=== PATIENT | male | born 1985 | race American Indian/Alaskan Native ===

== ENCOUNTER 2016-10-03 13:42 | Inpatient (IN) | payer MEDICAID ==
[2016-10-03 14:30] LABS: Basophils % (Auto) 0.3 % (0.0-1.8); Eosinophils % (Auto) 0.2 % (0.0-4.3); Hematocrit 47.9 % (35.5-45.6); Hemoglobin 15.5 gm/dl (11.8-15.2); Mean Corpuscular HGB Conc 32 % (32-34); Mean Corpuscular Hemoglobin 30 pg (28-32); Mean Corpuscular Volume 94 fl (84-94); Platelet Count 365 K/mm3 (140-440); Red Blood Count 5.12 M/mm3 (3.65-5.03); Red Cell Distribution Width 13.5 % (13.2-15.2); White Blood Count 10.5 K/mm3 (4.5-11.0)
[2016-10-03] MEDS ORDERED: MORPHINE IV ONE (14:31)
[2016-10-03] MEDS ORDERED: PEPCID IV ONE (14:31)
[2016-10-03] MEDS ORDERED: NACL 0.9% 1000 ML 1,000 ML IV ONE ×2 (14:31→14:32)
[2016-10-03] MEDS ORDERED: TORADOL IV ONE (14:31)
[2016-10-03] MEDS ORDERED: D50W (25GM) IV PRN (14:32)
[2016-10-03 14:50] LABS: Magnesium 2.7 mg/dL (1.7-2.3); Phosphorous 9.1 mg/dL (2.5-4.5)
[2016-10-03 14:52] LABS: Alanine Aminotransferase 45 units/L (7-56); Albumin 4.6 g/dL (3.9-5); Albumin/Globulin Ratio 1.4 %; Alkaline Phosphatase 89 units/L (35-129); Bilirubin,Total 0.3 mg/dL (0.1-1.2); Lipase 13 units/L (13-60)
[2016-10-03 14:54] LABS: Bilirubin,Direct < 0.2 mg/dL (0-0.2); Blood Urea Nitrogen 24 mg/dL (9-20); Calcium 11.3 mg/dL (8.4-10.2); Chloride 83.4 mmol/L (98-107); Sodium 139 mmol/L (137-145)
[2016-10-03 14:56] LABS: Carbon Dioxide 8 mmol/L (22-30)
[2016-10-03 14:57] LABS: Anion Gap 54 mmol/L; Glucose 678 mg/dL (75-100); Potassium 6.3 mmol/L (3.6-5.0)
[2016-10-03] MEDS ORDERED: NovoLIN R 100 UNITS in NACL 0.9% 99 ML IV SCH (15:00)
--- NOTE | 2016-10-03 15:00 | Emergency Department Report ---
ED Abdominal Pain HPI - General Chief Complaint: Hyperglycemia Stated Complaint: HYPERGLYCEMIA Time Seen by Provider: 10/03/16 14:09 Source: EMS Mode of arrival: Stretcher Limitations: No Limitations - History of Present Illness Initial Comments: PLEASE DELETE CHART. ALTERNATIVE CHART CREATED DUE TO [place] ISSUE Severity scale (0 -10): 5 - Related Data Home Medications Medication Instructions Recorded Confirmed Last Taken Insulin NPH/Regular [NovoLIN 70/30] 25 unit SQ ACHS 03/24/16 10/03/16 Unknown Previous Rx's Medication Instructions Recorded Last Taken Type Divalproex Dr [Depakote Dr] 500 mg PO QHS #30 tablet 04/27/15 Unknown Rx Divalproex Sodium [Depakote] 250 mg PO QAM #30 tablet. 04/27/15 Unknown Rx Esomeprazole Magnesium [NexIUM] 40 mg PO QDAY #30 capsule. 04/27/15 Unknown Rx Syringe & Needle,Insulin,1 ml 1 each MC TID 30 Days 06/07/15 Unknown Rx [Comfort Ez] Gabapentin [Neurontin] 600 mg PO Q8H #90 tablet 07/05/15 Unknown Rx oxyCODONE /ACETAMINOPHEN [Percocet 1 tab PO Q6HR PRN #15 tablet 03/12/16 Unknown Rx 5/325] Insulin NPH/Regular [Novolin 70/30] 25 unit SUB-Q BID #1 vial 03/26/16 Unknown Rx Allergies Allergy/AdvReac Type Severity Reaction Status Date / Time banana Allergy Severe Angioedema Verified 09/07/14 04:24 egg Allergy Unknown Verified 09/07/14 04:24 ED Review of Systems ROS: Stated complaint: HYPERGLYCEMIA Other details as noted in HPI ED Past Medical Hx - Past Medical History Hx Hypertension: No Hx CVA: No Hx Heart Attack/AMI: No Hx Congestive Heart Failure: No Hx Diabetes: Yes (14years ago) Hx Deep Vein Thrombosis: No Hx Pulmonary Embolism: No Hx GERD: Yes Hx Liver Disease: No Hx Renal Disease: No Hx Sickle Cell Disease: No Hx Arthritis: No Hx Headaches / Migraines: No Hx Seizures: Yes Hx Kidney Stones: No Hx Psychiatric Treatment: Yes (bipolar ;schizophrenia) Hx Asthma: No Hx COPD: No Hx Tuberculosis: No Hx Dementia: No Hx HIV: No - Surgical History Hx Coronary Stent: No Hx Open Heart Surgery: No Hx Pacemaker: No Hx Internal Defibrillator: No Hx Cholecystectomy: No Hx Appendectomy: No Hx Breast Surgery: No Additional Surgical History: r) wrist surgery - Social History Smoking Status: Current Every Day Smoker - Medications Home Medications: Home Medications Medication Instructions Recorded Confirmed Last Taken Type Divalproex [Depakote ] 500 mg PO QHS #30 tablet 04/27/15 10/03/16 Unknown Rx Divalproex Sodium [Depakote] 250 mg PO QAM #30 tablet. 04/27/15 10/03/16 Unknown Rx Esomeprazole Magnesium [NexIUM] 40 mg PO QDAY #30 capsule. 04/27/15 10/03/16 Unknown Rx Syringe & Needle,Insulin,1 ml 1 each MC TID 30 Days 06/07/15 10/03/16 Unknown Rx [Comfort Ez] Gabapentin [Neurontin] 600 mg PO Q8H #90 tablet 07/05/15 10/03/16 Unknown Rx oxyCODONE /ACETAMINOPHEN [Percocet 1 tab PO Q6HR PRN #15 tablet 03/12/16 Unknown Rx 5/325] Insulin NPH/Regular [NovoLIN 70/30] 25 unit SQ ACHS 03/24/16 10/03/16 Unknown History Insulin NPH/Regular [Novolin 70/30] 25 unit SUB-Q BID #1 vial 03/26/16 10/03/16 Unknown Rx ED Physical Exam - General Limitations: No Limitations ED Course Vital Signs 10/03/16 10/03/16 10/03/16 14:10 14:20 14:31 Temperature 98.9 F Pulse Rate 102 H 128 H Respiratory 14 29 H Rate Blood Pressure 118/86 118/86 Blood Pressure 124/67 [Right] O2 Sat by Pulse 98 100 Oximetry 10/03/16 10/03/16 10/03/16 14:41 14:42 15:01 Temperature Pulse Rate 111 H Respiratory 14 14 20 Rate Blood Pressure 118/86 Blood Pressure [Right] O2 Sat by Pulse Oximetry 10/03/16 10/03/16 15:02 15:30 Temperature Pulse Rate 110 H Respiratory 24 22 Rate Blood Pressure 114/77 Blood Pressure [Right] O2 Sat by Pulse 100 Oximetry ED Medical Decision Making - Lab Data Result diagrams: 10/03/16 14:05 10/04/16 07:01 Critical care attestation.: If time is entered above; I have spent that time in minutes in the direct care of this critically ill patient, excluding procedure time. ED Disposition Clinical Impression: Noncompliance, Hyperkalemia, Abdominal pain, Vomiting, Acute renal insufficiency, Hyperkalemia, transcellular shifts DKA (diabetic ketoacidoses) Qualifiers: Diabetes mellitus type: type 1 Bipolar disorder Qualifiers: Active/Remission status: in full remission Most recent bipolar episode type: mixed Qualified Code(s): F31.78 - Bipolar disorder, in full remission, most recent episode mixed Disposition: OP ADMITTED IP TO THIS HOSP Is pt being admited?: Yes Condition: Stable
[2016-10-03 15:15] LABS: B-Hydroxybutyrate 161.7 mg/dL (0.2-2.8)
[2016-10-03] MEDS ORDERED: NACL 0.9% 1000 ML 1,000 ML ONE (17:07)
[2016-10-03 17:11] LABS: Bacteria,Urine 1+ /HPF (Negative); Bilirubin,Urine NEG (Negative); Blood,Urine NEG (Negative); Ketones,Urine 80 mg/dL (Negative); Leukocyte Esterase,Urine NEG (Negative); Mucus,Urine FEW /HPF; Nitrite,Urine NEG (Negative); Protein,Urine <15 mg/dL mg/dL (Negative); Urobilinogen,Urine < 2.0 mg/dL (<2.0); WBC,Urine < 1.0 /HPF (0.0-6.0)
[2016-10-03 18:44] LABS: Anion Gap 39 mmol/L; BUN/Creatinine Ratio 14.66; Blood Urea Nitrogen 22 mg/dL (9-20); Calcium 10.1 mg/dL (8.4-10.2); Carbon Dioxide 14 mmol/L (22-30); Chloride 100.8 mmol/L (98-107); Glucose 213 mg/dL (75-100); Potassium 4.4 mmol/L (3.6-5.0); Sodium 149 mmol/L (137-145)
--- NOTE | 2016-10-03 19:36 | Emergency Department Report ---
ED Abdominal Pain HPI - General Chief Complaint: Hyperglycemia Stated Complaint: HYPERGLYCEMIA Time Seen by Provider: 10/03/16 14:09 Source: EMS Mode of arrival: Stretcher Limitations: No Limitations - History of Present Illness Initial Comments: 30-year-old male with a past medical history of insulin dependent diabetes presents to the hospital complaining of nausea, vomiting, and abdominal pain. Patient has been noncompliant with his insulin for 2-3 days since running out. Yesterday he developed vomiting with by mouth intolerance and generalized abdominal pain. Pain is moderate in intensity, constant, worse with palpation. No complaints of fever. History of DKA in the past Severity scale (0 -10): 6 - Related Data Home Medications Medication Instructions Recorded Confirmed Last Taken Insulin NPH/Regular [NovoLIN 70/30] 25 unit SQ ACHS 03/24/16 10/03/16 Unknown Previous Rx's Medication Instructions Recorded Last Taken Type Divalproex Dr [Depakote Dr] 500 mg PO QHS #30 tablet 04/27/15 Unknown Rx Divalproex Sodium [Depakote] 250 mg PO QAM #30 tablet. 04/27/15 Unknown Rx Esomeprazole Magnesium [NexIUM] 40 mg PO QDAY #30 capsule. 04/27/15 Unknown Rx Syringe & Needle,Insulin,1 ml 1 each MC TID 30 Days 06/07/15 Unknown Rx [Comfort Ez] Gabapentin [Neurontin] 600 mg PO Q8H #90 tablet 07/05/15 Unknown Rx oxyCODONE /ACETAMINOPHEN [Percocet 1 tab PO Q6HR PRN #15 tablet 03/12/16 Unknown Rx 5/325] Insulin NPH/Regular [Novolin 70/30] 25 unit SUB-Q BID #1 vial 03/26/16 Unknown Rx Allergies Allergy/AdvReac Type Severity Reaction Status Date / Time banana Allergy Severe Angioedema Verified 09/07/14 04:24 egg Allergy Unknown Verified 09/07/14 04:24 ED Review of Systems ROS: Stated complaint: HYPERGLYCEMIA Other details as noted in HPI Comment: All other systems reviewed and negative Other: Constitutional: No fevers chills Eyes: No eye pain visual changes or discharge ENT: No ear pain or throat pain Neck: Denies pain Respiratory: Denies cough wheezing shortness of breath Cardiovascular: Denies chest pain, palpitations, syncope GI: As per HPI : Denies dysuria Musculoskeletal: Denies back pain Skin: Denies rash, lesions, erythema Neurologic: Denies headache, numbness, weakness Psychiatric: Denies suicidal ideation, hallucinations ED Past Medical Hx - Past Medical History Hx Hypertension: No Hx CVA: No Hx Heart Attack/AMI: No Hx Congestive Heart Failure: No Hx Diabetes: Yes Hx Deep Vein Thrombosis: No Hx Pulmonary Embolism: No Hx GERD: Yes Hx Liver Disease: No Hx Renal Disease: No Hx Sickle Cell Disease: No Hx Arthritis: No Hx Headaches / Migraines: No Hx Seizures: Yes Hx Kidney Stones: No Hx Psychiatric Treatment: Yes (bipolar ;schizophrenia) Hx Asthma: Yes Hx COPD: No Hx Tuberculosis: No Hx Dementia: No Hx HIV: No - Surgical History Hx Coronary Stent: No Hx Open Heart Surgery: No Hx Pacemaker: No Hx Internal Defibrillator: No Hx Cholecystectomy: No Hx Appendectomy: No Hx Breast Surgery: No Additional Surgical History: r) wrist surgery - Social History Smoking Status: Current Every Day Smoker - Medications Home Medications: Home Medications Medication Instructions Recorded Confirmed Last Taken Type Divalproex [Depakosoo Crocker] 500 mg PO QHS #30 tablet 04/27/15 10/03/16 Unknown Rx Divalproex Sodium [Depakote] 250 mg PO QAM #30 tablet. 04/27/15 10/03/16 Unknown Rx Esomeprazole Magnesium [NexIUM] 40 mg PO QDAY #30 capsule. 04/27/15 10/03/16 Unknown Rx Syringe & Needle,Insulin,1 ml 1 each MC TID 30 Days 06/07/15 10/03/16 Unknown Rx [Comfort Ez] Gabapentin [Neurontin] 600 mg PO Q8H #90 tablet 07/05/15 10/03/16 Unknown Rx oxyCODONE /ACETAMINOPHEN [Percocet 1 tab PO Q6HR PRN #15 tablet 03/12/16 Unknown Rx 5/325] Insulin NPH/Regular [NovoLIN 70/30] 25 unit SQ ACHS 03/24/16 10/03/16 Unknown History Insulin NPH/Regular [Novolin 70/30] 25 unit SUB-Q BID #1 vial 03/26/16 10/03/16 Unknown Rx ED Physical Exam - General Limitations: No Limitations - Other Other exam information: General: No limitations, patient is alert in no acute distress Head exam: Atraumatic, normocephalic Eyes exam: Normal appearance, pupils equal reactive to light, extraocular movements intact ENT: mucous membranes Neck exam: Normal inspection, full range of motion, no meningismus nontender Respiratory exam: Clear to auscultation bilateral, no wheezes, rales, crackles Cardiovascular: Mild tachycardia Abdomen: Soft, nondistended, generalized abdominal tenderness, with normal bowel sounds, no rebound, or guarding Extremity: Full range of motion normal inspection no deformity Back: Normal Inspection, full range of motion, no tenderness Neurologic: Alert, oriented x3, cranial nerves intact, no motor or sensory deficit Psychiatric: normal affect, normal mood Skin: Warm, dry, intact ED Course Vital Signs 10/03/16 10/03/16 10/03/16 14:10 14:20 14:31 Temperature 98.9 F Pulse Rate 102 H 128 H Respiratory 14 29 H Rate Blood Pressure 118/86 118/86 Blood Pressure 124/67 [Right] O2 Sat by Pulse 98 100 Oximetry 10/03/16 10/03/16 10/03/16 14:41 14:42 15:01 Temperature Pulse Rate 111 H Respiratory 14 14 20 Rate Blood Pressure 118/86 Blood Pressure [Right] O2 Sat by Pulse Oximetry 10/03/16 10/03/16 10/03/16 15:02 15:30 16:00 Temperature Pulse Rate 110 H 109 H Respiratory 24 22 23 Rate Blood Pressure 114/77 116/79 Blood Pressure [Right] O2 Sat by Pulse 100 100 Oximetry 10/03/16 10/03/16 16:31 18:00 Temperature 97.6 F Pulse Rate 118 H Respiratory 19 Rate Blood Pressure 115/84 Blood Pressure [Right] O2 Sat by Pulse 100 Oximetry ED Medical Decision Making - Lab Data Result diagrams: 10/03/16 14:05 10/03/16 18:05 Lab Results 10/03/16 10/03/16 10/03/16 Range/Units 14:05 14:05 14:05 WBC 10.5 (4.5-11.0) K/mm3 RBC 5.12 H (3.65-5.03) M/mm3 Hgb 15.5 H (11.8-15.2) gm/dl Hct 47.9 H (35.5-45.6) % MCV 94 (84-94) fl MCH 30 (28-32) pg MCHC 32 (32-34) % RDW 13.5 (13.2-15.2) % Plt Count 365 (140-440) K/mm3 Lymph % (Auto) 10.4 L (13.4-35.0) % Daniels % (Auto) 3.9 (0.0-7.3) % Eos % (Auto) 0.2 (0.0-4.3) % Baso % (Auto) 0.3 (0.0-1.8) % Lymph # 1.1 L (1.2-5.4) K/mm3 Daniels # 0.4 (0.0-0.8) K/mm3 Eos # 0.0 (0.0-0.4) K/mm3 Baso # 0.0 (0.0-0.1) K/mm3 Seg Neutrophils % 85.2 H (40.0-70.0) % Seg Neutrophils # 8.9 H (1.8-7.7) K/mm3 VBG pH 7.268 L (7.320-7.420) Sodium 139 (137-145) mmol/L Potassium 6.3 H* (3.6-5.0) mmol/L Chloride 83.4 L (98-107) mmol/L Carbon Dioxide 8 L* (22-30) mmol/L Anion Gap 54 mmol/L BUN 24 H (9-20) mg/dL Creatinine 1.6 H (0.8-1.5) mg/dL Estimated GFR > 60 ml/min BUN/Creatinine Ratio 15.00 % Glucose 678 H* (75-100) mg/dL POC Glucose (70-105) Calcium 11.3 H (8.4-10.2) mg/dL Phosphorus (2.5-4.5) mg/dL Magnesium (1.7-2.3) mg/dL Total Bilirubin (0.1-1.2) mg/dL Direct Bilirubin (0-0.2) mg/dL AST (5-40) units/L ALT (7-56) units/L Alkaline Phosphatase (35-129) units/L Total Protein (6.3-8.2) g/dL Albumin (3.9-5) g/dL Albumin/Globulin Ratio % Lipase (13-60) units/L Urine Color (Yellow) Urine Turbidity (Clear) Urine pH (5.0-7.0) Ur Specific [place] (1.003-1.030) Urine Protein (Negative) mg/dL Urine Glucose (UA) (Negative) mg/dL Urine Ketones (Negative) mg/dL Urine Blood (Negative) Urine Nitrite (Negative) Urine Bilirubin (Negative) Urine Urobilinogen (<2.0) mg/dL Ur Leukocyte Esterase (Negative) Urine WBC (Auto) (0.0-6.0) /HPF Urine RBC (Auto) (0.0-6.0) /HPF Urine Bacteria (Auto) (Negative) /HPF Urine Mucus /HPF Ketones 161.7 H (0.2-2.8) mg/dL 10/03/16 10/03/16 10/03/16 Range/Units 14:05 14:05 16:50 WBC (4.5-11.0) K/mm3 RBC (3.65-5.03) M/mm3 Hgb (11.8-15.2) gm/dl Hct (35.5-45.6) % MCV (84-94) fl MCH (28-32) pg MCHC (32-34) % RDW (13.2-15.2) % Plt Count (140-440) K/mm3 Lymph % (Auto) (13.4-35.0) % Daniels % (Auto) (0.0-7.3) % Eos % (Auto) (0.0-4.3) % Baso % (Auto) (0.0-1.8) % Lymph # (1.2-5.4) K/mm3 Daniels # (0.0-0.8) K/mm3 Eos # (0.0-0.4) K/mm3 Baso # (0.0-0.1) K/mm3 Seg Neutrophils % (40.0-70.0) % Seg Neutrophils # (1.8-7.7) K/mm3 VBG pH (7.320-7.420) Sodium (137-145) mmol/L Potassium (3.6-5.0) mmol/L Chloride (98-107) mmol/L Carbon Dioxide (22-30) mmol/L Anion Gap mmol/L BUN (9-20) mg/dL Creatinine (0.8-1.5) mg/dL Estimated GFR ml/min BUN/Creatinine Ratio % Glucose (75-100) mg/dL POC Glucose 356 H (70-105) Calcium (8.4-10.2) mg/dL Phosphorus 9.1 H (2.5-4.5) mg/dL Magnesium 2.7 H (1.7-2.3) mg/dL Total Bilirubin 0.3 (0.1-1.2) mg/dL Direct Bilirubin < 0.2 (0-0.2) mg/dL AST 32 (5-40) units/L ALT 45 (7-56) units/L Alkaline Phosphatase 89 (35-129) units/L Total Protein 8.0 (6.3-8.2) g/dL Albumin 4.6 (3.9-5) g/dL Albumin/Globulin Ratio 1.4 % Lipase 13 (13-60) units/L Urine Color (Yellow) Urine Turbidity (Clear) Urine pH (5.0-7.0) Ur Specific [place] (1.003-1.030) Urine Protein (Negative) mg/dL Urine Glucose (UA) (Negative) mg/dL Urine Ketones (Negative) mg/dL Urine Blood (Negative) Urine Nitrite (Negative) Urine Bilirubin (Negative) Urine Urobilinogen (<2.0) mg/dL Ur Leukocyte Esterase (Negative) Urine WBC (Auto) (0.0-6.0) /HPF Urine RBC (Auto) (0.0-6.0) /HPF Urine Bacteria (Auto) (Negative) /HPF Urine Mucus /HPF Ketones (0.2-2.8) mg/dL 10/03/16 10/03/16 10/03/16 Range/Units 16:53 18:03 18:05 WBC (4.5-11.0) K/mm3 RBC (3.65-5.03) M/mm3 Hgb (11.8-15.2) gm/dl Hct (35.5-45.6) % MCV (84-94) fl MCH (28-32) pg MCHC (32-34) % RDW (13.2-15.2) % Plt Count (140-440) K/mm3 Lymph % (Auto) (13.4-35.0) % Daniels % (Auto) (0.0-7.3) % Eos % (Auto) (0.0-4.3) % Baso % (Auto) (0.0-1.8) % Lymph # (1.2-5.4) K/mm3 Daniels # (0.0-0.8) K/mm3 Eos # (0.0-0.4) K/mm3 Baso # (0.0-0.1) K/mm3 Seg Neutrophils % (40.0-70.0) % Seg Neutrophils # (1.8-7.7) K/mm3 VBG pH (7.320-7.420) Sodium 149 H D (137-145) mmol/L Potassium 4.4 D (3.6-5.0) mmol/L Chloride 100.8 (98-107) mmol/L Carbon Dioxide 14 L (22-30) mmol/L Anion Gap 39 mmol/L BUN 22 H (9-20) mg/dL Creatinine 1.5 (0.8-1.5) mg/dL Estimated GFR > 60 ml/min BUN/Creatinine Ratio 14.66 % Glucose 213 H (75-100) mg/dL POC Glucose 242 H (70-105) Calcium 10.1 (8.4-10.2) mg/dL Phosphorus (2.5-4.5) mg/dL Magnesium (1.7-2.3) mg/dL Total Bilirubin (0.1-1.2) mg/dL Direct Bilirubin (0-0.2) mg/dL AST (5-40) units/L ALT (7-56) units/L Alkaline Phosphatase (35-129) units/L Total Protein (6.3-8.2) g/dL Albumin (3.9-5) g/dL Albumin/Globulin Ratio % Lipase (13-60) units/L Urine Color Straw (Yellow) Urine Turbidity Clear (Clear) Urine pH 5.0 (5.0-7.0) Ur Specific [place] 1.022 (1.003-1.030) Urine Protein <15 mg/dl (Negative) mg/dL Urine Glucose (UA) >=500 (Negative) mg/dL Urine Ketones 80 (Negative) mg/dL Urine Blood Neg (Negative) Urine Nitrite Neg (Negative) Urine Bilirubin Neg (Negative) Urine Urobilinogen < 2.0 (<2.0) mg/dL Ur Leukocyte Esterase Neg (Negative) Urine WBC (Auto) < 1.0 (0.0-6.0) /HPF Urine RBC (Auto) 3.0 (0.0-6.0) /HPF Urine Bacteria (Auto) 1+ (Negative) /HPF Urine Mucus Few /HPF Ketones (0.2-2.8) mg/dL 10/03/16 Range/Units 19:12 WBC (4.5-11.0) K/mm3 RBC (3.65-5.03) M/mm3 Hgb (11.8-15.2) gm/dl Hct (35.5-45.6) % MCV (84-94) fl MCH (28-32) pg MCHC (32-34) % RDW (13.2-15.2) % Plt Count (140-440) K/mm3 Lymph % (Auto) (13.4-35.0) % Daniels % (Auto) (0.0-7.3) % Eos % (Auto) (0.0-4.3) % Baso % (Auto) (0.0-1.8) % Lymph # (1.2-5.4) K/mm3 Daniels # (0.0-0.8) K/mm3 Eos # (0.0-0.4) K/mm3 Baso # (0.0-0.1) K/mm3 Seg Neutrophils % (40.0-70.0) % Seg Neutrophils # (1.8-7.7) K/mm3 VBG pH (7.320-7.420) Sodium (137-145) mmol/L Potassium (3.6-5.0) mmol/L Chloride (98-107) mmol/L Carbon Dioxide (22-30) mmol/L Anion Gap mmol/L BUN (9-20) mg/dL Creatinine (0.8-1.5) mg/dL Estimated GFR ml/min BUN/Creatinine Ratio % Glucose (75-100) mg/dL POC Glucose 140 H (70-105) Calcium (8.4-10.2) mg/dL Phosphorus (2.5-4.5) mg/dL Magnesium (1.7-2.3) mg/dL Total Bilirubin (0.1-1.2) mg/dL Direct Bilirubin (0-0.2) mg/dL AST (5-40) units/L ALT (7-56) units/L Alkaline Phosphatase (35-129) units/L Total Protein (6.3-8.2) g/dL Albumin (3.9-5) g/dL Albumin/Globulin Ratio % Lipase (13-60) units/L Urine Color (Yellow) Urine Turbidity (Clear) Urine pH (5.0-7.0) Ur Specific [place] (1.003-1.030) Urine Protein (Negative) mg/dL Urine Glucose (UA) (Negative) mg/dL Urine Ketones (Negative) mg/dL Urine Blood (Negative) Urine Nitrite (Negative) Urine Bilirubin (Negative) Urine Urobilinogen (<2.0) mg/dL Ur Leukocyte Esterase (Negative) Urine WBC (Auto) (0.0-6.0) /HPF Urine RBC (Auto) (0.0-6.0) /HPF Urine Bacteria (Auto) (Negative) /HPF Urine Mucus /HPF Ketones (0.2-2.8) mg/dL - EKG Data -: EKG Interpreted by Me (sinus tach, no stemi, no peak t) - Medical Decision Making Patient will be admitted to the hospital for further treatment of DKA with associated hyperkalemia. IV fluids, insulin bolus, and insulin drip initiated. At this time I believe that GI symptoms are related to DKA however, patient would need further reassessment of his symptoms and possible imaging if he does not improve. - Differential Diagnosis dka, pancreatitis, hepatitis, appendicitis Critical Care Time: No Critical care attestation.: If time is entered above; I have spent that time in minutes in the direct care of this critically ill patient, excluding procedure time. ED Disposition Clinical Impression: DKA (diabetic ketoacidoses), Hyperkalemia, transcellular shifts, Acute renal insufficiency, Vomiting, Noncompliance, Abdominal pain Disposition: OP ADMITTED IP TO THIS HOSP Is pt being admited?: Yes Condition: Stable Time of Disposition: 15:00 (Deborah)
[2016-10-03 19:49] LABS: Anion Gap 35 mmol/L; BUN/Creatinine Ratio 17.69; Blood Urea Nitrogen 23 mg/dL (9-20); Calcium 9.6 mg/dL (8.4-10.2); Carbon Dioxide 12 mmol/L (22-30); Chloride 101.7 mmol/L (98-107); Glucose 153 mg/dL (75-100); Potassium 4.7 mmol/L (3.6-5.0); Sodium 144 mmol/L (137-145)
[2016-10-03] MEDS ORDERED: NEURONTIN PO SCH (21:00)
--- NOTE | 2016-10-03 21:16 | History and Physical Report ---
History of Present Illness Date of examination: 10/03/16 Date of admission: 10/03/16 15:00 Chief complaint: N/V for 1 day Abd pain 1 day History of present illness: 30-year-old male with a past medical history of insulin dependent diabetes presents to the hospital complaining of nausea, vomiting, and abdominal pain. Patient has been noncompliant with his insulin for 2-3 days since running out. Yesterday he developed vomiting with by mouth intolerance and generalized abdominal pain. Pain is moderate in intensity, constant, worse with palpation. No complaints of fever. History of DKA in the past Severity scale (0 -10): 6 No fever or chills Past History Past Medical History: diabetes, GERD, seizures, other (Bipolar;scizophrenia) Past Surgical History: Other (R Wrist surgery) Social history: lives with family, smoking Family history: hypertension Medications and Allergies Allergies Allergy/AdvReac Type Severity Reaction Status Date / Time banana Allergy Severe Angioedema Verified 09/07/14 04:24 egg Allergy Unknown Verified 09/07/14 04:24 Home Medications Medication Instructions Recorded Confirmed Last Taken Type Divalproex [Depakote ] 500 mg PO QHS #30 tablet 04/27/15 10/03/16 Unknown Rx Divalproex Sodium [Depakote] 250 mg PO QAM #30 tablet. 04/27/15 10/03/16 Unknown Rx Esomeprazole Magnesium [NexIUM] 40 mg PO QDAY #30 capsule. 04/27/15 10/03/16 Unknown Rx Syringe & Needle,Insulin,1 ml 1 each MC TID 30 Days 06/07/15 10/03/16 Unknown Rx [Comfort Ez] Gabapentin [Neurontin] 600 mg PO Q8H #90 tablet 07/05/15 10/03/16 Unknown Rx oxyCODONE /ACETAMINOPHEN [Percocet 1 tab PO Q6HR PRN #15 tablet 03/12/16 Unknown Rx 5/325] Insulin NPH/Regular [NovoLIN 70/30] 25 unit SQ ACHS 03/24/16 10/03/16 Unknown History Insulin NPH/Regular [Novolin 70/30] 25 unit SUB-Q BID #1 vial 03/26/16 10/03/16 Unknown Rx Active Meds: Active Medications Dextrose (D50w (25gm)) 0 ml IV PRN PRN PRN Reason: Hypoglycemia Divalproex Sodium (Depakote Dr) 500 mg PO QHS ANTONIA Divalproex Sodium (Depakote Dr) 250 mg PO QAM ANTONIA Insulin Human Regular 100 (units/ Sodium Chloride) 100 mls @ 1 mls/hr IV TITR ANTONIA; 1 UNITS/HR PRN Reason: Protocol Last Titration: 10/03/16 18:38 Dose: 4 units/hr, 4 mls/hr Insulin Human Isoph/Insulin Regular (Novolin 70/30) 25 unit SUB-Q BIDDIAB ANTONIA Miscellaneous Medication (Gabapentin [Neurontin]) 600 mg PO Q8H ANTONIA Oxycodone/Acetaminophen (Percocet 5/325) 1 tab PO Q6HR PRN PRN Reason: Pain Pantoprazole Sodium (Protonix) 40 mg PO QDAY ANTONIA Review of Systems All systems: negative Gastrointestinal: abdominal pain, nausea, vomiting Exam - Constitutional Vitals: Temp Pulse Resp BP Pulse Ox 97.6 F 118 H 19 115/84 100 10/03/16 18:00 10/03/16 16:31 10/03/16 16:31 10/03/16 16:31 10/03/16 16:31 General appearance: Present: no acute distress, well-nourished - EENT Eyes: Present: PERRL ENT: hearing intact, clear oral mucosa - Neck Neck: Present: supple, normal ROM - Respiratory Respiratory effort: normal Respiratory: bilateral: CTA - Cardiovascular Heart Sounds: Present: S1 & S2. Absent: rub, click - Extremities Extremities: pulses symmetrical, No edema Peripheral Pulses: within normal limits - Abdominal General gastrointestinal: Present: soft, non-tender, non-distended, normal bowel sounds Male genitourinary: Present: normal - Integumentary Integumentary: Present: clear, warm, dry - Musculoskeletal Musculoskeletal: gait normal, strength equal bilaterally - Psychiatric Psychiatric: appropriate mood/affect, intact judgment & insight - Neurologic Neurologic: CNII-XII intact, moves all extremities Results - Labs CBC & Chem 7: 10/03/16 14:05 10/03/16 19:28 Labs: Ketones 161.7 Abnormal lab results 10/03/16 10/03/16 10/03/16 Range/Units 16:50 18:03 18:05 Sodium 149 H D (137-145) mmol/L Carbon Dioxide 14 L (22-30) mmol/L BUN 22 H (9-20) mg/dL Glucose 213 H (75-100) mg/dL POC Glucose 356 H 242 H (70-105) 10/03/16 10/03/16 Range/Units 19:12 19:28 Sodium (137-145) mmol/L Carbon Dioxide 12 L (22-30) mmol/L BUN 23 H (9-20) mg/dL Glucose 153 H (75-100) mg/dL POC Glucose 140 H (70-105) Short CBC 10/03/16 Range/Units 14:05 WBC 10.5 (4.5-11.0) K/mm3 Hgb 15.5 H (11.8-15.2) gm/dl Hct 47.9 H (35.5-45.6) % Plt Count 365 (140-440) K/mm3 BMP 10/03/16 10/03/16 10/03/16 14:05 18:05 19:28 Sodium 139 149 H D 144 Potassium 6.3 H* 4.4 D 4.7 Chloride 83.4 L 100.8 101.7 Carbon Dioxide 8 L* 14 L 12 L BUN 24 H 22 H 23 H Creatinine 1.6 H 1.5 1.3 Glucose 678 H* 213 H 153 H Calcium 11.3 H 10.1 9.6 Liver Function 10/03/16 Range/Units 14:05 Total Bilirubin 0.3 (0.1-1.2) mg/dL Direct Bilirubin < 0.2 (0-0.2) mg/dL AST 32 (5-40) units/L ALT 45 (7-56) units/L Alkaline Phosphatase 89 (35-129) units/L Albumin 4.6 (3.9-5) g/dL Urine 10/03/16 Range/Units 16:53 Urine Color Straw (Yellow) Urine pH 5.0 (5.0-7.0) Ur Specific [place] 1.022 (1.003-1.030) Urine Protein <15 mg/dl (Negative) mg/dL Urine Glucose (UA) >=500 (Negative) mg/dL - Imaging and Cardiology EKG: report reviewed (Sinus Tachycardia) Assessment and Plan - Patient Problems (1) DKA (diabetic ketoacidoses) Current Visit: Yes Status: Acute Qualifiers: Diabetes mellitus type: type 1 Diabetes mellitus complication detail: D Plan to address problem: Non Compliant. DKA protocol initiated.Iv insuliin for now (2) Acute renal insufficiency Current Visit: Yes Status: Acute Plan to address problem: Bun/cr 24/1.6 IV fluids for now.Nephrology consult if necessary (3) Hyperkalemia, transcellular shifts Current Visit: Yes Status: Acute Plan to address problem: Should correct with IV Insulin (4) Noncompliance Current Visit: Yes Status: Acute Plan to address problem: Counselled (5) Bipolar disorder Current Visit: Yes Status: Chronic Qualifiers: Active/Remission status: in full remission Current bipolar episode type: C Current episode severity: C Psychotic features: P Most recent bipolar episode type: mixed Qualified Code(s): F31.78 - Bipolar disorder, in full remission, most recent episode mixed Plan to address problem: Started back on Depakote (6) GERD (gastroesophageal reflux disease) Current Visit: No Status: Chronic Qualifiers: Esophagitis presence: without esophagitis Qualified Code(s): K21.9 - Gastro -esophageal reflux disease without esophagitis Plan to address problem: On PPI's (7) Tobacco abuse Current Visit: No Status: Chronic Plan to address problem: Nicoderm patch (8) Seizure disorder Current Visit: Yes Status: Chronic Plan to address problem: Cont Gabapentin 600 mg po q 8 h (9) DVT prophylaxis Current Visit: Yes Status: Acute Plan to address problem: Lovenox 40 mg sq qd
[2016-10-03] MEDS ORDERED: MORPHINE IV PRN (21:35)
[2016-10-03] MEDS: PROTONIX PO SCH (21:45)
[2016-10-03] MEDS: PERCOCET 5/325 PO PRN (21:46)
[2016-10-03] MEDS ORDERED: D5W/0.45% NACL/KCL 20 MEQ 20 MEQ/1,000 ML BAG IV SCH (22:00)
[2016-10-03] MEDS: NEURONTIN PO SCH (22:13)
[2016-10-04] MEDS ORDERED: HALDOL IM PRN (00:22)
--- NOTE | 2016-10-04 03:00 | Admit Criteria Form ---
Admission Criteria Documentation: DIABETES Clinical Indications for Admission to Inpatient Care (Place 'X' for any and all applicable criteria): Admission is indicated by presence of ALL (if I & II) or ANY ONE (if III or IV) of the following (1)(2)(3)(4): [X ]I. Diabetes is uncontrolled as indicated by ANY ONE of the following: [ ]a) Diabetic ketoacidosis as indicated by ALL of the following (8): [ ]i) Hyperglycemia (eg, plasma glucose greater than 200 mg/ dL (11.1 mmol/L)) [ ]ii) Acidosis (eg, arterial pH less than 7.30, serum bicarbonate level less than 15 mEq/L (mmol/L)) [ ]iii) Moderate ketonuria or ketonemia [ ]b) Hyperglycemic hyperosmolar state as indicated by ALL of the following(9)(10): [ ]i) Neurologic dysfunction (eg, stupor, coma, hemiparesis , seizure)(13) [ ]ii) Plasma glucose greater than 600 mg/dL (33.3 mmol/L) [ ]iii) Serum osmolality greater than 320 mOsm/kg (mmol/kg) [X ]c) Severe signs or symptoms secondary to hyperglycemia indicated by ANY ONE of the following: [ ]i) Altered mental status(10) [ ]ii) Significant hypovolemia or dehydration [ ]iii) Intractable nausea or vomiting [ ]iv) Unexplained fever or severe infection [ X]v) Severe electrolyte abnormality (eg, hypokalemia, hyperkalemia, hypernatremia) [X ]II. Management at other levels of care (Also use Diabetes: Observation Care as appropriate) is not feasible because of ANY ONE of the following: [ X]a) Condition was not adequately corrected with treatment at other levels of care. [ ]b) Treatment at other levels of care is not appropriate because of condition severity (eg, hyperosmolar coma). [ ]III. Contraindications and/or Inappropriate clinical situations for Observational Care in patients with Diabetes, when ANY ONE of the following is required: [ ]a) Patient require specific diagnostic workup or therapeutic intervention 22 [ ]b) Patient with abnormal vital signs or altered mental status 23 [ X]IV. General contraindications and/or Inappropriate clinical situations for Observational Care in patients with Diabetes, when ANY ONE of the following is required: [ X]a) Prediction of prolongation of LOS based on ANY ONE of the following may be considered as a contraindication for observational care 2, 3, 4, 5, 6, 7, 8, 9, 10, 11 [ ]i) Age > 65 yrs. [ ]ii) Patient arriving by ambulance [ ]iii) Patient with high acuity [ ]iv) Patient requiring vital sign monitoring [X ]v) Patient on IV medication [ ]b) Systolic blood pressures 180mmHg 3,12 [ ]c) Patient with altered mental status including delirium and other alteration of consciousness, (3) [ ]d) Patient whose discharge disposition will be to a [facility] home or rehabilitation home should not be managed in Emergency Department Observation Unit. CMS rule requires 3 days hospital stay before such placement.3,13 [ ]e) Patient with failure to thrive due to broad array of etiologies 3,16,17 [ ]f) Inability to ambulate 3,14 Extended stay beyond goal length of stay may be needed for(3)(20): [ ]a) Treatment of precipitating causes [ ]b) Development of hypoglycemia [ ]c) Complications of treatment [ ]d) Complications of decompensated diabetes (eg, acute gastric dilatation, persistent metabolic or neurologic derangement) [ ]e) Active Comorbidities [ ]f) Older patients( 65 years or older) The original [facility] content created by [employer] has been revised. The portions of the content which have been revised are identified through the use of italic text or in bold,and [facility] has neither reviewed nor approved the modified material. All other unmodified content is copyright [facility]. Please see references footnoted in the original [facility] edition 2016 Admission Criteria Met: Yes
[2016-10-04] MEDS: PERCOCET 5/325 PO PRN ×3 (07:01→19:49)
[2016-10-04] MEDS: NEURONTIN PO SCH ×3 (07:04→21:35)
[2016-10-04 07:45] LABS: BUN/Creatinine Ratio 18.18; Blood Urea Nitrogen 20 mg/dL (9-20); Calcium 8.9 mg/dL (8.4-10.2); Carbon Dioxide 20 mmol/L (22-30); Glucose 194 mg/dL (75-100); Potassium 4.1 mmol/L (3.6-5.0); Sodium 144 mmol/L (137-145)
[2016-10-04 07:46] LABS: Anion Gap 25 mmol/L
[2016-10-04] MEDS: PROTONIX PO SCH (09:58)
[2016-10-04] MEDS: NACL 0.9% 1000 ML 1,000 ML IV SCH ×2 (09:59→13:06)
[2016-10-04] MEDS ORDERED: PROTONIX PO SCH (10:00)
[2016-10-04] MEDS ORDERED: D5W/0.45% NACL/KCL 20 MEQ 20 MEQ/1,000 ML BAG IV SCH (10:00)
--- NOTE | 2016-10-04 11:09 | Consultation ---
History of Present Illness Consult date: 10/04/16 Requesting physician: SHAR PATTERSON Reason for consult: other (DKA) History of present illness: PULMONARY CONSULT NOTE (Full dictation # ) Please see dictated notes for full details Past History Past Medical History: diabetes, GERD, seizures, other (Bipolar;scizophrenia) Past Surgical History: Other (R Wrist surgery) Social history: lives with family, smoking Family history: hypertension Medications and Allergies Allergies Allergy/AdvReac Type Severity Reaction Status Date / Time banana Allergy Severe Angioedema Verified 09/07/14 04:24 egg Allergy Unknown Verified 09/07/14 04:24 Home Medications Medication Instructions Recorded Confirmed Last Taken Type Divalproex [Waldemar Crocker] 500 mg PO QHS #30 tablet 04/27/15 10/03/16 Unknown Rx Divalproex Sodium [Depakote] 250 mg PO QAM #30 tablet. 04/27/15 10/03/16 Unknown Rx Esomeprazole Magnesium [NexIUM] 40 mg PO QDAY #30 capsule. 04/27/15 10/03/16 Unknown Rx Syringe & Needle,Insulin,1 ml 1 each MC TID 30 Days 06/07/15 10/03/16 Unknown Rx [Comfort Ez] Gabapentin [Neurontin] 600 mg PO Q8H #90 tablet 07/05/15 10/03/16 Unknown Rx oxyCODONE /ACETAMINOPHEN [Percocet 1 tab PO Q6HR PRN #15 tablet 03/12/16 Unknown Rx 5/325] Insulin NPH/Regular [NovoLIN 70/30] 25 unit SQ ACHS 03/24/16 10/03/16 Unknown History Insulin NPH/Regular [Novolin 70/30] 25 unit SUB-Q BID #1 vial 03/26/16 10/03/16 Unknown Rx Active Meds: Active Medications Divalproex Sodium (Waldemar Crocker) 500 mg PO QHS [facility] Last Admin: 10/03/16 22:12 Dose: 500 mg Divalproex Sodium (Waldemar Crocker) 250 mg PO QAM [facility] Last Admin: 10/04/16 09:58 Dose: 250 mg Gabapentin (Neurontin) 600 mg PO Q8H [facility] Last Admin: 10/04/16 07:04 Dose: 600 mg Haloperidol Lactate (Haldol) 5 mg IM Q6H PRN PRN Reason: Agitation Sodium Chloride (Nacl 0.9% 1000 Ml) 1,000 mls @ 150 mls/hr IV DIRECT ANTONIA Last Admin: 10/04/16 09:59 Dose: 150 mls/hr Insulin Aspart (Novolog) 0 units SUB-Q ACHS ANTONIA PRN Reason: Protocol Morphine Sulfate (Morphine) 4 mg IV Q4H PRN PRN Reason: Pain, Moderate (4-6) Last Admin: 10/03/16 22:39 Dose: 4 mg Oxycodone/Acetaminophen (Percocet 5/325) 1 tab PO Q6H PRN PRN Reason: Pain, Moderate (4-6) Last Admin: 10/04/16 07:01 Dose: 1 tab Pantoprazole Sodium (Protonix) 40 mg PO QDAY ANTONIA Last Admin: 10/04/16 09:58 Dose: 40 mg Physical Examination Vital signs: Vital Signs Temp Pulse Resp BP Pulse Ox 98.9 F 102 H 14 124/67 98 10/03/16 14:10 10/03/16 14:10 10/03/16 14:10 10/03/16 14:10 10/03/16 14:10 Results - Laboratory Findings CBC and BMP: 10/03/16 14:05 10/04/16 07:01 Abnormal lab findings: Abnormal Labs 10/03/16 10/03/16 10/03/16 16:50 18:03 18:05 Sodium 149 H D Carbon Dioxide 14 L BUN 22 H Glucose 213 H POC Glucose 356 H 242 H Hemoglobin A1c 10/03/16 10/03/16 10/03/16 19:12 19:28 20:10 Sodium Carbon Dioxide 12 L BUN 23 H Glucose 153 H POC Glucose 140 H 184 H Hemoglobin A1c 10/03/16 10/03/16 10/04/16 21:14 22:10 02:04 Sodium Carbon Dioxide BUN Glucose POC Glucose 176 H 153 H 132 H Hemoglobin A1c 10/04/16 10/04/16 10/04/16 04:14 04:27 05:12 Sodium Carbon Dioxide BUN Glucose POC Glucose 164 H 143 H Hemoglobin A1c 12.4 H 10/04/16 07:01 Sodium Carbon Dioxide 20 L D BUN Glucose 194 H POC Glucose Hemoglobin A1c
[2016-10-04] MEDS: NOVOLOG SUB-Q SCH ×3 (12:02→21:36)
--- NOTE | 2016-10-04 13:28 | Progress Note ---
Assessment and Plan 1. DKA: Pt off insulin drip. On on SSI blood sugar under 180. continue with IVF with NS. Xfer to the floor 2. DM-II: Accuchek qac/hs, SSI high dose with Novolog. 3. Chest pain: EKG showed sinus tachy likely from dehydration from DKA. 4. Bipolar disorder: Remains stable. On Depakot, Gabapentin and Haldol. 5. DVT prophylaxis: 6. GI prohylaxis: Continue with Protonix 40 mg qd. Subjective Date of service: 10/04/16 Principal diagnosis: DKA Interval history: No overnight events. Objective - Constitutional Vitals: Vital Signs - 12hr 10/04/16 10/04/16 10/04/16 02:00 02:30 03:00 Temperature Pulse Rate 94 H 95 H Pulse Rate [ 97 H From Monitor] Pulse Rate [ Right Radial] Respiratory 13 13 Rate Respiratory Rate [none] Blood Pressure 105/65 103/73 O2 Sat by Pulse Oximetry 10/04/16 10/04/16 10/04/16 04:00 05:24 05:25 Temperature 97.9 F Pulse Rate 92 H 94 H 111 H Pulse Rate [ From Monitor] Pulse Rate [ Right Radial] Respiratory 14 19 25 H Rate Respiratory 28 H Rate [none] Blood Pressure 100/69 100/69 115/83 O2 Sat by Pulse 98 Oximetry 10/04/16 10/04/16 10/04/16 06:00 07:00 07:01 Temperature Pulse Rate 101 H 91 H Pulse Rate [ From Monitor] Pulse Rate [ Right Radial] Respiratory 17 21 25 H Rate Respiratory Rate [none] Blood Pressure 100/69 98/69 O2 Sat by Pulse Oximetry 10/04/16 10/04/16 10/04/16 07:37 07:46 08:00 Temperature 97.2 F L Pulse Rate 100 H Pulse Rate [ 101 H From Monitor] Pulse Rate [ 101 H Right Radial] Respiratory 17 17 Rate Respiratory Rate [none] Blood Pressure 128/83 126/83 O2 Sat by Pulse 100 100 Oximetry 10/04/16 10/04/16 10/04/16 09:00 10:00 10:20 Temperature Pulse Rate 103 H 106 H Pulse Rate [ 110 H From Monitor] Pulse Rate [ Right Radial] Respiratory 19 24 Rate Respiratory Rate [none] Blood Pressure 126/83 109/76 O2 Sat by Pulse Oximetry 10/04/16 10/04/16 10/04/16 11:00 12:00 12:42 Temperature Pulse Rate 103 H 102 H Pulse Rate [ 110 H From Monitor] Pulse Rate [ Right Radial] Respiratory 19 17 18 Rate Respiratory Rate [none] Blood Pressure 115/73 113/71 O2 Sat by Pulse 100 Oximetry General appearance: Present: no acute distress, well-nourished - EENT Eyes: PERRL, EOM intact ENT: hearing intact, clear oral mucosa Ears: bilateral: normal - Neck Neck: supple, normal ROM - Respiratory Respiratory effort: normal Respiratory: bilateral: CTA - Breasts Breasts: normal - Cardiovascular Rhythm: regular Heart Sounds: Present: S1 & S2. Absent: gallop, rub Extremities: pulses intact, No edema, normal color, Full ROM - Gastrointestinal General gastrointestinal: Present: soft, non-tender, non-distended, normal bowel sounds - Genitourinary Male genitourinary: normal - Integumentary Integumentary: clear, warm, dry - Musculoskeletal Musculoskeletal: 1, strength equal bilaterally - Neurologic Neurologic: moves all extremities - Psychiatric Psychiatric: memory intact, appropriate mood/affect, intact judgment & insight - Labs CBC & Chem 7: 10/03/16 14:05 10/04/16 07:01 Labs: Abnormal lab results 10/03/16 10/03/16 10/03/16 Range/Units 16:50 18:03 18:05 Sodium 149 H D (137-145) mmol/L Carbon Dioxide 14 L (22-30) mmol/L BUN 22 H (9-20) mg/dL Glucose 213 H (75-100) mg/dL POC Glucose 356 H 242 H (70-105) Hemoglobin A1c (4-6) % 10/03/16 10/03/16 10/03/16 Range/Units 19:12 19:28 20:10 Sodium (137-145) mmol/L Carbon Dioxide 12 L (22-30) mmol/L BUN 23 H (9-20) mg/dL Glucose 153 H (75-100) mg/dL POC Glucose 140 H 184 H (70-105) Hemoglobin A1c (4-6) % 10/03/16 10/03/16 10/04/16 Range/Units 21:14 22:10 02:04 Sodium (137-145) mmol/L Carbon Dioxide (22-30) mmol/L BUN (9-20) mg/dL Glucose (75-100) mg/dL POC Glucose 176 H 153 H 132 H (70-105) Hemoglobin A1c (4-6) % 10/04/16 10/04/16 10/04/16 Range/Units 04:14 04:27 05:12 Sodium (137-145) mmol/L Carbon Dioxide (22-30) mmol/L BUN (9-20) mg/dL Glucose (75-100) mg/dL POC Glucose 164 H 143 H (70-105) Hemoglobin A1c 12.4 H (4-6) % 10/04/16 10/04/16 Range/Units 07:01 11:04 Sodium (137-145) mmol/L Carbon Dioxide 20 L D (22-30) mmol/L BUN (9-20) mg/dL Glucose 194 H (75-100) mg/dL POC Glucose 467 H (70-105) Hemoglobin A1c (4-6) %
[2016-10-05] MEDS: NEURONTIN PO SCH (06:20)
[2016-10-05] MEDS: PERCOCET 5/325 PO PRN ×2 (06:23→12:25)
[2016-10-05] MEDS: NACL 0.9% 1000 ML 1,000 ML IV SCH (06:25)
[2016-10-05] MEDS: NOVOLOG SUB-Q SCH ×2 (08:25→12:17)
[2016-10-05 09:09] LABS: Anion Gap 14 mmol/L; Blood Urea Nitrogen 10 mg/dL (9-20); Calcium 8.2 mg/dL (8.4-10.2); Carbon Dioxide 26 mmol/L (22-30); Chloride 98.6 mmol/L (98-107); Glucose 469 mg/dL (75-100); Potassium 4.2 mmol/L (3.6-5.0); Sodium 134 mmol/L (137-145)
--- NOTE | 2016-10-05 10:43 | Discharge Summary ---
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 Notified:: y Was contact made?: Yes If yes, spoke with:: kate/larissa keller Time called:: 15:05 Primary care physician: COTTON TIPPER Hospitalization Condition: Good Disposition: DISCHARGED TO HOME OR SELFCARE - Discharge Diagnoses (1) DKA (diabetic ketoacidoses) Status: Acute Qualifiers: Diabetes mellitus type: type 1 Diabetes mellitus complication detail: D (2) Noncompliance Status: Chronic (3) GERD (gastroesophageal reflux disease) Status: Chronic Qualifiers: Esophagitis presence: without esophagitis Qualified Code(s): K21.9 - Gastro -esophageal reflux disease without esophagitis (4) Bipolar disorder Status: Chronic Qualifiers: Active/Remission status: in full remission Current bipolar episode type: C Current episode severity: C Psychotic features: P Most recent bipolar episode type: mixed Qualified Code(s): F31.78 - Bipolar disorder, in full remission, most recent episode mixed (5) Seizure disorder Status: Chronic Core Measure Documentation - Palliative Care Palliative Care/ Comfort Measures: Not Applicable Exam - Constitutional Vitals: Temp Pulse Resp BP Pulse Ox 98.1 F 80 18 98/59 100 10/05/16 07:25 10/05/16 07:25 10/05/16 07:25 10/05/16 07:25 10/05/16 07:25 Plan Activity: no driving until cleared by PCP Diet: diabetic Additional Instructions: 1.Follow up with PCP in 1 week. 2.Increase Levemir to 30 Units subcut BID Follow up with: PRIMARY CARE,MD [Primary Care Provider] - 3-5 Days Prescriptions: Esomeprazole Magnesium [NexIUM] 40 mg PO QDAY #30 capsule. Insulin Detemir [Levemir] 30 unit SQ BID #1 vial oxyCODONE /ACETAMINOPHEN [Percocet 5/325 mg] 1 tab PO Q6HR PRN #15 tablet PRN Reason: Pain
[2016-10-05] MEDS: PROTONIX PO SCH (11:17)
[2016-10-05 13:50] VITALS: BP 118/85
== END 2016-10-05 17:06 | disposition home or self-care (01) | DRG 638 ==
LOC: ED 13:42 → CC1 15:00 → 4A 10-04 19:14
PROVIDERS: ADMIT Internal Medicine; ATTEND Internal Medicine
DX: E10.10 Type 1 diabetes mellitus with ketoacidosis without coma (principal); N17.9 Acute kidney failure, unspecified; K21.9 Gastro-esophageal reflux disease without esophagitis; G40.909 Epilepsy, unspecified, not intractable, without status epilepticus; I49.8 Other specified cardiac arrhythmias; F20.9 Schizophrenia, unspecified; F17.210 Nicotine dependence, cigarettes, uncomplicated; F31.9 Bipolar disorder, unspecified; E87.5 Hyperkalemia; Z91.19 Patient's noncompliance with other medical treatment and regimen; Z82.49 Family history of ischemic heart disease and other diseases of the circulatory system; Z91.018 Allergy to other foods; Z91.012 Allergy to eggs
CPT/HCPCS: 36415; 80048; 80074; 81001; 82010; 82805; 82962; 83036; 83690; 83735; 84100; 85025; 93005; 93010; 96361; 96374; 96375; J1815; J1885; J2270; J7030

== ENCOUNTER 2017-08-17 22:22 | Inpatient (IN) | payer MEDICAID ==
[2017-08-17] MEDS ORDERED: ZOFRAN IV ONE (22:43)
[2017-08-17] MEDS ORDERED: DILAUDID IV ONE (22:43)
[2017-08-17] MEDS ORDERED: NACL 0.9% 1000 ML 1,000 ML IV ONE (22:45)
--- NOTE | 2017-08-17 22:45 | Emergency Department Report ---
ED General Adult HPI - General Chief complaint: Weakness Stated complaint: HIGH BLOOD SUGAR Time Seen by Provider: 08/17/17 22:35 Source: patient, EMS (verbal report received from EMS.ems notes not available at time of chart dictation), RN notes reviewed, old records reviewed Mode of arrival: Stretcher Limitations: Other (patient is a poor historian. Patient not forthcoming with information) - History of Present Illness Initial comments: Past medical history: Diabetes, diabetic ketoacidosis, bipolar, schizophrenia, seizure This is a 31-year-old male who was previously unknown to this provider, presenting to the ER with complaint "I have DKA." Patient reports weakness, nausea, malaise, fatigue, "passing out a few times." Patient cannot describe exacerbating or relieving factors or radiation. He also complains of diffuse abdominal pain. He cannot describe exacerbating or relieving factors for this either. Patient cannot state whether or not he has testicular pain, or whether or not he has urinary symptoms. Patient does indicate that he is not homicidal or suicidal. As per verbal report from EMS, patient recently discharged from [facility] for diabetic ketoacidosis, and was picked up without any evidence of trauma for complaint of the same. -: Gradual Location: abdomen Quality: other (per hpi) Consistency: other (per hpi) Improves with: other (per hpi) Worsens with: other (per hpi) Associated Symptoms: confusion, loss of appetite, malaise, nausea/vomiting, syncope, weakness - Related Data Previous Rx's Medication Instructions Recorded Last Taken Type Divalproex Dr [Waldemar Crocker] 500 mg PO QHS #30 tablet 04/27/15 Unknown Rx Divalproex Sodium [Depakote] 250 mg PO QAM #30 tablet. 04/27/15 Unknown Rx Syringe and Needle,Insulin,1Ml 1 each MC TID 30 Days disp.syrin 06/07/15 Unknown Rx [Comfort Ez] Gabapentin [Neurontin] 600 mg PO Q8H #90 tablet 07/05/15 Unknown Rx Esomeprazole Magnesium [NexIUM] 40 mg PO QDAY #30 capsule. 10/05/16 Unknown Rx Insulin Detemir [Levemir] 30 unit SQ BID #1 vial 10/05/16 Unknown Rx oxyCODONE /ACETAMINOPHEN [Percocet 1 tab PO Q6HR PRN #15 tablet 10/05/16 Unknown Rx 5/325 mg] Allergies Allergy/AdvReac Type Severity Reaction Status Date / Time banana Allergy Severe Angioedema Verified 09/07/14 04:24 egg Allergy Unknown Verified 09/07/14 04:24 ED Review of Systems ROS: Stated complaint: HIGH BLOOD SUGAR Other details as noted in HPI ED Past Medical Hx - Past Medical History Hx Hypertension: No Hx CVA: No Hx Heart Attack/AMI: No Hx Congestive Heart Failure: No Hx Diabetes: Yes (14years ago) Hx Deep Vein Thrombosis: No Hx Pulmonary Embolism: No Hx GERD: Yes Hx Liver Disease: No Hx Renal Disease: No Hx Sickle Cell Disease: No Hx Arthritis: No Hx Headaches / Migraines: No Hx Seizures: Yes Hx Kidney Stones: No Hx Psychiatric Treatment: Yes (bipolar ;schizophrenia) Hx Asthma: No Hx COPD: No Hx Tuberculosis: No Hx Dementia: No Hx HIV: No - Surgical History Hx Coronary Stent: No Hx Open Heart Surgery: No Hx Pacemaker: No Hx Internal Defibrillator: No Hx Cholecystectomy: No Hx Appendectomy: No Hx Breast Surgery: No Additional Surgical History: r) wrist surgery - Social History Smoking Status: Current Every Day Smoker - Medications Home Medications: Home Medications Medication Instructions Recorded Confirmed Last Taken Type Divalproex [Depakote ] 500 mg PO QHS #30 tablet 04/27/15 08/18/17 Unknown Rx Divalproex Sodium [Depakote] 250 mg PO QAM #30 tablet. 04/27/15 08/18/17 Unknown Rx Syringe and Needle,Insulin,1Ml 1 each MC TID 30 Days disp.syrin 06/07/15 Unknown Rx [Comfort Ez] Gabapentin [Neurontin] 600 mg PO Q8H #90 tablet 07/05/15 08/18/17 Unknown Rx Esomeprazole Magnesium [NexIUM] 40 mg PO QDAY #30 capsule. 10/05/16 08/18/17 Unknown Rx Insulin Detemir [Levemir] 30 unit SQ BID #1 vial 10/05/16 08/18/17 Unknown Rx oxyCODONE /ACETAMINOPHEN [Percocet 1 tab PO Q6HR PRN #15 tablet 10/05/16 Unknown Rx 5/325 mg] ED Physical Exam - General Limitations: Other (patient is a poor historian. Patient answers somewhat not all questions) General appearance: alert, in distress - Head Head exam: Present: atraumatic, normocephalic - Eye Eye exam: Present: normal appearance, EOMI - ENT ENT exam: Present: normal exam, normal orophraynx, mucous membranes moist, normal external ear exam - Neck Neck exam: Present: normal inspection, full ROM. Absent: tenderness - Respiratory Respiratory exam: Present: normal lung sounds bilaterally. Absent: respiratory distress - Cardiovascular Cardiovascular Exam: Present: normal rhythm, tachycardia, normal heart sounds. Absent: systolic murmur, diastolic murmur, rubs, gallop - GI/Abdominal GI/Abdominal exam: Present: soft, tenderness, normal bowel sounds. Absent: distended, guarding, rebound, rigid, pulsatile mass - Rectal Rectal exam: Present: deferred - Extremities Exam Extremities exam: Present: normal inspection, full ROM, other (no long bony tenderness. The compartments are soft. The pelvis is stable. 2+ pulses noted in the bilateral upper and lower extremities). Absent: pedal edema, joint swelling, calf tenderness - Back Exam Back exam: Present: normal inspection, full ROM. Absent: tenderness, CVA tenderness (R), paraspinal tenderness, vertebral tenderness - Neurological Exam Neurological exam: Present: alert, oriented X3, CN II-XII intact, normal gait, other (Extraocular movements intact. Tongue midline. No facial droop. Facial sensation intact to light touch in the V1, V2, V3 distribution bilaterally. 5 and 5 strength in 4 extremities.. Sensation is intact to light touch in 4 extremities.). Absent: motor sensory deficit - Psychiatric Psychiatric exam: Present: agitated, anxious. Absent: homicidal ideation, suicidal ideation - Skin Skin exam: Present: warm, dry, intact, normal color. Absent: rash ED Course Vital Signs 08/17/17 08/17/17 08/17/17 22:53 23:00 23:30 Temperature 98.1 F Pulse Rate 103 H 95 H 104 H Respiratory 17 16 13 Rate Blood Pressure 132/96 132/96 119/86 O2 Sat by Pulse 100 100 97 Oximetry 08/18/17 08/18/17 08/18/17 00:00 01:06 01:30 Temperature Pulse Rate 102 H 103 H 104 H Respiratory 12 17 13 Rate Blood Pressure 116/85 116/85 114/80 O2 Sat by Pulse 99 99 99 Oximetry - Reevaluation(s) Reevaluation #1: 08/17/17 23:43 Differential diagnosis, including when not limited to: Intracranial injury, cervical spine injury, intra-abdominal infection, pneumonia, dehydration, electrolyte derangement, orthostasis, vagal event, diabetic ketoacidosis Assessment and plan: 31-year-old male who is a poor historian, does not answer all questions, has a nonfocal neurologic examination, endorsing multiple episodes of syncope and abdominal pain, possibly has diabetic ketoacidosis. Patient is disorganized and has a past medical history of psychiatric disease and bipolar disorder and schizophrenia. This may be acute extremity factor to his presentation. At this point time he does not require 1013 or forcible restraints, he is somewhat agitated and belligerent to staff members, but this was found to grow with de-escalation techniques. Laboratory studies pending, noncontrast CT scan of the brain and cervical spine pending, CT scan abdomen pelvis is pending, reassess after initial data points. Reevaluation #2: 08/18/17 00:15 Glucoses over 500, anion gap is 36, potassium is 4.9. Patient will be started on insulin drip for diabetic ketoacidosis. Reevaluation #3: 08/18/17 01:24 CT scan of the brain and cervical spine negative. CT scan of the abdomen and pelvis negative. CT scan of the brain to my interpretation appears to be unremarkable. Case is presented to the Hospital physician, Dr. Fuentes, who accepts the patient to the intensive care unit for diabetic ketoacidosis Reevaluation #4: 08/18/17 04:[address] scan of the brain, interpreted by radiology: Negative for acute pathology - Consultations Consultation #1: 08/18/17 00:35 Case and laboratory studies presented to the ICU physician, Dr. gillis, who agrees and authorized displacement into the intensive care unit. ED Medical Decision Making - Lab Data Result diagrams: 08/17/17 23:09 08/18/17 00:55 Vital Signs (72 hours) 08/17/17 22:53 Temperature 98.1 F Pulse Rate 103 H Respiratory 17 Rate Blood Pressure 132/96 O2 Sat by Pulse 100 Oximetry Lab Results 08/17/17 08/17/17 08/17/17 Range/Units 23:09 23:09 23:09 WBC 15.3 H (4.5-11.0) K/mm3 RBC 4.93 (3.65-5.03) M/mm3 Hgb 14.8 (11.8-15.2) gm/dl Hct 45.8 H (35.5-45.6) % MCV 93 (84-94) fl MCH 30 (28-32) pg MCHC 32 (32-34) % RDW 15.2 (13.2-15.2) % Plt Count 326 (140-440) K/mm3 Seg Neutrophils % Garden Equipment Mechanic PT 12.1 L (12.2-14.9) Sec. INR 0.86 L (0.87-1.13) VBG pH 7.388 (7.320-7.420) - EKG Data -: EKG Interpreted by Me - EKG Data 08/17/17 23:45 Sinus, 97 bpm, normal axis, QTC prolonged, motion artifact, abnormal EKG, not morphologically consistent with ST elevation myocardial infarction, appears unchanged from prior EKG from September 2016. - Radiology Data Radiology results: report reviewed, image reviewed interpreted by me: X-ray the chest is negative for acute disease Critical care attestation.: If time is entered above; I have spent that time in minutes in the direct care of this critically ill patient, excluding procedure time. ED Disposition Clinical Impression: DKA (diabetic ketoacidoses) Disposition: -09 OP ADMIT IP TO THIS HOSP Is pt being admited?: Yes Condition: Critical
[2017-08-17 23:28] LABS: Hematocrit 45.8 % (35.5-45.6); Hemoglobin 14.8 gm/dl (11.8-15.2); Mean Corpuscular HGB Conc 32 % (32-34); Mean Corpuscular Hemoglobin 30 pg (28-32); Mean Corpuscular Volume 93 fl (84-94); Platelet Count 326 K/mm3 (140-440); Red Blood Count 4.93 M/mm3 (3.65-5.03); Red Cell Distribution Width 15.2 % (13.2-15.2)
[2017-08-17 23:38] LABS: INR 0.86 (0.87-1.13)
[2017-08-17 23:52] LABS: BUN/Creatinine Ratio 29; Blood Urea Nitrogen 20 mg/dL (9-20); Calcium 9.2 mg/dL (8.4-10.2); Hemolysis Index 138
--- NOTE | 2017-08-18 00:07 | XRay Report ---
FINAL REPORT EXAM: XR CHEST 1V AP HISTORY: syncope COMPARISON: None available. FINDINGS: Frontal view(s) of the chest obtained. Cardiac silhouette within normal limits. No gross consolidation or effusion. No pneumothorax. IMPRESSION: No grossly acute findings.
[2017-08-18 00:16] LABS: Alanine Aminotransferase 42 units/L (7-56)
[2017-08-18] MEDS ORDERED: NACL 0.9% 1000 ML 1,000 ML IV ONE ×2 (00:16→01:38)
[2017-08-18] MEDS ORDERED: D50W (25GM) Syringe IV PRN (00:16)
--- NOTE | 2017-08-18 00:45 | Cat Scan Report ---
FINAL REPORT EXAM: CT CERVICAL SPINE WO CON HISTORY: syncope COMPARISON: None available. TECHNIQUE: Axial images obtained through the cervical spine. Additional sagittal and coronal reformatted images were obtained. FINDINGS: Mild straightening of the normal lordotic curvature of the cervical spine. Cervical vertebral body heights are preserved. No acute fracture or traumatic subluxation. Odontoid process, articular pillars and occipital condyles are intact. No significant bony encroachment upon the canal or foramen. IMPRESSION: No acute fracture or subluxation of the cervical spine. There is mild straightening of the normal lordotic curvature which may relate to patient positioning or muscle spasm.
[2017-08-18 00:51] LABS: Band Neutrophils # (Manual) 0.3 K/mm3; Basophils % (Manual) 0 % (0.0-1.8); Total Cells Counted 100
[2017-08-18 00:52] LABS: Anisocytosis 1+; Platelet Estimate Consistent w Auto
[2017-08-18] MEDS ORDERED: KCL 10MEQ/100ML 10 MEQ/100 ML BAG IV SCH ×2 (01:00)
[2017-08-18] MEDS ORDERED: SODIUM CHLORIDE FLUSH SYRINGE 10 ML IV PRN (01:00)
[2017-08-18] MEDS ORDERED: D5W/0.45% NACL/KCL 20 MEQ 20 MEQ/1,000 ML BAG IV SCH (01:00)
[2017-08-18] MEDS ORDERED: NovoLIN R 100 UNITS in NACL 0.9% 99 ML IV SCH (01:00)
--- NOTE | 2017-08-18 01:20 | Cat Scan Report ---
FINAL REPORT EXAM: CT ABDOMEN PELVIS WO CON HISTORY: abd pain dka COMPARISON: None available. TECHNIQUE: Contiguous axial images were obtained. Additional sagittal and coronal reformatted images were obtained. FINDINGS: Lung bases are clear. No calcified gallstones. Liver, spleen, pancreas and adrenal glands are grossly unremarkable. No nephrolithiasis. Mild prominence the renal pelves and ureters which appears relate to distended state of the urinary bladder.. No perinephric fat stranding. Aorta is normal in caliber. Urinary bladder is distended but otherwise unremarkable. Prostate gland is grossly unremarkable. There is a 3 millimeter calcification right hemipelvis which appears represent a phlebolith. This is likely separate from the distal right ureter. Wall thickening of the distal rectum with adjacent haziness of the perirectal fat concerning for mild focal proctitis. Remaining bowel loops normal in caliber. Moderate stool in the colon. The appendix is gas-filled and normal in caliber. Bony pelvis is grossly intact. Lumbar vertebral body heights are preserved. IMPRESSION: Wall thickening of the rectum with mild fat stranding of the perirectal fat concerning for mild focal proctitis. Remaining bowel loops normal in caliber. Moderate stool in the colon. The appendix is normal in caliber. Urinary bladder is distended but otherwise unremarkable. Mild prominence the renal pelves ureters likely relating to distended state of the urinary bladder. There is a 3 millimeter calcification right hemipelvis suspect represent a phlebolith. Ureteral calculus less likely.
[2017-08-18 01:27] LABS: BUN/Creatinine Ratio 24; Blood Urea Nitrogen 19 mg/dL (9-20); Calcium 8.7 mg/dL (8.4-10.2); Hemolysis Index 2
--- NOTE | 2017-08-18 01:27 | History and Physical Report ---
History of Present Illness Date of examination: 08/18/17 Chief complaint: Generalized weakness and high blood sugar History of present illness: This is a 31-year-old male who was previously unknown to this provider, presenting to the ER with complaint "I have DKA." Patient reports weakness, nausea, malaise, fatigue, "passing out a few times." Patient cannot describe exacerbating or relieving factors or radiation. He also complains of diffuse abdominal pain. He cannot describe exacerbating or relieving factors for this either. Patient cannot state whether or not he has testicular pain, or whether or not he has urinary symptoms. Patient does indicate that he is not homicidal or suicidal. As per verbal report from EMS, patient recently discharged from [facility] for diabetic ketoacidosis, and was picked up without any evidence of trauma for complaint of the same. Past History Past Medical History: other (diabetes, GERD, seizures, other (Bipolar; scizophrenia)) Past Surgical History: Other (right wrist surgery right wrist surgery) Social history: lives with family, smoking Family history: hypertension Medications and Allergies Allergies Allergy/AdvReac Type Severity Reaction Status Date / Time banana Allergy Severe Angioedema Verified 09/07/14 04:24 egg Allergy Unknown Verified 09/07/14 04:24 Home Medications Medication Instructions Recorded Confirmed Last Taken Type Divalproex [Waldemar Crocker] 500 mg PO QHS #30 tablet 04/27/15 10/03/16 Unknown Rx Divalproex Sodium [Depakote] 250 mg PO QAM #30 tablet. 04/27/15 10/03/16 Unknown Rx Syringe and Needle,Insulin,1Ml 1 each MC TID 30 Days disp.syrin 06/07/15 Unknown Rx [Comfort Ez] Gabapentin [Neurontin] 600 mg PO Q8H #90 tablet 07/05/15 10/03/16 Unknown Rx Esomeprazole Magnesium [NexIUM] 40 mg PO QDAY #30 capsule. 10/05/16 Unknown Rx Insulin Detemir [Levemir] 30 unit SQ BID #1 vial 10/05/16 Unknown Rx oxyCODONE /ACETAMINOPHEN [Percocet 1 tab PO Q6HR PRN #15 tablet 10/05/16 Unknown Rx 5/325 mg] Active Meds: Active Medications Dextrose (D50w (25gm) Syringe) 0 ml IV PRN PRN PRN Reason: Hypoglycemia Potassium Chloride/Dextrose/Sod Cl (D5w/0.45% Nacl/Kcl 20 Meq) 20 meq in 1,000 mls @ 125 mls/hr IV DIRECT ANTONIA Insulin Human Regular 100 (units/ Sodium Chloride) 100 mls @ 1 mls/hr IV TITR ANTONIA; 1 UNITS/HR PRN Reason: Protocol Sodium Chloride (Sodium Chloride Flush Syringe 10 Ml) 10 ml IV PRN PRN PRN Reason: LINE FLUSH Review of Systems All systems: negative (as mentioned in HPI) Exam - Physical Exam Narrative exam: General: the patient is awake alert oriented to time place and person. no evidence of acute distress HEENT: Head is atraumatic normocephalic,. Pupils equal round reactive to light and accommodation, extraocular movements intact. Oral mucosa moist. Oropharynx clear. No pharyngeal erythema or tonsillar exudate. Neck: Supple no JVD no thyromegaly or lymphadenopathy. Heart: Regular rate and rhythm no murmurs or gallops. S1 and S2 normal. PMI not displaced. Lungs: Clear to auscultation bilaterally. No rales rhonchi wheezing. Nonlabored breathing. Normal chest wall expansion. Abdomen: Soft, nondistended, and nontender. Normoactive bowel sounds. No hepatosplenomegaly. No abdominal masses or bruit appreciated. Extremities: No cyanosis/clubbing/ edema. Musculoskeletal: Normal range of movement all joints. No obvious deformity or tenderness to palpation. Normal muscle tone. Back: Normal alignment. No step-off. No midline or paraspinal tenderness. No CVA tenderness. Neurological: Grossly intact and nonfocal. No cerebellar signs. Cranial nerves II-12 grossly intact. Strength 5 out of 5 all 4 extremities. Sensations grossly intact. Skin: Warm and dry no rashes or bruises. Psychiatric: Present: agitated, anxious. Absent: homicidal ideation, suicidal ideation Vascular system: No lymphadenopathy. Distal pulses 2+ bilaterally. - Constitutional Vitals: Temp Pulse Resp BP Pulse Ox 98.1 F 103 H 17 132/96 100 08/17/17 22:53 08/17/17 22:53 08/17/17 22:53 08/17/17 22:53 08/17/17 22:53 Results - Labs CBC & Chem 7: 08/17/17 23:09 08/18/17 00:55 Labs: Laboratory Last Values WBC 15.3 K/mm3 (4.5-11.0) H 08/17/17 23:09 RBC 4.93 M/mm3 (3.65-5.03) 08/17/17 23:09 Hgb 14.8 gm/dl (11.8-15.2) 08/17/17 23:09 Hct 45.8 % (35.5-45.6) H 08/17/17 23:09 MCV 93 fl (84-94) 08/17/17 23:09 MCH 30 pg (28-32) 08/17/17 23:09 MCHC 32 % (32-34) 08/17/17 23:09 RDW 15.2 % (13.2-15.2) 08/17/17 23:09 Plt Count 326 K/mm3 (140-440) 08/17/17 23:09 Add Manual Diff Complete 08/17/17 23:09 Total Counted 100 08/17/17 23:09 Seg Neutrophils % Mathematics Technician 08/17/17 23:09 Seg Neuts % (Manual) 88.0 % (40.0-70.0) H 08/17/17 23:09 Band Neutrophils % 2.0 % 08/17/17 23:09 Lymphocytes % (Manual) 6.0 % (13.4-35.0) L 08/17/17 23:09 Reactive Lymphs % (Man) 0 % 08/17/17 23:09 Monocytes % (Manual) 3.0 % (0.0-7.3) 08/17/17 23:09 Eosinophils % (Manual) 1.0 % (0.0-4.3) 08/17/17 23:09 Basophils % (Manual) 0 % (0.0-1.8) 08/17/17 23:09 Metamyelocytes % 0 % 08/17/17 23:09 Myelocytes % 0 % 08/17/17 23:09 Promyelocytes % 0 % 08/17/17 23:09 Blast Cells % 0 % 08/17/17 23:09 Nucleated RBC % Not Reportable 08/17/17 23:09 Seg Neutrophils # Man 13.5 K/mm3 (1.8-7.7) H 08/17/17 23:09 Band Neutrophils # 0.3 K/mm3 08/17/17 23:09 Lymphocytes # (Manual) 0.9 K/mm3 (1.2-5.4) L 08/17/17 23:09 Abs React Lymphs (Man) 0.0 K/mm3 08/17/17 23:09 Monocytes # (Manual) 0.5 K/mm3 (0.0-0.8) 08/17/17 23:09 Eosinophils # (Manual) 0.2 K/mm3 (0.0-0.4) 08/17/17 23:09 Basophils # (Manual) 0.0 K/mm3 (0.0-0.1) 08/17/17 23:09 Metamyelocytes # 0.0 K/mm3 08/17/17 23:09 Myelocytes # 0.0 K/mm3 08/17/17 23:09 Promyelocytes # 0.0 K/mm3 08/17/17 23:09 Blast Cells # 0.0 K/mm3 08/17/17 23:09 WBC Morphology Not Reportable 08/17/17 23:09 Hypersegmented Neuts Not Reportable 08/17/17 23:09 Hyposegmented Neuts Not Reportable 08/17/17 23:09 Hypogranular Neuts Not Reportable 08/17/17 23:09 Smudge Cells Not Reportable 08/17/17 23:09 Toxic Granulation Not Reportable 08/17/17 23:09 Toxic Vacuolation Not Reportable 08/17/17 23:09 Dohle Bodies Not Reportable 08/17/17 23:09 Pelger-Huet Anomaly Not Reportable 08/17/17 23:09 Jackson Rods Not Reportable 08/17/17 23:09 Platelet Estimate Consistent w auto 08/17/17 23:09 Clumped Platelets Not Reportable 08/17/17 23:09 Plt Clumps, EDTA Not Reportable 08/17/17 23:09 Large Platelets Not Reportable 08/17/17 23:09 Giant Platelets Not Reportable 08/17/17 23:09 Platelet Satelliting Not Reportable 08/17/17 23:09 Plt Morphology Comment Not Reportable 08/17/17 23:09 RBC Morphology Not Reportable 08/17/17 23:09 Dimorphic RBCs Not Reportable 08/17/17 23:09 Polychromasia Not Reportable 08/17/17 23:09 Hypochromasia Not Reportable 08/17/17 23:09 Poikilocytosis Not Reportable 08/17/17 23:09 Anisocytosis 1+ 08/17/17 23:09 Microcytosis Not Reportable 08/17/17 23:09 Macrocytosis Not Reportable 08/17/17 23:09 Spherocytes Not Reportable 08/17/17 23:09 Pappenheimer Bodies Not Reportable 08/17/17 23:09 Sickle Cells Not Reportable 08/17/17 23:09 Target Cells Not Reportable 08/17/17 23:09 Tear Drop Cells Not Reportable 08/17/17 23:09 Ovalocytes Not Reportable 08/17/17 23:09 Helmet Cells Not Reportable 08/17/17 23:09 [place] Bodies Not Reportable 08/17/17 23:09 [place] Rings Not Reportable 08/17/17 23:09 [place] Cells Not Reportable 08/17/17 23:09 Bite Cells Not Reportable 08/17/17 23:09 Crenated Cell Not Reportable 08/17/17 23:09 Elliptocytes Not Reportable 08/17/17 23:09 Acanthocytes (Spur) Not Reportable 08/17/17 23:09 Rouleaux Not Reportable 08/17/17 23:09 Hemoglobin C Crystals Not Reportable 08/17/17 23:09 Schistocytes Not Reportable 08/17/17 23:09 Malaria parasites Not Reportable 08/17/17 23:09 Cedric Bodies Not Reportable 08/17/17 23:09 Hem Pathologist Commnt No 08/17/17 23:09 PT 12.1 Sec. (12.2-14.9) L 08/17/17 23:09 INR 0.86 (0.87-1.13) L 08/17/17 23:09 VBG pH 7.388 (7.320-7.420) 08/17/17 23:09 Sodium 138 mmol/L (137-145) 08/17/17 23:09 Potassium 4.9 mmol/L (3.6-5.0) 08/17/17 23:09 Chloride 89.1 mmol/L (98-107) L 08/17/17 23:09 Carbon Dioxide 18 mmol/L (22-30) L 08/17/17 23:09 Anion Gap 36 mmol/L 08/17/17 23:09 BUN 20 mg/dL (9-20) 08/17/17 23:09 Creatinine 0.7 mg/dL (0.8-1.5) L 08/17/17 23:09 Estimated GFR > 60 ml/min 08/17/17 23:09 BUN/Creatinine Ratio 29 % 08/17/17 23:09 Glucose 588 mg/dL (75-100) H* 08/17/17 23:09 Lactic Acid 2.00 mmol/L (0.7-2.0) 08/17/17 23:09 Calcium 9.2 mg/dL (8.4-10.2) 08/17/17 23:09 Total Bilirubin 0.80 mg/dL (0.1-1.2) 08/17/17 23:09 AST 48 units/L (5-40) H 08/17/17 23:09 ALT 42 units/L (7-56) 08/17/17 23:09 Alkaline Phosphatase 76 units/L (35-129) 08/17/17 23:09 Troponin T < 0.010 ng/mL (0.00-0.029) 08/17/17 23:09 Total Protein 7.0 g/dL (6.3-8.2) 08/17/17 23:09 Albumin 4.0 g/dL (3.9-5) 08/17/17 23:09 Albumin/Globulin Ratio 1.3 % 08/17/17 23:09 Valproic Acid 2.8 ug/mL (50-100) L 08/17/17 23:09 - Imaging and Cardiology Imaging and Cardiology: CT scan of the brain and cervical spine negative. CT scan of the abdomen and pelvis negative. CT abdomen and pelvis - negative for any acute intra-abdominal process Assessment and Plan Assessment and plan: DKA - we'll admit to critical care unit under the DKA protocol started on insulin drip. Follow the DKA protocol Leukocytosis -likely leukemoid reaction due to stress. No obvious source of infection identified a suspected. We will monitor total WBC count called off on empiric antibiotics for now. Noncompliance patient counseled extensively Bipolar disorder chronic started back on Depakote Gastroesophageal reflux disease without esophagitis on PPI Tobacco abuse patient counseled extensively, give nicotine patch Seizure disorder continue gabapentin as per home dose monitor CBC and electrolytes Replace electrolytes replace electrolytes when necessary as per protocol DVT GI prophylaxis as ordered Monitor and follow the patient closely Consult critical care for further evaluation and management recommendations Advance Directives: Yes VTE prophylaxis?: Chemical, Mechanical Plan of care discussed with patient/family: Yes
[2017-08-18] MEDS ORDERED: ZOFRAN IV PRN (01:38)
[2017-08-18] MEDS ORDERED: TYLENOL PO PRN (01:38)
[2017-08-18] MEDS ORDERED: DULCOLAX PR PRN (01:38)
[2017-08-18] MEDS ORDERED: AMBIEN PO PRN (01:38)
[2017-08-18] MEDS ORDERED: MILK OF MAGNESIA PO PRN (01:38)
[2017-08-18] MEDS ORDERED: NON-FORMULARY (Gabapentin [Neurontin] 600 MG) PO SCH (01:45)
[2017-08-18] MEDS ORDERED: NACL 0.9% 1000 ML 1,000 ML ONE (02:08)
[2017-08-18 02:20] LABS: Bilirubin,Urine NEG (Negative); Blood,Urine SM (Negative); Color,Urine Yellow (Yellow); Mucus,Urine FEW /HPF; Nitrite,Urine NEG (Negative); Protein,Urine <15 mg/dL mg/dL (Negative); Urobilinogen,Urine < 2.0 mg/dL (<2.0); WBC,Urine < 1.0 /HPF (0.0-6.0)
[2017-08-18] MEDS: NovoLIN R 100 UNITS in NACL 0.9% 99 ML IV SCH (02:26)
[2017-08-18] MEDS: NEURONTIN PO SCH ×3 (06:20→22:29)
--- NOTE | 2017-08-18 08:01 | Cat Scan Report ---
FINAL REPORT EXAM: CT HEAD/BRAIN WO CON HISTORY: syncope COMPARISON: April 2015. TECHNIQUE: Axial images obtained skull base through vertex. FINDINGS: No acute intracranial hemorrhage, midline shift or pathologic extra axial fluid collection. Ventricles and cisterns are normal in size and configuration for the patient's age. [place]-white differentiation preserved. Calvarium grossly intact. Benign calcification bilateral basal ganglia. Visualized orbits are grossly unremarkable. Stable, remote fracture of the medial wall the right orbital rim. Visualized para-nasal sinuses and mastoid air cells are clear. IMPRESSION: No grossly acute intracranial abnormality.
[2017-08-18] MEDS ORDERED: HALDOL IM PRN (09:00)
--- NOTE | 2017-08-18 11:10 | Consultation ---
History of Present Illness Consult date: 08/18/17 Requesting physician: AYDEE GUY Reason for consult: other (Diabetic ketoacidosis requiring ICU admission) History of present illness: This is a 31-year-old male who was previously unknown to this provider, presenting to the ER with complaint "I have DKA." Patient reports weakness, nausea, malaise, fatigue, "passing out a few times." Patient cannot describe exacerbating or relieving factors or radiation. He also complains of diffuse abdominal pain. He cannot describe exacerbating or relieving factors for this either. Patient cannot state whether or not he has testicular pain, or whether or not he has urinary symptoms. Patient does indicate that he is not homicidal or suicidal. As per verbal report from EMS, patient recently discharged from [facility] for diabetic ketoacidosis, and was picked up without any evidence of trauma for complaint of the same. Past History Past Medical History: other (diabetes, GERD, seizures, other (Bipolar; scizophrenia)) Past Surgical History: Other (right wrist surgery right wrist surgery) Social history: lives with family, smoking Family history: hypertension Medications and Allergies Allergies Allergy/AdvReac Type Severity Reaction Status Date / Time banana Allergy Severe Angioedema Verified 09/07/14 04:24 egg Allergy Unknown Verified 09/07/14 04:24 Home Medications Medication Instructions Recorded Confirmed Last Taken Type Acetaminophen [Acetaminophen TAB] 325 mg PO Q4H PRN #30 tablet 08/20/[address] Jaden Crocker] 250 mg PO QAM #30 tablet 08/20/[address] Jaden Crocker] 500 mg PO QHS #30 tablet 08/20/17 Unknown Rx Esomeprazole Magnesium [NexIUM] 40 mg PO QDAY #30 capsule. 08/20/17 Unknown Rx Famotidine [Pepcid] 20 mg PO BID #30 tablet 08/20/17 Unknown Rx Gabapentin [Neurontin] 600 mg PO Q8H #90 tablet 08/20/17 Unknown Rx Insulin Aspart [Novolog] 1 dose SQ AC #30 day 08/20/17 Unknown Rx Insulin Detemir [Levemir VIAL] 15 unit SQ BID #1 vial 08/20/17 Unknown Rx oxyCODONE /ACETAMINOPHEN [Percocet 1 tab PO Q6HR PRN #15 tablet 08/20/17 Unknown Rx 5/325 mg] risperiDONE [RisperDAL] 1 mg PO BID #30 tablet 08/20/17 Unknown Rx Active Meds: Active Medications Acetaminophen (Tylenol) 650 mg PO Q4H PRN PRN Reason: Pain MILD(1-3)/Fever >100.5/MASON Bisacodyl (Dulcolax) 10 mg OK QDAY PRN PRN Reason: Constipation unrelieved by MOM Dextrose (D50w (25gm) Syringe) 0 ml IV PRN PRN PRN Reason: Hypoglycemia Divalproex Sodium (Depakote Dr) 500 mg PO QHS ANTONIA Divalproex Sodium (Depakote Dr) 250 mg PO QAM ANTONIA Docusate Sodium (Colace) 100 mg PO BID ANTONIA Enoxaparin Sodium (Lovenox) 40 mg SUB-Q QDAY ANTONIA Famotidine (Pepcid) 20 mg PO BID ANTONIA Gabapentin (Neurontin) 600 mg PO Q8HR ANTONIA Last Admin: 08/18/17 06:20 Dose: Not Given Haloperidol Lactate (Haldol) 5 mg IM Q6H PRN PRN Reason: Agitation Potassium Chloride/Dextrose/Sod Cl (D5w/0.45% Nacl/Kcl 20 Meq) 20 meq in 1,000 mls @ 125 mls/hr IV DIRECT ANTONIA Last Admin: 08/18/17 03:31 Dose: 125 mls/hr Insulin Human Regular 100 (units/ Sodium Chloride) 100 mls @ 1 mls/hr IV TITR ANTONIA; 1 UNITS/HR PRN Reason: Protocol Last Titration: 08/18/17 09:18 Dose: 1.5 units/hr, 1.5 mls/hr Magnesium Hydroxide (Milk Of Magnesia) 30 ml PO Q4H PRN PRN Reason: Constipation Senna (Senokot) 8.6 mg PO Q12HR ANTONIA Sodium Chloride (Sodium Chloride Flush Syringe 10 Ml) 10 ml IV PRN PRN PRN Reason: LINE FLUSH Zolpidem Tartrate (Ambien) 5 mg PO QHS PRN PRN Reason: Insomnia Physical Examination Vital signs: Vital Signs Temp Pulse Resp BP Pulse Ox 98.1 F 103 H 17 132/96 100 08/17/17 22:53 08/17/17 22:53 08/17/17 22:53 08/17/17 22:53 08/17/17 22:53 General: the patient is awake alert oriented to time place and person. no evidence of acute distress HEENT: Head is atraumatic normocephalic,. Pupils equal round reactive to light and accommodation, extraocular movements intact. Oral mucosa moist. Oropharynx clear. No pharyngeal erythema or tonsillar exudate. Neck: Supple no JVD no thyromegaly or lymphadenopathy. Heart: Regular rate and rhythm no murmurs or gallops. S1 and S2 normal. PMI not displaced. Lungs: Clear to auscultation bilaterally. No rales rhonchi wheezing. Nonlabored breathing. Normal chest wall expansion. Abdomen: Soft, nondistended, and nontender. Normoactive bowel sounds. No hepatosplenomegaly. No abdominal masses or bruit appreciated. Extremities: No cyanosis/clubbing/ edema. Musculoskeletal: Normal range of movement all joints. No obvious deformity or tenderness to palpation. Normal muscle tone. Back: Normal alignment. No step-off. No midline or paraspinal tenderness. No CVA tenderness. Neurological: Grossly intact and nonfocal. No cerebellar signs. Cranial nerves II-12 grossly intact. Strength 5 out of 5 all 4 extremities. Sensations grossly intact. Skin: Warm and dry no rashes or bruises. Psychiatric: Present: agitated, anxious. Absent: homicidal ideation, suicidal ideation Vascular system: No lymphadenopathy. Distal pulses 2+ bilaterally. Results - Laboratory Findings CBC and BMP: 08/19/17 03:17 08/19/17 04:28 PT/INR, D-dimer PT 12.1 Sec. (12.2-14.9) L 08/17/17 23:09 INR 0.86 (0.87-1.13) L 08/17/17 23:09 Abnormal lab findings: Abnormal Labs 08/17/17 08/17/17 08/17/17 23:09 23:09 23:09 WBC 15.3 H Hct 45.8 H Seg Neuts % (Manual) 88.0 H Lymphocytes % (Manual) 6.0 L Seg Neutrophils # Man 13.5 H Lymphocytes # (Manual) 0.9 L PT 12.1 L INR 0.86 L Chloride 89.1 L Carbon Dioxide 18 L Creatinine 0.7 L Glucose 588 H* POC Glucose Phosphorus AST 48 H Valproic Acid 12/08/18/17 08/18/17 23:09 00:55 00:55 WBC Hct Seg Neuts % (Manual) Lymphocytes % (Manual) Seg Neutrophils # Man Lymphocytes # (Manual) PT INR Chloride 92.7 L Carbon Dioxide 17 L Creatinine Glucose 523 H* POC Glucose Phosphorus 5.00 H AST Valproic Acid 2.8 L 08/18/17 08/18/17 08/18/17 02:01 03:22 04:43 WBC Hct Seg Neuts % (Manual) Lymphocytes % (Manual) Seg Neutrophils # Man Lymphocytes # (Manual) PT INR Chloride Carbon Dioxide Creatinine Glucose POC Glucose 352 H 223 H 148 H Phosphorus AST Valproic Acid 08/18/17 08/18/17 08/18/17 06:35 07:58 09:00 WBC Hct Seg Neuts % (Manual) Lymphocytes % (Manual) Seg Neutrophils # Man Lymphocytes # (Manual) PT INR Chloride Carbon Dioxide Creatinine Glucose POC Glucose 209 H 163 H 121 H Phosphorus AST Valproic Acid 08/18/17 10:15 WBC Hct Seg Neuts % (Manual) Lymphocytes % (Manual) Seg Neutrophils # Man Lymphocytes # (Manual) PT INR Chloride Carbon Dioxide Creatinine Glucose POC Glucose 160 H Phosphorus AST Valproic Acid Assessment and Plan DKA Acute metabolic encephalopathy Schizophrenia Leukocytosis Noncompliance GERD Tobacco abuse Seizure disorder -continue insulin infusion -DKA protocol - continue SSI - tobacco cessation counselled - continue other chronic disease meds - re-evaluate in am & prn
[2017-08-18] MEDS: PEPCID PO SCH ×3 (11:35→22:29)
[2017-08-18] MEDS: COLACE PO SCH ×2 (11:36→22:31)
[2017-08-18] MEDS: LOVENOX SUB-Q SCH (11:36)
[2017-08-18] MEDS: SENOKOT PO SCH ×2 (12:23→22:30)
[2017-08-18 15:45] LABS: BUN/Creatinine Ratio 14; Blood Urea Nitrogen 11 mg/dL (9-20); Calcium 8.8 mg/dL (8.4-10.2); Hemolysis Index 31
[2017-08-18] MEDS: D50W (25GM) Syringe IV PRN ×2 (16:15→20:46)
--- NOTE | 2017-08-18 16:57 | Progress Note ---
Assessment and Plan Assessment and plan: Patient is a 31-year-old man with a history of S independent diabetes mellitus, bipolar disorder and schizophrenia, seizure disorder and GERD who presents with generalized weakness and high blood sugar. Patient was recently discharged from [facility] for DKA DKA - we'll admit to critical care unit under the DKA protocol started on insulin drip. Follow the DKA protocol Leukocytosis -likely leukemoid reaction due to stress. No obvious source of infection identified a suspected. We will monitor total WBC count called off on empiric antibiotics for now. Noncompliance patient counseled extensively Bipolar disorder chronic started back on Depakote Gastroesophageal reflux disease without esophagitis on PPI Tobacco abuse patient counseled extensively, give nicotine patch Seizure disorder continue gabapentin as per home dose monitor CBC and electrolytes Replace electrolytes replace electrolytes when necessary as per protocol DVT GI prophylaxis as ordered Monitor and follow the patient closely History Interval history: Patient was seen and examined. Follow-up on current diagnosis. Overnight uneventful. Imaging, nursing note, chart, labs and old chart reviewed. Patient is confused. Hospitalist Physical - Physical exam Narrative exam: GEN: Unkempt, thin frail BMI 21 NAD, somnolent but easily arousable HEENT: NCAT, EOMI, PERRL, OP Clear NECK: supple, no adenopathy, no thyromegaly, no JVD CVS/HEART: RRR, NORMAL S1S2, NO JVD, pulses present bilaterally CHEST/LUNGS: CTA B, Symmetrical chest expansion, good air entry bilaterally GI/Abdomen: soft, NTND, good bowel sounds, no guarding or rebound /Bladder: no suprapubic tenderness, no CVA or paraspinal tenderness EXT/Skin: no c/c/e, no obvious rash MSK: FROM x 4 Neuro: CN 2-12 grossly intact, no new focal deficits Psych: Agitated - Constitutional Vitals: Temp Pulse Resp BP Pulse Ox 98.1 F 97 H 22 104/62 99 08/17/17 22:53 08/18/17 13:22 08/18/17 13:22 08/18/17 13:22 08/18/17 13:22 Results - Labs CBC & Chem 7: 08/17/17 23:09 08/18/17 14:54 Labs: Laboratory Last Values WBC 15.3 K/mm3 (4.5-11.0) H 08/17/17 23:09 RBC 4.93 M/mm3 (3.65-5.03) 08/17/17 23:09 Hgb 14.8 gm/dl (11.8-15.2) 08/17/17 23:09 Hct 45.8 % (35.5-45.6) H 08/17/17 23:09 MCV 93 fl (84-94) 08/17/17 23:09 MCH 30 pg (28-32) 08/17/17 23:09 MCHC 32 % (32-34) 08/17/17 23:09 RDW 15.2 % (13.2-15.2) 08/17/17 23:09 Plt Count 326 K/mm3 (140-440) 08/17/17 23:09 Add Manual Diff Complete 08/17/17 23:09 Total Counted 100 08/17/17 23:09 Seg Neutrophils % Pals Nurse 08/17/17 23:09 Seg Neuts % (Manual) 88.0 % (40.0-70.0) H 08/17/17 23:09 Band Neutrophils % 2.0 % 08/17/17 23:09 Lymphocytes % (Manual) 6.0 % (13.4-35.0) L 08/17/17 23:09 Reactive Lymphs % (Man) 0 % 08/17/17 23:09 Monocytes % (Manual) 3.0 % (0.0-7.3) 08/17/17 23:09 Eosinophils % (Manual) 1.0 % (0.0-4.3) 08/17/17 23:09 Basophils % (Manual) 0 % (0.0-1.8) 08/17/17 23:09 Metamyelocytes % 0 % 08/17/17 23:09 Myelocytes % 0 % 08/17/17 23:09 Promyelocytes % 0 % 08/17/17 23:09 Blast Cells % 0 % 08/17/17 23:09 Nucleated RBC % Not Reportable 08/17/17 23:09 Seg Neutrophils # Man 13.5 K/mm3 (1.8-7.7) H 08/17/17 23:09 Band Neutrophils # 0.3 K/mm3 08/17/17 23:09 Lymphocytes # (Manual) 0.9 K/mm3 (1.2-5.4) L 08/17/17 23:09 Abs React Lymphs (Man) 0.0 K/mm3 08/17/17 23:09 Monocytes # (Manual) 0.5 K/mm3 (0.0-0.8) 08/17/17 23:09 Eosinophils # (Manual) 0.2 K/mm3 (0.0-0.4) 08/17/17 23:09 Basophils # (Manual) 0.0 K/mm3 (0.0-0.1) 08/17/17 23:09 Metamyelocytes # 0.0 K/mm3 08/17/17 23:09 Myelocytes # 0.0 K/mm3 08/17/17 23:09 Promyelocytes # 0.0 K/mm3 08/17/17 23:09 Blast Cells # 0.0 K/mm3 08/17/17 23:09 WBC Morphology Not Reportable 08/17/17 23:09 Hypersegmented Neuts Not Reportable 08/17/17 23:09 Hyposegmented Neuts Not Reportable 08/17/17 23:09 Hypogranular Neuts Not Reportable 08/17/17 23:09 Smudge Cells Not Reportable 08/17/17 23:09 Toxic Granulation Not Reportable 08/17/17 23:09 Toxic Vacuolation Not Reportable 08/17/17 23:09 Dohle Bodies Not Reportable 08/17/17 23:09 Pelger-Huet Anomaly Not Reportable 08/17/17 23:09 Jackson Rods Not Reportable 08/17/17 23:09 Platelet Estimate Consistent w auto 08/17/17 23:09 Clumped Platelets Not Reportable 08/17/17 23:09 Plt Clumps, EDTA Not Reportable 08/17/17 23:09 Large Platelets Not Reportable 08/17/17 23:09 Giant Platelets Not Reportable 08/17/17 23:09 Platelet Satelliting Not Reportable 08/17/17 23:09 Plt Morphology Comment Not Reportable 08/17/17 23:09 RBC Morphology Not Reportable 08/17/17 23:09 Dimorphic RBCs Not Reportable 08/17/17 23:09 Polychromasia Not Reportable 08/17/17 23:09 Hypochromasia Not Reportable 08/17/17 23:09 Poikilocytosis Not Reportable 08/17/17 23:09 Anisocytosis 1+ 08/17/17 23:09 Microcytosis Not Reportable 08/17/17 23:09 Macrocytosis Not Reportable 08/17/17 23:09 Spherocytes Not Reportable 08/17/17 23:09 Pappenheimer Bodies Not Reportable 08/17/17 23:09 Sickle Cells Not Reportable 08/17/17 23:09 Target Cells Not Reportable 08/17/17 23:09 Tear Drop Cells Not Reportable 08/17/17 23:09 Ovalocytes Not Reportable 08/17/17 23:09 Helmet Cells Not Reportable 08/17/17 23:09 [place] Bodies Not Reportable 08/17/17 23:09 [place] Rings Not Reportable 08/17/17 23:09 [place] Cells Not Reportable 08/17/17 23:09 Bite Cells Not Reportable 08/17/17 23:09 Crenated Cell Not Reportable 08/17/17 23:09 Elliptocytes Not Reportable 08/17/17 23:09 Acanthocytes (Spur) Not Reportable 08/17/17 23:09 Rouleaux Not Reportable 08/17/17 23:09 Hemoglobin C Crystals Not Reportable 08/17/17 23:09 Schistocytes Not Reportable 08/17/17 23:09 Malaria parasites Not Reportable 08/17/17 23:09 Cedric Bodies Not Reportable 08/17/17 23:09 Hem Pathologist Commnt No 08/17/17 23:09 PT 12.1 Sec. (12.2-14.9) L 08/17/17 23:09 INR 0.86 (0.87-1.13) L 08/17/17 23:09 VBG pH 7.388 (7.320-7.420) 08/17/17 23:09 Sodium 144 mmol/L (137-145) 08/18/17 14:54 Potassium 4.3 mmol/L (3.6-5.0) 08/18/17 14:54 Chloride 102.8 mmol/L (98-107) 08/18/17 14:54 Carbon Dioxide 26 mmol/L (22-30) D 08/18/17 14:54 Anion Gap 20 mmol/L 08/18/17 14:54 BUN 11 mg/dL (9-20) 08/18/17 14:54 Creatinine 0.8 mg/dL (0.8-1.5) 08/18/17 14:54 Estimated GFR > 60 ml/min 08/18/17 14:54 BUN/Creatinine Ratio 14 % 08/18/17 14:54 Glucose 92 mg/dL (75-100) 08/18/17 14:54 POC Glucose 65 (70-105) L 08/18/17 16:04 Lactic Acid 2.00 mmol/L (0.7-2.0) 08/17/17 23:09 Calcium 8.8 mg/dL (8.4-10.2) 08/18/17 14:54 Phosphorus 5.00 mg/dL (2.5-4.5) H 08/18/17 00:55 Magnesium 2.00 mg/dL (1.7-2.3) 08/18/17 00:55 Total Bilirubin 0.80 mg/dL (0.1-1.2) 08/17/17 23:09 AST 48 units/L (5-40) H 08/17/17 23:09 ALT 42 units/L (7-56) 08/17/17 23:09 Alkaline Phosphatase 76 units/L (35-129) 08/17/17 23:09 Troponin T < 0.010 ng/mL (0.00-0.029) 08/17/17 23:09 Total Protein 7.0 g/dL (6.3-8.2) 08/17/17 23:09 Albumin 4.0 g/dL (3.9-5) 08/17/17 23:09 Albumin/Globulin Ratio 1.3 % 08/17/17 23:09 Urine Color Yellow (Yellow) 08/18/17 01:29 Urine Turbidity Clear (Clear) 08/18/17 01:29 Urine pH 5.0 (5.0-7.0) 08/18/17 01:29 Ur Specific [place] 1.028 (1.003-1.030) 08/18/17 01:29 Urine Protein <15 mg/dl mg/dL (Negative) 08/18/17 01:29 Urine Glucose (UA) >=500 mg/dL (Negative) 08/18/17 01:29 Urine Ketones 80 mg/dL (Negative) 08/18/17 01:29 Urine Blood Sm (Negative) 08/18/17 01:29 Urine Nitrite Neg (Negative) 08/18/17 01:29 Urine Bilirubin Neg (Negative) 08/18/17 01:29 Urine Urobilinogen < 2.0 mg/dL (<2.0) 08/18/17 01:29 Ur Leukocyte Esterase Neg (Negative) 08/18/17 01:29 Urine WBC (Auto) < 1.0 /HPF (0.0-6.0) 08/18/17 01:29 Urine RBC (Auto) 5.0 /HPF (0.0-6.0) 08/18/17 01:29 Urine Mucus Few /HPF 08/18/17 01:29 Valproic Acid 2.8 ug/mL (50-100) L 08/17/17 23:09
[2017-08-18 21:41] LABS: BUN/Creatinine Ratio 14; Blood Urea Nitrogen 10 mg/dL (9-20); Calcium 8.4 mg/dL (8.4-10.2); Hemolysis Index 7
[2017-08-19] MEDS: NovoLIN R 100 UNITS in NACL 0.9% 99 ML IV SCH (00:37)
[2017-08-19] MEDS ORDERED: D5W/0.45% NACL/KCL 20 MEQ 20 MEQ/1,000 ML BAG IV SCH (01:00)
[2017-08-19 04:09] LABS: Hematocrit 43.6 % (35.5-45.6); Hemoglobin 14.2 gm/dl (11.8-15.2); Mean Corpuscular HGB Conc 33 % (32-34); Mean Corpuscular Hemoglobin 30 pg (28-32); Mean Corpuscular Volume 93 fl (84-94); Platelet Count 312 K/mm3 (140-440); Red Blood Count 4.71 M/mm3 (3.65-5.03)
[2017-08-19 04:27] LABS: BUN/Creatinine Ratio 11; Blood Urea Nitrogen 9 mg/dL (9-20); Calcium 8.2 mg/dL (8.4-10.2); Hemolysis Index 14
[2017-08-19 04:58] LABS: BUN/Creatinine Ratio 13; Blood Urea Nitrogen 9 mg/dL (9-20); Calcium 7.7 mg/dL (8.4-10.2); Hemolysis Index 2
[2017-08-19] MEDS ORDERED: K-DUR PO ONE (06:35)
[2017-08-19] MEDS: RisperDAL PO SCH ×4 (06:50→21:58)
[2017-08-19] MEDS: NEURONTIN PO SCH ×4 (06:50→22:00)
[2017-08-19] MEDS ORDERED: LEVEMIR SUB-Q SCH (08:00)
[2017-08-19] MEDS ORDERED: D50W (25GM) Syringe IV PRN (10:01)
--- NOTE | 2017-08-19 10:08 | Progress Note ---
Assessment and Plan Assessment and plan: Patient is a 31-year-old man with a history of insulin-dependent diabetes mellitus, bipolar disorder and schizophrenia, seizure disorder and GERD who presents with generalized weakness and high blood sugar. Patient was recently discharged from [facility] for DKA. -DKA with high anion gap metabolic acidosis, currently resolved: Start long- acting insulin with sliding scale, stop dextrose ivf -Acute metabolic encephalopathy due to above: Patient has been pulling on his lines, highly agitated -Schizophrenia, chronic worsening: Mental health evaluation pending, started Risperdal and when necessary Haldol IM -Leukocytosis with SIRS without infection -likely leukemoid reaction due to stress. No obvious source of infection identified a suspected. -Noncompliance patient counseled extensively -Gastroesophageal reflux disease without esophagitis on PPI -Tobacco abuse patient counseled extensively, give nicotine patch -Seizure disorder continue gabapentin as per home dose DVT GI prophylaxis as ordered Monitor and follow the patient closely We'll downgraded from ICU insulin drip The high probability of a clinically significant, sudden or life threatening deterioration of the [neurologic,cardiac] system(s) required my full and direct attention, intervention and personal management. The aggregate critical care time was [32 ] minutes. This time is in addition to time spent performing reported procedures but includes the following: [x] Data Review and interpretation [x] Patient assessment and monitoring of vital signs [x] Documentation [x] Medication orders and management History Interval history: Patient was seen and examined. Follow-up on current diagnosis/ams which is improved. Overnight uneventful. Imaging, nursing note, chart, labs and old chart reviewed. Patient is not calm. Patient denies any nausea vomiting tolerate a diet. Hospitalist Physical - Physical exam Narrative exam: GEN: Unkempt, thin frail BMI 21 NAD, awake alert oriented 3 HEENT: NCAT, EOMI, PERRL, OP Clear NECK: supple, no adenopathy, no thyromegaly, no JVD CVS/HEART: RRR, NORMAL S1S2, NO JVD, pulses present bilaterally CHEST/LUNGS: CTA B, Symmetrical chest expansion, good air entry bilaterally GI/Abdomen: soft, NTND, good bowel sounds, no guarding or rebound /Bladder: no suprapubic tenderness, no CVA or paraspinal tenderness EXT/Skin: no c/c/e, no obvious rash MSK: FROM x 4 Neuro: CN 2-12 grossly intact, no new focal deficits Psych: Agitated - Constitutional Vitals: Temp Pulse Resp BP Pulse Ox 98.5 F 96 H 18 111/75 95 08/19/17 09:01 08/19/17 09:01 08/19/17 09:01 08/19/17 09:01 08/19/17 09:01 Results - Labs CBC & Chem 7: 08/19/17 03:17 08/19/17 04:28 Labs: Laboratory Last Values WBC 11.2 K/mm3 (4.5-11.0) H 08/19/17 03:17 RBC 4.71 M/mm3 (3.65-5.03) 08/19/17 03:17 Hgb 14.2 gm/dl (11.8-15.2) 08/19/17 03:17 Hct 43.6 % (35.5-45.6) 08/19/17 03:17 MCV 93 fl (84-94) 08/19/17 03:17 MCH 30 pg (28-32) 08/19/17 03:17 MCHC 33 % (32-34) 08/19/17 03:17 RDW 15.0 % (13.2-15.2) 08/19/17 03:17 Plt Count 312 K/mm3 (140-440) 08/19/17 03:17 Add Manual Diff Complete 08/17/17 23:09 Total Counted 100 08/17/17 23:09 Seg Neutrophils % E Marketing Specialist 08/17/17 23:09 Seg Neuts % (Manual) 88.0 % (40.0-70.0) H 08/17/17 23:09 Band Neutrophils % 2.0 % 08/17/17 23:09 Lymphocytes % (Manual) 6.0 % (13.4-35.0) L 08/17/17 23:09 Reactive Lymphs % (Man) 0 % 08/17/17 23:09 Monocytes % (Manual) 3.0 % (0.0-7.3) 08/17/17 23:09 Eosinophils % (Manual) 1.0 % (0.0-4.3) 08/17/17 23:09 Basophils % (Manual) 0 % (0.0-1.8) 08/17/17 23:09 Metamyelocytes % 0 % 08/17/17 23:09 Myelocytes % 0 % 08/17/17 23:09 Promyelocytes % 0 % 08/17/17 23:09 Blast Cells % 0 % 08/17/17 23:09 Nucleated RBC % Not Reportable 08/17/17 23:09 Seg Neutrophils # Man 13.5 K/mm3 (1.8-7.7) H 08/17/17 23:09 Band Neutrophils # 0.3 K/mm3 08/17/17 23:09 Lymphocytes # (Manual) 0.9 K/mm3 (1.2-5.4) L 08/17/17 23:09 Abs React Lymphs (Man) 0.0 K/mm3 08/17/17 23:09 Monocytes # (Manual) 0.5 K/mm3 (0.0-0.8) 08/17/17 23:09 Eosinophils # (Manual) 0.2 K/mm3 (0.0-0.4) 08/17/17 23:09 Basophils # (Manual) 0.0 K/mm3 (0.0-0.1) 08/17/17 23:09 Metamyelocytes # 0.0 K/mm3 08/17/17 23:09 Myelocytes # 0.0 K/mm3 08/17/17 23:09 Promyelocytes # 0.0 K/mm3 08/17/17 23:09 Blast Cells # 0.0 K/mm3 08/17/17 23:09 WBC Morphology Not Reportable 08/17/17 23:09 Hypersegmented Neuts Not Reportable 08/17/17 23:09 Hyposegmented Neuts Not Reportable 08/17/17 23:09 Hypogranular Neuts Not Reportable 08/17/17 23:09 Smudge Cells Not Reportable 08/17/17 23:09 Toxic Granulation Not Reportable 08/17/17 23:09 Toxic Vacuolation Not Reportable 08/17/17 23:09 Dohle Bodies Not Reportable 08/17/17 23:09 Pelger-Huet Anomaly Not Reportable 08/17/17 23:09 [place] Rods Not Reportable 08/17/17 23:09 Platelet Estimate Consistent w auto 08/17/17 23:09 Clumped Platelets Not Reportable 08/17/17 23:09 Plt Clumps, EDTA Not Reportable 08/17/17 23:09 Large Platelets Not Reportable 08/17/17 23:09 Giant Platelets Not Reportable 08/17/17 23:09 Platelet Satelliting Not Reportable 08/17/17 23:09 Plt Morphology Comment Not Reportable 08/17/17 23:09 RBC Morphology Not Reportable 08/17/17 23:09 Dimorphic RBCs Not Reportable 08/17/17 23:09 Polychromasia Not Reportable 08/17/17 23:09 Hypochromasia Not Reportable 08/17/17 23:09 Poikilocytosis Not Reportable 08/17/17 23:09 Anisocytosis 1+ 08/17/17 23:09 Microcytosis Not Reportable 08/17/17 23:09 Macrocytosis Not Reportable 08/17/17 23:09 Spherocytes Not Reportable 08/17/17 23:09 Pappenheimer Bodies Not Reportable 08/17/17 23:09 Sickle Cells Not Reportable 08/17/17 23:09 Target Cells Not Reportable 08/17/17 23:09 Tear Drop Cells Not Reportable 08/17/17 23:09 Ovalocytes Not Reportable 08/17/17 23:09 Helmet Cells Not Reportable 08/17/17 23:09 [place] Bodies Not Reportable 08/17/17 23:09 [place] Rings Not Reportable 08/17/17 23:09 [place] Cells Not Reportable 08/17/17 23:09 Bite Cells Not Reportable 08/17/17 23:09 Crenated Cell Not Reportable 08/17/17 23:09 Elliptocytes Not Reportable 08/17/17 23:09 Acanthocytes (Spur) Not Reportable 08/17/17 23:09 Rouleaux Not Reportable 08/17/17 23:09 Hemoglobin C Crystals Not Reportable 08/17/17 23:09 Schistocytes Not Reportable 08/17/17 23:09 Malaria parasites Not Reportable 08/17/17 23:09 Cedric Bodies Not Reportable 08/17/17 23:09 Hem Pathologist Commnt No 08/17/17 23:09 PT 12.1 Sec. (12.2-14.9) L 08/17/17 23:09 INR 0.86 (0.87-1.13) L 08/17/17 23:09 VBG pH 7.388 (7.320-7.420) 08/17/17 23:09 Sodium 143 mmol/L (137-145) 08/19/17 04:28 Potassium 3.9 mmol/L (3.6-5.0) 08/19/17 04:28 Chloride 103.8 mmol/L (98-107) 08/19/17 04:28 Carbon Dioxide 27 mmol/L (22-30) 08/19/17 04:28 Anion Gap 16 mmol/L 08/19/17 04:28 BUN 9 mg/dL (9-20) 08/19/17 04:28 Creatinine 0.7 mg/dL (0.8-1.5) L 08/19/17 04:28 Estimated GFR > 60 ml/min 08/19/17 04:28 BUN/Creatinine Ratio 13 % 08/19/17 04:28 Glucose 114 mg/dL (75-100) H 08/19/17 04:28 POC Glucose 366 (70-105) H 08/19/17 08:13 Lactic Acid 2.00 mmol/L (0.7-2.0) 08/17/17 23:09 Calcium 7.7 mg/dL (8.4-10.2) L 08/19/17 04:28 Phosphorus 5.00 mg/dL (2.5-4.5) H 08/18/17 00:55 Magnesium 2.00 mg/dL (1.7-2.3) 08/18/17 00:55 Total Bilirubin 0.80 mg/dL (0.1-1.2) 08/17/17 23:09 AST 48 units/L (5-40) H 08/17/17 23:09 ALT 42 units/L (7-56) 08/17/17 23:09 Alkaline Phosphatase 76 units/L (35-129) 08/17/17 23:09 Troponin T < 0.010 ng/mL (0.00-0.029) 08/17/17 23:09 Total Protein 7.0 g/dL (6.3-8.2) 08/17/17 23:09 Albumin 4.0 g/dL (3.9-5) 08/17/17 23:09 Albumin/Globulin Ratio 1.3 % 08/17/17 23:09 Urine Color Yellow (Yellow) 08/18/17 01: Urine Turbidity Clear (Clear) 08/18/17 01: Urine pH 5.0 (5.0-7.0) 08/18/17 01: Ur Specific [place] 1.028 (1.003-1.030) 08/18/17 01:29 Urine Protein <15 mg/dl mg/dL (Negative) 08/18/17 01: Urine Glucose (UA) >=500 mg/dL (Negative) 08/18/17 01: Urine Ketones 80 mg/dL (Negative) 08/18/17 01:29 Urine Blood Sm (Negative) 08/18/17 01: Urine Nitrite Neg (Negative) 08/18/17 01: Urine Bilirubin Neg (Negative) 08/18/17 01: Urine Urobilinogen < 2.0 mg/dL (<2.0) 08/18/17 01:29 Ur Leukocyte Esterase Neg (Negative) 08/18/17 01: Urine WBC (Auto) < 1.0 /HPF (0.0-6.0) 08/18/17 01: Urine RBC (Auto) 5.0 /HPF (0.0-6.0) 08/18/17 01: Urine Mucus Few /HPF 08/18/17 01: Valproic Acid 2.8 ug/mL (50-100) L 08/17/17 23:09
[2017-08-19] MEDS: LOVENOX SUB-Q SCH (10:44)
[2017-08-19] MEDS: PEPCID PO SCH ×3 (10:45→21:58)
[2017-08-19] MEDS ORDERED: NOVOLOG SUB-Q SCH (11:00)
[2017-08-19] MEDS: NOVOLOG SUB-Q SCH ×4 (12:29→21:59)
[2017-08-19] MEDS: ZOFRAN IV PRN ×2 (13:59→20:03)
[2017-08-19] MEDS: NACL 0.9% 1000 ML 1,000 ML IV SCH (14:00)
[2017-08-19] MEDS: LEVEMIR SUB-Q SCH (20:16)
--- NOTE | 2017-08-19 20:16 | Progress Note ---
Assessment and Plan DKA Acute metabolic encephalopathy Schizophrenia Leukocytosis Noncompliance GERD Tobacco abuse Seizure disorder - off IV insulin - continue SSI - tobacco cessation counselled - continue other chronic disease meds - re-evaluate in am & prn ...improved Subjective Date of service: 08/19/17 Principal diagnosis: DKA Interval history: Patient is seen today for: DKA Seen and examined at bedside; 24hour events reviewed; nursing and respiratory care staff consulted; no adverse overnight events reported to me; doing better; denies acutechest pains or increased SOB; No N/V/F/C; no chest pain Objective Vital Signs - 12hr 08/19/17 08/19/17 08/19/17 09:01 12:18 15:53 Temperature 98.5 F 97.8 F 98.2 F Pulse Rate 96 H 100 H 96 H Respiratory 18 18 18 Rate Blood Pressure 111/75 133/85 118/81 O2 Sat by Pulse 95 100 98 Oximetry 08/19/17 20:02 Temperature Pulse Rate Respiratory 18 Rate Blood Pressure O2 Sat by Pulse Oximetry Constitutional: no acute distress (.) Eyes: non-icteric ENT: oropharynx moist, other Neck: supple, no lymphadenopathy, no JVD, other (no thyromegaly) Effort: normal Ascultation: Bilateral: clear Percussion: Bilateral: not dull Cardiovascular: regular rate and rhythm Gastrointestinal: normoactive bowel sounds, soft, non-tender, non-distended, other (no HSM) Integumentary: normal Extremities: no cyanosis, no edema, pulses normal, no ischemia or petechiae Neurologic: normal mental status, non-focal exam, pupils equal and round, motor strength normal and Psychiatric: mood appropriate, affect normal CBC and BMP: 08/19/17 03:17 08/19/17 04:28 ABG, PT/INR, D-dimer: PT/INR, D-dimer PT 12.1 Sec. (12.2-14.9) L 08/17/17 23:09 INR 0.86 (0.87-1.13) L 08/17/17 23:09 Abnormal lab findings: Abnormal Labs 08/17/17 08/17/17 08/17/17 23:09 23:09 23:09 WBC 15.3 H Hct 45.8 H Seg Neuts % (Manual) 88.0 H Lymphocytes % (Manual) 6.0 L Seg Neutrophils # Man 13.5 H Lymphocytes # (Manual) 0.9 L PT 12.1 L INR 0.86 L Potassium Chloride 89.1 L Carbon Dioxide 18 L Creatinine 0.7 L Glucose 588 H* POC Glucose Calcium Phosphorus AST 48 H Valproic Acid 08/17/17 08/18/17 08/18/17 23:09 00:55 00:55 WBC Hct Seg Neuts % (Manual) Lymphocytes % (Manual) Seg Neutrophils # Man Lymphocytes # (Manual) PT INR Potassium Chloride 92.7 L Carbon Dioxide 17 L Creatinine Glucose 523 H* POC Glucose Calcium Phosphorus 5.00 H AST Valproic Acid 2.8 L 08/18/17 08/18/17 08/18/17 02:01 03:22 04:43 WBC Hct Seg Neuts % (Manual) Lymphocytes % (Manual) Seg Neutrophils # Man Lymphocytes # (Manual) PT INR Potassium Chloride Carbon Dioxide Creatinine Glucose POC Glucose 352 H 223 H 148 H Calcium Phosphorus AST Valproic Acid 08/18/17 08/18/17 08/18/17 06:35 07:58 09:00 WBC Hct Seg Neuts % (Manual) Lymphocytes % (Manual) Seg Neutrophils # Man Lymphocytes # (Manual) PT INR Potassium Chloride Carbon Dioxide Creatinine Glucose POC Glucose 209 H 163 H 121 H Calcium Phosphorus AST Valproic Acid 08/18/17 08/18/17 08/18/17 10:15 11:30 12:48 WBC Hct Seg Neuts % (Manual) Lymphocytes % (Manual) Seg Neutrophils # Man Lymphocytes # (Manual) PT INR Potassium Chloride Carbon Dioxide Creatinine Glucose POC Glucose 160 H 198 H 205 H Calcium Phosphorus AST Valproic Acid 08/18/17 08/18/17 08/18/17 13:49 16:04 16:57 WBC Hct Seg Neuts % (Manual) Lymphocytes % (Manual) Seg Neutrophils # Man Lymphocytes # (Manual) PT INR Potassium Chloride Carbon Dioxide Creatinine Glucose POC Glucose 126 H 65 L 128 H Calcium Phosphorus AST Valproic Acid 08/18/17 08/18/17 08/18/17 18:10 19:15 20:32 WBC Hct Seg Neuts % (Manual) Lymphocytes % (Manual) Seg Neutrophils # Man Lymphocytes # (Manual) PT INR Potassium Chloride Carbon Dioxide Creatinine Glucose POC Glucose 212 H 191 H 65 L Calcium Phosphorus AST Valproic Acid 08/18/17 08/18/1717 21:08 21:49 22:28 WBC Hct Seg Neuts % (Manual) Lymphocytes % (Manual) Seg Neutrophils # Man Lymphocytes # (Manual) PT INR Potassium Chloride Carbon Dioxide Creatinine 0.7 L Glucose 115 H POC Glucose 141 H 306 H Calcium Phosphorus AST Valproic Acid 08/18/17 08/19/17 08/19/17 23:53 01:36 03:17 WBC 11.2 H Hct Seg Neuts % (Manual) Lymphocytes % (Manual) Seg Neutrophils # Man Lymphocytes # (Manual) PT INR Potassium Chloride Carbon Dioxide Creatinine Glucose POC Glucose 352 H 230 H Calcium Phosphorus AST Valproic Acid 08/19/17 08/19/17 08/19/17 03:17 04:28 04:53 WBC Hct Seg Neuts % (Manual) Lymphocytes % (Manual) Seg Neutrophils # Man Lymphocytes # (Manual) PT INR Potassium 3.3 L Chloride Carbon Dioxide Creatinine 0.7 L Glucose 114 H POC Glucose 126 H Calcium 8.2 L 7.7 L Phosphorus AST Valproic Acid 08/19/17 08/19/17 08/19/17 08:13 11:34 16:02 WBC Hct Seg Neuts % (Manual) Lymphocytes % (Manual) Seg Neutrophils # Man Lymphocytes # (Manual) PT INR Potassium Chloride Carbon Dioxide Creatinine Glucose POC Glucose 366 H 266 H 119 H Calcium Phosphorus AST Valproic Acid Chest x-ray: image reviewed (normal CXR)
[2017-08-19] MEDS ORDERED: ULTRAM PO PRN (21:45)
[2017-08-20] MEDS: NACL 0.9% 1000 ML 1,000 ML IV SCH
[2017-08-20] MEDS: NEURONTIN PO SCH (06:01)
[2017-08-20 08:27] VITALS: BP 119/87
[2017-08-20] MEDS: PEPCID PO SCH (11:24)
[2017-08-20] MEDS: RisperDAL PO SCH (11:24)
[2017-08-20] MEDS: LEVEMIR SUB-Q SCH (11:27)
[2017-08-20] MEDS: NOVOLOG SUB-Q SCH ×2 (11:29→12:24)
[2017-08-20] MEDS: LOVENOX SUB-Q SCH (11:29)
[2017-08-20] MEDS ORDERED: PNEUMOVAX 23 IM ONE (12:00)
[2017-08-20] MEDS ORDERED: K-DUR PO ONE (12:15)
--- NOTE | 2017-08-20 12:21 | Discharge Summary ---
Providers - Providers Date of Admission: 08/18/17 01:38 Date of discharge: 08/20/17 Attending physician: EMERALD HERRERA 08/18/17 00:15 Consult to Physician [CONS] Urgent Consulting Provider: CARLA WADE Reason For Exam: dk Place consult to:: Dr. Wade Notified:: Her number Phone number called:: Her number Was contact made?: Yes If yes, spoke with:: Dr. Wade Time called:: 00:34 Comment:: Dr. Ascencio ( dr) spoke with Dr. Wade 08/19/17 06:41 Consult to Mental Health [CONS] Routine Reason For Exam: Mental disorder flare Place consult to:: Dr. Kareem Mckeon Notified:: Phone number called:: [phone] Was contact made?: Yes If yes, spoke with:: jo ann [place] called:: 09:50 08/19/17 14:48 Consult to Physician [CONS] Routine Consulting Provider: KAREEM MCKEON Reason For Exam: psychosis Place consult to:: Notified:: Phone number called:: [phone] Was contact made?: Yes If yes, spoke with:: jo ann Time called:: 14:59 Primary care physician: CLINICAL NURSING INSTRUCTOR Hospitalization Condition: Stable Hospital course: Patient is a 31-year-old man with a history of insulin-dependent diabetes mellitus, bipolar disorder and schizophrenia, seizure disorder and GERD who presents with generalized weakness and high blood sugar. Patient was recently discharged from [facility] for DKA. -DKA with high anion gap metabolic acidosis, currently resolved: Start long- acting insulin with sliding scale, stop dextrose ivf -Acute metabolic encephalopathy due to above: Patient has been pulling on his lines, highly agitated -Schizophrenia, chronic worsening: Mental health evaluation pending, started Risperdal and when necessary Haldol IM -Leukocytosis with SIRS without infection -likely leukemoid reaction due to stress. No obvious source of infection identified a suspected. -Noncompliance patient counseled extensively -Gastroesophageal reflux disease without esophagitis on PPI -Tobacco abuse patient counseled extensively, give nicotine patch -Seizure disorder continue gabapentin as per home dose -Hypokalemia Disposition: DC-01 TO HOME OR SELFCARE Time spent for discharge: 34 minutes Core Measure Documentation - Palliative Care Palliative Care/ Comfort Measures: Not Applicable - Core Measures Any of the following diagnoses?: none - VTE Discharge Requirements Deep Vein Thrombosis/Pulmonary Embolism Present on Admission: No Has pt received <5 days of overlap therapy or INR<2.0: No Anticoagulant overlap therapy prescribed at discharge: No Contraindication No Overlap Therapy order at DC: Not Indicated Exam - Physical Exam Narrative exam: GEN: Unkempt, thin frail BMI 21 NAD, awake alert oriented 3 HEENT: NCAT, EOMI, PERRL, OP Clear NECK: supple, no adenopathy, no thyromegaly, no JVD CVS/HEART: RRR, NORMAL S1S2, NO JVD, pulses present bilaterally CHEST/LUNGS: CTA B, Symmetrical chest expansion, good air entry bilaterally GI/Abdomen: soft, NTND, good bowel sounds, no guarding or rebound /Bladder: no suprapubic tenderness, no CVA or paraspinal tenderness EXT/Skin: no c/c/e, no obvious rash MSK: FROM x 4 Neuro: CN 2-12 grossly intact, no new focal deficits Psych: Agitated - Constitutional Vitals: Temp Pulse Resp BP Pulse Ox 97.9 F 88 18 119/87 94 08/20/17 08:24 08/20/17 08:24 08/20/17 08:24 08/20/17 08:24 08/20/17 08:24 Plan Activity: other (no strenous activity until cleared by pcp) Diet: diabetic Special Instructions: record blood sugar diary (3 times a day) Follow up with: PRIMARY CARE, [Primary Care Provider] - 3-5 Days [address]criptions: D[address] Jaden Crocker] 500 mg PO QHS #[address] Jaden Crocker] 250 mg PO QAM #30 tablet Esomeprazole Magnesium [NexIUM] 40 mg PO QDAY #30 capsule. Famotidine [Pepcid] 20 mg PO BID #30 tablet Gabapentin [Neurontin] 600 mg PO Q8H #90 tablet Insulin Aspart [Novolog] 1 dose SQ AC #30 day Insulin Detemir [Levemir VIAL] 15 unit SQ BID #1 vial oxyCODONE /ACETAMINOPHEN [Percocet 5/325 mg] 1 tab PO Q6HR PRN #15 tablet PRN Reason: Pain risperiDONE [RisperDAL] 1 mg PO BID #30 tablet
== END 2017-08-20 15:56 | disposition home or self-care (01) | DRG 637 ==
LOC: ED 22:22 → CC1 08-18 01:38 → 3A 08-19 08:15
PROVIDERS: ADMIT Internal Medicine Geriatric Medicine; ATTEND Internal Medicine
DX: E13.10 Other specified diabetes mellitus with ketoacidosis without coma (principal); G93.41 Metabolic encephalopathy; R65.10 Systemic inflammatory response syndrome (SIRS) of non-infectious origin without acute organ dysfunction; F31.9 Bipolar disorder, unspecified; K21.9 Gastro-esophageal reflux disease without esophagitis; D72.823 Leukemoid reaction; F20.9 Schizophrenia, unspecified; Z91.012 Allergy to eggs; Z91.018 Allergy to other foods; F17.200 Nicotine dependence, unspecified, uncomplicated; Z82.49 Family history of ischemic heart disease and other diseases of the circulatory system; Z91.19 Patient's noncompliance with other medical treatment and regimen; G40.909 Epilepsy, unspecified, not intractable, without status epilepticus; E87.6 Hypokalemia
CPT/HCPCS: 36415; 70450; 71010; 72125; 74176; 80048; 80053; 80164; 81001; 82140; 82805; 82962; 83735; 84100; 84484; 85007; 85025; 85027; 85610; 87086; 93005; 93010; 99285; 99406; J1170; J1630; J1650; J1815; J1818; J2405; J7030

== ENCOUNTER 2017-08-30 17:02 | Inpatient (IN) | payer MEDICAID ==
[2017-08-30] MEDS ORDERED: NACL 0.9% 1000 ML 2,000 ML IV ONE (18:28)
[2017-08-30] MEDS ORDERED: ATIVAN ONE (18:37)
[2017-08-30] MEDS ORDERED: ATIVAN IV ONE (18:51)
[2017-08-30] MEDS ORDERED: D50W (25GM) Syringe IV PRN ×2 (19:12→22:01)
[2017-08-30] MEDS ORDERED: NACL 0.9% 1000 ML 1,000 ML IV ONE ×3 (19:12→22:01)
[2017-08-30] MEDS ORDERED: PROVENTIL IH ONE (19:16)
[2017-08-30 19:20] LABS: Mean Corpuscular HGB Conc 28 % (32-34); Mean Corpuscular Hemoglobin 31 pg (28-32); Platelet Count 504 K/mm3 (140-440); Red Blood Count 5.02 M/mm3 (3.65-5.03); Red Cell Distribution Width 16.8 % (13.2-15.2)
[2017-08-30 19:38] LABS: Hematocrit 55.4 % (35.5-45.6); Hemoglobin 15.6 gm/dl (11.8-15.2); Mean Corpuscular Volume 110 fl (84-94)
[2017-08-30 19:42] LABS: Alanine Aminotransferase 49 units/L (7-56); Albumin 3.8 g/dL (3.9-5); BUN/Creatinine Ratio 24; Blood Urea Nitrogen 39 mg/dL (9-20); Calcium 9.9 mg/dL (8.4-10.2); Hemolysis Index 53
[2017-08-30 19:54] LABS: Bilirubin,Urine NEG (Negative); Blood,Urine NEG (Negative); Color,Urine Straw (Yellow); Mucus,Urine FEW /HPF; Nitrite,Urine NEG (Negative); Protein,Urine <15 mg/dL mg/dL (Negative); RBC,Urine < 1.0 /HPF (0.0-6.0); Urobilinogen,Urine < 2.0 mg/dL (<2.0)
[2017-08-30 19:55] LABS: WBC,Urine < 1.0 /HPF (0.0-6.0)
[2017-08-30] MEDS ORDERED: SODIUM BICARBONATE 50 MEQ in NACL 0.9% 1000 ML 1,000 ML IV SCH (20:00)
[2017-08-30] MEDS ORDERED: NovoLIN R 100 UNITS in NACL 0.9% 99 ML IV SCH (20:00)
--- NOTE | 2017-08-30 20:05 | Emergency Department Report ---
HPI - General Chief Complaint: Hyperglycemia Time Seen by Provider: 08/30/17 18:25 - HPI HPI: The patient is a 31-year-old male presents for evaluation of altered mental status, ill-feeling. The patient reports 1 day of constant and severe generalized dizziness, exacerbated with exertion or activity, and associated with severe thirst and dryness of the mouth. The patient has a history of uncontrolled diabetes. The patient denies, injury to the head, headache, chest pain, dyspnea, syncope, abdominal pain, nausea, vomiting, diarrhea. ED Past Medical Hx - Past Medical History Previous Medical History?: Yes Hx Hypertension: Yes Hx CVA: No Hx Heart Attack/AMI: No Hx Congestive Heart Failure: No Hx Diabetes: Yes Hx Deep Vein Thrombosis: No Hx Pulmonary Embolism: No Hx GERD: Yes Hx Liver Disease: No Hx Renal Disease: No Hx Sickle Cell Disease: No Hx Arthritis: No Hx Headaches / Migraines: No Hx Seizures: Yes Hx Kidney Stones: No Hx Psychiatric Treatment: Yes (bipolar ;schizophrenia) Hx Asthma: No Hx COPD: No Hx Tuberculosis: No Hx Dementia: No Hx HIV: No - Surgical History Past Surgical History?: Yes Hx Coronary Stent: No Hx Open Heart Surgery: No Hx Pacemaker: No Hx Internal Defibrillator: No Hx Cholecystectomy: No Hx Appendectomy: No Hx Breast Surgery: No Additional Surgical History: r) wrist surgery - Social History Smoking Status: Unknown if ever smoked Substance Use Type: Prescribed - Medications Home Medications: Home Medications Medication Instructions Recorded Confirmed Last Taken Type Acetaminophen [Acetaminophen TAB] 325 mg PO Q4H PRN #30 tablet 08/20/[address] Jaden Crocker] 250 mg PO QAM #30 tablet 08/20/[address] Jaden Crocker] 500 mg PO QHS #30 tablet 08/20/17 Unknown Rx Esomeprazole Magnesium [NexIUM] 40 mg PO QDAY #30 capsule. 08/20/17 Unknown Rx Famotidine [Pepcid] 20 mg PO BID #30 tablet 08/20/17 Unknown Rx Gabapentin [Neurontin] 600 mg PO Q8H #90 tablet 08/20/17 Unknown Rx Insulin Aspart [Novolog] 1 dose SQ AC #30 day 08/20/17 Unknown Rx Insulin Detemir [Levemir VIAL] 15 unit SQ BID #1 vial 08/20/17 Unknown Rx oxyCODONE /ACETAMINOPHEN [Percocet 1 tab PO Q6HR PRN #15 tablet 08/20/17 Unknown Rx 5/325 mg] risperiDONE [RisperDAL] 1 mg PO BID #30 tablet 08/20/17 Unknown Rx ED Review of Systems ROS: Stated complaint: AMS POSSIBLE DKA Other details as noted in HPI Constitutional: reports lightheadedness and weakness denies: fever ENT: denies: throat or neck pain Respiratory: denies: cough, shortness of breath Cardiovascular: denies: chest pain Endocrine: reports thirst and polyuria denies unexplained weight loss or gain Gastrointestinal: denies: abdominal pain, nausea Genitourinary: denies: dysuria Musculoskeletal: denies: leg swelling Skin: denies: rash Neurological: denies: headache Hematological/Lymphatic: denies: easy bleeding or easy bruising Psych: denies sadness or hopelessness Physical Exam - Physical Exam Vital Signs: Vital Signs 08/30/17 17:10 Temperature 98.1 F Pulse Rate 146 H Respiratory 28 H Rate Blood Pressure 172/74 O2 Sat by Pulse 99 Oximetry Physical Exam: General: well-nourished, well-developed, no acute distress Head: Normocephalic, atraumatic Eyes: normal sclera ENT: Mucous membranes are pale and dry Neck: No neck stiffness, no cervical adenopathy Respiratory: Breath sounds equal bilaterally, no wheezing, rales, or rhonchi Cardio: S1 and S2 present, no murmurs, rubs, gallops, capillary refill is delayed Abdomen: Normoactive bowel sounds, soft abdomen, no rigidity, no guarding or rebound tenderness Chest WALL/Back: No tenderness to palpation of the chest wall, no CVA tenderness with percussion Musc: No pitting edema Skin: No rash Neuro: no facial drooping, normal speech Psych: Flat affect, poor insight, patient delusional, agitated ED Course Vital Signs 08/30/17 17:10 Temperature 98.1 F Pulse Rate 146 H Respiratory 28 H Rate Blood Pressure 172/74 O2 Sat by Pulse 99 Oximetry ED Medical Decision Making - Lab Data Result diagrams: 08/30/17 19:00 08/31/17 00:21 - Medical Decision Making The patient was seen and examined by myself. The patient is placed on a bus driver/monitor and continuous pulse ox. On initial evaluation, the patient was found to be tachycardic, heart rate in the 130s, agitated and in distress. He is disoriented and is exhibiting severe altered mental status. The patient is unable to follow directions and dislodges IV lines. The patient is given Ativan and placed in restraints as he is not competent to refuse medical care. Evaluation orders were placed. EKG exhibited tented T waves. The patient is given an IV bolus of insulin and multiple boluses of normal saline. Multiple bedside assessing were performed to assess patient responsiveness to fluids resuscitation and angiolytics. Lab results revealed elevated potassium level of 6.0, low pH of 7.0, elevated lactic acid of 7.8, low bicarbonate of 7, and elevated glucose of 1000. Findings are consistent with acute DKA. The patient started on insulin drip. The on-call hospitalist service was contacted. They agreed to admit the patient for further treatment and close monitoring. The ED admit order was placed. The patient was admitted in guarded condition. Critical Care Time: Yes Critical care time in (mins) excluding proc time.: 35 Critical care attestation.: Due to the critical nature of this patients presentation, which necessitated multiple bedside assessments, manipulation and supportive measures to prevent further life threatening deterioration, I would like to bill for a total of 35 minutes of critical care time. This was exclusive of any separately billable procedures. Critical Care Time: 35 minutes ED Disposition Clinical Impression: DAVE (acute kidney injury), Dehydration, Hyperkalemia DKA (diabetic ketoacidoses) Qualifiers: Diabetes mellitus type: type 1 Diabetes mellitus complication detail: without coma Qualified Code(s): E10.10 - Type 1 diabetes mellitus with ketoacidosis without coma Altered mental status, unspecified Qualifiers: Altered mental status type: delirium Qualified Code(s): R41.0 - Disorientation , unspecified Disposition: DC-09 OP ADMIT IP TO THIS HOSP Is pt being admited?: Yes Does the pt Need Aspirin: Yes Condition: Critical Time of Disposition: 19:02
[2017-08-30 20:08] LABS: Basophils % (Manual) 0 % (0.0-1.8); Eosinophils % (Manual) 0 % (0.0-4.3); Myelocytes # (Manual) 0.4 K/mm3; Total Cells Counted 100
[2017-08-30 20:09] LABS: Macrocytosis 1+; Platelet Estimate Consistent w Auto
[2017-08-30] MEDS ORDERED: SODIUM BICARBONATE IV ONE ×3 (20:35→21:00)
[2017-08-30] MEDS: NovoLIN R 100 UNITS in NACL 0.9% 99 ML IV SCH (22:24)
[2017-08-30] MEDS ORDERED: D5W/0.45% NACL/KCL 20 MEQ 20 MEQ/1,000 ML BAG IV SCH (23:00)
[2017-08-31] MEDS: HEPARIN SUB-Q SCH ×2 (00:01→10:36)
[2017-08-31] MEDS ORDERED: ATIVAN IV ONE ×3 (00:16→01:45)
[2017-08-31 01:32] LABS: BUN/Creatinine Ratio 24; Blood Urea Nitrogen 34 mg/dL (9-20); Calcium 9.7 mg/dL (8.4-10.2); Hemolysis Index 49
[2017-08-31 04:07] LABS: Magnesium 2.8 mg/dL (1.7-2.3)
[2017-08-31 04:08] LABS: BUN/Creatinine Ratio 32; Blood Urea Nitrogen 35 mg/dL (9-20); Calcium 9.4 mg/dL (8.4-10.2); Hemolysis Index 11
--- NOTE | 2017-08-31 06:33 | History and Physical Report ---
CHIEF COMPLAINT: Elevated blood sugar. Other complaint includes change in mental status and dizziness. HISTORY OF PRESENT ILLNESS: The patient is a 31-year-old male with a history of uncontrolled diabetes and schizophrenia, brought to the Emergency Room because of elevated blood sugar. The patient was also noted to be feeling dizzy with change in mental status but denied history of chest pain or pain anywhere. There was also no history of shortness of breath, fever, chills. No history of nausea or vomiting. The patient was evaluated and found to be in diabetic ketoacidosis. PAST MEDICAL HISTORY: Pertinent for hypertension, bipolar disorder and schizophrenia. Also, the patient has a past history of seizure disorder. PAST SURGICAL HISTORY: Pertinent wrist surgery on the right. FAMILY HISTORY: Noncontributory. SOCIAL HISTORY: The patient does not smoke, does not drink alcohol and does not use illicit drugs. MEDICATIONS: The patient is on Tylenol 350 mg every 4 hours for fever and headache, Depakote 250 mg by mouth every morning and 500 mg by mouth every evening. The patient is also on Nexium 40 mg by mouth daily, gabapentin 600 mg by mouth every 8 hours and NovoLog insulin Aspart 1 dose subcutaneously ____. Also, the patient is on Levemir insulin 15 units subcutaneously twice daily. The patient is also on Percocet 5/325 one by mouth every 6 hours for pain and Risperdal 1 mg by mouth twice daily. ALLERGIES: THE PATIENT IS ALLERGIC TO EGG AND BANANA. REVIEW OF SYSTEMS: CONSTITUTIONAL: There is no fever, no chills, no diaphoresis. HEENT: There is no headache or sore throat. CARDIOVASCULAR: There is no chest pain or orthopnea. RESPIRATORY: There is no shortness of breath or cough. GASTROINTESTINAL: There is no nausea, no vomiting, no abdominal pain, diarrhea, or constipation. NEUROLOGICAL: There is change in mental status and also there is dizziness and generalized weakness. MUSCULOSKELETAL: There is no joint pain or swelling. DERMATOLOGICAL: There is no skin rash or itching. GENITOURINARY: There is no dysuria, hematuria, or flank pain. Rest of system review is normal. PHYSICAL EXAMINATION: GENERAL: At the time of exam, the patient was found to be alert, disoriented x3, combative and agitated, and not in acute distress. VITAL SIGNS: Vital signs show normal temperature with pulse of 131, respirations 17, and the patient's blood pressure is 172/74 when he came in initially. HEENT: Showed pupils to be equal, round, reactive to light and accommodative. Extraocular muscles are intact. Oral mucosa looked dry. NECK: Supple, with no JVD or carotid bruit. CARDIOVASCULAR: Showed normal first and second heart sounds, with no gallops or murmurs. RESPIRATORY: Showed good air entry on both sides of the lung with no abnormal breath sounds. GASTROINTESTINAL SYSTEM: Show abdomen to be full, soft, nontender with no organomegaly or rigidity. NEUROLOGIC: Exam shows no focal deficits. MUSCULOSKELETAL SYSTEM: Show no joint swelling or tenderness. DERMATOLOGICAL SYSTEM: Show no skin rash. GENITOURINARY: Showing no costovertebral angle tenderness. PERTINENT LABORATORY DATA AND IMAGING STUDIES: The patient had CBC done that shows a high white count of 17,800, high hemoglobin of 16.3 and high hematocrit of 55.4 with elevated platelet count of 504. CBC differential showed elevated segmented neutrophil of 83%, with no significant bands. The patient's blood gas initially showed a low pH of 7.085 with low pCO2 of 19.55 and pO2 of 109, and this was done on FiO2 of 21% on room air. The patient's chemistry showed normal sodium with high potassium level of 6, low chloride level of 85.8 and low CO2 of 7, with elevated BUN of 39 and elevated creatinine of 1.6 with very high glucose level of 1,299 and elevated lactic acid level of 7.80. The patient's liver transaminases show slight increase in AST of 43 with normal ALT of 49, elevated alkaline phosphatase of 162 and slightly low albumin of ____. The patient's anion gap is about 48. DIAGNOSES: Diabetic ketoacidosis. PLAN: The patient will be admitted to Critical Care Unit using DKA pathway and will continue on IV insulin drip protocol. The patient will be on IV normal saline, again received boluses in the unit and will continue at about 250 mL an hour until blood sugar is below 250 when the insulin drip will be changed from normal saline to D5 half normal with potassium supplement to run at 125 mL an hour. DVT prophylaxis will be through heparin 5,000 units subcutaneously q.8 hours. The patient will receive 1 amp of bicarb having had the first amp prior to evaluation because of severe acidosis. The patient will have phosphorus level and magnesium level checked and will have Accu-Chek every hour and basic metabolic panel checked at every 2 hours and also every 8 hours. The patient will continue on DKA pathway until blood sugar level comes down to 120 to about 150 and the patient is out of DKA when he will be switched over to subcutaneous regular insulin with Accu-Chek changed to a.c. and at bedtime, and the patient will then be fed on 1800 calorie ADA diet. The patient will also have CBC checked in the morning. JOB# [id number] OCN/NTS
[2017-08-31] MEDS ORDERED: GEODON IM ONE ×4 (08:54→15:55)
[2017-08-31 11:06] LABS: BUN/Creatinine Ratio 33; Blood Urea Nitrogen 30 mg/dL (9-20); Hemolysis Index 108
[2017-08-31 16:51] LABS: BUN/Creatinine Ratio 27; Blood Urea Nitrogen 24 mg/dL (9-20); Calcium 9.2 mg/dL (8.4-10.2); Hemolysis Index 7
[2017-08-31] MEDS ORDERED: D5W 1,000 ML IV SCH (19:00)
--- NOTE | 2017-08-31 19:09 | Consultation ---
History of Present Illness Consult date: 08/31/17 Medications and Allergies Allergies Allergy/AdvReac Type Severity Reaction Status Date / Time banana Allergy Severe Angioedema Verified 09/07/14 04:24 egg Allergy Unknown Verified 09/07/14 04:24 Home Medications Medication Instructions Recorded Confirmed Last Taken Type Acetaminophen [Acetaminophen TAB] 325 mg PO Q4H PRN #30 tablet 08/20/17 Unknown Rx Divalproex [Waldemar Crocker] 250 mg PO QAM #30 tablet 08/20/17 Unknown Rx Divalproex [Waldemar Crocker] 500 mg PO QHS #30 tablet 08/20/17 Unknown Rx Esomeprazole Magnesium [NexIUM] 40 mg PO QDAY #30 capsule.dr 08/20/17 Unknown Rx Famotidine [Pepcid] 20 mg PO BID #30 tablet 08/20/17 Unknown Rx Gabapentin [Neurontin] 600 mg PO Q8H #90 tablet 08/20/17 Unknown Rx Insulin Aspart [Novolog] 1 dose SQ AC #30 day 08/20/17 Unknown Rx Insulin Detemir [Levemir VIAL] 15 unit SQ BID #1 vial 08/20/17 Unknown Rx oxyCODONE /ACETAMINOPHEN [Percocet 1 tab PO Q6HR PRN #15 tablet 08/20/17 Unknown Rx 5/325 mg] risperiDONE [RisperDAL] 1 mg PO BID #30 tablet 08/20/17 Unknown Rx Active Meds: Active Medications Dextrose (D50w (25gm) Syringe) 0 ml IV PRN PRN PRN Reason: Hypoglycemia Last Admin: 08/31/17 15:15 Dose: 15 ml Heparin Sodium (Porcine) (Heparin) 5,000 unit SUB-Q Q12HR ANTONIA Last Admin: 08/31/17 10:36 Dose: 5,000 unit Insulin Human Regular 100 (units/ Sodium Chloride) 100 mls @ 1 mls/hr IV TITR ANTONIA; 1 UNITS/HR PRN Reason: Protocol Last Titration: 08/31/17 14:13 Dose: Infused Dextrose (D5w) 1,000 mls @ 125 mls/hr IV DIRECT ANTONIA Last Admin: 08/31/17 18:54 Dose: 125 mls/hr Physical Examination Vital signs: Vital Signs Temp Pulse Resp BP Pulse Ox 98.1 F 146 H 28 H 172/74 99 08/30/17 17:10 08/30/17 17:10 08/30/17 17:10 08/30/17 17:10 08/30/17 17:10 Results - Laboratory Findings CBC and BMP: 08/30/17 19:00 08/31/17 16:16 ABG POC ABG pH 7.523 (7.35-7.45) H 08/31/17 01:21 POC ABG pCO2 20.6 (35-45) L 08/31/17 01:21 POC ABG pO2 128 (80-105) H 08/31/17 01:21 POC ABG HCO3 17.0 08/31/17 01:21 POC ABG Total CO2 18 08/31/17 01:21 POC ABG O2 Sat 99 08/31/17 01:21 Abnormal lab findings: Abnormal Labs 08/30/17 08/30/17 08/30/17 03:15 17:08 18:54 WBC Hgb Hct MCV MCHC RDW Plt Count Seg Neuts % (Manual) Lymphocytes % (Manual) Seg Neutrophils # Man Monocytes # (Manual) POC ABG pH POC ABG pCO2 POC ABG pO2 Sodium Potassium Chloride Carbon Dioxide BUN Creatinine Glucose POC Glucose > 500 H > 500 H Lactic Acid Magnesium 2.80 H AST Alkaline Phosphatase Albumin Valproic Acid 08/30/17 08/30/17 08/30/17 19:00 19:00 19:00 WBC 17.8 H Hgb 15.6 H Hct 55.4 H MCV 110 H MCHC 28 L RDW 16.8 H Plt Count 504 H Seg Neuts % (Manual) 83.0 H Lymphocytes % (Manual) 9.0 L Seg Neutrophils # Man 14.8 H Monocytes # (Manual) 1.1 H POC ABG pH POC ABG pCO2 POC ABG pO2 Sodium Potassium 6.0 H Chloride 85.8 L Carbon Dioxide 7 L* BUN 39 H Creatinine 1.6 H Glucose 1299 H* POC Glucose Lactic Acid 7.80 H* Magnesium AST 43 H Alkaline Phosphatase 152 H Albumin 3.8 L Valproic Acid 08/30/17 08/30/17 08/30/17 19:00 20:12 20:47 WBC Hgb Hct MCV MCHC RDW Plt Count Seg Neuts % (Manual) Lymphocytes % (Manual) Seg Neutrophils # Man Monocytes # (Manual) POC ABG pH 7.089 L POC ABG pCO2 19.5 L POC ABG pO2 109 H Sodium Potassium Chloride Carbon Dioxide BUN Creatinine Glucose POC Glucose > 500 H Lactic Acid Magnesium AST Alkaline Phosphatase Albumin Valproic Acid < 2.8 L 08/30/17 08/30/17 08/31/17 22:13 23:45 00:21 WBC Hgb Hct MCV MCHC RDW Plt Count Seg Neuts % (Manual) Lymphocytes % (Manual) Seg Neutrophils # Man Monocytes # (Manual) POC ABG pH POC ABG pCO2 POC ABG pO2 Sodium 155 H D Potassium Chloride 107.1 H Carbon Dioxide 16 L D BUN 34 H Creatinine Glucose 530 H* POC Glucose > 500 H 480 H Lactic Acid Magnesium AST Alkaline Phosphatase Albumin Valproic Acid 08/31/17 08/31/17 08/31/17 01:21 01:41 03:15 WBC Hgb Hct MCV MCHC RDW Plt Count Seg Neuts % (Manual) Lymphocytes % (Manual) Seg Neutrophils # Man Monocytes # (Manual) POC ABG pH 7.523 H POC ABG pCO2 20.6 L POC ABG pO2 128 H Sodium 162 H* Potassium Chloride 118.5 H Carbon Dioxide BUN 35 H Creatinine Glucose 150 H POC Glucose 402 H Lactic Acid Magnesium AST Alkaline Phosphatase Albumin Valproic Acid 08/31/17 08/31/17 08/31/17 03:27 04:57 06:21 WBC Hgb Hct MCV MCHC RDW Plt Count Seg Neuts % (Manual) Lymphocytes % (Manual) Seg Neutrophils # Man Monocytes # (Manual) POC ABG pH POC ABG pCO2 POC ABG pO2 Sodium Potassium Chloride Carbon Dioxide BUN Creatinine Glucose POC Glucose 112 H 118 H 194 H Lactic Acid Magnesium AST Alkaline Phosphatase Albumin Valproic Acid 08/31/17 08/31/17 08/31/17 07:46 08:50 09:55 WBC Hgb Hct MCV MCHC RDW Plt Count Seg Neuts % (Manual) Lymphocytes % (Manual) Seg Neutrophils # Man Monocytes # (Manual) POC ABG pH POC ABG pCO2 POC ABG pO2 Sodium Potassium Chloride Carbon Dioxide BUN Creatinine Glucose POC Glucose 155 H 124 H 256 H Lactic Acid Magnesium AST Alkaline Phosphatase Albumin Valproic Acid 08/31/17 08/31/17 08/31/17 10:35 11:05 12:09 WBC Hgb Hct MCV MCHC RDW Plt Count Seg Neuts % (Manual) Lymphocytes % (Manual) Seg Neutrophils # Man Monocytes # (Manual) POC ABG pH POC ABG pCO2 POC ABG pO2 Sodium 160 H Potassium 5.9 H D Chloride 118.9 H Carbon Dioxide 20 L BUN 30 H Creatinine Glucose 194 H POC Glucose 271 H 219 H Lactic Acid Magnesium AST Alkaline Phosphatase Albumin Valproic Acid 08/31/17 08/31/17 08/31/17 13:13 14:15 15:13 WBC Hgb Hct MCV MCHC RDW Plt Count Seg Neuts % (Manual) Lymphocytes % (Manual) Seg Neutrophils # Man Monocytes # (Manual) POC ABG pH POC ABG pCO2 POC ABG pO2 Sodium Potassium Chloride Carbon Dioxide BUN Creatinine Glucose POC Glucose 142 H 152 H 66 L Lactic Acid Magnesium AST Alkaline Phosphatase Albumin Valproic Acid 08/31/17 08/31/17 15:50 16:16 WBC Hgb Hct MCV MCHC RDW Plt Count Seg Neuts % (Manual) Lymphocytes % (Manual) Seg Neutrophils # Man Monocytes # (Manual) POC ABG pH POC ABG pCO2 POC ABG pO2 Sodium 164 H* Potassium Chloride 120.2 H Carbon Dioxide BUN 24 H Creatinine Glucose 70 L POC Glucose 144 H Lactic Acid Magnesium AST Alkaline Phosphatase Albumin Valproic Acid
--- NOTE | 2017-08-31 20:04 | Progress Note ---
Assessment and Plan Assessment and plan: Patient is a 31year-old male with history of schizophrenia, diabetes mellitus, who was admitted to the hospital with DKA Acute Psychosis Schizophrenia Hypernatremia Leukocytosis Tobacco use disorder DKA Metabolic Acidosis Plan Continue supportive care We'll transition to long-acting insulin once anion gap closes Await psychiatry evaluation Obtain medical records from patient's family and restart. DVT GI prophylaxis Monitor for electrolytes Extensive counseling: tobacco cessation once patient is more awake History Interval history: Patient seen and examined, remains in 4 point restraints, very confused. Hospitalist Physical - Physical exam Narrative exam: VITAL SIGNS: Reviewed. GENERAL: The patient appeared disheveled and acutely psychotic. Vital signs as documented. HEAD: No signs of head trauma. EYES: Pupils are equal. EARS: Hearing grossly intact. MOUTH: Oropharynx is normal. NECK: No adenopathy, no JVD. CHEST: Chest with clear breath sounds bilaterally. No wheezes, rales, or rhonchi. CARDIAC: Regular rate and rhythm. S1 and S2, without murmurs, gallops, or rubs. VASCULAR: No Edema. Peripheral pulses normal and equal in all extremities. ABDOMEN: Soft, without detectable tenderness. No sign of distention. No rebound or guarding, and no masses palpated. Bowel Sounds normal. MUSCULOSKELETAL: Good range of motion of all major joints. Extremities without clubbing, cyanosis or edema. NEUROLOGIC EXAM: Unable to assess. No focal sensory or strength deficits. PSYCHIATRIC: Unable to assess this. SKIN: No rash or lesions. - Constitutional Vitals: Temp Pulse Resp BP Pulse Ox 97.5 F L 118 H 16 116/70 100 08/31/17 18:30 08/31/17 18:30 08/31/17 18:30 08/31/17 18:30 08/31/17 18:30 General appearance: Present: mild distress - EENT Eyes: Present: PERRL - Neck Neck: Present: supple - Respiratory Respiratory effort: normal - Cardiovascular Heart Sounds: Present: S1 & S2 (TACHYCARDIA) - Extremities Extremities: pulses intact, pulses symmetrical Peripheral Pulses: within normal limits - Abdominal General gastrointestinal: soft Results - Labs CBC & Chem 7: 09/02/17 14:03 09/02/17 14:03 Labs: Laboratory Last Values WBC 17.8 K/mm3 (4.5-11.0) H 08/30/17 19:00 RBC 5.02 M/mm3 (3.65-5.03) 08/30/17 19:00 Hgb 15.6 gm/dl (11.8-15.2) H 08/30/17 19:00 Hct 55.4 % (35.5-45.6) H 08/30/17 19:00 MCV 110 fl (84-94) H 08/30/17 19:00 MCH 31 pg (28-32) 08/30/17 19:00 MCHC 28 % (32-34) L 08/30/17 19:00 RDW 16.8 % (13.2-15.2) H 08/30/17 19:00 Plt Count 504 K/mm3 (140-440) H 08/30/17 19:00 Add Manual Diff Complete 08/30/17 19:00 Total Counted 100 08/30/17 19:00 Seg Neuts % (Manual) 83.0 % (40.0-70.0) H 08/30/17 19:00 Band Neutrophils % 0 % 08/30/17 19:00 Lymphocytes % (Manual) 9.0 % (13.4-35.0) L 08/30/17 19:00 Reactive Lymphs % (Man) 0 % 08/30/17 19:00 Monocytes % (Manual) 6.0 % (0.0-7.3) 08/30/17 19:00 Eosinophils % (Manual) 0 % (0.0-4.3) 08/30/17 19:00 Basophils % (Manual) 0 % (0.0-1.8) 08/30/17 19:00 Metamyelocytes % 0 % 08/30/17 19:00 Myelocytes % 2.0 % 08/30/17 19:00 Promyelocytes % 0 % 08/30/17 19:00 Blast Cells % 0 % 08/30/17 19:00 Nucleated RBC % Not Reportable 08/30/17 19:00 Seg Neutrophils # Man 14.8 K/mm3 (1.8-7.7) H 08/30/17 19:00 Band Neutrophils # 0.0 K/mm3 08/30/17 19:00 Lymphocytes # (Manual) 1.6 K/mm3 (1.2-5.4) 08/30/17 19:00 Abs React Lymphs (Man) 0.0 K/mm3 08/30/17 19:00 Monocytes # (Manual) 1.1 K/mm3 (0.0-0.8) H 08/30/17 19:00 Eosinophils # (Manual) 0.0 K/mm3 (0.0-0.4) 08/30/17 19:00 Basophils # (Manual) 0.0 K/mm3 (0.0-0.1) 08/30/17 19:00 Metamyelocytes # 0.0 K/mm3 08/30/17 19:00 Myelocytes # 0.4 K/mm3 08/30/17 19:00 Promyelocytes # 0.0 K/mm3 08/30/17 19:00 Blast Cells # 0.0 K/mm3 08/30/17 19:00 WBC Morphology Not Reportable 08/30/17 19:00 Hypersegmented Neuts Not Reportable 08/30/17 19:00 Hyposegmented Neuts Not Reportable 08/30/17 19:00 Hypogranular Neuts Not Reportable 08/30/17 19:00 Smudge Cells Not Reportable 08/30/17 19:00 Toxic Granulation Not Reportable 08/30/17 19:00 Toxic Vacuolation Not Reportable 08/30/17 19:00 Dohle Bodies Not Reportable 08/30/17 19:00 Pelger-Huet Anomaly Not Reportable 08/30/17 19:00 Jackson Rods Not Reportable 08/30/17 19:00 Platelet Estimate Consistent w auto 08/30/17 19:00 Clumped Platelets Not Reportable 08/30/17 19:00 Plt Clumps, EDTA Not Reportable 08/30/17 19:00 Large Platelets Not Reportable 08/30/17 19:00 Giant Platelets Not Reportable 08/30/17 19:00 Platelet Satelliting Not Reportable 08/30/17 19:00 Plt Morphology Comment Not Reportable 08/30/17 19:00 RBC Morphology Not Reportable 08/30/17 19:00 Dimorphic RBCs Not Reportable 08/30/17 19:00 Polychromasia Not Reportable 08/30/17 19:00 Hypochromasia Not Reportable 08/30/17 19:00 Poikilocytosis Not Reportable 08/30/17 19:00 Anisocytosis Not Reportable 08/30/17 19:00 Microcytosis Not Reportable 08/30/17 19:00 Macrocytosis 1+ 08/30/17 19:00 Spherocytes Not Reportable 08/30/17 19:00 Pappenheimer Bodies Not Reportable 08/30/17 19:00 Sickle Cells Not Reportable 08/30/17 19:00 Target Cells Not Reportable 08/30/17 19:00 Tear Drop Cells Not Reportable 08/30/17 19:00 Ovalocytes Not Reportable 08/30/17 19:00 Helmet Cells Not Reportable 08/30/17 19:00 [place] Bodies Not Reportable 08/30/17 19:00 [place] Rings Not Reportable 08/30/17 19:00 [place] Cells Not Reportable 08/30/17 19:00 Bite Cells Not Reportable 08/30/17 19:00 Crenated Cell Not Reportable 08/30/17 19:00 Elliptocytes Not Reportable 08/30/17 19:00 Acanthocytes (Spur) Not Reportable 08/30/17 19:00 Rouleaux Not Reportable 08/30/17 19:00 Hemoglobin C Crystals Not Reportable 08/30/17 19:00 Schistocytes Not Reportable 08/30/17 19:00 Malaria parasites Not Reportable 08/30/17 19:00 Cedric Bodies Not Reportable 08/30/17 19:00 Hem Pathologist Commnt No 08/30/17 19:00 POC ABG pH 7.523 (7.35-7.45) H 08/31/17 01:21 POC ABG pCO2 20.6 (35-45) L 08/31/17 01:21 POC ABG pO2 128 (80-105) H 08/31/17 01:21 POC ABG HCO3 17.0 08/31/17 01:21 POC ABG Total CO2 18 08/31/17 01:21 POC ABG O2 Sat 99 08/31/17 01:21 POC ABG Base Excess -6 08/31/17 01:21 FiO2 21 % 08/31/17 01:21 Sodium 164 mmol/L (137-145) H* 08/31/17 16:16 Potassium 4.0 mmol/L (3.6-5.0) D 08/31/17 16:16 Chloride 120.2 mmol/L (98-107) H 08/31/17 16:16 Carbon Dioxide 24 mmol/L (22-30) 08/31/17 16:16 Anion Gap 24 mmol/L 08/31/17 16:16 BUN 24 mg/dL (9-20) H 08/31/17 16:16 Creatinine 0.9 mg/dL (0.8-1.5) 08/31/17 16:16 Estimated GFR > 60 ml/min 08/31/17 16:16 BUN/Creatinine Ratio 27 % 08/31/17 16:16 Glucose 70 mg/dL (75-100) L 08/31/17 16:16 POC Glucose 97 (70-105) 08/31/17 18:14 Lactic Acid 7.80 mmol/L (0.7-2.0) H* 08/30/17 19:00 Calcium 9.2 mg/dL (8.4-10.2) 08/31/17 16:16 Phosphorus 2.80 mg/dL (2.5-4.5) 08/30/17 03:15 Magnesium 2.80 mg/dL (1.7-2.3) H 08/30/17 03:15 Total Bilirubin 0.30 mg/dL (0.1-1.2) 08/30/17 19:00 AST 43 units/L (5-40) H 08/30/17 19:00 ALT 49 units/L (7-56) 08/30/17 19:00 Alkaline Phosphatase 152 units/L (35-129) H 08/30/17 19:00 NT-Pro-B Natriuret Pep 94.77 pg/mL (0-450) 08/30/17 19:00 Total Protein 7.3 g/dL (6.3-8.2) 08/30/17 19:00 Albumin 3.8 g/dL (3.9-5) L 08/30/17 19:00 Albumin/Globulin Ratio 1.1 % 08/30/17 19:00 Lipase 14 units/L (13-60) 08/30/17 19:00 Urine Color Straw (Yellow) 08/30/17 19:41 Urine Turbidity Clear (Clear) 08/30/17 19:41 Urine pH 5.0 (5.0-7.0) 08/30/17 19:41 Ur Specific [place] 1.026 (1.003-1.030) 08/30/17 19:41 Urine Protein <15 mg/dl mg/dL (Negative) 08/30/17 19:41 Urine Glucose (UA) >=500 mg/dL (Negative) 08/30/17 19:41 Urine Ketones 80 mg/dL (Negative) 08/30/17 19:41 Urine Blood Neg (Negative) 08/30/17 19:41 Urine Nitrite Neg (Negative) 08/30/17 19:41 Urine Bilirubin Neg (Negative) 08/30/17 19:41 Urine Urobilinogen < 2.0 mg/dL (<2.0) 08/30/17 19:41 Ur Leukocyte Esterase Neg (Negative) 08/30/17 19:41 Urine WBC (Auto) < 1.0 /HPF (0.0-6.0) 08/30/17 19:41 Urine RBC (Auto) < 1.0 /HPF (0.0-6.0) 08/30/17 19:41 Urine Mucus Few /HPF 08/30/17 19:41 Valproic Acid < 2.8 ug/mL (50-100) L 08/30/17 19:00 Plasma/Serum Alcohol < 0.01 gm% (0-0.07) 08/30/17 19:00
[2017-08-31] MEDS ORDERED: HALDOL IM PRN (21:02)
[2017-08-31] MEDS: ATIVAN IV PRN (21:25)
[2017-08-31] MEDS: BENADRYL IV PRN (21:25)
[2017-09-01] MEDS: ATIVAN IV PRN ×3 (00:30→17:16)
[2017-09-01 00:47] LABS: BUN/Creatinine Ratio 23; Blood Urea Nitrogen 18 mg/dL (9-20); Calcium 8.4 mg/dL (8.4-10.2); Hemolysis Index 52
[2017-09-01] MEDS: NovoLIN R 100 UNITS in NACL 0.9% 99 ML IV SCH (01:34)
[2017-09-01] MEDS: HEPARIN SUB-Q SCH ×3 (01:38→23:26)
[2017-09-01] MEDS: D5W 1,000 ML IV SCH ×3 (04:00→23:25)
[2017-09-01 09:28] LABS: Hematocrit 41.9 % (35.5-45.6); Hemoglobin 13.4 gm/dl (11.8-15.2); Mean Corpuscular HGB Conc 32 % (32-34); Mean Corpuscular Hemoglobin 30 pg (28-32); Mean Corpuscular Volume 94 fl (84-94); Platelet Count 352 K/mm3 (140-440); Red Blood Count 4.46 M/mm3 (3.65-5.03); Red Cell Distribution Width 15.3 % (13.2-15.2)
[2017-09-01] MEDS: LEVEMIR SUB-Q SCH ×2 (09:44→18:21)
[2017-09-01 09:45] LABS: BUN/Creatinine Ratio 21; Blood Urea Nitrogen 15 mg/dL (9-20); Calcium 8.5 mg/dL (8.4-10.2); Hemolysis Index 62
[2017-09-01] MEDS: NOVOLOG SUB-Q SCH ×3 (13:27→23:50)
[2017-09-01] MEDS: PEPCID PO SCH ×2 (13:53→23:31)
[2017-09-01] MEDS: RisperDAL PO SCH ×2 (13:57→23:31)
--- NOTE | 2017-09-01 19:22 | Progress Note ---
Assessment and Plan Patient sleeping on room air. Not responding to verbal stimuli.No acute respiratory distress .O2 saturation 97% on room air. - Patient Problems (1) DKA (diabetic ketoacidoses) Current Visit: Yes Status: Acute Qualifiers: Diabetes mellitus type: type 1 Diabetes mellitus complication detail: without coma Qualified Code(s): E10.10 - Type 1 diabetes mellitus with ketoacidosis without coma Plan to address problem: Improving.Management as per primary care. (2) Altered mental status, unspecified Current Visit: Yes Status: Acute Qualifiers: Altered mental status type: delirium Qualified Code(s): R41.0 - Disorientation, unspecified Plan to address problem: Management as per primary care and neurology. (3) Type 2 diabetes mellitus Current Visit: No Status: Acute Qualifiers: Qualified Code(s): E11.00 - Type 2 diabetes mellitus with hyperosmolarity without nonketotic hyperglycemic-hyperosmolar coma ([facility]) Plan to address problem: Management as per primary care. (4) Tobacco abuse counseling Current Visit: No Status: Acute Plan to address problem: Tobacco abuse certified alcohol counselor when his menta status improves. (5) GERD (gastroesophageal reflux disease) Current Visit: No Status: Chronic Qualifiers: Esophagitis presence: without esophagitis Qualified Code(s): K21.9 - Gastro -esophageal reflux disease without esophagitis Plan to address problem: Patient is on famotadine. Subjective Date of service: 09/01/17 Interval history: Patient sleeping on room air. Not responding to verbal stimuli.No acute respiratory distress .O2 saturation 97% on room air. Objective Vital Signs - 12hr 09/01/17 09/01/17 09/01/17 07:30 07:45 07:59 Temperature 97.9 F Pulse Rate 108 H 106 H 108 H Respiratory 15 19 16 Rate Blood Pressure 100/54 93/54 Blood Pressure 100/54 [Left] O2 Sat by Pulse 99 Oximetry 09/01/17 09/01/17 09/01/17 08:00 08:01 08:15 Temperature Pulse Rate 115 H 108 H 109 H Respiratory 15 18 18 Rate Blood Pressure 112/72 99/63 Blood Pressure [Left] O2 Sat by Pulse 99 Oximetry 09/01/17 09/01/17 09/01/17 08:30 08:45 09:00 Temperature Pulse Rate 109 H 115 H 112 H Respiratory 16 18 17 Rate Blood Pressure 100/68 145/97 130/82 Blood Pressure [Left] O2 Sat by Pulse Oximetry 09/01/17 09/01/17 09/01/17 09:15 09:30 09:45 Temperature Pulse Rate 114 H 112 H 116 H Respiratory 16 18 17 Rate Blood Pressure 122/92 115/86 125/89 Blood Pressure [Left] O2 Sat by Pulse Oximetry 09/01/17 09/01/17 12:54 12:55 Temperature 98.2 F Pulse Rate 108 H 109 H Respiratory 20 Rate Blood Pressure 112/81 Blood Pressure [Left] O2 Sat by Pulse 100 100 Oximetry Constitutional: no acute distress, asleep Eyes: non-icteric ENT: oropharynx moist Neck: supple, no lymphadenopathy Ascultation: Bilateral: other (Prolonged expiratory phase.) Cardiovascular: regular rate and rhythm Gastrointestinal: normoactive bowel sounds Integumentary: normal Extremities: no cyanosis, no edema Neurologic: other (Patient sleeping. Unable to assess.) Psychiatric: other (patient sleeping, unable to assess.) CBC and BMP: 09/01/17 09:10 09/01/17 09:10 ABG, PT/INR, D-dimer: ABG POC ABG pH 7.523 (7.35-7.45) H 08/31/17 01:21 POC ABG pCO2 20.6 (35-45) L 08/31/17 01:21 POC ABG pO2 128 (80-105) H 08/31/17 01:21 POC ABG HCO3 17.0 08/31/17 01:21 POC ABG Total CO2 18 08/31/17 01:21 POC ABG O2 Sat 99 08/31/17 01:21 Abnormal lab findings: Abnormal Labs 08/30/17 08/30/17 08/30/17 03:15 17:08 18:54 WBC Hgb Hct MCV MCHC RDW Plt Count Seg Neuts % (Manual) Lymphocytes % (Manual) Seg Neutrophils # Man Monocytes # (Manual) POC ABG pH POC ABG pCO2 POC ABG pO2 Sodium Potassium Chloride Carbon Dioxide BUN Creatinine Glucose POC Glucose > 500 H > 500 H Lactic Acid Magnesium 2.80 H AST Alkaline Phosphatase Albumin Valproic Acid 08/30/17 08/30/17 08/30/17 19:00 19:00 19:00 WBC 17.8 H Hgb 15.6 H Hct 55.4 H MCV 110 H MCHC 28 L RDW 16.8 H Plt Count 504 H Seg Neuts % (Manual) 83.0 H Lymphocytes % (Manual) 9.0 L Seg Neutrophils # Man 14.8 H Monocytes # (Manual) 1.1 H POC ABG pH POC ABG pCO2 POC ABG pO2 Sodium Potassium 6.0 H Chloride 85.8 L Carbon Dioxide 7 L* BUN 39 H Creatinine 1.6 H Glucose 1299 H* POC Glucose Lactic Acid 7.80 H* Magnesium AST 43 H Alkaline Phosphatase 152 H Albumin 3.8 L Valproic Acid 08/30/17 08/30/17 08/30/17 19:00 20:12 20:47 WBC Hgb Hct MCV MCHC RDW Plt Count Seg Neuts % (Manual) Lymphocytes % (Manual) Seg Neutrophils # Man Monocytes # (Manual) POC ABG pH 7.089 L POC ABG pCO2 19.5 L POC ABG pO2 109 H Sodium Potassium Chloride Carbon Dioxide BUN Creatinine Glucose POC Glucose > 500 H Lactic Acid Magnesium AST Alkaline Phosphatase Albumin Valproic Acid < 2.8 L 08/30/17 08/30/17 08/31/17 22:13 23:45 00:10 WBC Hgb Hct MCV MCHC RDW Plt Count Seg Neuts % (Manual) Lymphocytes % (Manual) Seg Neutrophils # Man Monocytes # (Manual) POC ABG pH POC ABG pCO2 POC ABG pO2 Sodium 157 H D Potassium Chloride 118.1 H Carbon Dioxide BUN Creatinine Glucose 170 H POC Glucose > 500 H 480 H Lactic Acid Magnesium AST Alkaline Phosphatase Albumin Valproic Acid 08/31/17 08/31/17 08/31/17 00:21 01:21 01:41 WBC Hgb Hct MCV MCHC RDW Plt Count Seg Neuts % (Manual) Lymphocytes % (Manual) Seg Neutrophils # Man Monocytes # (Manual) POC ABG pH 7.523 H POC ABG pCO2 20.6 L POC ABG pO2 128 H Sodium 155 H Potassium Chloride 107.1 H Carbon Dioxide 16 L D BUN 34 H Creatinine Glucose 530 H* POC Glucose 402 H Lactic Acid Magnesium AST Alkaline Phosphatase Albumin Valproic Acid 08/31/17 08/31/17 08/31/17 03:15 03:27 04:57 WBC Hgb Hct MCV MCHC RDW Plt Count Seg Neuts % (Manual) Lymphocytes % (Manual) Seg Neutrophils # Man Monocytes # (Manual) POC ABG pH POC ABG pCO2 POC ABG pO2 Sodium 162 H* Potassium Chloride 118.5 H Carbon Dioxide BUN 35 H Creatinine Glucose 150 H POC Glucose 112 H 118 H Lactic Acid Magnesium AST Alkaline Phosphatase Albumin Valproic Acid 08/31/17 08/31/17 08/31/17 06:21 07:46 08:50 WBC Hgb Hct MCV MCHC RDW Plt Count Seg Neuts % (Manual) Lymphocytes % (Manual) Seg Neutrophils # Man Monocytes # (Manual) POC ABG pH POC ABG pCO2 POC ABG pO2 Sodium Potassium Chloride Carbon Dioxide BUN Creatinine Glucose POC Glucose 194 H 155 H 124 H Lactic Acid Magnesium AST Alkaline Phosphatase Albumin Valproic Acid 08/31/17 08/31/17 08/31/17 09:55 10:35 11:05 WBC Hgb Hct MCV MCHC RDW Plt Count Seg Neuts % (Manual) Lymphocytes % (Manual) Seg Neutrophils # Man Monocytes # (Manual) POC ABG pH POC ABG pCO2 POC ABG pO2 Sodium 160 H Potassium 5.9 H D Chloride 118.9 H Carbon Dioxide 20 L BUN 30 H Creatinine Glucose 194 H POC Glucose 256 H 271 H Lactic Acid Magnesium AST Alkaline Phosphatase Albumin Valproic Acid 08/31/17 08/31/17 08/31/17 12:09 13:13 14:15 WBC Hgb Hct MCV MCHC RDW Plt Count Seg Neuts % (Manual) Lymphocytes % (Manual) Seg Neutrophils # Man Monocytes # (Manual) POC ABG pH POC ABG pCO2 POC ABG pO2 Sodium Potassium Chloride Carbon Dioxide BUN Creatinine Glucose POC Glucose 219 H 142 H 152 H Lactic Acid Magnesium AST Alkaline Phosphatase Albumin Valproic Acid 08/31/17 08/31/17 08/31/17 15:13 15:50 16:16 WBC Hgb Hct MCV MCHC RDW Plt Count Seg Neuts % (Manual) Lymphocytes % (Manual) Seg Neutrophils # Man Monocytes # (Manual) POC ABG pH POC ABG pCO2 POC ABG pO2 Sodium 164 H* Potassium Chloride 120.2 H Carbon Dioxide BUN 24 H Creatinine Glucose 70 L POC Glucose 66 L 144 H Lactic Acid Magnesium AST Alkaline Phosphatase Albumin Valproic Acid 08/31/17 09/01/17 09/01/17 20:44 01:30 03:47 WBC Hgb Hct MCV MCHC RDW Plt Count Seg Neuts % (Manual) Lymphocytes % (Manual) Seg Neutrophils # Man Monocytes # (Manual) POC ABG pH POC ABG pCO2 POC ABG pO2 Sodium Potassium Chloride Carbon Dioxide BUN Creatinine Glucose POC Glucose 124 H 213 H 146 H Lactic Acid Magnesium AST Alkaline Phosphatase Albumin Valproic Acid 09/01/17 09/01/17 09/01/17 08:45 09:10 09:10 WBC 19.4 H Hgb Hct MCV MCHC RDW 15.3 H Plt Count Seg Neuts % (Manual) Lymphocytes % (Manual) Seg Neutrophils # Man Monocytes # (Manual) POC ABG pH POC ABG pCO2 POC ABG pO2 Sodium 152 H D Potassium Chloride 114.6 H Carbon Dioxide BUN Creatinine 0.7 L Glucose 214 H POC Glucose 168 H Lactic Acid Magnesium AST Alkaline Phosphatase Albumin Valproic Acid 09/01/17 09/01/17 12:30 17:52 WBC Hgb Hct MCV MCHC RDW Plt Count Seg Neuts % (Manual) Lymphocytes % (Manual) Seg Neutrophils # Man Monocytes # (Manual) POC ABG pH POC ABG pCO2 POC ABG pO2 Sodium Potassium Chloride Carbon Dioxide BUN Creatinine Glucose POC Glucose 229 H 151 H Lactic Acid Magnesium AST Alkaline Phosphatase Albumin Valproic Acid
--- NOTE | 2017-09-01 19:34 | Progress Note ---
Assessment and Plan Assessment and plan: Patient is a 31year-old male with history of schizophrenia, diabetes mellitus, who was admitted to the hospital with DKA Acute Psychosis Schizophrenia Hypernatremia Leukocytosis Tobacco use disorder DKA Metabolic Acidosis Plan Continue supportive care transition to long-acting insulin Downgraded to medical floor Await psychiatry evaluation Obtain medical records from patient's family and restart. DVT GI prophylaxis Monitor for electrolytes Extensive counseling: tobacco cessation once patient is more awake History Interval history: Patient seen and examined, remains in 4 point restraints, very confused. Awaiting pysch evaluation Hospitalist Physical - Physical exam Narrative exam: VITAL SIGNS: Reviewed. GENERAL: The patient appeared disheveled and acutely psychotic. Vital signs as documented. HEAD: No signs of head trauma. EYES: Pupils are equal. EARS: Hearing grossly intact. MOUTH: Oropharynx is normal. NECK: No adenopathy, no JVD. CHEST: Chest with clear breath sounds bilaterally. No wheezes, rales, or rhonchi. CARDIAC: Regular rate and rhythm. S1 and S2, without murmurs, gallops, or rubs. VASCULAR: No Edema. Peripheral pulses normal and equal in all extremities. ABDOMEN: Soft, without detectable tenderness. No sign of distention. No rebound or guarding, and no masses palpated. Bowel Sounds normal. MUSCULOSKELETAL: Good range of motion of all major joints. Extremities without clubbing, cyanosis or edema. NEUROLOGIC EXAM: Unable to assess. No focal sensory or strength deficits. PSYCHIATRIC: Unable to assess this. SKIN: No rash or lesions. - Constitutional Vitals: Temp Pulse Resp BP Pulse Ox 98.2 F 109 H 20 112/81 100 09/01/17 12:54 09/01/17 12:55 09/01/17 12:54 09/01/17 12:54 09/01/17 12:55 General appearance: Present: mild distress Results - Labs CBC & Chem 7: 09/02/17 14:03 09/02/17 14:03 Labs: Laboratory Last Values WBC 19.4 K/mm3 (4.5-11.0) H 09/01/17 09:10 RBC 4.46 M/mm3 (3.65-5.03) 09/01/17 09:10 Hgb 13.4 gm/dl (11.8-15.2) 09/01/17 09:10 Hct 41.9 % (35.5-45.6) D 09/01/17 09:10 MCV 94 fl (84-94) 09/01/17 09:10 MCH 30 pg (28-32) 09/01/17 09:10 MCHC 32 % (32-34) 09/01/17 09:10 RDW 15.3 % (13.2-15.2) H 09/01/17 09:10 Plt Count 352 K/mm3 (140-440) 09/01/17 09:10 Add Manual Diff Complete 08/30/17 19:00 Total Counted 100 08/30/17 19:00 Seg Neuts % (Manual) 83.0 % (40.0-70.0) H 08/30/17 19:00 Band Neutrophils % 0 % 08/30/17 19:00 Lymphocytes % (Manual) 9.0 % (13.4-35.0) L 08/30/17 19:00 Reactive Lymphs % (Man) 0 % 08/30/17 19:00 Monocytes % (Manual) 6.0 % (0.0-7.3) 08/30/17 19:00 Eosinophils % (Manual) 0 % (0.0-4.3) 08/30/17 19:00 Basophils % (Manual) 0 % (0.0-1.8) 08/30/17 19:00 Metamyelocytes % 0 % 08/30/17 19:00 Myelocytes % 2.0 % 08/30/17 19:00 Promyelocytes % 0 % 08/30/17 19:00 Blast Cells % 0 % 08/30/17 19:00 Nucleated RBC % Not Reportable 08/30/17 19:00 Seg Neutrophils # Man 14.8 K/mm3 (1.8-7.7) H 08/30/17 19:00 Band Neutrophils # 0.0 K/mm3 08/30/17 19:00 Lymphocytes # (Manual) 1.6 K/mm3 (1.2-5.4) 08/30/17 19:00 Abs React Lymphs (Man) 0.0 K/mm3 08/30/17 19:00 Monocytes # (Manual) 1.1 K/mm3 (0.0-0.8) H 08/30/17 19:00 Eosinophils # (Manual) 0.0 K/mm3 (0.0-0.4) 08/30/17 19:00 Basophils # (Manual) 0.0 K/mm3 (0.0-0.1) 08/30/17 19:00 Metamyelocytes # 0.0 K/mm3 08/30/17 19:00 Myelocytes # 0.4 K/mm3 08/30/17 19:00 Promyelocytes # 0.0 K/mm3 08/30/17 19:00 Blast Cells # 0.0 K/mm3 08/30/17 19:00 WBC Morphology Not Reportable 08/30/17 19:00 Hypersegmented Neuts Not Reportable 08/30/17 19:00 Hyposegmented Neuts Not Reportable 08/30/17 19:00 Hypogranular Neuts Not Reportable 08/30/17 19:00 Smudge Cells Not Reportable 08/30/17 19:00 Toxic Granulation Not Reportable 08/30/17 19:00 Toxic Vacuolation Not Reportable 08/30/17 19:00 Dohle Bodies Not Reportable 08/30/17 19:00 Pelger-Huet Anomaly Not Reportable 08/30/17 19:00 Jackson Rods Not Reportable 08/30/17 19:00 Platelet Estimate Consistent w auto 08/30/17 19:00 Clumped Platelets Not Reportable 08/30/17 19:00 Plt Clumps, EDTA Not Reportable 08/30/17 19:00 Large Platelets Not Reportable 08/30/17 19:00 Giant Platelets Not Reportable 08/30/17 19:00 Platelet Satelliting Not Reportable 08/30/17 19:00 Plt Morphology Comment Not Reportable 08/30/17 19:00 RBC Morphology Not Reportable 08/30/17 19:00 Dimorphic RBCs Not Reportable 08/30/17 19:00 Polychromasia Not Reportable 08/30/17 19:00 Hypochromasia Not Reportable 08/30/17 19:00 Poikilocytosis Not Reportable 08/30/17 19:00 Anisocytosis Not Reportable 08/30/17 19:00 Microcytosis Not Reportable 08/30/17 19:00 Macrocytosis 1+ 08/30/17 19:00 Spherocytes Not Reportable 08/30/17 19:00 Pappenheimer Bodies Not Reportable 08/30/17 19:00 Sickle Cells Not Reportable 08/30/17 19:00 Target Cells Not Reportable 08/30/17 19:00 Tear Drop Cells Not Reportable 08/30/17 19:00 Ovalocytes Not Reportable 08/30/17 19:00 Helmet Cells Not Reportable 08/30/17 19:00 [place] Bodies Not Reportable 08/30/17 19:00 [place] Rings Not Reportable 08/30/17 19:00 [place] Cells Not Reportable 08/30/17 19:00 Bite Cells Not Reportable 08/30/17 19:00 Crenated Cell Not Reportable 08/30/17 19:00 Elliptocytes Not Reportable 08/30/17 19:00 Acanthocytes (Spur) Not Reportable 08/30/17 19:00 Rouleaux Not Reportable 08/30/17 19:00 Hemoglobin C Crystals Not Reportable 08/30/17 19:00 Schistocytes Not Reportable 08/30/17 19:00 Malaria parasites Not Reportable 08/30/17 19:00 Cedric Bodies Not Reportable 08/30/17 19:00 Hem Pathologist Commnt No 08/30/17 19:00 POC ABG pH 7.523 (7.35-7.45) H 08/31/17 01:21 POC ABG pCO2 20.6 (35-45) L 08/31/17 01:21 POC ABG pO2 128 (80-105) H 08/31/17 01:21 POC ABG HCO3 17.0 08/31/17 01:21 POC ABG Total CO2 18 08/31/17 01:21 POC ABG O2 Sat 99 08/31/17 01:21 POC ABG Base Excess -6 08/31/17 01:21 FiO2 21 % 08/31/17 01:21 Sodium 152 mmol/L (137-145) H D 09/01/17 09:10 Potassium 4.7 mmol/L (3.6-5.0) 09/01/17 09:10 Chloride 114.6 mmol/L (98-107) H 09/01/17 09:10 Carbon Dioxide 22 mmol/L (22-30) 09/01/17 09:10 Anion Gap 20 mmol/L 09/01/17 09:10 BUN 15 mg/dL (9-20) 09/01/17 09:10 Creatinine 0.7 mg/dL (0.8-1.5) L 09/01/17 09:10 Estimated GFR > 60 ml/min 09/01/17 09:10 BUN/Creatinine Ratio 21 % 09/01/17 09:10 Glucose 214 mg/dL (75-100) H 09/01/17 09:10 POC Glucose 151 (70-105) H 09/01/17 17:52 Lactic Acid 7.80 mmol/L (0.7-2.0) H* 08/30/17 19:00 Calcium 8.5 mg/dL (8.4-10.2) 09/01/17 09:10 Phosphorus 2.80 mg/dL (2.5-4.5) 08/30/17 03:15 Magnesium 2.80 mg/dL (1.7-2.3) H 08/30/17 03:15 Total Bilirubin 0.30 mg/dL (0.1-1.2) 08/30/17 19:00 AST 43 units/L (5-40) H 08/30/17 19:00 ALT 49 units/L (7-56) 08/30/17 19:00 Alkaline Phosphatase 152 units/L (35-129) H 08/30/17 19:00 NT-Pro-B Natriuret Pep 94.77 pg/mL (0-450) 08/30/17 19:00 Total Protein 7.3 g/dL (6.3-8.2) 08/30/17 19:00 Albumin 3.8 g/dL (3.9-5) L 08/30/17 19:00 Albumin/Globulin Ratio 1.1 % 08/30/17 19:00 Lipase 14 units/L (13-60) 08/30/17 19:00 Urine Color Straw (Yellow) 08/30/17 19:41 Urine Turbidity Clear (Clear) 08/30/17 19:41 Urine pH 5.0 (5.0-7.0) 08/30/17 19:41 Ur Specific [place] 1.026 (1.003-1.030) 08/30/17 19:41 Urine Protein <15 mg/dl mg/dL (Negative) 08/30/17 19:41 Urine Glucose (UA) >=500 mg/dL (Negative) 08/30/17 19:41 Urine Ketones 80 mg/dL (Negative) 08/30/17 19:41 Urine Blood Neg (Negative) 08/30/17 19:41 Urine Nitrite Neg (Negative) 08/30/17 19:41 Urine Bilirubin Neg (Negative) 08/30/17 19:41 Urine Urobilinogen < 2.0 mg/dL (<2.0) 08/30/17 19:41 Ur Leukocyte Esterase Neg (Negative) 08/30/17 19:41 Urine WBC (Auto) < 1.0 /HPF (0.0-6.0) 08/30/17 19:41 Urine RBC (Auto) < 1.0 /HPF (0.0-6.0) 08/30/17 19:41 Urine Mucus Few /HPF 08/30/17 19:41 Valproic Acid < 2.8 ug/mL (50-100) L 08/30/17 19:00 Plasma/Serum Alcohol < 0.01 gm% (0-0.07) 08/30/17 19:00 - Imaging and Cardiology Chest x-ray: image reviewed (no acute event)
[2017-09-02] MEDS: BENADRYL IV PRN
[2017-09-02] MEDS: D50W (25GM) Syringe IV PRN ×2 (00:21→05:55)
[2017-09-02] MEDS: ATIVAN IV PRN (06:50)
[2017-09-02] MEDS: NOVOLOG SUB-Q SCH ×4 (08:04→23:16)
--- NOTE | 2017-09-02 08:31 | XRay Report ---
AP CHEST: HISTORY: Tobacco abuse AP view of the chest demonstrates a normal mediastinal and cardiac contour with clear lungs and normal bony and soft tissue structures. IMPRESSION: Unremarkable AP chest. No significant changes since 08/17/17.
[2017-09-02] MEDS: PEPCID PO SCH ×2 (10:00→21:45)
[2017-09-02] MEDS: HEPARIN SUB-Q SCH ×2 (10:00→23:15)
[2017-09-02] MEDS: RisperDAL PO SCH ×2 (10:00→21:45)
[2017-09-02] MEDS: LEVEMIR SUB-Q SCH ×2 (10:15→17:55)
--- NOTE | 2017-09-02 10:57 | Consultation ---
History of Present Illness - Reason for Consult Consult date: 09/02/17 Reason for consult: Mental Health Evaluation Requesting physician: LOLA LINDSEY - Chief Complaint Chief complaint: "AMS" - History of Present Psychiatric Illness The patient is a 31-year-old male presents for evaluation of altered mental status. Today patient is confused and agitated during the assessment. The patient could not logically answer any questions asked of him. A complete psy assessment was unsuccessful with this patient. No gestures of SI/HI's. Medications and Allergies Allergies Allergy/AdvReac Type Severity Reaction Status Date / Time banana Allergy Severe Angioedema Verified 09/07/14 04:24 egg Allergy Unknown Verified 09/07/14 04:24 Home Medications Medication Instructions Recorded Confirmed Last Taken Type Acetaminophen [Acetaminophen TAB] 325 mg PO Q4H PRN #30 tablet 08/20/17 Unknown Rx Divalproex [Waldemar Crocker] 250 mg PO QAM #30 tablet 08/20/17 Unknown Rx Divalproex [Waldemar Crocker] 500 mg PO QHS #30 tablet 08/20/17 Unknown Rx Esomeprazole Magnesium [NexIUM] 40 mg PO QDAY #30 capsule.dr 08/20/17 Unknown Rx Famotidine [Pepcid] 20 mg PO BID #30 tablet 08/20/17 Unknown Rx Gabapentin [Neurontin] 600 mg PO Q8H #90 tablet 08/20/17 Unknown Rx Insulin Aspart [Novolog] 1 dose SQ AC #30 day 08/20/17 Unknown Rx Insulin Detemir [Levemir VIAL] 15 unit SQ BID #1 vial 08/20/17 Unknown Rx oxyCODONE /ACETAMINOPHEN [Percocet 1 tab PO Q6HR PRN #15 tablet 08/20/17 Unknown Rx 5/325 mg] risperiDONE [RisperDAL] 1 mg PO BID #30 tablet 08/20/17 Unknown Rx Active Meds: Active Medications Dextrose (D50w (25gm) Syringe) 50 ml IV PRN PRN PRN Reason: Hypoglycemia Last Admin: 09/02/17 05:55 Dose: 50 ml Diphenhydramine HCl (Benadryl) 25 mg IV Q6H PRN PRN Reason: Itching Last Admin: 09/02/17 00:00 Dose: 25 mg Divalproex Sodium (Waldemar Crocker) 250 mg PO QAM ANTONIA Last Admin: 09/01/17 13:53 Dose: Not Given Divalproex Sodium (Depakote Dr) 500 mg PO QHS [facility] Last Admin: 09/01/17 23:50 Dose: Not Given Famotidine (Pepcid) 20 mg PO BID [facility] Last Admin: 09/01/17 23:31 Dose: Not Given Haloperidol Lactate (Haldol) 10 mg IM Q6H PRN PRN Reason: Agitation Last Admin: 08/31/17 21:25 Dose: 10 mg Heparin Sodium (Porcine) (Heparin) 5,000 unit SUB-Q Q12HR [facility] Last Admin: 09/01/17 23:26 Dose: 5,000 unit Dextrose (D5w) 1,000 mls @ 100 mls/hr IV DIRECT [facility] Last Admin: 09/01/17 23:25 Dose: 100 mls/hr Insulin Aspart (Novolog) 0 units SUB-Q ACHS [facility] PRN Reason: Protocol Last Admin: 09/02/17 08:04 Dose: Not Given Insulin Detemir (Levemir) 15 units SUB-Q BIDDIAB [facility] Last Admin: 09/02/17 10:15 Dose: Not Given Lorazepam (Ativan) 1 mg IV Q1H PRN PRN Reason: Agitation Last Admin: 09/02/17 06:50 Dose: 1 mg Risperidone (Risperdal) 1 mg PO BID [facility] Last Admin: 09/01/17 23:31 Dose: Not Given Past psychiatric history - Past Medical History Past Medical History: other (Unable to obtain) Past Surgical History: Other (Unable to obtain) - past Psychiatric treatment and history psychiatric treatment history: Unable to obtain a psy hx and fam osy hx. - Social History Social history: other (Unable to obtain) Mental Status Exam - Vital signs Last Vital Signs Temp 97.7 F 09/02/17 09:13 Pulse 91 H 09/02/17 09:13 Resp 20 09/02/17 09:13 BP 127/91 09/02/17 09:13 Pulse Ox 91 09/02/17 09:13 - Exam Narrative exam: Unable to complete the MSE because of patient's medical condition. Results Result Diagrams: 09/01/17 09:10 09/01/17 09:10 Abnormal lab results 09/01/17 09/01/17 09/02/17 Range/Units 12:30 17:52 00:04 POC Glucose 229 H 151 H < 40 L (70-105) 09/02/17 09/02/17 09/02/17 Range/Units 00:27 05:51 06:27 POC Glucose 149 H 43 L 131 H (70-105) All other labs normal. Assessment and Plan Assessment and plan: Impression: Today patient is confused and agitated during the assessment. Patient in restraints. NA 152. Medical: Hypernatremia, Leukocytosis, DKA on admission, and Metabolic Acidosis Recommendation/Plan: Gather collateral information and reassess patient in 24 hours. Recommend the following delirium precautions below: 1. Frequently reorient patient and involve him in his care (simple explanations of procedures, tests, medications). 2. Lights on and shades open during daytime hours. 3. Try to avoid unnecessary interruptions to sleep during nighttime hours. 4. Obtain glasses, hearing aids from home if patient uses these at baseline. 5. Avoid medications that may exacerbate delirium (especially narcotics, barbiturates, ambien, lunesta, benzos, and medications with excessive anticholinergic properties). 6. Continue 1:1 sitter for safety. 7. D/C restraints when not indicated. 8. Use Haldol 5 mg IM Q6hrs PRN for acute agitation.
[2017-09-02] MEDS ORDERED: NACL 0.9% 1000 ML 1,000 ML ONE (11:36)
[2017-09-02] MEDS ORDERED: NACL 0.9% 1000 ML 1,000 ML IV ONE (13:23)
[2017-09-02] MEDS: HALDOL IM PRN ×3 (13:48→22:11)
[2017-09-02 14:29] LABS: Basophils % (Auto) 0.2 % (0.0-1.8); Eosinophils % (Auto) 0.4 % (0.0-4.3); Hemoglobin 12.9 gm/dl (11.8-15.2); Lymphocytes # (Auto) 0.9 K/mm3 (1.2-5.4); Lymphocytes % (Auto) 7.9 % (13.4-35.0); Mean Corpuscular HGB Conc 33 % (32-34); Mean Corpuscular Hemoglobin 31 pg (28-32); Mean Corpuscular Volume 94 fl (84-94); Monocytes # (Auto) 0.5 K/mm3 (0.0-0.8); Monocytes % (Auto) 4.3 % (0.0-7.3); Platelet Count 295 K/mm3 (140-440); Red Blood Count 4.15 M/mm3 (3.65-5.03); Red Cell Distribution Width 15.4 % (13.2-15.2)
[2017-09-02 15:01] LABS: BUN/Creatinine Ratio 15; Blood Urea Nitrogen 9 mg/dL (9-20); Calcium 8.3 mg/dL (8.4-10.2); Hemolysis Index 13
--- NOTE | 2017-09-02 17:17 | Progress Note ---
Assessment and Plan Patient resting on room air. No acute respiratory distress .O2 saturation 100% on room air. - Patient Problems (1) DKA (diabetic ketoacidoses) Current Visit: Yes Status: Acute Qualifiers: Diabetes mellitus type: type 1 Diabetes mellitus complication detail: without coma Qualified Code(s): E10.10 - Type 1 diabetes mellitus with ketoacidosis without coma Plan to address problem: Improving.Management as per primary care. (2) Altered mental status, unspecified Current Visit: Yes Status: Acute Qualifiers: Altered mental status type: delirium Qualified Code(s): R41.0 - Disorientation, unspecified Plan to address problem: Management as per primary care and neurology. (3) Type 2 diabetes mellitus Current Visit: No Status: Acute Plan to address problem: Management as per primary care. (4) Tobacco abuse counseling Current Visit: No Status: Acute Plan to address problem: Conselled to stop smoking. (5) GERD (gastroesophageal reflux disease) Current Visit: No Status: Chronic Qualifiers: Esophagitis presence: without esophagitis Qualified Code(s): K21.9 - Gastro -esophageal reflux disease without esophagitis Plan to address problem: Patient is on famotadine. Subjective Date of service: 09/02/17 Interval history: Patient resting on room air. No acute respiratory distress .O2 saturation 100% on room air. Objective Vital Signs - 12hr 09/02/17 09/02/17 09/02/17 09:13 12:08 16:23 Temperature 97.7 F 97.6 F 97.6 F Pulse Rate 91 H 92 H 95 H Respiratory 20 20 20 Rate Blood Pressure 127/91 134/93 125/86 O2 Sat by Pulse 91 100 96 Oximetry Constitutional: no acute distress, alert Eyes: non-icteric ENT: oropharynx moist Neck: supple, no lymphadenopathy Ascultation: Bilateral: other (Prolonged expiratory phase.) Cardiovascular: regular rate and rhythm Gastrointestinal: normoactive bowel sounds Integumentary: normal Extremities: no cyanosis, no edema Neurologic: non-focal exam, pupils equal and round, CN II-XII normal, other Psychiatric: depressed, other CBC and BMP: 09/02/17 14:03 09/02/17 14:03 ABG, PT/INR, D-dimer: ABG POC ABG pH 7.523 (7.35-7.45) H 08/31/17 01:21 POC ABG pCO2 20.6 (35-45) L 08/31/17 01:21 POC ABG pO2 128 (80-105) H 08/31/17 01:21 POC ABG HCO3 17.0 08/31/17 01:21 POC ABG Total CO2 18 08/31/17 01:21 POC ABG O2 Sat 99 08/31/17 01:21 Abnormal lab findings: Abnormal Labs 08/30/17 08/30/17 08/30/17 03:15 17:08 18:54 WBC Hgb Hct MCV MCHC RDW Plt Count Lymph % (Auto) Lymph # Seg Neutrophils % Seg Neuts % (Manual) Lymphocytes % (Manual) Seg Neutrophils # Seg Neutrophils # Man Monocytes # (Manual) POC ABG pH POC ABG pCO2 POC ABG pO2 Sodium Potassium Chloride Carbon Dioxide BUN Creatinine Glucose POC Glucose > 500 H > 500 H Lactic Acid Calcium Magnesium 2.80 H AST Alkaline Phosphatase Albumin Valproic Acid 08/30/17 08/30/17 08/30/17 19:00 19:00 19:00 WBC 17.8 H Hgb 15.6 H Hct 55.4 H MCV 110 H MCHC 28 L RDW 16.8 H Plt Count 504 H Lymph % (Auto) Lymph # Seg Neutrophils % Seg Neuts % (Manual) 83.0 H Lymphocytes % (Manual) 9.0 L Seg Neutrophils # Seg Neutrophils # Man 14.8 H Monocytes # (Manual) 1.1 H POC ABG pH POC ABG pCO2 POC ABG pO2 Sodium Potassium 6.0 H Chloride 85.8 L Carbon Dioxide 7 L* BUN 39 H Creatinine 1.6 H Glucose 1299 H* POC Glucose Lactic Acid 7.80 H* Calcium Magnesium AST 43 H Alkaline Phosphatase 152 H Albumin 3.8 L Valproic Acid 08/30/17 08/30/17 08/30/17 19:00 20:12 20:47 WBC Hgb Hct MCV MCHC RDW Plt Count Lymph % (Auto) Lymph # Seg Neutrophils % Seg Neuts % (Manual) Lymphocytes % (Manual) Seg Neutrophils # Seg Neutrophils # Man Monocytes # (Manual) POC ABG pH 7.089 L POC ABG pCO2 19.5 L POC ABG pO2 109 H Sodium Potassium Chloride Carbon Dioxide BUN Creatinine Glucose POC Glucose > 500 H Lactic Acid Calcium Magnesium AST Alkaline Phosphatase Albumin Valproic Acid < 2.8 L 08/30/17 08/30/17 08/31/17 22:13 23:45 00:10 WBC Hgb Hct MCV MCHC RDW Plt Count Lymph % (Auto) Lymph # Seg Neutrophils % Seg Neuts % (Manual) Lymphocytes % (Manual) Seg Neutrophils # Seg Neutrophils # Man Monocytes # (Manual) POC ABG pH POC ABG pCO2 POC ABG pO2 Sodium 157 H D Potassium Chloride 118.1 H Carbon Dioxide BUN Creatinine Glucose 170 H POC Glucose > 500 H 480 H Lactic Acid Calcium Magnesium AST Alkaline Phosphatase Albumin Valproic Acid 08/31/17 08/31/17 08/31/17 00:21 01:21 01:41 WBC Hgb Hct MCV MCHC RDW Plt Count Lymph % (Auto) Lymph # Seg Neutrophils % Seg Neuts % (Manual) Lymphocytes % (Manual) Seg Neutrophils # Seg Neutrophils # Man Monocytes # (Manual) POC ABG pH 7.523 H POC ABG pCO2 20.6 L POC ABG pO2 128 H Sodium 155 H Potassium Chloride 107.1 H Carbon Dioxide 16 L D BUN 34 H Creatinine Glucose 530 H* POC Glucose 402 H Lactic Acid Calcium Magnesium AST Alkaline Phosphatase Albumin Valproic Acid 08/31/17 08/31/17 08/31/17 03:15 03:27 04:57 WBC Hgb Hct MCV MCHC RDW Plt Count Lymph % (Auto) Lymph # Seg Neutrophils % Seg Neuts % (Manual) Lymphocytes % (Manual) Seg Neutrophils # Seg Neutrophils # Man Monocytes # (Manual) POC ABG pH POC ABG pCO2 POC ABG pO2 Sodium 162 H* Potassium Chloride 118.5 H Carbon Dioxide BUN 35 H Creatinine Glucose 150 H POC Glucose 112 H 118 H Lactic Acid Calcium Magnesium AST Alkaline Phosphatase Albumin Valproic Acid 08/31/17 08/31/17 08/31/17 06:21 07:46 08:50 WBC Hgb Hct MCV MCHC RDW Plt Count Lymph % (Auto) Lymph # Seg Neutrophils % Seg Neuts % (Manual) Lymphocytes % (Manual) Seg Neutrophils # Seg Neutrophils # Man Monocytes # (Manual) POC ABG pH POC ABG pCO2 POC ABG pO2 Sodium Potassium Chloride Carbon Dioxide BUN Creatinine Glucose POC Glucose 194 H 155 H 124 H Lactic Acid Calcium Magnesium AST Alkaline Phosphatase Albumin Valproic Acid 08/31/17 08/31/17 08/31/17 09:55 10:35 11:05 WBC Hgb Hct MCV MCHC RDW Plt Count Lymph % (Auto) Lymph # Seg Neutrophils % Seg Neuts % (Manual) Lymphocytes % (Manual) Seg Neutrophils # Seg Neutrophils # Man Monocytes # (Manual) POC ABG pH POC ABG pCO2 POC ABG pO2 Sodium 160 H Potassium 5.9 H D Chloride 118.9 H Carbon Dioxide 20 L BUN 30 H Creatinine Glucose 194 H POC Glucose 256 H 271 H Lactic Acid Calcium Magnesium AST Alkaline Phosphatase Albumin Valproic Acid 08/31/17 08/31/17 08/31/17 12:09 13:13 14:15 WBC Hgb Hct MCV MCHC RDW Plt Count Lymph % (Auto) Lymph # Seg Neutrophils % Seg Neuts % (Manual) Lymphocytes % (Manual) Seg Neutrophils # Seg Neutrophils # Man Monocytes # (Manual) POC ABG pH POC ABG pCO2 POC ABG pO2 Sodium Potassium Chloride Carbon Dioxide BUN Creatinine Glucose POC Glucose 219 H 142 H 152 H Lactic Acid Calcium Magnesium AST Alkaline Phosphatase Albumin Valproic Acid 08/31/17 08/31/17 08/31/17 15:13 15:50 16:16 WBC Hgb Hct MCV MCHC RDW Plt Count Lymph % (Auto) Lymph # Seg Neutrophils % Seg Neuts % (Manual) Lymphocytes % (Manual) Seg Neutrophils # Seg Neutrophils # Man Monocytes # (Manual) POC ABG pH POC ABG pCO2 POC ABG pO2 Sodium 164 H* Potassium Chloride 120.2 H Carbon Dioxide BUN 24 H Creatinine Glucose 70 L POC Glucose 66 L 144 H Lactic Acid Calcium Magnesium AST Alkaline Phosphatase Albumin Valproic Acid 08/31/17 09/01/17 09/01/17 20:44 01:30 03:47 WBC Hgb Hct MCV MCHC RDW Plt Count Lymph % (Auto) Lymph # Seg Neutrophils % Seg Neuts % (Manual) Lymphocytes % (Manual) Seg Neutrophils # Seg Neutrophils # Man Monocytes # (Manual) POC ABG pH POC ABG pCO2 POC ABG pO2 Sodium Potassium Chloride Carbon Dioxide BUN Creatinine Glucose POC Glucose 124 H 213 H 146 H Lactic Acid Calcium Magnesium AST Alkaline Phosphatase Albumin Valproic Acid 09/01/17 09/01/17 09/01/17 08:45 09:10 09:10 WBC 19.4 H Hgb Hct MCV MCHC RDW 15.3 H Plt Count Lymph % (Auto) Lymph # Seg Neutrophils % Seg Neuts % (Manual) Lymphocytes % (Manual) Seg Neutrophils # Seg Neutrophils # Man Monocytes # (Manual) POC ABG pH POC ABG pCO2 POC ABG pO2 Sodium 152 H D Potassium Chloride 114.6 H Carbon Dioxide BUN Creatinine 0.7 L Glucose 214 H POC Glucose 168 H Lactic Acid Calcium Magnesium AST Alkaline Phosphatase Albumin Valproic Acid 09/01/17 09/01/17 09/02/17 12:30 17:52 00:04 WBC Hgb Hct MCV MCHC RDW Plt Count Lymph % (Auto) Lymph # Seg Neutrophils % Seg Neuts % (Manual) Lymphocytes % (Manual) Seg Neutrophils # Seg Neutrophils # Man Monocytes # (Manual) POC ABG pH POC ABG pCO2 POC ABG pO2 Sodium Potassium Chloride Carbon Dioxide BUN Creatinine Glucose POC Glucose 229 H 151 H < 40 L Lactic Acid Calcium Magnesium AST Alkaline Phosphatase Albumin Valproic Acid 09/02/17 09/02/17 09/02/17 00:27 05:51 06:27 WBC Hgb Hct MCV MCHC RDW Plt Count Lymph % (Auto) Lymph # Seg Neutrophils % Seg Neuts % (Manual) Lymphocytes % (Manual) Seg Neutrophils # Seg Neutrophils # Man Monocytes # (Manual) POC ABG pH POC ABG pCO2 POC ABG pO2 Sodium Potassium Chloride Carbon Dioxide BUN Creatinine Glucose POC Glucose 149 H 43 L 131 H Lactic Acid Calcium Magnesium AST Alkaline Phosphatase Albumin Valproic Acid 09/02/17 09/02/17 09/02/17 11:35 12:11 14:03 WBC 11.5 H Hgb Hct MCV MCHC RDW 15.4 H Plt Count Lymph % (Auto) 7.9 L Lymph # 0.9 L Seg Neutrophils % 87.2 H Seg Neuts % (Manual) Lymphocytes % (Manual) Seg Neutrophils # 10.0 H Seg Neutrophils # Man Monocytes # (Manual) POC ABG pH POC ABG pCO2 POC ABG pO2 Sodium Potassium Chloride Carbon Dioxide BUN Creatinine Glucose POC Glucose 47 L 141 H Lactic Acid Calcium Magnesium AST Alkaline Phosphatase Albumin Valproic Acid 09/02/17 09/02/17 14:03 16:36 WBC Hgb Hct MCV MCHC RDW Plt Count Lymph % (Auto) Lymph # Seg Neutrophils % Seg Neuts % (Manual) Lymphocytes % (Manual) Seg Neutrophils # Seg Neutrophils # Man Monocytes # (Manual) POC ABG pH POC ABG pCO2 POC ABG pO2 Sodium 151 H Potassium 3.2 L D Chloride 110.7 H Carbon Dioxide BUN Creatinine 0.6 L Glucose POC Glucose 245 H Lactic Acid Calcium 8.3 L Magnesium AST Alkaline Phosphatase Albumin Valproic Acid Chest x-ray: report reviewed (Unremarkable AP chest.), image reviewed
[2017-09-02] MEDS ORDERED: D5W 1,000 ML with KCL 20 MEQ IV SCH (17:58)
--- NOTE | 2017-09-02 18:05 | Progress Note ---
Assessment and Plan Assessment and plan: Patient is a 31year-old male with history of schizophrenia, diabetes mellitus, who was admitted to the hospital with DKA Acute Psychosis Schizophrenia Hypernatremia Leukocytosis Hypokalemia Tobacco use disorder DKA Metabolic Acidosis Oligouria- Less than 300 cc in bladder on scan. Will continue Fluids and monitor. likely secondary to dehydration Plan Continue supportive care transition to long-acting insulin Downgraded to medical floor Psychiatry evaluation noted Continue fluids, replace potassium Obtain medical records from patient's family and restart. DVT GI prophylaxis Monitor for electrolytes Extensive counseling: tobacco cessation once patient is more awake History Interval history: Patient seen and examined, remains in 4 point restraints, very confused. Nursing staff reports that patient has very minimal urine output Hospitalist Physical - Physical exam Narrative exam: VITAL SIGNS: Reviewed. GENERAL: The patient appeared disheveled and acutely psychotic. Vital signs as documented. HEAD: No signs of head trauma. EYES: Pupils are equal. EARS: Hearing grossly intact. MOUTH: Oropharynx is normal. NECK: No adenopathy, no JVD. CHEST: Chest with clear breath sounds bilaterally. No wheezes, rales, or rhonchi. CARDIAC: Regular rate and rhythm. S1 and S2, without murmurs, gallops, or rubs. VASCULAR: No Edema. Peripheral pulses normal and equal in all extremities. ABDOMEN: Soft, without detectable tenderness. No sign of distention. No rebound or guarding, and no masses palpated. Bowel Sounds normal. MUSCULOSKELETAL: Good range of motion of all major joints. Extremities without clubbing, cyanosis or edema. NEUROLOGIC EXAM: Unable to assess. No focal sensory or strength deficits. PSYCHIATRIC: Unable to assess this. SKIN: No rash or lesions. - Constitutional Vitals: Temp Pulse Resp BP Pulse Ox 97.6 F 95 H 20 125/86 96 09/02/17 16:23 09/02/17 16:23 09/02/17 16:23 09/02/17 16:23 09/02/17 16:23 General appearance: Present: mild distress Results - Labs CBC & Chem 7: 09/02/17 14:03 09/02/17 14:03 Labs: Laboratory Last Values WBC 11.5 K/mm3 (4.5-11.0) H 09/02/17 14:03 RBC 4.15 M/mm3 (3.65-5.03) 09/02/17 14:03 Hgb 12.9 gm/dl (11.8-15.2) 09/02/17 14:03 Hct 39.0 % (35.5-45.6) 09/02/17 14:03 MCV 94 fl (84-94) 09/02/17 14:03 MCH 31 pg (28-32) 09/02/17 14:03 MCHC 33 % (32-34) 09/02/17 14:03 RDW 15.4 % (13.2-15.2) H 09/02/17 14:03 Plt Count 295 K/mm3 (140-440) 09/02/17 14:03 Lymph % (Auto) 7.9 % (13.4-35.0) L 09/02/17 14:03 [place] % (Auto) 4.3 % (0.0-7.3) 09/02/17 14:03 Eos % (Auto) 0.4 % (0.0-4.3) 09/02/17 14:03 Baso % (Auto) 0.2 % (0.0-1.8) 09/02/17 14:03 Lymph # 0.9 K/mm3 (1.2-5.4) L 09/02/17 14:03 [place] # 0.5 K/mm3 (0.0-0.8) 09/02/17 14:03 Eos # 0.0 K/mm3 (0.0-0.4) 09/02/17 14:03 Baso # 0.0 K/mm3 (0.0-0.1) 09/02/17 14:03 Add Manual Diff Complete 08/30/17 19:00 Total Counted 100 08/30/17 19:00 Seg Neutrophils % 87.2 % (40.0-70.0) H 09/02/17 14:03 Seg Neuts % (Manual) 83.0 % (40.0-70.0) H 08/30/17 19:00 Band Neutrophils % 0 % 08/30/17 19:00 Lymphocytes % (Manual) 9.0 % (13.4-35.0) L 08/30/17 19:00 Reactive Lymphs % (Man) 0 % 08/30/17 19:00 Monocytes % (Manual) 6.0 % (0.0-7.3) 08/30/17 19:00 Eosinophils % (Manual) 0 % (0.0-4.3) 08/30/17 19:00 Basophils % (Manual) 0 % (0.0-1.8) 08/30/17 19:00 Metamyelocytes % 0 % 08/30/17 19:00 Myelocytes % 2.0 % 08/30/17 19:00 Promyelocytes % 0 % 08/30/17 19:00 Blast Cells % 0 % 08/30/17 19:00 Nucleated RBC % Not Reportable 08/30/17 19:00 Seg Neutrophils # 10.0 K/mm3 (1.8-7.7) H 09/02/17 14:03 Seg Neutrophils # Man 14.8 K/mm3 (1.8-7.7) H 08/30/17 19:00 Band Neutrophils # 0.0 K/mm3 08/30/17 19:00 Lymphocytes # (Manual) 1.6 K/mm3 (1.2-5.4) 08/30/17 19:00 Abs React Lymphs (Man) 0.0 K/mm3 08/30/17 19:00 Monocytes # (Manual) 1.1 K/mm3 (0.0-0.8) H 08/30/17 19:00 Eosinophils # (Manual) 0.0 K/mm3 (0.0-0.4) 08/30/17 19:00 Basophils # (Manual) 0.0 K/mm3 (0.0-0.1) 08/30/17 19:00 Metamyelocytes # 0.0 K/mm3 08/30/17 19:00 Myelocytes # 0.4 K/mm3 08/30/17 19:00 Promyelocytes # 0.0 K/mm3 08/30/17 19:00 Blast Cells # 0.0 K/mm3 08/30/17 19:00 WBC Morphology Not Reportable 08/30/17 19:00 Hypersegmented Neuts Not Reportable 08/30/17 19:00 Hyposegmented Neuts Not Reportable 08/30/17 19:00 Hypogranular Neuts Not Reportable 08/30/17 19:00 Smudge Cells Not Reportable 08/30/17 19:00 Toxic Granulation Not Reportable 08/30/17 19:00 Toxic Vacuolation Not Reportable 08/30/17 19:00 Dohle Bodies Not Reportable 08/30/17 19:00 Pelger-Huet Anomaly Not Reportable 08/30/17 19:00 [place] Rods Not Reportable 08/30/17 19:00 Platelet Estimate Consistent w auto 08/30/17 19:00 Clumped Platelets Not Reportable 08/30/17 19:00 Plt Clumps, EDTA Not Reportable 08/30/17 19:00 Large Platelets Not Reportable 08/30/17 19:00 Giant Platelets Not Reportable 08/30/17 19:00 Platelet Satelliting Not Reportable 08/30/17 19:00 Plt Morphology Comment Not Reportable 08/30/17 19:00 RBC Morphology Not Reportable 08/30/17 19:00 Dimorphic RBCs Not Reportable 08/30/17 19:00 Polychromasia Not Reportable 08/30/17 19:00 Hypochromasia Not Reportable 08/30/17 19:00 Poikilocytosis Not Reportable 08/30/17 19:00 Anisocytosis Not Reportable 08/30/17 19:00 Microcytosis Not Reportable 08/30/17 19:00 Macrocytosis 1+ 08/30/17 19:00 Spherocytes Not Reportable 08/30/17 19:00 Pappenheimer Bodies Not Reportable 08/30/17 19:00 Sickle Cells Not Reportable 08/30/17 19:00 Target Cells Not Reportable 08/30/17 19:00 Tear Drop Cells Not Reportable 08/30/17 19:00 Ovalocytes Not Reportable 08/30/17 19:00 Helmet Cells Not Reportable 08/30/17 19:00 [place] Bodies Not Reportable 08/30/17 19:00 [place] Rings Not Reportable 08/30/17 19:00 [place] Cells Not Reportable 08/30/17 19:00 Bite Cells Not Reportable 08/30/17 19:00 Crenated Cell Not Reportable 08/30/17 19:00 Elliptocytes Not Reportable 08/30/17 19:00 Acanthocytes (Spur) Not Reportable 08/30/17 19:00 Rouleaux Not Reportable 08/30/17 19:00 Hemoglobin C Crystals Not Reportable 08/30/17 19:00 Schistocytes Not Reportable 08/30/17 19:00 Malaria parasites Not Reportable 08/30/17 19:00 Cedric Bodies Not Reportable 08/30/17 19:00 Hem Pathologist Commnt No 08/30/17 19:00 POC ABG pH 7.523 (7.35-7.45) H 08/31/17 01:21 POC ABG pCO2 20.6 (35-45) L 08/31/17 01:21 POC ABG pO2 128 (80-105) H 08/31/17 01:21 POC ABG HCO3 17.0 08/31/17 01:21 POC ABG Total CO2 18 08/31/17 01:21 POC ABG O2 Sat 99 08/31/17 01:21 POC ABG Base Excess -6 08/31/17 01:21 FiO2 21 % 08/31/17 01:21 Sodium 151 mmol/L (137-145) H 09/02/17 14:03 Potassium 3.2 mmol/L (3.6-5.0) L D 09/02/17 14:03 Chloride 110.7 mmol/L (98-107) H 09/02/17 14:03 Carbon Dioxide 25 mmol/L (22-30) 09/02/17 14:03 Anion Gap 19 mmol/L 09/02/17 14:03 BUN 9 mg/dL (9-20) 09/02/17 14:03 Creatinine 0.6 mg/dL (0.8-1.5) L 09/02/17 14:03 Estimated GFR > 60 ml/min 09/02/17 14:03 BUN/Creatinine Ratio 15 % 09/02/17 14:03 Glucose 77 mg/dL (75-100) 09/02/17 14:03 POC Glucose 245 (70-105) H 09/02/17 16:36 Lactic Acid 7.80 mmol/L (0.7-2.0) H* 08/30/17 19:00 Calcium 8.3 mg/dL (8.4-10.2) L 09/02/17 14:03 Phosphorus 2.80 mg/dL (2.5-4.5) 08/30/17 03:15 Magnesium 2.80 mg/dL (1.7-2.3) H 08/30/17 03:15 Total Bilirubin 0.30 mg/dL (0.1-1.2) 08/30/17 19:00 AST 43 units/L (5-40) H 08/30/17 19:00 ALT 49 units/L (7-56) 08/30/17 19:00 Alkaline Phosphatase 152 units/L (35-129) H 08/30/17 19:00 NT-Pro-B Natriuret Pep 94.77 pg/mL (0-450) 08/30/17 19:00 Total Protein 7.3 g/dL (6.3-8.2) 08/30/17 19:00 Albumin 3.8 g/dL (3.9-5) L 08/30/17 19:00 Albumin/Globulin Ratio 1.1 % 08/30/17 19:00 Lipase 14 units/L (13-60) 08/30/17 19:00 Urine Color Straw (Yellow) 08/30/17 19:41 Urine Turbidity Clear (Clear) 08/30/17 19:41 Urine pH 5.0 (5.0-7.0) 08/30/17 19:41 Ur Specific [place] 1.026 (1.003-1.030) 08/30/17 19:41 Urine Protein <15 mg/dl mg/dL (Negative) 08/30/17 19:41 Urine Glucose (UA) >=500 mg/dL (Negative) 08/30/17 19:41 Urine Ketones 80 mg/dL (Negative) 08/30/17 19:41 Urine Blood Neg (Negative) 08/30/17 19:41 Urine Nitrite Neg (Negative) 08/30/17 19:41 Urine Bilirubin Neg (Negative) 08/30/17 19:41 Urine Urobilinogen < 2.0 mg/dL (<2.0) 08/30/17 19:41 Ur Leukocyte Esterase Neg (Negative) 08/30/17 19:41 Urine WBC (Auto) < 1.0 /HPF (0.0-6.0) 08/30/17 19:41 Urine RBC (Auto) < 1.0 /HPF (0.0-6.0) 08/30/17 19:41 Urine Mucus Few /HPF 08/30/17 19:41 Valproic Acid < 2.8 ug/mL (50-100) L 08/30/17 19:00 Plasma/Serum Alcohol < 0.01 gm% (0-0.07) 08/30/17 19:00
[2017-09-03 07:13] LABS: BUN/Creatinine Ratio 9; Blood Urea Nitrogen 6 mg/dL (9-20); Calcium 8.2 mg/dL (8.4-10.2); Hemolysis Index 5
[2017-09-03 07:29] LABS: Mean Corpuscular HGB Conc 33 % (32-34); Mean Corpuscular Hemoglobin 31 pg (28-32); Mean Corpuscular Volume 94 fl (84-94); Platelet Count 234 K/mm3 (140-440); Red Blood Count 3.85 M/mm3 (3.65-5.03); Red Cell Distribution Width 14.8 % (13.2-15.2)
[2017-09-03] MEDS: HALDOL IM PRN (07:45)
[2017-09-03] MEDS: NOVOLOG SUB-Q SCH ×3 (08:54→18:32)
[2017-09-03] MEDS: LEVEMIR SUB-Q SCH ×2 (08:55→18:31)
[2017-09-03] MEDS: HEPARIN SUB-Q SCH ×2 (10:06→23:57)
[2017-09-03] MEDS: RisperDAL PO SCH ×2 (10:06→23:57)
[2017-09-03] MEDS: PEPCID PO SCH ×2 (10:06→23:57)
--- NOTE | 2017-09-03 10:51 | Progress Note ---
Subjective - Reason for Consult Consult date: 09/03/17 Reason for consult: Psychiatry Follow-up - Chief Complaint Chief complaint: "Hello" The patient is a 31-year-old male presents for evaluation of altered mental status. Today the patient is cooperative during the assessment. The patient was more orient today than yesterday. He was able to tell me that he has hx of bipolar do and diabetes and take Risperdal and Depakote. He could not tell me why he was brought to [facility] when asked. He denies SI/HI's and AVH's. Also, he could not tell me if he see a psychiatrist in an outpatient setting. The patient 's speech is slurred, when he was asked about that he stated, "I don't talk like this." Mental Status Exam - Vital signs Last Vital Signs Temp 99.3 F 09/03/17 07:21 Pulse 109 H 09/03/17 07:21 Resp 22 09/03/17 07:21 BP 103/60 09/03/17 07:21 Pulse Ox 92 09/03/17 07:21 - Exam Narrative exam: MSE: Appearance: calm, cooperative Behavior: good eye contact Speech: slurred Mood: "okay" Affect: congruent to mood Thought Process: circumstantial Thought Content: denies SI/HI's and AVH's Motor Activity: ambulatory Cognition: A/O x 3 Insight: variable Judgment: variable Assessment and Plan Impression: Today patient is cooperative during the assessment. Patient is not in restraints. Patient has slurred speech with no other focal neurological deficits noted. NA 141. Medical: Hypernatremia, Leukocytosis, DKA on admission, and Metabolic Acidosis Recommendation/Plan: Continue Depakote and Risperdal. Gather collateral information from family reference outpatient psy services. Informed assigned hospitalist about patient's slurred speech. Recommend the following delirium precautions below: 1. Frequently reorient patient and involve him in his care (simple explanations of procedures, tests, medications). 2. Lights on and shades open during daytime hours. 3. Try to avoid unnecessary interruptions to sleep during nighttime hours. 4. Obtain glasses, hearing aids from home if patient uses these at baseline. 5. Avoid medications that may exacerbate delirium (especially narcotics, barbiturates, ambien, lunesta, benzos, and medications with excessive anticholinergic properties). 6. Continue 1:1 sitter for safety. 7. D/C restraints when not indicated. 8. Use Haldol 5 mg IM Q6hrs PRN for acute agitation.
--- NOTE | 2017-09-03 12:05 | Progress Note ---
Assessment and Plan DKA Acute Encephalopathy (Toxic Metabolic) Tobacco Use disorder Diabetes type II - DKA resolved - tighten glycemic control - free water for hypernatremia - complete Psychiatryevaluation ....doing better will see prn Subjective Date of service: 09/03/17 Principal diagnosis: DKA; Acute Encephalopathy; Hypernatremia Interval history: Patient is seen today for: DKA; Acute Encephalopathy; Hypernatremia Seen and examined at bedside; 24hour events reviewed; nursing and respiratory care staff consulted; no adverse overnight events reported to me; still with manic type features; denies acute chest pains or increased SOB; No N/ V/F/C; sitter in room Objective Vital Signs - 12hr 09/03/17 09/03/17 05:19 07:21 Temperature 97.4 F L 99.3 F Pulse Rate 99 H 109 H Respiratory 18 22 Rate Blood Pressure 113/69 103/60 O2 Sat by Pulse 92 92 Oximetry Constitutional: no acute distress, alert Eyes: non-icteric ENT: oropharynx moist Neck: supple, no lymphadenopathy Effort: normal Ascultation: Bilateral: clear, other (Prolonged expiratory phase.) Percussion: Bilateral: not dull Cardiovascular: regular rate and rhythm, other (no rubs or murmurs) Gastrointestinal: normoactive bowel sounds, soft, non-tender, non-distended, other (No HSM) Integumentary: normal Extremities: no cyanosis, no edema, pulses normal, no ischemia or petechiae Neurologic: non-focal exam, pupils equal and round, CN II-XII normal, other Psychiatric: mood appropriate, affect normal CBC and BMP: 09/03/17 06:40 09/03/17 06:40 ABG, PT/INR, D-dimer: ABG POC ABG pH 7.523 (7.35-7.45) H 08/31/17 01:21 POC ABG pCO2 20.6 (35-45) L 08/31/17 01:21 POC ABG pO2 128 (80-105) H 08/31/17 01:21 POC ABG HCO3 17.0 08/31/17 01:21 POC ABG Total CO2 18 08/31/17 01:21 POC ABG O2 Sat 99 08/31/17 01:21 Abnormal lab findings: Abnormal Labs 0108/30/17 08/30/17 03:15 17:08 18:54 WBC Hgb Hct MCV MCHC RDW Plt Count Lymph % (Auto) Lymph # Seg Neutrophils % Seg Neuts % (Manual) Lymphocytes % (Manual) Seg Neutrophils # Seg Neutrophils # Man Monocytes # (Manual) POC ABG pH POC ABG pCO2 POC ABG pO2 Sodium Potassium Chloride Carbon Dioxide BUN Creatinine Glucose POC Glucose > 500 H > 500 H Lactic Acid Calcium Magnesium 2.80 H AST Alkaline Phosphatase Albumin Valproic Acid 08/30/17 08/30/17 08/30/17 19:00 19:00 19:00 WBC 17.8 H Hgb 15.6 H Hct 55.4 H MCV 110 H MCHC 28 L RDW 16.8 H Plt Count 504 H Lymph % (Auto) Lymph # Seg Neutrophils % Seg Neuts % (Manual) 83.0 H Lymphocytes % (Manual) 9.0 L Seg Neutrophils # Seg Neutrophils # Man 14.8 H Monocytes # (Manual) 1.1 H POC ABG pH POC ABG pCO2 POC ABG pO2 Sodium Potassium 6.0 H Chloride 85.8 L Carbon Dioxide 7 L* BUN 39 H Creatinine 1.6 H Glucose 1299 H* POC Glucose Lactic Acid 7.80 H* Calcium Magnesium AST 43 H Alkaline Phosphatase 152 H Albumin 3.8 L Valproic Acid 08/30/17 08/30/17 08/30/17 19:00 20:12 20:47 WBC Hgb Hct MCV MCHC RDW Plt Count Lymph % (Auto) Lymph # Seg Neutrophils % Seg Neuts % (Manual) Lymphocytes % (Manual) Seg Neutrophils # Seg Neutrophils # Man Monocytes # (Manual) POC ABG pH 7.089 L POC ABG pCO2 19.5 L POC ABG pO2 109 H Sodium Potassium Chloride Carbon Dioxide BUN Creatinine Glucose POC Glucose > 500 H Lactic Acid Calcium Magnesium AST Alkaline Phosphatase Albumin Valproic Acid < 2.8 L 08/30/17 08/30/17 08/31/17 22:13 23:45 00:10 WBC Hgb Hct MCV MCHC RDW Plt Count Lymph % (Auto) Lymph # Seg Neutrophils % Seg Neuts % (Manual) Lymphocytes % (Manual) Seg Neutrophils # Seg Neutrophils # Man Monocytes # (Manual) POC ABG pH POC ABG pCO2 POC ABG pO2 Sodium 157 H D Potassium Chloride 118.1 H Carbon Dioxide BUN Creatinine Glucose 170 H POC Glucose > 500 H 480 H Lactic Acid Calcium Magnesium AST Alkaline Phosphatase Albumin Valproic Acid 08/31/17 08/31/17 08/31/17 00:21 01:21 01:41 WBC Hgb Hct MCV MCHC RDW Plt Count Lymph % (Auto) Lymph # Seg Neutrophils % Seg Neuts % (Manual) Lymphocytes % (Manual) Seg Neutrophils # Seg Neutrophils # Man Monocytes # (Manual) POC ABG pH 7.523 H POC ABG pCO2 20.6 L POC ABG pO2 128 H Sodium 155 H Potassium Chloride 107.1 H Carbon Dioxide 16 L D BUN 34 H Creatinine Glucose 530 H* POC Glucose 402 H Lactic Acid Calcium Magnesium AST Alkaline Phosphatase Albumin Valproic Acid 08/31/17 08/31/17 08/31/17 03:15 03:27 04:57 WBC Hgb Hct MCV MCHC RDW Plt Count Lymph % (Auto) Lymph # Seg Neutrophils % Seg Neuts % (Manual) Lymphocytes % (Manual) Seg Neutrophils # Seg Neutrophils # Man Monocytes # (Manual) POC ABG pH POC ABG pCO2 POC ABG pO2 Sodium 162 H* Potassium Chloride 118.5 H Carbon Dioxide BUN 35 H Creatinine Glucose 150 H POC Glucose 112 H 118 H Lactic Acid Calcium Magnesium AST Alkaline Phosphatase Albumin Valproic Acid 08/31/17 08/31/17 08/31/17 06:21 07:46 08:50 WBC Hgb Hct MCV MCHC RDW Plt Count Lymph % (Auto) Lymph # Seg Neutrophils % Seg Neuts % (Manual) Lymphocytes % (Manual) Seg Neutrophils # Seg Neutrophils # Man Monocytes # (Manual) POC ABG pH POC ABG pCO2 POC ABG pO2 Sodium Potassium Chloride Carbon Dioxide BUN Creatinine Glucose POC Glucose 194 H 155 H 124 H Lactic Acid Calcium Magnesium AST Alkaline Phosphatase Albumin Valproic Acid 08/31/17 08/31/17 08/31/17 09:55 10:35 11:05 WBC Hgb Hct MCV MCHC RDW Plt Count Lymph % (Auto) Lymph # Seg Neutrophils % Seg Neuts % (Manual) Lymphocytes % (Manual) Seg Neutrophils # Seg Neutrophils # Man Monocytes # (Manual) POC ABG pH POC ABG pCO2 POC ABG pO2 Sodium 160 H Potassium 5.9 H D Chloride 118.9 H Carbon Dioxide 20 L BUN 30 H Creatinine Glucose 194 H POC Glucose 256 H 271 H Lactic Acid Calcium Magnesium AST Alkaline Phosphatase Albumin Valproic Acid 0108/31/17 08/31/17 12:09 13:13 14:15 WBC Hgb Hct MCV MCHC RDW Plt Count Lymph % (Auto) Lymph # Seg Neutrophils % Seg Neuts % (Manual) Lymphocytes % (Manual) Seg Neutrophils # Seg Neutrophils # Man Monocytes # (Manual) POC ABG pH POC ABG pCO2 POC ABG pO2 Sodium Potassium Chloride Carbon Dioxide BUN Creatinine Glucose POC Glucose 219 H 142 H 152 H Lactic Acid Calcium Magnesium AST Alkaline Phosphatase Albumin Valproic Acid 08/31/17 08/31/17 08/31/17 15:13 15:50 16:16 WBC Hgb Hct MCV MCHC RDW Plt Count Lymph % (Auto) Lymph # Seg Neutrophils % Seg Neuts % (Manual) Lymphocytes % (Manual) Seg Neutrophils # Seg Neutrophils # Man Monocytes # (Manual) POC ABG pH POC ABG pCO2 POC ABG pO2 Sodium 164 H* Potassium Chloride 120.2 H Carbon Dioxide BUN 24 H Creatinine Glucose 70 L POC Glucose 66 L 144 H Lactic Acid Calcium Magnesium AST Alkaline Phosphatase Albumin Valproic Acid 08/31/17 09/01/17 09/01/17 20:44 01:30 03:47 WBC Hgb Hct MCV MCHC RDW Plt Count Lymph % (Auto) Lymph # Seg Neutrophils % Seg Neuts % (Manual) Lymphocytes % (Manual) Seg Neutrophils # Seg Neutrophils # Man Monocytes # (Manual) POC ABG pH POC ABG pCO2 POC ABG pO2 Sodium Potassium Chloride Carbon Dioxide BUN Creatinine Glucose POC Glucose 124 H 213 H 146 H Lactic Acid Calcium Magnesium AST Alkaline Phosphatase Albumin Valproic Acid 09/01/17 09/01/17 09/01/17 08:45 09:10 09:10 WBC 19.4 H Hgb Hct MCV MCHC RDW 15.3 H Plt Count Lymph % (Auto) Lymph # Seg Neutrophils % Seg Neuts % (Manual) Lymphocytes % (Manual) Seg Neutrophils # Seg Neutrophils # Man Monocytes # (Manual) POC ABG pH POC ABG pCO2 POC ABG pO2 Sodium 152 H D Potassium Chloride 114.6 H Carbon Dioxide BUN Creatinine 0.7 L Glucose 214 H POC Glucose 168 H Lactic Acid Calcium Magnesium AST Alkaline Phosphatase Albumin Valproic Acid 09/01/17 09/01/17 09/02/17 12:30 17:52 00:04 WBC Hgb Hct MCV MCHC RDW Plt Count Lymph % (Auto) Lymph # Seg Neutrophils % Seg Neuts % (Manual) Lymphocytes % (Manual) Seg Neutrophils # Seg Neutrophils # Man Monocytes # (Manual) POC ABG pH POC ABG pCO2 POC ABG pO2 Sodium Potassium Chloride Carbon Dioxide BUN Creatinine Glucose POC Glucose 229 H 151 H < 40 L Lactic Acid Calcium Magnesium AST Alkaline Phosphatase Albumin Valproic Acid 09/02/17 09/02/17 09/02/17 00:27 05:51 06:27 WBC Hgb Hct MCV MCHC RDW Plt Count Lymph % (Auto) Lymph # Seg Neutrophils % Seg Neuts % (Manual) Lymphocytes % (Manual) Seg Neutrophils # Seg Neutrophils # Man Monocytes # (Manual) POC ABG pH POC ABG pCO2 POC ABG pO2 Sodium Potassium Chloride Carbon Dioxide BUN Creatinine Glucose POC Glucose 149 H 43 L 131 H Lactic Acid Calcium Magnesium AST Alkaline Phosphatase Albumin Valproic Acid 09/02/17 09/02/17 09/02/17 11:35 12:11 14:03 WBC 11.5 H Hgb Hct MCV MCHC RDW 15.4 H Plt Count Lymph % (Auto) 7.9 L Lymph # 0.9 L Seg Neutrophils % 87.2 H Seg Neuts % (Manual) Lymphocytes % (Manual) Seg Neutrophils # 10.0 H Seg Neutrophils # Man Monocytes # (Manual) POC ABG pH POC ABG pCO2 POC ABG pO2 Sodium Potassium Chloride Carbon Dioxide BUN Creatinine Glucose POC Glucose 47 L 141 H Lactic Acid Calcium Magnesium AST Alkaline Phosphatase Albumin Valproic Acid 09/02/17 09/02/17 09/02/17 14:03 16:36 21:25 WBC Hgb Hct MCV MCHC RDW Plt Count Lymph % (Auto) Lymph # Seg Neutrophils % Seg Neuts % (Manual) Lymphocytes % (Manual) Seg Neutrophils # Seg Neutrophils # Man Monocytes # (Manual) POC ABG pH POC ABG pCO2 POC ABG pO2 Sodium 151 H Potassium 3.2 L D Chloride 110.7 H Carbon Dioxide BUN Creatinine 0.6 L Glucose POC Glucose 245 H 159 H Lactic Acid Calcium 8.3 L Magnesium AST Alkaline Phosphatase Albumin Valproic Acid 09/03/17 09/03/17 06:38 06:40 WBC Hgb Hct MCV MCHC RDW Plt Count Lymph % (Auto) Lymph # Seg Neutrophils % Seg Neuts % (Manual) Lymphocytes % (Manual) Seg Neutrophils # Seg Neutrophils # Man Monocytes # (Manual) POC ABG pH POC ABG pCO2 POC ABG pO2 Sodium Potassium Chloride Carbon Dioxide BUN 6 L Creatinine 0.7 L Glucose 418 H POC Glucose 382 H Lactic Acid Calcium 8.2 L Magnesium AST Alkaline Phosphatase Albumin Valproic Acid Chest x-ray: image reviewed Allied health notes reviewed: nursing
[2017-09-03 12:47] LABS: Alanine Aminotransferase 39 units/L (7-56); Lipase 18 units/L (13-60)
--- NOTE | 2017-09-03 13:19 | Progress Note ---
Assessment and Plan Assessment and plan: Patient is a 31year-old male with history of schizophrenia, diabetes mellitus, who was admitted to the hospital with DKA Acute Psychosis Schizophrenia Hypernatremia Slurred Speech Leukocytosis-Resolved Hypokalemia Tobacco use disorder DKA Metabolic Acidosis Oligouria- now resolved Plan Continue supportive care Transitioned to long-acting insulin D/C D5W Continue Depakote, Risperdal Stat CT brain Haldol PRN Continue 1:1 Sitter Psychiatry evaluation noted Continue fluids, replace potassium Obtain medical records from patient's family and restart. DVT GI prophylaxis Monitor for electrolytes Extensive counseling: tobacco cessation 15 MINS History Interval history: Patient seen and examined, much more improved today. He is off restraints. States that he is hungry. He does have a bit of slurred speech which he states is new for him. But no other focal neurological deficits is noted. Hospitalist Physical - Physical exam Narrative exam: VITAL SIGNS: Reviewed. GENERAL: The patient appeared disheveled. Vital signs as documented. HEAD: No signs of head trauma. EYES: Pupils are equal. EARS: Hearing grossly intact. MOUTH: Oropharynx is normal. NECK: No adenopathy, no JVD. CHEST: Chest with clear breath sounds bilaterally. No wheezes, rales, or rhonchi. CARDIAC: Regular rate and rhythm. S1 and S2, without murmurs, gallops, or rubs. VASCULAR: No Edema. Peripheral pulses normal and equal in all extremities. ABDOMEN: Soft, without detectable tenderness. No sign of distention. No rebound or guarding, and no masses palpated. Bowel Sounds normal. MUSCULOSKELETAL: Good range of motion of all major joints. Extremities without clubbing, cyanosis or edema. NEUROLOGIC EXAM: Awake alert and oriented 3, speech with mild lips. No focal sensory or strength deficits. PSYCHIATRIC: Mood is normal. SKIN: No rash or lesions. - Constitutional Vitals: Temp Pulse Resp BP Pulse Ox 99.3 F 109 H 22 103/60 92 09/03/17 07:21 09/03/17 07:21 09/03/17 07:21 09/03/17 07:21 09/03/17 07:21 General appearance: Present: mild distress Results - Labs CBC & Chem 7: 09/03/17 06:40 09/03/17 06:40 Labs: Laboratory Last Values WBC 8.8 K/mm3 (4.5-11.0) 09/03/17 06:40 RBC 3.85 M/mm3 (3.65-5.03) 09/03/17 06:40 Hgb 12.0 gm/dl (11.8-15.2) 09/03/17 06:40 Hct 36.0 % (35.5-45.6) 09/03/17 06:40 MCV 94 fl (84-94) 09/03/17 06:40 MCH 31 pg (28-32) 09/03/17 06:40 MCHC 33 % (32-34) 09/03/17 06:40 RDW 14.8 % (13.2-15.2) 09/03/17 06:40 Plt Count 234 K/mm3 (140-440) 09/03/17 06:40 Lymph % (Auto) 7.9 % (13.4-35.0) L 09/02/17 14:03 [place] % (Auto) 4.3 % (0.0-7.3) 09/02/17 14:03 Eos % (Auto) 0.4 % (0.0-4.3) 09/02/17 14:03 Baso % (Auto) 0.2 % (0.0-1.8) 09/02/17 14:03 Lymph # 0.9 K/mm3 (1.2-5.4) L 09/02/17 14:03 Todd # 0.5 K/mm3 (0.0-0.8) 09/02/17 14:03 Eos # 0.0 K/mm3 (0.0-0.4) 09/02/17 14:03 Baso # 0.0 K/mm3 (0.0-0.1) 09/02/17 14:03 Add Manual Diff Complete 08/30/17 19:00 Total Counted 100 08/30/17 19:00 Seg Neutrophils % 87.2 % (40.0-70.0) H 09/02/17 14:03 Seg Neuts % (Manual) 83.0 % (40.0-70.0) H 08/30/17 19:00 Band Neutrophils % 0 % 08/30/17 19:00 Lymphocytes % (Manual) 9.0 % (13.4-35.0) L 08/30/17 19:00 Reactive Lymphs % (Man) 0 % 08/30/17 19:00 Monocytes % (Manual) 6.0 % (0.0-7.3) 08/30/17 19:00 Eosinophils % (Manual) 0 % (0.0-4.3) 08/30/17 19:00 Basophils % (Manual) 0 % (0.0-1.8) 08/30/17 19:00 Metamyelocytes % 0 % 08/30/17 19:00 Myelocytes % 2.0 % 08/30/17 19:00 Promyelocytes % 0 % 08/30/17 19:00 Blast Cells % 0 % 08/30/17 19:00 Nucleated RBC % Not Reportable 08/30/17 19:00 Seg Neutrophils # 10.0 K/mm3 (1.8-7.7) H 09/02/17 14:03 Seg Neutrophils # Man 14.8 K/mm3 (1.8-7.7) H 08/30/17 19:00 Band Neutrophils # 0.0 K/mm3 08/30/17 19:00 Lymphocytes # (Manual) 1.6 K/mm3 (1.2-5.4) 08/30/17 19:00 Abs React Lymphs (Man) 0.0 K/mm3 08/30/17 19:00 Monocytes # (Manual) 1.1 K/mm3 (0.0-0.8) H 08/30/17 19:00 Eosinophils # (Manual) 0.0 K/mm3 (0.0-0.4) 08/30/17 19:00 Basophils # (Manual) 0.0 K/mm3 (0.0-0.1) 08/30/17 19:00 Metamyelocytes # 0.0 K/mm3 08/30/17 19:00 Myelocytes # 0.4 K/mm3 08/30/17 19:00 Promyelocytes # 0.0 K/mm3 08/30/17 19:00 Blast Cells # 0.0 K/mm3 08/30/17 19:00 WBC Morphology Not Reportable 08/30/17 19:00 Hypersegmented Neuts Not Reportable 08/30/17 19:00 Hyposegmented Neuts Not Reportable 08/30/17 19:00 Hypogranular Neuts Not Reportable 08/30/17 19:00 Smudge Cells Not Reportable 08/30/17 19:00 Toxic Granulation Not Reportable 08/30/17 19:00 Toxic Vacuolation Not Reportable 08/30/17 19:00 Dohle Bodies Not Reportable 08/30/17 19:00 Pelger-Huet Anomaly Not Reportable 08/30/17 19:00 Jackson Rods Not Reportable 08/30/17 19:00 Platelet Estimate Consistent w auto 08/30/17 19:00 Clumped Platelets Not Reportable 08/30/17 19:00 Plt Clumps, EDTA Not Reportable 08/30/17 19:00 Large Platelets Not Reportable 08/30/17 19:00 Giant Platelets Not Reportable 08/30/17 19:00 Platelet Satelliting Not Reportable 08/30/17 19:00 Plt Morphology Comment Not Reportable 08/30/17 19:00 RBC Morphology Not Reportable 08/30/17 19:00 Dimorphic RBCs Not Reportable 08/30/17 19:00 Polychromasia Not Reportable 08/30/17 19:00 Hypochromasia Not Reportable 08/30/17 19:00 Poikilocytosis Not Reportable 08/30/17 19:00 Anisocytosis Not Reportable 08/30/17 19:00 Microcytosis Not Reportable 08/30/17 19:00 Macrocytosis 1+ 08/30/17 19:00 Spherocytes Not Reportable 08/30/17 19:00 Pappenheimer Bodies Not Reportable 08/30/17 19:00 Sickle Cells Not Reportable 08/30/17 19:00 Target Cells Not Reportable 08/30/17 19:00 Tear Drop Cells Not Reportable 08/30/17 19:00 Ovalocytes Not Reportable 08/30/17 19:00 Helmet Cells Not Reportable 08/30/17 19:00 [place] Bodies Not Reportable 08/30/17 19:00 [place] Rings Not Reportable 08/30/17 19:00 [place] Cells Not Reportable 08/30/17 19:00 Bite Cells Not Reportable 08/30/17 19:00 Crenated Cell Not Reportable 08/30/17 19:00 Elliptocytes Not Reportable 08/30/17 19:00 Acanthocytes (Spur) Not Reportable 01/09/18 19:00 Rouleaux Not Reportable 08/30/17 19:00 Hemoglobin C Crystals Not Reportable 08/30/17 19:00 Schistocytes Not Reportable 08/30/17 19:00 Malaria parasites Not Reportable 08/30/17 19:00 Cedric Bodies Not Reportable 08/30/17 19:00 Hem Pathologist Commnt No 08/30/17 19:00 POC ABG pH 7.523 (7.35-7.45) H 08/31/17 01:21 POC ABG pCO2 20.6 (35-45) L 08/31/17 01:21 POC ABG pO2 128 (80-105) H 08/31/17 01:21 POC ABG HCO3 17.0 08/31/17 01:21 POC ABG Total CO2 18 08/31/17 01:21 POC ABG O2 Sat 99 08/31/17 01:21 POC ABG Base Excess -6 08/31/17 01:21 FiO2 21 % 08/31/17 01:21 Sodium 141 mmol/L (137-145) D 09/03/17 06:40 Potassium 4.1 mmol/L (3.6-5.0) D 09/03/17 06:40 Chloride 104.0 mmol/L (98-107) 09/03/17 06:40 Carbon Dioxide 26 mmol/L (22-30) 09/03/17 06:40 Anion Gap 15 mmol/L 09/03/17 06:40 BUN 6 mg/dL (9-20) L 09/03/17 06:40 Creatinine 0.7 mg/dL (0.8-1.5) L 09/03/17 06:40 Estimated GFR > 60 ml/min 09/03/17 06:40 BUN/Creatinine Ratio 9 % 09/03/17 06:40 Glucose 418 mg/dL (75-100) H 09/03/17 06:40 POC Glucose 365 (70-105) H 09/03/17 12:25 Lactic Acid 7.80 mmol/L (0.7-2.0) H* 08/30/17 19:00 Calcium 8.2 mg/dL (8.4-10.2) L 09/03/17 06:40 Phosphorus 2.80 mg/dL (2.5-4.5) 08/30/17 03:15 Magnesium 2.80 mg/dL (1.7-2.3) H 08/30/17 03:15 Total Bilirubin 0.30 mg/dL (0.1-1.2) 08/30/17 19:00 AST 43 units/L (5-40) H 09/03/17 06:40 ALT 39 units/L (7-56) 09/03/17 06:40 Alkaline Phosphatase 111 units/L (35-129) 09/03/17 06:40 NT-Pro-B Natriuret Pep 94.77 pg/mL (0-450) 08/30/17 19:00 Total Protein 7.3 g/dL (6.3-8.2) 08/30/17 19:00 Albumin 3.8 g/dL (3.9-5) L 08/30/17 19:00 Albumin/Globulin Ratio 1.1 % 08/30/17 19:00 Amylase 97 units/L (27-131) 09/03/17 06:40 Lipase 18 units/L (13-60) 09/03/17 06:40 Urine Color Straw (Yellow) 08/30/17 19:41 Urine Turbidity Clear (Clear) 08/30/17 19:41 Urine pH 5.0 (5.0-7.0) 08/30/17 19:41 Ur Specific [place] 1.026 (1.003-1.030) 08/30/17 19:41 Urine Protein <15 mg/dl mg/dL (Negative) 08/30/17 19:41 Urine Glucose (UA) >=500 mg/dL (Negative) 08/30/17 19:41 Urine Ketones 80 mg/dL (Negative) 08/30/17 19:41 Urine Blood Neg (Negative) 08/30/17 19:41 Urine Nitrite Neg (Negative) 08/30/17 19:41 Urine Bilirubin Neg (Negative) 08/30/17 19:41 Urine Urobilinogen < 2.0 mg/dL (<2.0) 08/30/17 19:41 Ur Leukocyte Esterase Neg (Negative) 08/30/17 19:41 Urine WBC (Auto) < 1.0 /HPF (0.0-6.0) 08/30/17 19:41 Urine RBC (Auto) < 1.0 /HPF (0.0-6.0) 08/30/17 19:41 Urine Mucus Few /HPF 08/30/17 19:41 Valproic Acid < 2.8 ug/mL (50-100) L 08/30/17 19:00 Plasma/Serum Alcohol < 0.01 gm% (0-0.07) 08/30/17 19:00 - Imaging and Cardiology CT Scan - head: pending
--- NOTE | 2017-09-03 13:24 | Cat Scan Report ---
CT HEAD WITHOUT CONTRAST: 08/30/17 21:59:00 CLINICAL: Stroke. TECHNIQUE: 2.5-mm noncontrast scans. COMPARISON:08/18/17 FINDINGS: The ventricles and sulci are large for age.A tiny chronic right basal ganglia lacunar infarct. No suspicious hypodensity. Bilateral basal ganglia calcifications. No mass or mass effect. No hemorrhage, edema or extra-axial collection. The sinuses are clear. Normal orbits and soft tissues. The calvarium and skull base are intact. IMPRESSION: No acute change. Mild global cortical atrophy and a tiny chronic right basal ganglial lacunar infarct.
[2017-09-04] MEDS: RisperDAL PO SCH ×3 (00:04→21:19)
[2017-09-04] MEDS: NOVOLOG SUB-Q SCH ×5 (00:43→23:32)
[2017-09-04] MEDS: LEVEMIR SUB-Q SCH ×2 (08:12→17:08)
[2017-09-04] MEDS: PEPCID PO SCH ×2 (09:16→21:19)
[2017-09-04] MEDS: HEPARIN SUB-Q SCH ×2 (09:17→21:20)
[2017-09-04] MEDS ORDERED: LEVEMIR SUB-Q SCH (10:26)
--- NOTE | 2017-09-04 10:30 | Discharge Summary ---
Providers - Providers Date of Admission: 08/30/17 21:59 Attending physician: LOLA LINDSEY MD 08/30/17 22:01 Consult to Dietitian/Nutrition [CONS] Routine Physician Instructions: Reason For Exam: DKA Reason for Consult: Nutrition Recommendations Reason for Consult: Diet education 08/31/17 09:54 Consult to Physician [CONS] Routine Consulting Provider: CARLA ROJAS Reason For Exam: Critical Care Place consult to:: Mauro Notified:: yes 09/01/17 19:33 Consult to Mental Health [CONS] Routine Reason For Exam: ACUTE PSYCHOSIS Place consult to:: MENTAL HEALTH Notified:: BRI Phone number called:: [phone] Was contact made?: Yes If yes, spoke with:: BRI Time called:: 09:28 Primary care physician: [employer] Hospitalization Reason for admission: DKA with acute psychosis Condition: Stable Hospital course: Patient is a 31year-old male with history of schizophrenia, diabetes mellitus, who was admitted to the hospital with DKA. He was treated with DKA protocol was also acutely psychotic of admission requiring 4. restraints. The patient reports that he takes Risperdal and Depakote for bipolar disorder but has not been checking the levels. He denied any suicidal or homicidal ideation. He denies any Sleep disturbance a flat affect. He was seen by psychiatrist while here in the hospital subsequently his 1013 was rescinded. His clinically stable for discharge he understands the need to follow up on the [facility] for checking his numbers. Discharge diagnosis Acute Psychosis Schizophrenia Hypernatremia Bipolar disorder Diabetes mellitus with hypoglycemia Leukocytosis-Resolved Hypokalemia Tobacco use disorder DKA Metabolic Acidosis Oligouria- now resolved Disposition: - TO HOME OR SELFCARE Time spent for discharge: 35 MINS Core Measure Documentation - Palliative Care Palliative Care/ Comfort Measures: Not Applicable - Core Measures Any of the following diagnoses?: none - VTE Discharge Requirements Deep Vein Thrombosis/Pulmonary Embolism Present on Admission: No Exam - Physical Exam Narrative exam: VITAL SIGNS: Reviewed. GENERAL: The patient is in no acute distress resting comfortably. Vital signs as documented. HEAD: No signs of head trauma. EYES: Pupils are equal. EARS: Hearing grossly intact. MOUTH: Oropharynx is normal. NECK: No adenopathy, no JVD. CHEST: Chest with clear breath sounds bilaterally. No wheezes, rales, or rhonchi. CARDIAC: Regular rate and rhythm. S1 and S2, without murmurs, gallops, or rubs. VASCULAR: No Edema. Peripheral pulses normal and equal in all extremities. ABDOMEN: Soft, without detectable tenderness. No sign of distention. No rebound or guarding, and no masses palpated. Bowel Sounds normal. MUSCULOSKELETAL: Good range of motion of all major joints. Extremities without clubbing, cyanosis or edema. NEUROLOGIC EXAM: Awake alert and oriented 3, speech is normal. No focal sensory or strength deficits. PSYCHIATRIC: Mood is normal. SKIN: No rash or lesions. - Constitutional Vitals: Temp Pulse Resp BP Pulse Ox 98.5 F 90 16 118/88 99 09/04/17 03:31 09/04/17 03:31 09/04/17 03:31 09/04/17 03:31 09/04/17 03:31 Plan Activity: advance as tolerated, fall precautions Diet: diabetic Special Instructions: record daily weights, record daily BP diary, record blood sugar diary Follow up with: PRIMARY CARE, [Primary Care Provider] - 3-5 Days Prescriptions: Divalproex [Waldemar Crocker] 500 mg PO QHS #30 tablet Divalproex [Waldemar Crocker] 250 mg PO QAM #30 tablet Insulin Detemir [Levemir VIAL] 12 unit SQ BID #1 vial risperiDONE [RisperDAL] 1 mg PO BID #30 tablet
--- NOTE | 2017-09-04 15:08 | Progress Note ---
Assessment and Plan Assessment and plan: Patient is a 31year-old male with history of schizophrenia, diabetes mellitus, who was admitted to the hospital with DKA Acute Psychosis- normalized Schizophrenia Hypernatremia Slurred Speech-Resolved, secondary to psychosis Leukocytosis-Resolved Hypokalemia Tobacco use disorder DKA Uncontrolled DM with hyperglycemia Metabolic Acidosis Oligouria- now resolved Plan Continue supportive care Change to high dose Sliding scale. PATient with early am hypoglycemia will decrease Lantus to 15 units BID D/C D5W Continue Depakote, Risperdal Stat CT brain Haldol PRN Continue 1:1 Sitter Psychiatry evaluation noted Continue fluids, replace potassium Obtain medical records from patient's family and restart. DVT GI prophylaxis Monitor for electrolytes Extensive counseling: tobacco cessation 15 MINS Clinically stable for discharge to psych or home if cleared by psych History Interval history: Patient seen and examined, much more improved today. Normal speech has improved. Imaging studies CT did not reveal any acute events. Hospitalist Physical - Physical exam Narrative exam: VITAL SIGNS: Reviewed. GENERAL: The patient is in no acute distress resting comfortably. Vital signs as documented. HEAD: No signs of head trauma. EYES: Pupils are equal. EARS: Hearing grossly intact. MOUTH: Oropharynx is normal. NECK: No adenopathy, no JVD. CHEST: Chest with clear breath sounds bilaterally. No wheezes, rales, or rhonchi. CARDIAC: Regular rate and rhythm. S1 and S2, without murmurs, gallops, or rubs. VASCULAR: No Edema. Peripheral pulses normal and equal in all extremities. ABDOMEN: Soft, without detectable tenderness. No sign of distention. No rebound or guarding, and no masses palpated. Bowel Sounds normal. MUSCULOSKELETAL: Good range of motion of all major joints. Extremities without clubbing, cyanosis or edema. NEUROLOGIC EXAM: Awake alert and oriented 3, speech is normal. No focal sensory or strength deficits. PSYCHIATRIC: Mood is normal. SKIN: No rash or lesions. - Constitutional Vitals: Temp Pulse Resp BP Pulse Ox 97.8 F 115 H 18 124/78 96 09/04/17 14:19 09/04/17 14:19 09/04/17 14:19 09/04/17 14:19 09/04/17 14:19 General appearance: Present: mild distress Results - Labs CBC & Chem 7: 09/03/17 06:40 09/03/17 06:40 Labs: Laboratory Last Values WBC 8.8 K/mm3 (4.5-11.0) 09/03/17 06:40 RBC 3.85 M/mm3 (3.65-5.03) 09/03/17 06:40 Hgb 12.0 gm/dl (11.8-15.2) 09/03/17 06:40 Hct 36.0 % (35.5-45.6) 09/03/17 06:40 MCV 94 fl (84-94) 09/03/17 06:40 MCH 31 pg (28-32) 09/03/17 06:40 MCHC 33 % (32-34) 09/03/17 06:40 RDW 14.8 % (13.2-15.2) 09/03/17 06:40 Plt Count 234 K/mm3 (140-440) 09/03/17 06:40 Lymph % (Auto) 7.9 % (13.4-35.0) L 09/02/17 14:03 [place] % (Auto) 4.3 % (0.0-7.3) 09/02/17 14:03 Eos % (Auto) 0.4 % (0.0-4.3) 09/02/17 14:03 Baso % (Auto) 0.2 % (0.0-1.8) 09/02/17 14:03 Lymph # 0.9 K/mm3 (1.2-5.4) L 09/02/17 14:03 [place] # 0.5 K/mm3 (0.0-0.8) 09/02/17 14:03 Eos # 0.0 K/mm3 (0.0-0.4) 09/02/17 14:03 Baso # 0.0 K/mm3 (0.0-0.1) 09/02/17 14:03 Add Manual Diff Complete 08/30/17 19:00 Total Counted 100 08/30/17 19:00 Seg Neutrophils % 87.2 % (40.0-70.0) H 09/02/17 14:03 Seg Neuts % (Manual) 83.0 % (40.0-70.0) H 08/30/17 19:00 Band Neutrophils % 0 % 08/30/17 19:00 Lymphocytes % (Manual) 9.0 % (13.4-35.0) L 08/30/17 19:00 Reactive Lymphs % (Man) 0 % 08/30/17 19:00 Monocytes % (Manual) 6.0 % (0.0-7.3) 08/30/17 19:00 Eosinophils % (Manual) 0 % (0.0-4.3) 08/30/17 19:00 Basophils % (Manual) 0 % (0.0-1.8) 08/30/17 19:00 Metamyelocytes % 0 % 08/30/17 19:00 Myelocytes % 2.0 % 08/30/17 19:00 Promyelocytes % 0 % 08/30/17 19:00 Blast Cells % 0 % 08/30/17 19:00 Nucleated RBC % Not Reportable 08/30/17 19:00 Seg Neutrophils # 10.0 K/mm3 (1.8-7.7) H 09/02/17 14:03 Seg Neutrophils # Man 14.8 K/mm3 (1.8-7.7) H 08/30/17 19:00 Band Neutrophils # 0.0 K/mm3 08/30/17 19:00 Lymphocytes # (Manual) 1.6 K/mm3 (1.2-5.4) 08/30/17 19:00 Abs React Lymphs (Man) 0.0 K/mm3 08/30/17 19:00 Monocytes # (Manual) 1.1 K/mm3 (0.0-0.8) H 08/30/17 19:00 Eosinophils # (Manual) 0.0 K/mm3 (0.0-0.4) 08/30/17 19:00 Basophils # (Manual) 0.0 K/mm3 (0.0-0.1) 08/30/17 19:00 Metamyelocytes # 0.0 K/mm3 08/30/17 19:00 Myelocytes # 0.4 K/mm3 08/30/17 19:00 Promyelocytes # 0.0 K/mm3 08/30/17 19:00 Blast Cells # 0.0 K/mm3 08/30/17 19:00 WBC Morphology Not Reportable 08/30/17 19:00 Hypersegmented Neuts Not Reportable 08/30/17 19:00 Hyposegmented Neuts Not Reportable 08/30/17 19:00 Hypogranular Neuts Not Reportable 08/30/17 19:00 Smudge Cells Not Reportable 08/30/17 19:00 Toxic Granulation Not Reportable 08/30/17 19:00 Toxic Vacuolation Not Reportable 08/30/17 19:00 Dohle Bodies Not Reportable 08/30/17 19:00 Pelger-Huet Anomaly Not Reportable 08/30/17 19:00 [place] Rods Not Reportable 08/30/17 19:00 Platelet Estimate Consistent w auto 08/30/17 19:00 Clumped Platelets Not Reportable 08/30/17 19:00 Plt Clumps, EDTA Not Reportable 08/30/17 19:00 Large Platelets Not Reportable 08/30/17 19:00 Giant Platelets Not Reportable 08/30/17 19:00 Platelet Satelliting Not Reportable 08/30/17 19:00 Plt Morphology Comment Not Reportable 08/30/17 19:00 RBC Morphology Not Reportable 08/30/17 19:00 Dimorphic RBCs Not Reportable 08/30/17 19:00 Polychromasia Not Reportable 08/30/17 19:00 Hypochromasia Not Reportable 08/30/17 19:00 Poikilocytosis Not Reportable 08/30/17 19:00 Anisocytosis Not Reportable 08/30/17 19:00 Microcytosis Not Reportable 08/30/17 19:00 Macrocytosis 1+ 08/30/17 19:00 Spherocytes Not Reportable 08/30/17 19:00 Pappenheimer Bodies Not Reportable 08/30/17 19:00 Sickle Cells Not Reportable 08/30/17 19:00 Target Cells Not Reportable 08/30/17 19:00 Tear Drop Cells Not Reportable 08/30/17 19:00 Ovalocytes Not Reportable 08/30/17 19:00 Helmet Cells Not Reportable 08/30/17 19:00 [place] Bodies Not Reportable 08/30/17 19:00 [place] Rings Not Reportable 08/30/17 19:00 [place] Cells Not Reportable 08/30/17 19:00 Bite Cells Not Reportable 08/30/17 19:00 Crenated Cell Not Reportable 08/30/17 19:00 Elliptocytes Not Reportable 08/30/17 19:00 Acanthocytes (Spur) Not Reportable 08/30/17 19:00 Rouleaux Not Reportable 08/30/17 19:00 Hemoglobin C Crystals Not Reportable 08/30/17 19:00 Schistocytes Not Reportable 08/30/17 19:00 Malaria parasites Not Reportable 08/30/17 19:00 Cedric Bodies Not Reportable 08/30/17 19:00 Hem Pathologist Commnt No 08/30/17 19:00 POC ABG pH 7.523 (7.35-7.45) H 08/31/17 01:21 POC ABG pCO2 20.6 (35-45) L 08/31/17 01:21 POC ABG pO2 128 (80-105) H 08/31/17 01:21 POC ABG HCO3 17.0 08/31/17 01:21 POC ABG Total CO2 18 08/31/17 01:21 POC ABG O2 Sat 99 08/31/17 01:21 POC ABG Base Excess -6 08/31/17 01:21 FiO2 21 % 08/31/17 01:21 Sodium 141 mmol/L (137-145) D 09/03/17 06:40 Potassium 4.1 mmol/L (3.6-5.0) D 09/03/17 06:40 Chloride 104.0 mmol/L (98-107) 09/03/17 06:40 Carbon Dioxide 26 mmol/L (22-30) 09/03/17 06:40 Anion Gap 15 mmol/L 09/03/17 06:40 BUN 6 mg/dL (9-20) L 09/03/17 06:40 Creatinine 0.7 mg/dL (0.8-1.5) L 09/03/17 06:40 Estimated GFR > 60 ml/min 09/03/17 06:40 BUN/Creatinine Ratio 9 % 09/03/17 06:40 Glucose 418 mg/dL (75-100) H 09/03/17 06:40 POC Glucose 362 (70-105) H 09/04/17 06:12 Lactic Acid 7.80 mmol/L (0.7-2.0) H* 08/30/17 19:00 Calcium 8.2 mg/dL (8.4-10.2) L 09/03/17 06:40 Phosphorus 2.80 mg/dL (2.5-4.5) 08/30/17 03:15 Magnesium 2.80 mg/dL (1.7-2.3) H 08/30/17 03:15 Total Bilirubin 0.30 mg/dL (0.1-1.2) 08/30/17 19:00 AST 43 units/L (5-40) H 09/03/17 06:40 ALT 39 units/L (7-56) 09/03/17 06:40 Alkaline Phosphatase 111 units/L (35-129) 09/03/17 06:40 NT-Pro-B Natriuret Pep 94.77 pg/mL (0-450) 08/30/17 19:00 Total Protein 7.3 g/dL (6.3-8.2) 08/30/17 19:00 Albumin 3.8 g/dL (3.9-5) L 08/30/17 19:00 Albumin/Globulin Ratio 1.1 % 08/30/17 19:00 Amylase 97 units/L (27-131) 09/03/17 06:40 Lipase 18 units/L (13-60) 09/03/17 06:40 Urine Color Straw (Yellow) 08/30/17 19:41 Urine Turbidity Clear (Clear) 08/30/17 19:41 Urine pH 5.0 (5.0-7.0) 08/30/17 19:41 Ur Specific [place] 1.026 (1.003-1.030) 08/30/17 19:41 Urine Protein <15 mg/dl mg/dL (Negative) 08/30/17 19:41 Urine Glucose (UA) >=500 mg/dL (Negative) 08/30/17 19:41 Urine Ketones 80 mg/dL (Negative) 08/30/17 19:41 Urine Blood Neg (Negative) 08/30/17 19:41 Urine Nitrite Neg (Negative) 08/30/17 19:41 Urine Bilirubin Neg (Negative) 08/30/17 19:41 Urine Urobilinogen < 2.0 mg/dL (<2.0) 08/30/17 19:41 Ur Leukocyte Esterase Neg (Negative) 08/30/17 19:41 Urine WBC (Auto) < 1.0 /HPF (0.0-6.0) 08/30/17 19:41 Urine RBC (Auto) < 1.0 /HPF (0.0-6.0) 08/30/17 19:41 Urine Mucus Few /HPF 08/30/17 19:41 Valproic Acid < 2.8 ug/mL (50-100) L 08/30/17 19:00 Plasma/Serum Alcohol < 0.01 gm% (0-0.07) 08/30/17 19:00 - Imaging and Cardiology CT Scan - head: image reviewed (no acute pathology)
[2017-09-04] MEDS ORDERED: ZOFRAN IV ONE (21:13)
[2017-09-05] MEDS: NOVOLOG SUB-Q SCH ×2 (08:52→12:55)
[2017-09-05] MEDS: LEVEMIR SUB-Q SCH (08:53)
--- NOTE | 2017-09-05 09:17 | Progress Note ---
Subjective - Reason for Consult Consult date: 09/05/17 Reason for consult: Psychiatry Follow-up - Chief Complaint Chief complaint: "When can I leave" The patient is a 31-year-old male presents for evaluation of altered mental status. Today the patient is cooperative during the assessment. Upon arrival, the patient was ambulating in his room and eating his breakfast. He confirmed that he takes Risperdal and Depakote for Bipolar DO. He stated that he use [facility] for outpatient psy services. Per collateral information from his sister Candis Reddy whom he resides with, she stated that her brother was dx with Bipolar DO and he does take Risperdal and Depakote. She denies that her brother tried to harm himself in anyway prior to his admission to [facility]. Also, she denies any past suicide attempts by her brother. He denies SI/HI's and AVH' s. He denies sleep disturbance and a poor appetite. He denies any side effects of his medications. Mental Status Exam - Vital signs Last Vital Signs Temp 98.9 F 09/05/17 08:10 Pulse 76 09/05/17 08:10 Resp 20 09/05/17 08:10 BP 111/84 09/05/17 08:10 Pulse Ox 98 09/05/17 08:10 - Exam Narrative exam: MSE: Appearance: calm, cooperative Behavior: good eye contact Speech: regular rate and tone Mood: "okay" Affect: congruent to mood Thought Process: linear Thought Content: denies SI/HI's and AVH's Motor Activity: ambulatory Cognition: A/O x 3 Insight: fair Judgment: fair Assessment and Plan Impression: Hx of Bipolar DO per the patient and collateral information from his sister Candis Reddy. Today patient is cooperative during the assessment. Patient is no threat to self. Delirium has resolved. VA 63.3. Medical: Hypernatremia, Leukocytosis, DKA on admission, and Metabolic Acidosis Recommendation/Plan: Rescind 1013. Continue Depakote and Risperdal per his home mediations. Discussed possible metabolic side effects of Risperdal with patient. Patient can follow up with [facility] for outpatient psy services once discharged. The patient is aware of the importance of getting his Depakote levels checked. He stated that he can get that done at [facility].
[2017-09-05] MEDS: PEPCID PO SCH (09:26)
[2017-09-05] MEDS: RisperDAL PO SCH (09:26)
[2017-09-05] MEDS: HEPARIN SUB-Q SCH (09:26)
--- NOTE | 2017-09-05 14:22 | Progress Note ---
Hospitalist Physical - Constitutional Vitals: Temp Pulse Resp BP Pulse Ox 98.9 F 76 20 111/84 97 09/05/17 08:10 09/05/17 08:10 09/05/17 08:10 09/05/17 08:10 09/05/17 10:00 General appearance: Present: mild distress Results - Labs CBC & Chem 7: 09/03/17 06:40 09/03/17 06:40 Labs: Laboratory Last Values WBC 8.8 K/mm3 (4.5-11.0) 09/03/17 06:40 RBC 3.85 M/mm3 (3.65-5.03) 09/03/17 06:40 Hgb 12.0 gm/dl (11.8-15.2) 09/03/17 06:40 Hct 36.0 % (35.5-45.6) 09/03/17 06:40 MCV 94 fl (84-94) 09/03/17 06:40 MCH 31 pg (28-32) 09/03/17 06:40 MCHC 33 % (32-34) 09/03/17 06:40 RDW 14.8 % (13.2-15.2) 09/03/17 06:40 Plt Count 234 K/mm3 (140-440) 09/03/17 06:40 Lymph % (Auto) 7.9 % (13.4-35.0) L 09/02/17 14:03 [place] % (Auto) 4.3 % (0.0-7.3) 09/02/17 14:03 Eos % (Auto) 0.4 % (0.0-4.3) 09/02/17 14:03 Baso % (Auto) 0.2 % (0.0-1.8) 09/02/17 14:03 Lymph # 0.9 K/mm3 (1.2-5.4) L 09/02/17 14:03 [place] # 0.5 K/mm3 (0.0-0.8) 09/02/17 14:03 Eos # 0.0 K/mm3 (0.0-0.4) 09/02/17 14:03 Baso # 0.0 K/mm3 (0.0-0.1) 09/02/17 14:03 Add Manual Diff Complete 08/30/17 19:00 Total Counted 100 08/30/17 19:00 Seg Neutrophils % 87.2 % (40.0-70.0) H 09/02/17 14:03 Seg Neuts % (Manual) 83.0 % (40.0-70.0) H 08/30/17 19:00 Band Neutrophils % 0 % 08/30/17 19:00 Lymphocytes % (Manual) 9.0 % (13.4-35.0) L 08/30/17 19:00 Reactive Lymphs % (Man) 0 % 08/30/17 19:00 Monocytes % (Manual) 6.0 % (0.0-7.3) 08/30/17 19:00 Eosinophils % (Manual) 0 % (0.0-4.3) 08/30/17 19:00 Basophils % (Manual) 0 % (0.0-1.8) 08/30/17 19:00 Metamyelocytes % 0 % 08/30/17 19:00 Myelocytes % 2.0 % 08/30/17 19:00 Promyelocytes % 0 % 08/30/17 19:00 Blast Cells % 0 % 08/30/17 19:00 Nucleated RBC % Not Reportable 08/30/17 19:00 Seg Neutrophils # 10.0 K/mm3 (1.8-7.7) H 09/02/17 14:03 Seg Neutrophils # Man 14.8 K/mm3 (1.8-7.7) H 08/30/17 19:00 Band Neutrophils # 0.0 K/mm3 08/30/17 19:00 Lymphocytes # (Manual) 1.6 K/mm3 (1.2-5.4) 08/30/17 19:00 Abs React Lymphs (Man) 0.0 K/mm3 08/30/17 19:00 Monocytes # (Manual) 1.1 K/mm3 (0.0-0.8) H 08/30/17 19:00 Eosinophils # (Manual) 0.0 K/mm3 (0.0-0.4) 08/30/17 19:00 Basophils # (Manual) 0.0 K/mm3 (0.0-0.1) 08/30/17 19:00 Metamyelocytes # 0.0 K/mm3 08/30/17 19:00 Myelocytes # 0.4 K/mm3 08/30/17 19:00 Promyelocytes # 0.0 K/mm3 08/30/17 19:00 Blast Cells # 0.0 K/mm3 08/30/17 19:00 WBC Morphology Not Reportable 08/30/17 19:00 Hypersegmented Neuts Not Reportable 08/30/17 19:00 Hyposegmented Neuts Not Reportable 08/30/17 19:00 Hypogranular Neuts Not Reportable 08/30/17 19:00 Smudge Cells Not Reportable 08/30/17 19:00 Toxic Granulation Not Reportable 08/30/17 19:00 Toxic Vacuolation Not Reportable 08/30/17 19:00 Dohle Bodies Not Reportable 08/30/17 19:00 Pelger-Huet Anomaly Not Reportable 08/30/17 19:00 Jackson Rods Not Reportable 08/30/17 19:00 Platelet Estimate Consistent w auto 08/30/17 19:00 Clumped Platelets Not Reportable 08/30/17 19:00 Plt Clumps, EDTA Not Reportable 08/30/17 19:00 Large Platelets Not Reportable 08/30/17 19:00 Giant Platelets Not Reportable 08/30/17 19:00 Platelet Satelliting Not Reportable 08/30/17 19:00 Plt Morphology Comment Not Reportable 08/30/17 19:00 RBC Morphology Not Reportable 08/30/17 19:00 Dimorphic RBCs Not Reportable 08/30/17 19:00 Polychromasia Not Reportable 08/30/17 19:00 Hypochromasia Not Reportable 08/30/17 19:00 Poikilocytosis Not Reportable 08/30/17 19:00 Anisocytosis Not Reportable 08/30/17 19:00 Microcytosis Not Reportable 08/30/17 19:00 Macrocytosis 1+ 08/30/17 19:00 Spherocytes Not Reportable 08/30/17 19:00 Pappenheimer Bodies Not Reportable 08/30/17 19:00 Sickle Cells Not Reportable 08/30/17 19:00 Target Cells Not Reportable 08/30/17 19:00 Tear Drop Cells Not Reportable 08/30/17 19:00 Ovalocytes Not Reportable 08/30/17 19:00 Helmet Cells Not Reportable 08/30/17 19:00 Shin-Buena Bodies Not Reportable 08/30/17 19:00 Somers Rings Not Reportable 08/30/17 19:00 Poonam Cells Not Reportable 08/30/17 19:00 Bite Cells Not Reportable 08/30/17 19:00 Crenated Cell Not Reportable 08/30/17 19:00 Elliptocytes Not Reportable 08/30/17 19:00 Acanthocytes (Spur) Not Reportable 08/30/17 19:00 Rouleaux Not Reportable 08/30/17 19:00 Hemoglobin C Crystals Not Reportable 08/30/17 19:00 Schistocytes Not Reportable 08/30/17 19:00 Malaria parasites Not Reportable 08/30/17 19:00 Cedric Bodies Not Reportable 08/30/17 19:00 Hem Pathologist Commnt No 08/30/17 19:00 POC ABG pH 7.523 (7.35-7.45) H 08/31/17 01:21 POC ABG pCO2 20.6 (35-45) L 08/31/17 01:21 POC ABG pO2 128 (80-105) H 08/31/17 01:21 POC ABG HCO3 17.0 08/31/17 01:21 POC ABG Total CO2 18 08/31/17 01:21 POC ABG O2 Sat 99 08/31/17 01:21 POC ABG Base Excess -6 08/31/17 01:21 FiO2 21 % 08/31/17 01:21 Sodium 141 mmol/L (137-145) D 09/03/17 06:40 Potassium 4.1 mmol/L (3.6-5.0) D 09/03/17 06:40 Chloride 104.0 mmol/L (98-107) 09/03/17 06:40 Carbon Dioxide 26 mmol/L (22-30) 09/03/17 06:40 Anion Gap 15 mmol/L 09/03/17 06:40 BUN 6 mg/dL (9-20) L 09/03/17 06:40 Creatinine 0.7 mg/dL (0.8-1.5) L 09/03/17 06:40 Estimated GFR > 60 ml/min 09/03/17 06:40 BUN/Creatinine Ratio 9 % 09/03/17 06:40 Glucose 418 mg/dL (75-100) H 09/03/17 06:40 POC Glucose 167 (70-105) H 09/05/17 05:30 Lactic Acid 7.80 mmol/L (0.7-2.0) H* 08/30/17 19:00 Calcium 8.2 mg/dL (8.4-10.2) L 09/03/17 06:40 Phosphorus 2.80 mg/dL (2.5-4.5) 08/30/17 03:15 Magnesium 2.80 mg/dL (1.7-2.3) H 08/30/17 03:15 Total Bilirubin 0.30 mg/dL (0.1-1.2) 08/30/17 19:00 AST 43 units/L (5-40) H 09/03/17 06:40 ALT 39 units/L (7-56) 09/03/17 06:40 Alkaline Phosphatase 111 units/L (35-129) 09/03/17 06:40 NT-Pro-B Natriuret Pep 94.77 pg/mL (0-450) 08/30/17 19:00 Total Protein 7.3 g/dL (6.3-8.2) 08/30/17 19:00 Albumin 3.8 g/dL (3.9-5) L 08/30/17 19:00 Albumin/Globulin Ratio 1.1 % 08/30/17 19:00 Amylase 97 units/L (27-131) 09/03/17 06:40 Lipase 18 units/L (13-60) 09/03/17 06:40 Urine Color Straw (Yellow) 08/30/17 19:41 Urine Turbidity Clear (Clear) 08/30/17 19:41 Urine pH 5.0 (5.0-7.0) 08/30/17 19:41 Ur Specific [place] 1.026 (1.003-1.030) 08/30/17 19:41 Urine Protein <15 mg/dl mg/dL (Negative) 08/30/17 19:41 Urine Glucose (UA) >=500 mg/dL (Negative) 08/30/17 19:41 Urine Ketones 80 mg/dL (Negative) 08/30/17 19:41 Urine Blood Neg (Negative) 08/30/17 19:41 Urine Nitrite Neg (Negative) 08/30/17 19:41 Urine Bilirubin Neg (Negative) 08/30/17 19:41 Urine Urobilinogen < 2.0 mg/dL (<2.0) 08/30/17 19:41 Ur Leukocyte Esterase Neg (Negative) 08/30/17 19:41 Urine WBC (Auto) < 1.0 /HPF (0.0-6.0) 08/30/17 19:41 Urine RBC (Auto) < 1.0 /HPF (0.0-6.0) 08/30/17 19:41 Urine Mucus Few /HPF 08/30/17 19:41 Valproic Acid 63.3 ug/mL (50-100) 09/05/17 09:38 Plasma/Serum Alcohol < 0.01 gm% (0-0.07) 08/30/17 19:00
--- NOTE | 2017-09-05 14:24 | Query- Renal Failure ---
Dear ____Francesca Date:____09/05/17 [employer]/CDS:____Timothyit Phone#:___[phone] Exercise your independent professional judgment when responding to query. Questions asked do not imply a particular answer is desired or expected. We greatly appreciate your clarification on this issue. Clinical Documentation States: 31 year old male was admitted on 08/31/17 The ED documentation (Dr. Pitts 08/30/17) states " The patient is a 31-year- old male presents for evaluation of altered mental status, ill-feeling. Clinical Impression: DAVE (acute kidney injury), Dehydration, Hyperkalemia " The discharge summary (Dr. Ma) states " patient is a 31year-old male with history of schizophrenia, diabetes mellitus, who was admitted to the hospital with DKA " Clinical Findings Show: 08/30/17 09/03/17 Creatinine: 1.6 0.7 BUN/Creatinine ratio: 24 9 Please clarify if you mean: Acute Renal Failure with or due to: [ ] Tubular Necrosis [ ] Medullary Necrosis [X ] Vasomotor Nephropathy [ ] Shock Kidney [ ] Tubular Nephrosis [ ] Renal Tubular Stasis [ ] Cortical Necrosis [ ] Acute Renal Failure (unspecified) [ ] Lower Tubular Nephrosis [ ] Other: [ ] Not Applicable Present on Admission: [ ] Yes (Y) [X ] Clinically undeterminable (W) [ ] No (N) Please also document response in your Progress Notes and/or Discharge Summary and indicate if the condition was present on admission. MTDD
[2017-09-05 15:26] VITALS: BP 113/82
== END 2017-09-05 15:40 | disposition home or self-care (01) | DRG 637 ==
LOC: ED 17:02 → CC1 21:59 → 3A 09-01 10:00
PROVIDERS: ADMIT Internal Medicine; ATTEND Internal Medicine
PROC: 4A033R1 Measurement of Arterial Saturation, Peripheral, Percutaneous Approach (ICD-10-PCS; principal; 2017-08-30)
DX: E11.10 Type 2 diabetes mellitus with ketoacidosis without coma (principal); N17.0 Acute kidney failure with tubular necrosis; G92 Toxic encephalopathy; F23 Brief psychotic disorder; E87.0 Hyperosmolality and hypernatremia; F31.9 Bipolar disorder, unspecified; E11.649 Type 2 diabetes mellitus with hypoglycemia without coma; D72.829 Elevated white blood cell count, unspecified; E87.6 Hypokalemia; F17.200 Nicotine dependence, unspecified, uncomplicated; R34 Anuria and oliguria; I10 Essential (primary) hypertension; E86.0 Dehydration; G40.909 Epilepsy, unspecified, not intractable, without status epilepticus; K21.9 Gastro-esophageal reflux disease without esophagitis; Z79.899 Other long term (current) drug therapy; Z91.012 Allergy to eggs; Z91.018 Allergy to other foods; Z71.6 Tobacco abuse counseling
CPT/HCPCS: 36415; 36600; 70450; 71045; 80048; 80053; 80164; 80320; 81001; 82140; 82150; 82803; 82962; 83690; 83735; 83880; 84075; 84100; 84450; 84460; 85007; 85025; 85027; 93005; 93010; 94640; 96374; G0480; J1200; J1630; J1644; J1815; J1818; J2060; J2405; J3480; J3486; J7030; J7070

== ENCOUNTER 2017-09-11 02:22 | Inpatient (IN) | payer MEDICAID ==
[2017-09-11] MEDS ORDERED: GEODON IM ONE ×4 (02:47→05:49)
[2017-09-11] MEDS ORDERED: ATIVAN ONE (03:35)
[2017-09-11 03:46] LABS: Basophils % (Auto) 0.3 % (0.0-1.8); Eosinophils % (Auto) 0.2 % (0.0-4.3); Lymphocytes % (Auto) 11.7 % (13.4-35.0); Mean Corpuscular HGB Conc 31 % (32-34); Mean Corpuscular Hemoglobin 31 pg (28-32); Mean Corpuscular Volume 101 fl (84-94); Monocytes # (Auto) 0.5 K/mm3 (0.0-0.8); Monocytes % (Auto) 5.4 % (0.0-7.3); Platelet Count 517 K/mm3 (140-440); Red Blood Count 4.99 M/mm3 (3.65-5.03); Red Cell Distribution Width 15.3 % (13.2-15.2)
[2017-09-11 03:49] LABS: Hematocrit 50.2 % (35.5-45.6); Hemoglobin 15.5 gm/dl (11.8-15.2)
[2017-09-11 03:57] LABS: Alanine Aminotransferase 179 units/L (7-56); Albumin 4.2 g/dL (3.9-5); BUN/Creatinine Ratio 34; Blood Urea Nitrogen 41 mg/dL (9-20); Hemolysis Index 21
[2017-09-11] MEDS ORDERED: NACL 0.9% 1000 ML 1,000 ML IV ONE (04:09)
[2017-09-11] MEDS ORDERED: D50W (25GM) Syringe IV PRN (04:09)
[2017-09-11 04:10] LABS: Calcium 10.9 mg/dL (8.4-10.2)
[2017-09-11] MEDS ORDERED: PROVENTIL IH ONE (04:10)
[2017-09-11] MEDS ORDERED: KIONEX PO ONE ×2 (04:11→07:00)
[2017-09-11] MEDS ORDERED: CALCIUM GLUCONATE 1,000 MG in NACL 0.9% 100 ML IV ONE ×2 (04:11→23:22)
[2017-09-11] MEDS ORDERED: ATIVAN IV ONE (04:18)
--- NOTE | 2017-09-11 05:14 | Emergency Department Report ---
HPI - General Chief Complaint: Hyperglycemia Time Seen by Provider: 09/11/17 02:45 - HPI HPI: This is a 31 year-old male who presents to the emergency department after people driving down the street saw him walking and he appeared altered and appeared ill so they convinced him to get in their car and they dropped him off at the emergency department EMS doors. The patient presents altered and slightly combative. [facility] with a similar presentation and is often found with significant hyperglycemia and diabetic ketoacidosis. He also has a history of bipolar disorder, GERD and seizures. At this time the patient is a poor historian. He is taking off his clothes and trying to run down the hallway. ED Past Medical Hx - Past Medical History Previous Medical History?: Yes Hx Hypertension: Yes Hx CVA: No Hx Heart Attack/AMI: No Hx Congestive Heart Failure: No Hx Diabetes: Yes Hx Deep Vein Thrombosis: No Hx Pulmonary Embolism: No Hx GERD: Yes Hx Liver Disease: No Hx Renal Disease: No Hx Sickle Cell Disease: No Hx Arthritis: No Hx Headaches / Migraines: No Hx Seizures: Yes Hx Kidney Stones: No Hx Psychiatric Treatment: Yes (bipolar ;schizophrenia) Hx Asthma: No Hx COPD: No Hx Tuberculosis: No Hx Dementia: No Hx HIV: No - Surgical History Past Surgical History?: Yes Hx Coronary Stent: No Hx Open Heart Surgery: No Hx Pacemaker: No Hx Internal Defibrillator: No Hx Cholecystectomy: No Hx Appendectomy: No Hx Breast Surgery: No Additional Surgical History: r) wrist surgery - Social History Smoking Status: Unknown if ever smoked Substance Use Type: Non Opiate Pain - Medications Home Medications: Home Medications Medication Instructions Recorded Confirmed Last Taken Type Acetaminophen [Acetaminophen TAB] 325 mg PO Q4H PRN #30 tablet 08/20/17 Unknown Rx Esomeprazole Magnesium [NexIUM] 40 mg PO QDAY #30 capsule. 08/20/17 09/04/17 Unknown Rx Famotidine [Pepcid] 20 mg PO BID #30 tablet 08/20/17 09/04/17 Unknown Rx Gabapentin [Neurontin] 600 mg PO Q8H #90 tablet 08/20/17 09/04/17 Unknown Rx Insulin Aspart [NovoLOG 100 1 dose SQ AC #30 day 08/20/17 09/04/17 Unknown Rx UNITS/ML VIAL] Divalproex [Depakote Dr] 250 mg PO QAM #30 tablet 09/05/[address] [Amilcarte Dr] 500 mg PO QHS #30 tablet 09/05/17 Unknown Rx Insulin Detemir [Levemir VIAL] 12 unit SQ BID #1 vial 09/05/17 Unknown Rx risperiDONE [RisperDAL] 1 mg PO BID #30 tablet 09/05/17 Unknown Rx ED Review of Systems ROS: Stated complaint: DIZZINESS Other details as noted in HPI Comment: Unobtainable due to pts medical conditions Physical Exam - Physical Exam Physical Exam: GENERAL: Patient is ill-appearing and altered. Cachectic appearance. HENT: Normocephalic. Atraumatic. Patient has moist mucous membranes. EYES: Extraocular motions are intact. Pupils equal reactive to light bilaterally. NECK: Supple. Trachea is midline. CHEST/LUNGS: Clear to auscultation. There is no respiratory distress noted. HEART/CARDIOVASCULAR: Regular. There is moderate tachycardia. There is no murmur. ABDOMEN: Abdomen is soft, nontender. Patient has normal bowel sounds. There is no abdominal distention. SKIN: There is no rash. There is no edema. There is no diaphoresis. NEURO: Patient is awake but confused. Normal gait. He does not follow commands and is not redirectable. Withdraws to painful stimuli. MUSCULOSKELETAL: There is no tenderness or deformity. There is no limitation range of motion. There is no evidence of acute injury. ED Medical Decision Making - Lab Data Result diagrams: 09/11/17 03:27 09/11/17 03:27 - Medical Decision Making The patient presented to the emergency department after he was found wandering in the street and appeared ill and altered. Patient presents in the same manner. He was brought back to bed 10 where he started taking off his clothes and trying to wander the hallway. He is not following commands and is not redirectable. An Accu-Chek was done and found him to be greater than 500. He has a history of previous significant hyperglycemia and previous DKA. Patient does not appear to have the capacity to make appropriate medical decisions. He is required administration of Geodon, Ativan, Benadryl at different times and yet he still is uncooperative and has pulled out multiple IV lines. We were able to get blood work done that came back showing a blood sugar of greater than 1300, Osmolality of 400, elevated anion gap. He now has an IV in his left upper extremity and is getting his second liter of IV fluid and is on an insulin drip. An ABG was done but I believe it to be venous as it appears rather alkalotic. The patient does have some borderline hypotension but currently has a map of greater than 65 and he is very dry and therefore no pressors have been initiated at this time. Patient was found to have hyperkalemia with potassium of 6.6. He will receive albuterol, calcium gluconate and we'll attempt to give him Kayexalate. The patient is also on an insulin drip which will push some of the potassium intracellular. The patient has been accepted for admission to the ICU by the hospitalist, Dr. Cabrera. - Differential Diagnosis DKA, HHNK, Bipolar, CVA Critical Care Time: Yes Critical care time in (mins) excluding proc time.: 35 Critical care attestation.: If time is entered above; I have spent that time in minutes in the direct care of this critically ill patient, excluding procedure time. Critical care time spent on this patient during his initial evaluation, multiple re-evaluations, ordering and interpretation of lab and imaging, disposition planning, ordering of medications, discussion with the hospitalist. Critical Care Time: 35 minutes ED Disposition Clinical Impression: Hyperkalemia DKA (diabetic ketoacidoses) Qualifiers: Diabetes mellitus type: type 2 Diabetes mellitus complication detail: without coma Qualified Code(s): E11.10 - Type 2 diabetes mellitus with ketoacidosis without coma Bipolar disorder Qualifiers: Active/Remission status: remission status unspecified Qualified Code(s): F31.9 - Bipolar disorder, unspecified Altered mental status, unspecified Qualifiers: Altered mental status type: unspecified Qualified Code(s): R41.82 - Altered mental status, unspecified Disposition: DC-09 OP ADMIT IP TO THIS HOSP Is pt being admited?: Yes Condition: Serious Time of Disposition: 06:54
[2017-09-11] MEDS ORDERED: BENADRYL IM ONE (05:49)
[2017-09-11 06:22] LABS: Magnesium 3.2 mg/dL (1.7-2.3)
[2017-09-11] MEDS: NovoLIN R 100 UNITS in NACL 0.9% 99 ML IV SCH (06:32)
[2017-09-11 06:53] LABS: BUN/Creatinine Ratio 33; Blood Urea Nitrogen 49 mg/dL (9-20); Calcium 10.5 mg/dL (8.4-10.2); Hemolysis Index 26
[2017-09-11] MEDS: HEPARIN SUB-Q SCH ×2 (07:04→19:07)
--- NOTE | 2017-09-11 08:12 | History and Physical Report ---
History of Present Illness Date of examination: 09/11/17 Date of admission: 09/11/17 05:15 Chief complaint: Chief chief complaint: Severe confusion for the last 12 hours and agitation. History of present illness: CLAUDETTE : 31-year-old -H[place] male with history of insulin-dependent diabetes and hypertension presents to the ER secondary to severe confusion and altered mental status. Patient was apparently walking on the streets and was noticed to have altered sensorium. At [facility] passing down the street picked him up and dropped him at the emergency room for further care. Patient has diabetes and is very noncompliant. Had admissions for similar thing in the past. No fever no chills. Past Medical History hypertension seizure disorder gastroesophageal reflux disease and insulin- dependent diabetes also bipolar Surgical History R) wrist surgery Social History Smoking Status: Unknown if ever smoked Substance Use Type: Non Opiate Pain Family history - Medications Home Medications: Home Medications Medication Instructions Recorded Confirmed Last Taken Type Acetaminophen [Acetaminophen TAB] 325 mg PO Q4H PRN #30 tablet 08/20/17 Unknown Rx Esomeprazole Magnesium [NexIUM] 40 mg PO QDAY #30 capsule.dr 08/20/17 09/04/17 Unknown Rx Famotidine [Pepcid] 20 mg PO BID #30 tablet 08/20/17 09/04/17 Unknown Rx Gabapentin [Neurontin] 600 mg PO Q8H #90 tablet 08/20/17 09/04/17 Unknown Rx Insulin Aspart [NovoLOG 100 1 dose SQ AC #30 day 08/20/17 09/04/17 Unknown Rx UNITS/ML VIAL] Divalproex Dr Jaden Crocker] 250 mg PO QAM #30 tablet 09/05/[address] Jaden Crocker] 500 mg PO QHS #30 tablet 09/05/17 Unknown Rx Insulin Detemir [Levemir VIAL] 12 unit SQ BID #1 vial 09/05/17 Unknown Rx risperiDONE [RisperDAL] 1 mg PO BID #30 tablet 09/05/17 Unknown Rx Review of System: Constitutional: no fever, no chills, no weight loss Ears, eyes, nose, mouth and throat: no nasal congestion, no nasal discharge, no sinus pressure, no vision change, no red eye. Neck: No neck pain or rigidity. Cardiovascular: No chest pain, no orthopnea, no palpitations, no leg swelling Respiratory: No shortness of breath, no cough, no congestion, no wheezing Gastrointestinal: no abdominal pain, no nausea, no vomiting Genitourinary : no dysuria, no hematuria Musculoskeletal: no joint swelling or muscle ache Integumentary: no rash, no pruritis Neurological: confused and altered sensorium Endocrine: no cold or heat intolerance, no polyuria or polydipsia Hematologic/Lymphatic: no easy bruising, no easy bleeding, no gland swelling Allergic/Immunologic: no urticaria, no angioedema. Medications and Allergies Allergies Allergy/AdvReac Type Severity Reaction Status Date / Time banana Allergy Severe Angioedema Verified 09/11/17 03:42 egg Allergy Unknown Verified 09/11/17 03:42 Home Medications Medication Instructions Recorded Confirmed Last Taken Type Acetaminophen [Acetaminophen TAB] 325 mg PO Q4H PRN #30 tablet 08/20/17 Unknown Rx Esomeprazole Magnesium [NexIUM] 40 mg PO QDAY #30 capsule. 08/20/17 09/04/17 Unknown Rx Famotidine [Pepcid] 20 mg PO BID #30 tablet 08/20/17 09/04/17 Unknown Rx Gabapentin [Neurontin] 600 mg PO Q8H #90 tablet 08/20/17 09/04/17 Unknown Rx Insulin Aspart [NovoLOG 100 1 dose SQ AC #30 day 08/20/17 09/04/17 Unknown Rx UNITS/ML VIAL] Divalproex [Waldemar Crocker] 250 mg PO QAM #30 tablet 09/05/[address] Jaden Crocker] 500 mg PO QHS #30 tablet 09/05/17 Unknown Rx Insulin Detemir [Levemir VIAL] 12 unit SQ BID #1 vial 09/05/17 Unknown Rx risperiDONE [RisperDAL] 1 mg PO BID #30 tablet 09/05/17 Unknown Rx Active Meds: Active Medications Dextrose (D50w (25gm) Syringe) 0 ml IV PRN PRN PRN Reason: Hypoglycemia Heparin Sodium (Porcine) (Heparin) 5,000 unit SUB-Q Q8HR ANTONIA Last Admin: 09/11/17 07:04 Dose: 5,000 unit Insulin Human Regular 100 (units/ Sodium Chloride) 100 mls @ 6 mls/hr IV TITR ANTONIA; 6 UNITS/HR PRN Reason: Protocol Last Admin: 09/11/17 06:32 Dose: 8 units/hr, 8 mls/hr Exam - Constitutional Vitals: Temp Pulse Resp BP Pulse Ox 129 H 16 91/59 96 09/11/17 06:30 09/11/17 06:30 09/11/17 06:30 09/11/17 06:00 General appearance: Present: mild distress, well-nourished, other (Agitated and fighting) - EENT Eyes: Present: PERRL ENT: hearing intact, clear oral mucosa - Neck Neck: Present: supple, normal ROM - Respiratory Respiratory effort: normal Respiratory: bilateral: CTA - Cardiovascular Heart rate: 80 Rhythm: regular Heart Sounds: Present: S1 & S2. Absent: rub, click - Extremities Extremities: no ischemia, pulses intact, pulses symmetrical, No edema Peripheral Pulses: within normal limits - Abdominal General gastrointestinal: Present: soft, non-tender, non-distended, normal bowel sounds Male genitourinary: Present: normal - Integumentary Integumentary: Present: clear, warm, dry - Musculoskeletal Musculoskeletal: gait normal, strength equal bilaterally - Psychiatric Psychiatric: appropriate mood/affect, intact judgment & insight - Neurologic Neurologic: CNII-XII intact, moves all extremities Results - Labs CBC & Chem 7: 09/11/17 03:27 09/11/17 12:20 Labs: Laboratory Last Values WBC 8.8 K/mm3 (4.5-11.0) 09/11/17 03:27 RBC 4.99 M/mm3 (3.65-5.03) 09/11/17 03:27 Hgb 15.5 gm/dl (11.8-15.2) H 09/11/17 03:27 Hct 50.2 % (35.5-45.6) H 09/11/17 03:27 MCV 101 fl (84-94) H 09/11/17 03:27 MCH 31 pg (28-32) 09/11/17 03:27 MCHC 31 % (32-34) L 09/11/17 03:27 RDW 15.3 % (13.2-15.2) H 09/11/17 03:27 Plt Count 517 K/mm3 (140-440) H 09/11/17 03:27 Lymph % (Auto) 11.7 % (13.4-35.0) L 09/11/17 03:27 [place] % (Auto) 5.4 % (0.0-7.3) 09/11/17 03:27 Eos % (Auto) 0.2 % (0.0-4.3) 09/11/17 03:27 Baso % (Auto) 0.3 % (0.0-1.8) 09/11/17 03:27 Lymph # 1.0 K/mm3 (1.2-5.4) L 09/11/17 03:27 [place] # 0.5 K/mm3 (0.0-0.8) 09/11/17 03:27 Eos # 0.0 K/mm3 (0.0-0.4) 09/11/17 03:27 Baso # 0.0 K/mm3 (0.0-0.1) 09/11/17 03:27 Seg Neutrophils % 82.4 % (40.0-70.0) H 09/11/17 03:27 Seg Neutrophils # 7.3 K/mm3 (1.8-7.7) 09/11/17 03:27 POC ABG pH 7.503 (7.35-7.45) H 09/11/17 05:08 POC ABG pCO2 29.4 (35-45) L 09/11/17 05:08 POC ABG pO2 100 (80-105) 09/11/17 05:08 POC ABG HCO3 23.1 09/11/17 05:08 POC ABG Total CO2 24 09/11/17 05:08 POC ABG O2 Sat 98 09/11/17 05:08 POC ABG Base Excess 0 09/11/17 05:08 FiO2 21 % 09/11/17 05:08 Sodium 145 mmol/L (137-145) 09/11/17 05:30 Potassium 6.7 mmol/L (3.6-5.0) H* 09/11/17 05:30 Chloride 90.0 mmol/L (98-107) L 09/11/17 05:30 Carbon Dioxide 23 mmol/L (22-30) 09/11/17 05:30 Anion Gap 39 mmol/L 09/11/17 05:30 BUN 49 mg/dL (9-20) H 09/11/17 05:30 Creatinine 1.5 mg/dL (0.8-1.5) 09/11/17 05:30 Estimated GFR > 60 ml/min 09/11/17 05:30 BUN/Creatinine Ratio 33 % 09/11/17 05:30 Glucose 1372 mg/dL (75-100) H* 09/11/17 05:30 POC Glucose > 500 (70-105) H 09/11/17 04:43 Osmolality 400 Mosm/kg 09/11/17 03:27 Calcium 10.5 mg/dL (8.4-10.2) H 09/11/17 05:30 Phosphorus 9.10 mg/dL (2.5-4.5) H 09/11/17 05:30 Magnesium 3.20 mg/dL (1.7-2.3) H 09/11/17 05:30 Total Bilirubin 0.70 mg/dL (0.1-1.2) 09/11/17 03:27 AST 131 units/L (5-40) H 09/11/17 03:27 ALT 179 units/L (7-56) H 09/11/17 03:27 Alkaline Phosphatase 243 units/L (35-129) H 09/11/17 03:27 Total Protein 7.8 g/dL (6.3-8.2) 09/11/17 03:27 Albumin 4.2 g/dL (3.9-5) 09/11/17 03:27 Albumin/Globulin Ratio 1.2 % 09/11/17 03:27 Short CBC 09/11/17 Range/Units 03:27 WBC 8.8 (4.5-11.0) K/mm3 Hgb 15.5 H (11.8-15.2) gm/dl Hct 50.2 H (35.5-45.6) % Plt Count 517 H (140-440) K/mm3 BMP 09/11/17 09/11/17 03:27 05:30 Sodium 141 145 Potassium 6.6 H* 6.7 H* Chloride 89.1 L 90.0 L Carbon Dioxide 24 23 BUN 41 H 49 H Creatinine 1.2 1.5 Glucose 1360 H* 1372 H* Calcium 10.9 H 10.5 H Liver Function 09/11/17 Range/Units 03:27 Total Bilirubin 0.70 (0.1-1.2) mg/dL AST 131 H (5-40) units/L ALT 179 H (7-56) units/L Alkaline Phosphatase 243 H (35-129) units/L Albumin 4.2 (3.9-5) g/dL - Imaging and Cardiology EKG: report reviewed Assessment and Plan Advance Directives: Yes (full code) VTE prophylaxis?: Chemical Plan of care discussed with patient/family: Yes - Patient Problems (1) Hyperosmolar non-ketotic state in patient with type 2 diabetes mellitus Current Visit: Yes Status: Acute Plan to address problem: patient started on IV insulin and IV fluids. Patient started on half-normal saline. Sodium was high to start with. hyponatremia expected. DKA protocol initiated for convenience. Critical care consult requested. A1c ordered. (2) Hyperkalemia Current Visit: Yes Status: Acute Plan to address problem: calcium gluconate and sodium bicarbonate given in the emergency room. Potassium level should come down with IV insulin drip. We will give Kayexalate if necessary. Recheck potassium in 6-8 hours (3) Diabetic neuropathy associated with type 1 diabetes mellitus Current Visit: No Status: Chronic Qualifiers: Diabetes mellitus complication detail: diabetic polyneuropathy Qualified Code(s): E10.42 - Type 1 diabetes mellitus with diabetic polyneuropathy Plan to address problem: continue gabapentin (4) GERD (gastroesophageal reflux disease) Current Visit: No Status: Chronic Qualifiers: Esophagitis presence: without esophagitis Qualified Code(s): K21.9 - Gastro -esophageal reflux disease without esophagitis Plan to address problem: continue proton pump inhibitors (5) Noncompliance Current Visit: No Status: Chronic Plan to address problem: Patient counseled on noncompliance. Patient will be counseled again (6) Seizure disorder Current Visit: No Status: Chronic Plan to address problem: continue Depakote (7) Bipolar disorder Current Visit: Yes Status: Chronic Qualifiers: Active/Remission status: currently active Plan to address problem: continue Depakote (8) Transaminitis Current Visit: Yes Status: Acute Plan to address problem: check hepatitis profile. Etiology unclear. Patient not on statins. (9) DVT prophylaxis Current Visit: No Status: Acute Plan to address problem: Lovenox 40 mg subcutaneous daily
[2017-09-11] MEDS ORDERED: MILK OF MAGNESIA PO PRN (08:27)
[2017-09-11] MEDS ORDERED: TYLENOL PO PRN (08:27)
[2017-09-11] MEDS ORDERED: MORPHINE IV PRN (08:27)
[2017-09-11] MEDS ORDERED: DILAUDID IV PRN (08:27)
[2017-09-11] MEDS ORDERED: GEODON IM PRN (08:29)
[2017-09-11] MEDS ORDERED: NON-FORMULARY (Gabapentin [Neurontin] 600 MG) PO SCH (08:30)
[2017-09-11 08:55] LABS: BUN/Creatinine Ratio 34; Blood Urea Nitrogen 51 mg/dL (9-20); Calcium 9.2 mg/dL (8.4-10.2); Hemolysis Index 14
[2017-09-11] MEDS ORDERED: NACL 0.45% 1000 ML 1,000 ML IV SCH ×2 (09:00→18:00)
[2017-09-11] MEDS ORDERED: MAGNESIUM SULFATE 40GM/1000ML 40 GM/1,000 ML BAG IV NR (09:00)
[2017-09-11] MEDS ORDERED: DULCOLAX PR PRN (10:00)
[2017-09-11] MEDS ORDERED: NON-FORMULARY (Esomeprazole Magnesium [Nexium] 40 MG) PO SCH (10:00)
[2017-09-11] MEDS: NACL 0.9% 1000 ML 1,000 ML IV ONE ×2 (10:19→12:56)
[2017-09-11] MEDS ORDERED: NACL 0.9% 1000 ML 1,000 ML IV SCH ×2 (11:00→18:00)
[2017-09-11 11:06] LABS: BUN/Creatinine Ratio 34; Blood Urea Nitrogen 54 mg/dL (9-20); Calcium 9.6 mg/dL (8.4-10.2); Hemolysis Index 6
[2017-09-11 11:53] LABS: Hepatitis A Antibody IgM Non-Reactive (NonReactive); Hepatitis B Core IgM Non-Reactive (NonReactive); Hepatitis B Surface Antigen Non-Reactive (Negative); Hepatitis C Virus Antibody Non-Reactive (NonReactive)
[2017-09-11 12:53] LABS: BUN/Creatinine Ratio 33; Blood Urea Nitrogen 53 mg/dL (9-20); Calcium 9.9 mg/dL (8.4-10.2); Hemolysis Index 11
[2017-09-11] MEDS: NEURONTIN PO SCH ×2 (12:55→19:54)
[2017-09-11] MEDS: RisperDAL PO SCH ×2 (12:55→23:26)
[2017-09-11] MEDS: PROTONIX PO SCH (12:55)
[2017-09-11 16:18] LABS: BUN/Creatinine Ratio 34; Blood Urea Nitrogen 55 mg/dL (9-20); Calcium 9.5 mg/dL (8.4-10.2); Hemolysis Index 4
--- NOTE | 2017-09-11 16:50 | Consultation ---
History of Present Illness - Reason for Consult Consult date: 09/11/17 acute renal failure, hyperkalemia, metabolic acidosis - History of Present Illness The patient is a 31 year-old AAM with history significant for Insulin dependent diabetes, GERD, Seizure disorder, Bipolar disorder and Scizophrenia who presented to the emergency department with altered MS. Patient is not able to provide any history and information obtained from previous documentation and staff. The patient was also found to be combative. This patient has been to [facility] multiple times with a similar presentation and is often found with significant hyperglycemia and diabetic ketoacidosis. His intial blood sugar was 1360 with potassium of 6.6. he is on Insulin drip and blood sugar is improving. BP is low. Past History Past Medical History: diabetes Medications and Allergies Allergies Allergy/AdvReac Type Severity Reaction Status Date / Time banana Allergy Severe Angioedema Verified 09/11/17 03:42 egg Allergy Unknown Verified 09/11/17 03:42 Home Medications Medication Instructions Recorded Confirmed Last Taken Type Acetaminophen [Acetaminophen TAB] 325 mg PO Q4H PRN #30 tablet 08/20/17 Unknown Rx Esomeprazole Magnesium [NexIUM] 40 mg PO QDAY #30 capsule. 08/20/17 09/04/17 Unknown Rx Famotidine [Pepcid] 20 mg PO BID #30 tablet 08/20/17 09/04/17 Unknown Rx Gabapentin [Neurontin] 600 mg PO Q8H #90 tablet 08/20/17 09/04/17 Unknown Rx Insulin Aspart [NovoLOG 100 1 dose SQ AC #30 day 08/20/17 09/04/17 Unknown Rx UNITS/ML VIAL] Divalproex Dr Jaden Crocker] 250 mg PO QAM #30 tablet 09/05/[address] Jaden Crocker] 500 mg PO QHS #30 tablet 09/05/17 Unknown Rx Insulin Detemir [Levemir VIAL] 12 unit SQ BID #1 vial 09/05/17 Unknown Rx risperiDONE [RisperDAL] 1 mg PO BID #30 tablet 09/05/17 Unknown Rx Active Meds: Active Medications Acetaminophen (Tylenol) 650 mg PO Q4H PRN PRN Reason: Pain MILD(1-3)/Fever >100.5/MASON Bisacodyl (Dulcolax) 10 mg MI QDAY PRN PRN Reason: Constipation unrelieved by MOM Dextrose (D50w (25gm) Syringe) 0 ml IV PRN PRN PRN Reason: Hypoglycemia Divalproex Sodium (Depakote Dr) 250 mg PO QAM [facility] Last Admin: 09/11/17 12:55 Dose: Not Given Divalproex Sodium (Depakote Dr) 500 mg PO QHS ANTONIA Gabapentin (Neurontin) 300 mg PO Q8H [facility] Last Admin: 09/11/17 12:55 Dose: Not Given Haloperidol Lactate (Haldol) 5 mg IV Q2H PRN PRN Reason: Agitation Heparin Sodium (Porcine) (Heparin) 5,000 unit SUB-Q Q8HR [facility] Last Admin: 09/11/17 07:04 Dose: 5,000 unit Hydromorphone HCl (Dilaudid) 0.5 mg IV Q3H PRN PRN Reason: Pain , Severe (7-10) Insulin Human Regular 100 (units/ Sodium Chloride) 100 mls @ 6 mls/hr IV TITR ANTONIA; 6 UNITS/HR PRN Reason: Protocol Last Admin: 09/11/17 06:32 Dose: 8 units/hr, 8 mls/hr Magnesium Hydroxide (Milk Of Magnesia) 30 ml PO Q4H PRN PRN Reason: Constipation Morphine Sulfate (Morphine) 2 mg IV Q4H PRN PRN Reason: Pain, Moderate (4-6) Ondansetron HCl (Zofran) 4 mg IV Q8H PRN PRN Reason: N/V unrelieved by Reglan Pantoprazole Sodium (Protonix) 40 mg PO DAILY [facility] Last Admin: 09/11/17 12:55 Dose: Not Given Risperidone (Risperdal) 1 mg PO BID [facility] Last Admin: 09/11/17 12:55 Dose: Not Given Ziprasidone (Geodon) 10 mg IM Q2H PRN PRN Reason: Agitation Review of Systems ROS unobtainable: due to mental status Exam - Vital Signs Vital signs: Vital Signs Pulse Resp Pulse Ox 134 H 16 100 09/11/17 03:52 09/11/17 03:52 09/11/17 03:52 - General Appearance General appearance: well-developed, appears stated age, other (emaciated, combative, on restrains) EENT: ATNC, mucous membranes dry Neck: Present: neck supple, trachea midline Respiratory: Clear to Ascultation Heart: regular, tachycardia, S1S2 Gastrointestinal: Present: normoactive bowel sounds. Absent: tenderness, distended Integumentary: no rash, warm and dry Neurologic: other (able to move extremities, non-verbal and not following any command) Musculoskeletal: Present: other (no edema) Results - Lab Results 09/11/17 03:27 09/11/17 16:20 Most recent lab results Calcium 9.5 mg/dL (8.4-10.2) 09/11/17 15:29 Phosphorus 9.10 mg/dL (2.5-4.5) H 09/11/17 05:30 Magnesium 3.20 mg/dL (1.7-2.3) H 09/11/17 05:30 Assessment and Plan 1. Acute kdiney injury: DAVE in the setting of DKA. Continue IV fluids. Monitor renal function. 2. Hyperkalemia: Patient is on Insulin drip. Overall K level is improving. Unable to give Kayexalate. 3. Hypernatremia: IV fluids changed to 1/2 NS. 4. DKA: Continue IV fluids and IBV Insulin per protocol. 5. Hypotension: Increase IV fluids.
[2017-09-11 16:56] LABS: Calcium 9.8 mg/dL (8.4-10.2)
--- NOTE | 2017-09-11 17:24 | Event Note ---
Date: 09/11/17 Patient was seen and evaluated this morning, patient's blood sugar was in the 1300's now is around 1100's. Patient is on IV fluid, nephrology consulted for DAVE. Continue management per protocol, continue insulin drip.
[2017-09-11] MEDS: HALDOL IV PRN ×3 (18:50→23:31)
[2017-09-11] MEDS ORDERED: PROVENTIL IH SCH (23:30)
[2017-09-12] MEDS: HEPARIN SUB-Q SCH ×4 (00:40→23:20)
[2017-09-12] MEDS: NEURONTIN PO SCH ×3 (02:11→17:32)
[2017-09-12 03:27] LABS: Calcium 9.6 mg/dL (8.4-10.2)
[2017-09-12] MEDS ORDERED: D5/0.45NS 1,000 ML IV ONE (03:55)
[2017-09-12] MEDS ORDERED: D5/0.45NS 1,000 ML IV SCH (05:00)
[2017-09-12] MEDS: NovoLIN R 100 UNITS in NACL 0.9% 99 ML IV SCH (05:14)
[2017-09-12 05:33] LABS: Basophils # (Auto) 0.1 K/mm3 (0.0-0.1); Basophils % (Auto) 0.4 % (0.0-1.8); Eosinophils % (Auto) 0.1 % (0.0-4.3); Hematocrit 40.6 % (35.5-45.6); Hemoglobin 13.4 gm/dl (11.8-15.2); Lymphocytes # (Auto) 2.1 K/mm3 (1.2-5.4); Lymphocytes % (Auto) 11.9 % (13.4-35.0); Mean Corpuscular HGB Conc 33 % (32-34); Mean Corpuscular Hemoglobin 31 pg (28-32); Mean Corpuscular Volume 93 fl (84-94); Monocytes # (Auto) 1.5 K/mm3 (0.0-0.8); Monocytes % (Auto) 8.1 % (0.0-7.3); Platelet Count 543 K/mm3 (140-440); Red Blood Count 4.36 M/mm3 (3.65-5.03); Red Cell Distribution Width 15.6 % (13.2-15.2)
[2017-09-12 05:59] LABS: Calcium 9.5 mg/dL (8.4-10.2)
[2017-09-12] MEDS: HALDOL IV PRN ×4 (06:58→17:32)
[2017-09-12] MEDS: ZOFRAN IV PRN (07:23)
[2017-09-12] MEDS ORDERED: NACL 0.45% 1000 ML 1,000 ML IV SCH (08:00)
--- NOTE | 2017-09-12 09:59 | Progress Note ---
Assessment and Plan 1. Acute kdiney injury: DAVE in the setting of DKA. Creatinine level continue to increase. Continue IV fluids. Monitor renal function. 2. Hyperkalemia: Patient is on Insulin drip. K level is improving. Monitor. 3. Hypernatremia: Start on IV D5W. 4. DKA: Continue IV fluids and IV Insulin per protocol. 5. Hypotension: Continue IV fluids. Subjective Date of service: 09/12/17 Interval history: Patient was seen and examined at the bedside. Objective - Vital Signs Vital signs: Vital Signs - 12hr 09/11/17 09/11/17 09/11/17 22:00 22:16 22:30 Pulse Rate 144 H 146 H 146 H Respiratory 43 H 29 H 32 H Rate Blood Pressure 98/55 96/62 105/69 O2 Sat by Pulse 100 99 Oximetry 09/11/17 09/11/17 09/11/17 22:32 22:46 23:00 Pulse Rate 144 H 138 H 140 H Respiratory 22 26 H 20 Rate Blood Pressure 105/69 105/69 100/58 O2 Sat by Pulse 100 95 98 Oximetry 09/11/17 09/11/17 09/11/17 23:16 23:30 23:46 Pulse Rate 159 H 158 H 138 H Respiratory 57 H 28 H 27 H Rate Blood Pressure 100/58 100/58 100/58 O2 Sat by Pulse 98 100 98 Oximetry 09/12/17 09/12/17 09/12/17 00:00 00:16 00:30 Pulse Rate 124 H 129 H 132 H Respiratory 27 H 25 H 31 H Rate Blood Pressure 100/58 100/58 90/39 O2 Sat by Pulse 97 98 97 Oximetry 09/12/17 09/12/17 09/12/17 00:46 01:00 01:16 Pulse Rate 130 H 133 H 134 H Respiratory 24 29 H 18 Rate Blood Pressure 90/39 O2 Sat by Pulse 98 98 99 Oximetry 09/12/17 09/12/17 09/12/17 01:30 01:46 02:00 Pulse Rate 126 H 125 H 139 H Respiratory 27 H 23 11 L Rate Blood Pressure 86/43 O2 Sat by Pulse 98 99 Oximetry 09/12/17 09/12/17 09/12/17 02:16 02:30 02:46 Pulse Rate 126 H 126 H 148 H Respiratory 24 21 34 H Rate Blood Pressure 84/52 82/22 79/37 O2 Sat by Pulse 96 90 99 Oximetry 09/12/17 09/12/17 09/12/17 03:00 03:16 03:30 Pulse Rate 115 H 113 H 112 H Respiratory 14 15 15 Rate Blood Pressure 84/55 79/37 95/62 O2 Sat by Pulse 100 Oximetry 09/12/17 09/12/17 09/12/17 03:46 04:00 04:16 Pulse Rate 114 H 119 H 149 H Respiratory 16 17 38 H Rate Blood Pressure 96/57 89/51 89/51 O2 Sat by Pulse 100 99 100 Oximetry 09/12/17 09/12/17 09/12/17 04:30 04:46 05:00 Pulse Rate 120 H 115 H 118 H Respiratory 19 14 20 Rate Blood Pressure 91/53 91/53 99/63 O2 Sat by Pulse 98 Oximetry 09/12/17 09/12/17 09/12/17 05:16 05:30 05:46 Pulse Rate 126 H 117 H 115 H Respiratory 29 H 18 14 Rate Blood Pressure 99/63 99/63 99/63 O2 Sat by Pulse 100 98 99 Oximetry - General Appearance General appearance: well-developed, appears stated age, other (lethargic, on restrains) EENT: ATNC Neck: supple Respiratory: Present: Clear to Ascultation Cardiology: regular, S1S2, no murmurs Gastrointestinal: normoactive bowel sounds, no tenderness, no distended Integumentary: no rash, warm and dry Neurologic: other (arousable, not following any command) Musculoskeletal: other (no edema) - Lab 09/12/17 05:18 09/12/17 05:18 Most recent lab results Calcium 9.5 mg/dL (8.4-10.2) 09/12/17 05:18 Phosphorus 4.50 mg/dL (2.5-4.5) D 09/12/17 05:18 Magnesium 3.20 mg/dL (1.7-2.3) H 09/11/17 05:30
[2017-09-12] MEDS: PROTONIX PO SCH (11:17)
[2017-09-12] MEDS: RisperDAL PO SCH ×2 (11:17→23:23)
[2017-09-12 12:05] LABS: BUN/Creatinine Ratio 35; Blood Urea Nitrogen 49 mg/dL (9-20); Calcium 8.9 mg/dL (8.4-10.2); Hemolysis Index 59
[2017-09-12] MEDS ORDERED: WATER FOR INJ (PF) 10 ML ONE (13:11)
[2017-09-12] MEDS ORDERED: D50W (25GM) Syringe IV PRN (13:16)
[2017-09-12 17:33] LABS: BUN/Creatinine Ratio 34; Blood Urea Nitrogen 41 mg/dL (9-20); Calcium 8.6 mg/dL (8.4-10.2); Hemolysis Index 39
--- NOTE | 2017-09-12 17:48 | Progress Note ---
Assessment and Plan Assessment and plan: Hyperosmolar nonketotic coma - Blood sugar was in the 1300's, patient was treated with insulin drip and resolved - Patient is currently on sliding scale, continue with half-normal saline - Patient admission is downgraded to Medical floor Metabolic acidosis ] - resolved Metabolic encephalopthy - Continue treatment for his underlying condition - Patient is on restraints - Patient is on 1013 - PSych is following him Treatment non compliance - will be counselled once his mentation is getting better Seizure disorder - continue depakote. Bipolar disorder - Psych is following DAVE due to vasomotor nephropathy - Resolved DVT prophylaxis - Lovenox Disposition - continue inpatient care. History Interval history: Patient was seen and evaluated this morning, patient was alert but agitated and wants to go home. Patient is on 1013. Hospitalist Physical - Physical exam Narrative exam: Not in cardiopulmonary distress. patient is on restraints. The patient is emaciated. Vital signs as documented. Head exam is unremarkable. No scleral icterus . Neck is without jugular venous distension, thyromegaly, or carotid bruits. Lungs are clear to auscultation. Cardiac exam reveals regular rate and Rhythm. First and second heart sounds normal. No murmurs, rubs or gallops. Abdominal exam reveals normal bowel sounds, no masses, no organomegaly and no aortic enlargement. Extremities are nonedematous and both femoral and pedal pulses are normal. FORENSICS TEAM DIRECTOR: Alert, agitated. No focal weakness. - Constitutional Vitals: Temp Pulse Resp BP Pulse Ox 97.9 F 100 H 16 124/85 95 09/12/17 07:30 09/12/17 17:33 09/12/17 17:33 09/12/17 17:33 09/12/17 17:33 General appearance: Present: mild distress, well-nourished, other (Agitated and fighting) Results - Labs CBC & Chem 7: 09/12/17 05:18 09/12/17 16:25 Labs: Laboratory Last Values WBC 18.0 K/mm3 (4.5-11.0) H 09/12/17 05:18 RBC 4.36 M/mm3 (3.65-5.03) 09/12/17 05:18 Hgb 13.4 gm/dl (11.8-15.2) 09/12/17 05:18 Hct 40.6 % (35.5-45.6) D 09/12/17 05:18 MCV 93 fl (84-94) 09/12/17 05:18 MCH 31 pg (28-32) 09/12/17 05:18 MCHC 33 % (32-34) 09/12/17 05:18 RDW 15.6 % (13.2-15.2) H 09/12/17 05:18 Plt Count 543 K/mm3 (140-440) H 09/12/17 05:18 Lymph % (Auto) 11.9 % (13.4-35.0) L 09/12/17 05:18 [place] % (Auto) 8.1 % (0.0-7.3) H 09/12/17 05:18 Eos % (Auto) 0.1 % (0.0-4.3) 09/12/17 05:18 Baso % (Auto) 0.4 % (0.0-1.8) 09/12/17 05:18 Lymph # 2.1 K/mm3 (1.2-5.4) 09/12/17 05:18 [place] # 1.5 K/mm3 (0.0-0.8) H 09/12/17 05:18 Eos # 0.0 K/mm3 (0.0-0.4) 09/12/17 05:18 Baso # 0.1 K/mm3 (0.0-0.1) 09/12/17 05:18 Seg Neutrophils % 79.5 % (40.0-70.0) H 09/12/17 05:18 Seg Neutrophils # 14.3 K/mm3 (1.8-7.7) H 09/12/17 05:18 POC ABG pH 7.503 (7.35-7.45) H 09/11/17 05:08 POC ABG pCO2 29.4 (35-45) L 09/11/17 05:08 POC ABG pO2 100 (80-105) 09/11/17 05:08 POC ABG HCO3 23.1 09/11/17 05:08 POC ABG Total CO2 24 09/11/17 05:08 POC ABG O2 Sat 98 09/11/17 05:08 POC ABG Base Excess 0 09/11/17 05:08 FiO2 21 % 09/11/17 05:08 Sodium 155 mmol/L (137-145) H 09/12/17 16:25 Potassium 4.9 mmol/L (3.6-5.0) 09/12/17 16:25 Chloride 118.4 mmol/L (98-107) H 09/12/17 16:25 Carbon Dioxide 22 mmol/L (22-30) 09/12/17 16:25 Anion Gap 20 mmol/L 09/12/17 16:25 BUN 41 mg/dL (9-20) H 09/12/17 16:25 Creatinine 1.2 mg/dL (0.8-1.5) 09/12/17 16:25 Estimated GFR > 60 ml/min 09/12/17 16:25 BUN/Creatinine Ratio 34 % 09/12/17 16:25 Glucose 234 mg/dL (75-100) H 09/12/17 16:25 POC Glucose 255 (70-105) H 09/12/17 16:35 Hemoglobin A1c 13.6 % (4-6) H 09/11/17 10:24 Osmolality 400 Mosm/kg 09/11/17 03:27 Lactic Acid 2.10 mmol/L (0.7-2.0) H* 09/11/17 21:30 Calcium 8.6 mg/dL (8.4-10.2) 09/12/17 16:25 Phosphorus 4.50 mg/dL (2.5-4.5) D 09/12/17 05:18 Magnesium 3.20 mg/dL (1.7-2.3) H 09/11/17 05:30 Total Bilirubin 0.70 mg/dL (0.1-1.2) 09/11/17 03:27 AST 131 units/L (5-40) H 09/11/17 03:27 ALT 179 units/L (7-56) H 09/11/17 03:27 Alkaline Phosphatase 243 units/L (35-129) H 09/11/17 03:27 Total Creatine Kinase 301 units/L (55-170) H 09/12/17 05:18 Total Protein 7.8 g/dL (6.3-8.2) 09/11/17 03:27 Albumin 4.2 g/dL (3.9-5) 09/11/17 03:27 Albumin/Globulin Ratio 1.2 % 09/11/17 03:27 Hepatitis A IgM Ab Non-reactive (NonReactive) 09/11/17 10:32 Hep Bs Antigen Non-reactive (Negative) 09/11/17 10:32 Hep B Core IgM Ab Non-reactive (NonReactive) 09/11/17 10:32 Hepatitis C Antibody Non-reactive (NonReactive) 09/11/17 10:32 leukocytosis, hypernatremia
--- NOTE | 2017-09-12 18:01 | Consultation ---
History of Present Illness Consult date: 09/12/17 Requesting physician: JACINTO FIGUEROA Reason for consult: other (HONK) History of present illness: 31 [address], brought to ED where he has been agitated/ combative, sugars > 1000. He is more alert now, denies SOB, chest pain, cough, sputum, fevers. Wants to go home. Active Medications Acetaminophen (Tylenol) 650 mg PO Q4H PRN PRN Reason: Pain MILD(1-3)/Fever >100.5/MASON Albuterol (Proventil) 10 mg IH ONCE ANTONIA Bisacodyl (Dulcolax) 10 mg UT QDAY PRN PRN Reason: Constipation unrelieved by MOM Dextrose (D50w (25gm) Syringe) 0 ml IV PRN PRN PRN Reason: Hypoglycemia Last Admin: 09/12/17 08:55 Dose: 50 ml Dextrose (D50w (25gm) Syringe) 50 ml IV PRN PRN PRN Reason: Hypoglycemia Divalproex Sodium (Depakote Dr) 250 mg PO QAM [facility] Last Admin: 09/12/17 11:17 Dose: Not Given Divalproex Sodium (Depakote Dr) 500 mg PO QHS [facility] Last Admin: 09/11/17 23:26 Dose: Not Given Gabapentin (Neurontin) 300 mg PO Q8H [facility] Last Admin: 09/12/17 17:32 Dose: 300 mg Haloperidol Lactate (Haldol) 5 mg IV Q2H PRN PRN Reason: Agitation Last Admin: 09/12/17 17:32 Dose: 5 mg Heparin Sodium (Porcine) (Heparin) 5,000 unit SUB-Q Q8HR [facility] Last Admin: 09/12/17 14:56 Dose: 5,000 unit Hydromorphone HCl (Dilaudid) 0.5 mg IV Q3H PRN PRN Reason: Pain , Severe (7-10) Insulin Human Regular 100 (units/ Sodium Chloride) 100 mls @ 6 mls/hr IV TITR ANTONIA; 6 UNITS/HR PRN Reason: Protocol Last Titration: 09/12/17 13:08 Dose: 0 units/hr, 0 mls/hr Sodium Chloride (Nacl 0.45% 1000 Ml) 1,000 mls @ 150 mls/hr IV DIRECT ANTONIA Last Admin: 09/12/17 07:00 Dose: 150 mls/hr Dextrose (D5w) 1,000 mls @ 100 mls/hr IV DIRECT [facility] Insulin Human Regular (Novolin R) 0 units SUB-Q ACHS ANTONIA PRN Reason: Protocol Last Admin: 09/12/17 16:53 Dose: 6 units Magnesium Hydroxide (Milk Of Magnesia) 30 ml PO Q4H PRN PRN Reason: Constipation Morphine Sulfate (Morphine) 2 mg IV Q4H PRN PRN Reason: Pain, Moderate (4-6) Ondansetron HCl (Zofran) 4 mg IV Q8H PRN PRN Reason: N/V unrelieved by Reglan Last Admin: 09/12/17 07:23 Dose: 4 mg Pantoprazole Sodium (Protonix) 40 mg PO DAILY [facility] Last Admin: 09/12/17 11:17 Dose: Not Given Risperidone (Risperdal) 1 mg PO BID [facility] Last Admin: 09/12/17 11:17 Dose: Not Given Ziprasidone (Geodon) 10 mg IM Q2H PRN PRN Reason: Agitation Last Admin: 09/12/17 13:29 Dose: 10 mg Past History Past Medical History: diabetes Social history: other (unable to obtain due to confusion) Family history: other (unable to obtain due to confusion) Medications and Allergies Allergies Allergy/AdvReac Type Severity Reaction Status Date / Time banana Allergy Severe Angioedema Verified 09/11/17 03:42 egg Allergy Unknown Verified 09/11/17 03:42 Home Medications Medication Instructions Recorded Confirmed Last Taken Type Acetaminophen [Acetaminophen TAB] 325 mg PO Q4H PRN #30 tablet 08/20/17 Unknown Rx Esomeprazole Magnesium [NexIUM] 40 mg PO QDAY #30 capsule. 08/20/17 09/12/17 Unknown Rx Famotidine [Pepcid] 20 mg PO BID #30 tablet 08/20/17 09/12/17 Unknown Rx Gabapentin [Neurontin] 600 mg PO Q8H #90 tablet 08/20/17 09/12/17 Unknown Rx Insulin Aspart [NovoLOG 100 1 dose SQ AC #30 day 08/20/17 09/12/17 Unknown Rx UNITS/ML VIAL] Divalproex [Waldemar Crocker] 250 mg PO QAM #30 tablet 09/05/17 09/12/[address] [Depakote Dr] 500 mg PO QHS #30 tablet 09/05/17 09/12/17 Unknown Rx Insulin Detemir [Levemir VIAL] 12 unit SQ BID #1 vial 09/05/17 09/12/17 Unknown Rx risperiDONE [RisperDAL] 1 mg PO BID #30 tablet 09/05/17 09/12/17 Unknown Rx Active Meds: Active Medications Acetaminophen (Tylenol) 650 mg PO Q4H PRN PRN Reason: Pain MILD(1-3)/Fever >100.5/MASON Albuterol (Proventil) 10 mg IH ONCE ANTONIA Bisacodyl (Dulcolax) 10 mg UT QDAY PRN PRN Reason: Constipation unrelieved by MOM Dextrose (D50w (25gm) Syringe) 0 ml IV PRN PRN PRN Reason: Hypoglycemia Last Admin: 09/12/17 08:55 Dose: 50 ml Dextrose (D50w (25gm) Syringe) 50 ml IV PRN PRN PRN Reason: Hypoglycemia Divalproex Sodium (Depakote Dr) 250 mg PO QAM [facility] Last Admin: 09/12/17 11:17 Dose: Not Given Divalproex Sodium (Depakote Dr) 500 mg PO QHS [facility] Last Admin: 09/11/17 23:26 Dose: Not Given Gabapentin (Neurontin) 300 mg PO Q8H [facility] Last Admin: 09/12/17 17:32 Dose: 300 mg Haloperidol Lactate (Haldol) 5 mg IV Q2H PRN PRN Reason: Agitation Last Admin: 09/12/17 17:32 Dose: 5 mg Heparin Sodium (Porcine) (Heparin) 5,000 unit SUB-Q Q8HR [facility] Last Admin: 09/12/17 14:56 Dose: 5,000 unit Hydromorphone HCl (Dilaudid) 0.5 mg IV Q3H PRN PRN Reason: Pain , Severe (7-10) Insulin Human Regular 100 (units/ Sodium Chloride) 100 mls @ 6 mls/hr IV TITR ANTONIA; 6 UNITS/HR PRN Reason: Protocol Last Titration: 09/12/17 13:08 Dose: 0 units/hr, 0 mls/hr Sodium Chloride (Nacl 0.45% 1000 Ml) 1,000 mls @ 150 mls/hr IV DIRECT ANTONIA Last Admin: 09/12/17 07:00 Dose: 150 mls/hr Dextrose (D5w) 1,000 mls @ 100 mls/hr IV DIRECT [facility] Insulin Human Regular (Novolin R) 0 units SUB-Q ACHS ANTONIA PRN Reason: Protocol Last Admin: 09/12/17 16:53 Dose: 6 units Magnesium Hydroxide (Milk Of Magnesia) 30 ml PO Q4H PRN PRN Reason: Constipation Morphine Sulfate (Morphine) 2 mg IV Q4H PRN PRN Reason: Pain, Moderate (4-6) Ondansetron HCl (Zofran) 4 mg IV Q8H PRN PRN Reason: N/V unrelieved by Reglan Last Admin: 09/12/17 07:23 Dose: 4 mg Pantoprazole Sodium (Protonix) 40 mg PO DAILY [facility] Last Admin: 09/12/17 11:17 Dose: Not Given Risperidone (Risperdal) 1 mg PO BID [facility] Last Admin: 09/12/17 11:17 Dose: Not Given Ziprasidone (Geodon) 10 mg IM Q2H PRN PRN Reason: Agitation Last Admin: 09/12/17 13:29 Dose: 10 mg Review of Systems All systems: negative Physical Examination Vital signs: Vital Signs Pulse Resp Pulse Ox 134 H 16 100 09/11/17 03:52 09/11/17 03:52 09/11/17 03:52 Vital Signs - 24 hr 09/11/17 09/11/17 09/11/17 18:16 18:30 18:46 Temperature Pulse Rate 149 H 135 H 136 H Respiratory 42 H 28 H 23 Rate Blood Pressure 103/67 103/67 103/67 Blood Pressure [Left] O2 Sat by Pulse Oximetry 09/11/17 09/11/17 09/11/17 19:00 19:16 19:30 Temperature Pulse Rate 149 H 135 H 139 H Respiratory 45 H 15 37 H Rate Blood Pressure 103/67 107/63 100/62 Blood Pressure [Left] O2 Sat by Pulse 100 96 Oximetry 09/11/17 09/11/17 09/11/17 19:46 20:00 20:16 Temperature Pulse Rate 135 H 149 H 137 H Respiratory 21 27 H 15 Rate Blood Pressure 100/62 100/62 102/67 Blood Pressure [Left] O2 Sat by Pulse 99 100 97 Oximetry 01/09/11/17 09/11/17 20:30 20:46 21:00 Temperature Pulse Rate 141 H 139 H 160 H Respiratory 36 H 18 39 H Rate Blood Pressure 101/66 101/66 101/66 Blood Pressure [Left] O2 Sat by Pulse 99 99 Oximetry 09/11/17 09/11/17 09/11/17 21:16 21:30 21:46 Temperature Pulse Rate 144 H 139 H 136 H Respiratory 22 21 23 Rate Blood Pressure 101/66 88/55 88/55 Blood Pressure [Left] O2 Sat by Pulse 98 100 Oximetry 09/11/17 09/11/17 09/11/17 22:00 22:16 22:30 Temperature Pulse Rate 144 H 146 H 146 H Respiratory 43 H 29 H 32 H Rate Blood Pressure 98/55 96/62 105/69 Blood Pressure [Left] O2 Sat by Pulse 100 99 Oximetry 09/11/17 09/11/17 09/11/17 22:32 22:46 23:00 Temperature Pulse Rate 144 H 138 H 140 H Respiratory 22 26 H 20 Rate Blood Pressure 105/69 105/69 100/58 Blood Pressure [Left] O2 Sat by Pulse 100 95 98 Oximetry 09/11/17 09/11/17 09/11/17 23:16 23:30 23:46 Temperature Pulse Rate 159 H 158 H 138 H Respiratory 57 H 28 H 27 H Rate Blood Pressure 100/58 100/58 100/58 Blood Pressure [Left] O2 Sat by Pulse 98 100 98 Oximetry 09/12/17 09/12/17 09/12/17 00:00 00:16 00:30 Temperature Pulse Rate 124 H 129 H 132 H Respiratory 27 H 25 H 31 H Rate Blood Pressure 100/58 100/58 90/39 Blood Pressure [Left] O2 Sat by Pulse 97 98 97 Oximetry 09/12/17 09/12/17 09/12/17 00:46 01:00 01:16 Temperature Pulse Rate 130 H 133 H 134 H Respiratory 24 29 H 18 Rate Blood Pressure 90/39 Blood Pressure [Left] O2 Sat by Pulse 98 98 99 Oximetry 09/12/17 09/12/17 09/12/17 01:30 01:46 02:00 Temperature Pulse Rate 126 H 125 H 139 H Respiratory 27 H 23 11 L Rate Blood Pressure 86/43 Blood Pressure [Left] O2 Sat by Pulse 98 99 Oximetry 09/12/17 09/12/17 09/12/17 02:16 02:30 02:46 Temperature Pulse Rate 126 H 126 H 148 H Respiratory 24 21 34 H Rate Blood Pressure 84/52 82/22 79/37 Blood Pressure [Left] O2 Sat by Pulse 96 90 99 Oximetry 09/12/17 09/12/17 09/12/17 03:00 03:16 03:30 Temperature Pulse Rate 115 H 113 H 112 H Respiratory 14 15 15 Rate Blood Pressure 84/55 79/37 95/62 Blood Pressure [Left] O2 Sat by Pulse 100 Oximetry 09/12/17 09/12/17 09/12/17 03:46 04:00 04:16 Temperature Pulse Rate 114 H 119 H 149 H Respiratory 16 17 38 H Rate Blood Pressure 96/57 89/51 89/51 Blood Pressure [Left] O2 Sat by Pulse 100 99 100 Oximetry 09/12/17 09/12/17 09/12/17 04:30 04:46 05:00 Temperature Pulse Rate 120 H 115 H 118 H Respiratory 19 14 20 Rate Blood Pressure 91/53 91/53 99/63 Blood Pressure [Left] O2 Sat by Pulse 98 Oximetry 09/12/17 09/12/17 09/12/17 05:16 05:30 05:46 Temperature Pulse Rate 126 H 117 H 115 H Respiratory 29 H 18 14 Rate Blood Pressure 99/63 99/63 99/63 Blood Pressure [Left] O2 Sat by Pulse 100 98 99 Oximetry 09/12/17 09/12/17 09/12/17 06:00 07:12 07:30 Temperature 97.9 F Pulse Rate 117 H 120 H Respiratory 14 16 Rate Blood Pressure 106/70 Blood Pressure 121/72 [Left] O2 Sat by Pulse 99 99 Oximetry 09/12/17 09/12/17 15:03 17:33 Temperature Pulse Rate 110 H 100 H Respiratory 16 16 Rate Blood Pressure Blood Pressure 121/79 124/85 [Left] O2 Sat by Pulse 95 95 Oximetry General appearance: no acute distress, alert, other (confused) Eyes: non-icteric ENT: oropharynx moist Neck: supple Effort: normal Ascultation: Bilateral: clear Cardiovascular: other (tachy, RR; no mrg) Gastrointestinal: normoactive bowel sounds, soft, non-tender, non-distended Integumentary: normal Extremities: no cyanosis, no edema, pink and warm Musculoskeletal: no deformities non-focal exam, pupils equal and round, CN II-XII normal mood appropriate, affect normal Results - Laboratory Findings CBC and BMP: 09/12/17 05:18 09/12/17 16:25 ABG POC ABG pH 7.503 (7.35-7.45) H 09/11/17 05:08 POC ABG pCO2 29.4 (35-45) L 09/11/17 05:08 POC ABG pO2 100 (80-105) 09/11/17 05:08 POC ABG HCO3 23.1 09/11/17 05:08 POC ABG Total CO2 24 09/11/17 05:08 POC ABG O2 Sat 98 09/11/17 05:08 Abnormal lab findings: Abnormal Labs 09/11/17 09/11/17 09/11/17 02:31 03:27 03:27 WBC Hgb 15.5 H Hct 50.2 H MCV 101 H MCHC 31 L RDW 15.3 H Plt Count 517 H Lymph % (Auto) 11.7 L Haines % (Auto) Lymph # 1.0 L Haines # Seg Neutrophils % 82.4 H Seg Neutrophils # POC ABG pH POC ABG pCO2 POC ABG pO2 Sodium Potassium 6.6 H* Chloride 89.1 L Carbon Dioxide BUN 41 H Creatinine Glucose 1360 H* POC Glucose > 500 H Hemoglobin A1c Lactic Acid Calcium 10.9 H Phosphorus Magnesium AST 131 H ALT 179 H Alkaline Phosphatase 243 H Total Creatine Kinase 09/11/17 09/11/17 09/11/17 03:35 04:43 05:08 WBC Hgb Hct MCV MCHC RDW Plt Count Lymph % (Auto) Haines % (Auto) Lymph # Haines # Seg Neutrophils % Seg Neutrophils # POC ABG pH 7.503 H POC ABG pCO2 29.4 L POC ABG pO2 40 L Sodium Potassium Chloride Carbon Dioxide BUN Creatinine Glucose POC Glucose > 500 H Hemoglobin A1c Lactic Acid Calcium Phosphorus Magnesium AST ALT Alkaline Phosphatase Total Creatine Kinase 09/11/17 09/11/17 09/11/17 05:30 05:30 07:44 WBC Hgb Hct MCV MCHC RDW Plt Count Lymph % (Auto) Haines % (Auto) Lymph # Haines # Seg Neutrophils % Seg Neutrophils # POC ABG pH POC ABG pCO2 POC ABG pO2 Sodium 149 H Potassium 6.7 H* Chloride 90.0 L Carbon Dioxide 16 L D BUN 49 H 51 H Creatinine Glucose 1372 H* 1181 H* POC Glucose Hemoglobin A1c Lactic Acid Calcium 10.5 H Phosphorus 9.10 H Magnesium 3.20 H AST ALT Alkaline Phosphatase Total Creatine Kinase 09/11/17 09/11/17 09/11/17 09:24 10:24 10:32 WBC Hgb Hct MCV MCHC RDW Plt Count Lymph % (Auto) Haines % (Auto) Lymph # Haines # Seg Neutrophils % Seg Neutrophils # POC ABG pH POC ABG pCO2 POC ABG pO2 Sodium 156 H Potassium 5.2 H Chloride Carbon Dioxide 20 L BUN 54 H Creatinine 1.6 H Glucose 1092 H* POC Glucose > 500 H Hemoglobin A1c 13.6 H Lactic Acid Calcium Phosphorus Magnesium AST ALT Alkaline Phosphatase Total Creatine Kinase 09/11/17 09/11/17 09/11/17 10:50 11:38 12:20 WBC Hgb Hct MCV MCHC RDW Plt Count Lymph % (Auto) Haines % (Auto) Lymph # Haines # Seg Neutrophils % Seg Neutrophils # POC ABG pH POC ABG pCO2 POC ABG pO2 Sodium 155 H Potassium 5.4 H Chloride Carbon Dioxide 19 L BUN 53 H Creatinine 1.6 H Glucose 1081 H* POC Glucose > 500 H > 500 H Hemoglobin A1c Lactic Acid Calcium Phosphorus Magnesium AST ALT Alkaline Phosphatase Total Creatine Kinase 09/11/17 09/11/17 09/11/17 15:29 16:20 21:30 WBC Hgb Hct MCV MCHC RDW Plt Count Lymph % (Auto) Haines % (Auto) Lymph # Haines # Seg Neutrophils % Seg Neutrophils # POC ABG pH POC ABG pCO2 POC ABG pO2 Sodium 159 H 158 H 160 H Potassium 5.2 H 5.9 H 6.3 H* Chloride 107.7 H 108.8 H 108.8 H Carbon Dioxide 15 L 12 L 14 L BUN 55 H 55 H 57 H Creatinine 1.6 H 1.7 H 1.9 H Glucose 899 H* 878 H* 796 H* POC Glucose Hemoglobin A1c Lactic Acid Calcium Phosphorus Magnesium AST ALT Alkaline Phosphatase Total Creatine Kinase 09/11/17 09/12/17 09/12/17 21:30 00:31 05:08 WBC Hgb Hct MCV MCHC RDW Plt Count Lymph % (Auto) Haines % (Auto) Lymph # Haines # Seg Neutrophils % Seg Neutrophils # POC ABG pH POC ABG pCO2 POC ABG pO2 Sodium 167 H* Potassium Chloride 117.2 H Carbon Dioxide 20 L BUN 56 H Creatinine 1.9 H Glucose 373 H POC Glucose 236 H Hemoglobin A1c Lactic Acid 2.10 H* Calcium Phosphorus Magnesium AST ALT Alkaline Phosphatase Total Creatine Kinase 09/12/17 09/12/17 09/12/17 05:18 05:18 06:46 WBC 18.0 H Hgb Hct MCV MCHC RDW 15.6 H Plt Count 543 H Lymph % (Auto) 11.9 L Haines % (Auto) 8.1 H Lymph # Haines # 1.5 H Seg Neutrophils % 79.5 H Seg Neutrophils # 14.3 H POC ABG pH POC ABG pCO2 POC ABG pO2 Sodium 167 H* Potassium 5.2 H D Chloride 124.8 H Carbon Dioxide BUN 54 H Creatinine 2.0 H Glucose 114 H POC Glucose 361 H Hemoglobin A1c Lactic Acid Calcium Phosphorus Magnesium AST ALT Alkaline Phosphatase Total Creatine Kinase 301 H 09/12/17 09/12/17 09/12/17 08:46 10:34 11:39 WBC Hgb Hct MCV MCHC RDW Plt Count Lymph % (Auto) Haines % (Auto) Lymph # Haines # Seg Neutrophils % Seg Neutrophils # POC ABG pH POC ABG pCO2 POC ABG pO2 Sodium 162 H* Potassium Chloride 123.0 H Carbon Dioxide BUN 49 H Creatinine Glucose 173 H POC Glucose < 40 L 332 H Hemoglobin A1c Lactic Acid Calcium Phosphorus Magnesium AST ALT Alkaline Phosphatase Total Creatine Kinase 09/12/17 09/12/17 09/12/17 12:48 16:25 16:35 WBC Hgb Hct MCV MCHC RDW Plt Count Lymph % (Auto) Haines % (Auto) Lymph # Haines # Seg Neutrophils % Seg Neutrophils # POC ABG pH POC ABG pCO2 POC ABG pO2 Sodium 155 H Potassium Chloride 118.4 H Carbon Dioxide BUN 41 H Creatinine Glucose 234 H POC Glucose 202 H 255 H Hemoglobin A1c Lactic Acid Calcium Phosphorus Magnesium AST ALT Alkaline Phosphatase Total Creatine Kinase Assessment and Plan Imp: 1. HONK 2. DM 3. Volume depletion 4. DAVE 5. Hyperkalemia 6. Hypernatremia 7. Metabolic encephalopathy Rec: 1. Cont. current care 2. Will monitor with you Plan of care reviewed with patient, he understands/agrees
--- NOTE | 2017-09-12 19:39 | XRay Report ---
FINAL REPORT PROCEDURE: Chest. TECHNIQUE: Portable AP supine view. HISTORY: Leukocytosis. COMPARISON: Chest 08/17/2017. FINDINGS: The heart and mediastinum appear normal. The lungs are clear and well expanded. There are no pleural effusions. The soft tissues and regional skeleton are unremarkable. IMPRESSION: Negative portable chest.
[2017-09-12] MEDS: D5W 1,000 ML IV SCH (23:41)
[2017-09-13] MEDS: HEPARIN SUB-Q SCH ×3 (06:12→23:58)
[2017-09-13] MEDS: NEURONTIN PO SCH ×3 (06:13→18:59)
[2017-09-13 08:12] LABS: Albumin 2.8 g/dL (3.9-5); BUN/Creatinine Ratio 29; Blood Urea Nitrogen 23 mg/dL (9-20); Calcium 7.9 mg/dL (8.4-10.2); Hemolysis Index 4
--- NOTE | 2017-09-13 08:30 | Progress Note ---
Assessment and Plan 1. Acute kdiney injury: DAVE in the setting of DKA. Creatinine level is better today. Continue IV fluids. Monitor renal function. 2. Hyperkalemia: Improved. Monitor. 3. Hypernatremia: Sodium level is improving. 4. DKA: Improved. 5. Hypotension: Monitor. Subjective Date of service: 09/13/17 Interval history: Patient was seen and examined at the bedside. Feeling better. Objective - Vital Signs Vital signs: Vital Signs - 12hr 09/12/17 09/12/17 09/13/17 21:17 23:16 00:12 Temperature 98.5 F 98.5 F 95.0 F L Pulse Rate 105 H 105 H 105 H Respiratory 17 18 19 Rate Blood Pressure 107/72 101/58 Blood Pressure 107/72 [Left] O2 Sat by Pulse 96 80 L Oximetry 09/13/17 04:22 Temperature 97.9 F Pulse Rate 90 Respiratory 9 L Rate Blood Pressure 92/59 Blood Pressure [Left] O2 Sat by Pulse 95 Oximetry - General Appearance General appearance: well-developed, appears stated age, other (no distress) EENT: ATNC, PERRL, mucous membranes moist, hearing intact, vision intact Neck: supple Respiratory: Present: Clear to Ascultation Cardiology: regular, S1S2, no murmurs Gastrointestinal: normoactive bowel sounds, no tenderness, no distended Integumentary: no rash, warm and dry Neurologic: no focal deficit, no asterixis, alert and oriented x3 Musculoskeletal: other (no edema) Psychiatric: mood/affect appropriate, cooperative - Lab 09/14/17 07:05 09/14/17 07:05 Most recent lab results Calcium 7.9 mg/dL (8.4-10.2) L 09/13/17 06:20 Phosphorus 2.30 mg/dL (2.5-4.5) L D 09/13/17 06:20 Magnesium 2.00 mg/dL (1.7-2.3) 09/13/17 06:20
[2017-09-13 08:31] LABS: Alanine Aminotransferase 70 units/L (7-56)
--- NOTE | 2017-09-13 09:28 | Event Note ---
Date: 09/13/17 Patient down-graded to floor. No active pulm issues. CXR clear. Will sign off but please call with questions, or new problems.
[2017-09-13] MEDS: PROTONIX PO SCH (09:58)
[2017-09-13] MEDS: RisperDAL PO SCH (09:58)
--- NOTE | 2017-09-13 11:35 | Progress Note ---
Assessment and Plan Assessment and plan: Hyperosmolar nonketotic coma - Blood sugar was in the 1300's, patient was treated with insulin drip and resolved - Patient is currently on sliding scale, continue with half-normal saline Metabolic acidosis ] - resolved Metabolic encephalopthy - Continue treatment for his underlying condition - Continue restraints as needed for safety - Patient is on 1013 - Awaiting psych consultation Hypernatremia -Resolving. -Continue hypotonic IV fluids Treatment non compliance - will be counselled once his mentation is getting better Seizure disorder - continue depakote. Bipolar disorder - Psych is following DAVE due to vasomotor nephropathy - Resolved DVT prophylaxis - Lovenox Disposition - continue inpatient care. History Interval history: No new issues overnight. Hospitalist Physical - Constitutional Vitals: Temp Pulse Resp BP Pulse Ox 97.9 F 90 9 L 92/59 95 09/13/17 04:22 09/13/17 04:22 09/13/17 04:22 09/13/17 04:22 09/13/17 04:22 General appearance: Present: no acute distress, well-nourished, other (Agitated and fighting) - EENT Eyes: Present: PERRL, EOM intact ENT: hearing intact, clear oral mucosa, dentition normal - Neck Neck: Present: supple, normal ROM - Respiratory Respiratory effort: normal Respiratory: bilateral: CTA - Cardiovascular Rhythm: regular Heart Sounds: Present: S1 & S2. Absent: gallop, rub - Extremities Extremities: no ischemia, No edema, Full ROM - Abdominal General gastrointestinal: soft, non-tender, non-distended, normal bowel sounds - Integumentary Integumentary: Present: clear, warm, dry - Neurologic Neurologic: CNII-XII intact, moves all extremities Results - Labs CBC & Chem 7: 09/12/17 05:18 09/13/17 06:20 Labs: Laboratory Last Values WBC 18.0 K/mm3 (4.5-11.0) H 09/12/17 05:18 RBC 4.36 M/mm3 (3.65-5.03) 09/12/17 05:18 Hgb 13.4 gm/dl (11.8-15.2) 09/12/17 05:18 Hct 40.6 % (35.5-45.6) D 09/12/17 05:18 MCV 93 fl (84-94) 09/12/17 05:18 MCH 31 pg (28-32) 09/12/17 05:18 MCHC 33 % (32-34) 09/12/17 05:18 RDW 15.6 % (13.2-15.2) H 09/12/17 05:18 Plt Count 543 K/mm3 (140-440) H 09/12/17 05:18 Lymph % (Auto) 11.9 % (13.4-35.0) L 09/12/17 05:18 Bradley % (Auto) 8.1 % (0.0-7.3) H 09/12/17 05:18 Eos % (Auto) 0.1 % (0.0-4.3) 09/12/17 05:18 Baso % (Auto) 0.4 % (0.0-1.8) 09/12/17 05:18 Lymph # 2.1 K/mm3 (1.2-5.4) 09/12/17 05:18 Bradley # 1.5 K/mm3 (0.0-0.8) H 09/12/17 05:18 Eos # 0.0 K/mm3 (0.0-0.4) 09/12/17 05:18 Baso # 0.1 K/mm3 (0.0-0.1) 09/12/17 05:18 Seg Neutrophils % 79.5 % (40.0-70.0) H 09/12/17 05:18 Seg Neutrophils # 14.3 K/mm3 (1.8-7.7) H 09/12/17 05:18 POC ABG pH 7.503 (7.35-7.45) H 09/11/17 05:08 POC ABG pCO2 29.4 (35-45) L 09/11/17 05:08 POC ABG pO2 100 (80-105) 09/11/17 05:08 POC ABG HCO3 23.1 09/11/17 05:08 POC ABG Total CO2 24 09/11/17 05:08 POC ABG O2 Sat 98 09/11/17 05:08 POC ABG Base Excess 0 09/11/17 05:08 FiO2 21 % 09/11/17 05:08 Sodium 149 mmol/L (137-145) H 09/13/17 06:20 Potassium 4.2 mmol/L (3.6-5.0) 09/13/17 06:20 Chloride 110.9 mmol/L (98-107) H 09/13/17 06:20 Carbon Dioxide 23 mmol/L (22-30) 09/13/17 06:20 Anion Gap 19 mmol/L 09/13/17 06:20 BUN 23 mg/dL (9-20) H 09/13/17 06:20 Creatinine 0.8 mg/dL (0.8-1.5) 09/13/17 06:20 Estimated GFR > 60 ml/min 09/13/17 06:20 BUN/Creatinine Ratio 29 % 09/13/17 06:20 Glucose 327 mg/dL (75-100) H 09/13/17 06:20 POC Glucose 459 (70-105) H 09/12/17 21:46 Hemoglobin A1c 13.6 % (4-6) H 09/11/17 10:24 Osmolality 400 Mosm/kg 09/11/17 03:27 Lactic Acid 2.10 mmol/L (0.7-2.0) H* 09/11/17 21:30 Calcium 7.9 mg/dL (8.4-10.2) L 09/13/17 06:20 Phosphorus 2.30 mg/dL (2.5-4.5) L D 09/13/17 06:20 Magnesium 2.00 mg/dL (1.7-2.3) 09/13/17 06:20 Total Bilirubin 0.70 mg/dL (0.1-1.2) 09/13/17 06:20 AST 54 units/L (5-40) H 09/13/17 06:20 ALT 70 units/L (7-56) H 09/13/17 06:20 Alkaline Phosphatase 129 units/L (35-129) 09/13/17 06:20 Total Creatine Kinase 301 units/L (55-170) H 09/12/17 05:18 Total Protein 5.1 g/dL (6.3-8.2) L D 09/13/17 06:20 Albumin 2.8 g/dL (3.9-5) L 09/13/17 06:20 Albumin/Globulin Ratio 1.2 % 09/13/17 06:20 Valproic Acid 28.4 ug/mL (50-100) L 09/13/17 08:58 Hepatitis A IgM Ab Non-reactive (NonReactive) 09/11/17 10:32 Hep Bs Antigen Non-reactive (Negative) 09/11/17 10:32 Hep B Core IgM Ab Non-reactive (NonReactive) 09/11/17 10:32 Hepatitis C Antibody Non-reactive (NonReactive) 09/11/17 10:32
--- NOTE | 2017-09-13 12:52 | Consultation ---
History of Present Illness - Reason for Consult Consult date: 09/13/17 Reason for consult: Mental Health Evaluation Requesting physician: ROC ANTHONY - Chief Complaint Chief complaint: "I am okay" - History of Present Psychiatric Illness 31 y.o. AA male presenting to [facility] for AMS. Today the patient is calm and cooperative during the assessment. He stated that he vaguely remember what happened to him before his admission. He stated that he was with his girlfriend for a couple days without his insulin. He stated that his insulin was located at his sister's home. He stated that he was feeling sick and the next thing he knew, he was at the hospital. He stated that he was taking his Depakote and Risperdal. His VA acid was 28.4. He denies trying to kill himself by not taking his insulin. He denies SI/HI's and AVH's. He denies sleep disturbance and a poor appetite. He denies recreational drug use and alcohol consumption (etoh). He stated that he does not like the way Risperdal make him feel. He asked to be prescribed another antipsychotic. Per collateral information from his sister Ms Candis Reddy, she confirmed that her brother left his insulin at her home while he was visiting with his girlfriend. She does not feel that her brother was trying to harm himself by not taking his insulin. She stated that the patient can return home once he is discharged. Medications and Allergies Allergies Allergy/AdvReac Type Severity Reaction Status Date / Time banana Allergy Severe Angioedema Verified 09/11/17 03:42 egg Allergy Unknown Verified 09/11/17 03:42 Home Medications Medication Instructions Recorded Confirmed Last Taken Type Acetaminophen [Acetaminophen TAB] 325 mg PO Q4H PRN #30 tablet 08/20/17 Unknown Rx Esomeprazole Magnesium [NexIUM] 40 mg PO QDAY #30 capsule. 08/20/17 09/12/17 Unknown Rx Famotidine [Pepcid] 20 mg PO BID #30 tablet 08/20/17 09/12/17 Unknown Rx Gabapentin [Neurontin] 600 mg PO Q8H #90 tablet 08/20/17 09/12/17 Unknown Rx Insulin Aspart [NovoLOG 100 1 dose SQ AC #30 day 08/20/17 09/12/17 Unknown Rx UNITS/ML VIAL] Divalproex Dr [Waldemar Crocker] 250 mg PO QAM #30 tablet 09/05/17 09/12/[address] [Waldemar Crocker] 500 mg PO QHS #30 tablet 09/05/17 09/12/17 Unknown Rx Insulin Detemir [Levemir VIAL] 12 unit SQ BID #1 vial 09/05/17 09/12/17 Unknown Rx risperiDONE [RisperDAL] 1 mg PO BID #30 tablet 09/05/17 09/12/17 Unknown Rx Active Meds: Active Medications Acetaminophen (Tylenol) 650 mg PO Q4H PRN PRN Reason: Pain MILD(1-3)/Fever >100.5/MASON Bisacodyl (Dulcolax) 10 mg PA QDAY PRN PRN Reason: Constipation unrelieved by MOM Dextrose (D50w (25gm) Syringe) 0 ml IV PRN PRN PRN Reason: Hypoglycemia Last Admin: 09/12/17 08:55 Dose: 50 ml Divalproex Sodium (Waldemar Crocker) [facility] [place] Last Admin: 09/13/17 09:57 Dose: 250 mg Divalproex Sodium (Waldemar Crocker) 500 mg PO QHS [facility] Last Admin: 09/12/17 23:23 Dose: 500 mg Gabapentin (Neurontin) 300 mg PO Q8H [facility] Last Admin: 09/13/17 06:13 Dose: Not Given Heparin Sodium (Porcine) (Heparin) 5,000 unit SUB-Q Q8HR [facility] Last Admin: 09/13/17 06:12 Dose: 5,000 unit Hydromorphone HCl (Dilaudid) 0.5 mg IV Q3H PRN PRN Reason: Pain , Severe (7-10) Dextrose (D5w) 1,000 mls @ 100 mls/hr IV DIRECT [facility] Last Admin: 09/12/17 23:41 Dose: 100 mls/hr Insulin Human Regular (Novolin R) 0 units SUB-Q ACHS [facility] PRN Reason: Protocol Last Admin: 09/13/17 09:55 Dose: 10 units Magnesium Hydroxide (Milk Of Magnesia) 30 ml PO Q4H PRN PRN Reason: Constipation Morphine Sulfate (Morphine) 2 mg IV Q4H PRN PRN Reason: Pain, Moderate (4-6) Ondansetron HCl (Zofran) 4 mg IV Q8H PRN PRN Reason: N/V unrelieved by Reglan Last Admin: 09/12/17 07:23 Dose: 4 mg Pantoprazole Sodium (Protonix) 40 mg PO DAILY [facility] Last Admin: 09/13/17 09:58 Dose: 40 mg Past psychiatric history - Past Medical History Past Medical History: diabetes Past Surgical History: No surgical history - past Psychiatric treatment and history psychiatric treatment history: Seen outpatient at [facility]. Denies a fam psy hx. - Social History Social history: lives with family Mental Status Exam - Vital signs Last Vital Signs Temp 97.9 F 09/13/17 04:22 Pulse 90 09/13/17 04:22 Resp 9 L 09/13/17 04:22 BP 92/59 09/13/17 04:22 Pulse Ox 95 09/13/17 04:22 - Exam Narrative exam: MSE: Appearance: calm, cooperative Behavior: good eye contact Speech: regular rate and tone Mood: "okay" Affect: congruent to mood Thought Process: circumstantial Thought Content: denies SI/HI's and AVH's Motor Activity: ambulatory Cognition: A/O x 3 Insight: fair Judgment: fair Results Result Diagrams: 09/12/17 05:18 09/13/17 06:20 Abnormal lab results 09/12/17 09/12/17 09/12/17 Range/Units 16:25 16:35 21:43 Sodium 155 H (137-145) mmol/L Chloride 118.4 H (98-107) mmol/L BUN 41 H (9-20) mg/dL Glucose 234 H (75-100) mg/dL POC Glucose 255 H > 500 H (70-105) Calcium (8.4-10.2) mg/dL Phosphorus (2.5-4.5) mg/dL AST (5-40) units/L ALT (7-56) units/L Total Protein (6.3-8.2) g/dL Albumin (3.9-5) g/dL Valproic Acid (50-100) ug/mL 09/12/17 09/13/17 09/13/17 Range/Units 21:46 06:20 08:58 Sodium 149 H (137-145) mmol/L Chloride 110.9 H (98-107) mmol/L BUN 23 H (9-20) mg/dL Glucose 327 H (75-100) mg/dL POC Glucose 459 H (70-105) Calcium 7.9 L (8.4-10.2) mg/dL Phosphorus 2.30 L D (2.5-4.5) mg/dL AST 54 H (5-40) units/L ALT 70 H (7-56) units/L Total Protein 5.1 L D (6.3-8.2) g/dL Albumin 2.8 L (3.9-5) g/dL Valproic Acid 28.4 L (50-100) ug/mL All other labs normal. Assessment and Plan Assessment and plan: Impression: Hx of Bipolar DO. Today patient is cooperative during the assessment. Patient is no threat to self. Delirium has resolved. VA 28.4. Medical: Metabolic Encephalopthy, Hypernatremia, Hyperkalemia Recommendation/Plan: Rescind 1013. Continue Depakote and start Zyprexa 5 mg PO HS for mood. Discussed possible metabolic side effects of Zyprexa with patient. Patient can follow up with [facility] for outpatient psy services once discharged. The patient is aware of the importance of getting his Depakote levels checked. He stated that he can get that done at [facility].
[2017-09-14] MEDS: ZOFRAN IV PRN ×2 (00:40→22:03)
[2017-09-14] MEDS: NEURONTIN PO SCH ×3 (02:19→17:30)
[2017-09-14] MEDS: D5W 1,000 ML IV SCH (02:22)
[2017-09-14] MEDS: HEPARIN SUB-Q SCH ×3 (07:00→22:05)
[2017-09-14 07:37] LABS: Basophils % (Auto) 0.4 % (0.0-1.8); Eosinophils % (Auto) 0.8 % (0.0-4.3); Hematocrit 33.5 % (35.5-45.6); Hemoglobin 10.9 gm/dl (11.8-15.2); Lymphocytes # (Auto) 1.3 K/mm3 (1.2-5.4); Lymphocytes % (Auto) 21.7 % (13.4-35.0); Mean Corpuscular HGB Conc 33 % (32-34); Mean Corpuscular Hemoglobin 31 pg (28-32); Mean Corpuscular Volume 94 fl (84-94); Monocytes # (Auto) 0.2 K/mm3 (0.0-0.8); Monocytes % (Auto) 3.6 % (0.0-7.3); Platelet Count 332 K/mm3 (140-440); Red Blood Count 3.55 M/mm3 (3.65-5.03); Red Cell Distribution Width 14.8 % (13.2-15.2)
[2017-09-14 07:43] LABS: BUN/Creatinine Ratio 23; Blood Urea Nitrogen 16 mg/dL (9-20); Calcium 8.3 mg/dL (8.4-10.2); Hemolysis Index 9
--- NOTE | 2017-09-14 09:12 | Progress Note ---
Assessment and Plan 1. Acute kdiney injury: DAVE in the setting of DKA. Renal function has improved. 2. Hyperkalemia: Improved. 3. Hypernatremia: Sodium level is improving. 4. DKA: Improved. 5. Hypotension: Monitor. Subjective Date of service: 09/14/17 Interval history: Patient was seen and examined at the bedside. Feeling better. Objective - Vital Signs Vital signs: Vital Signs - 12hr 09/14/17 09/14/17 09/14/17 00:05 04:25 07:39 Temperature 97.9 F 99.7 F H 97.8 F Pulse Rate 103 H 78 100 H Respiratory 16 16 20 Rate Blood Pressure 101/69 93/55 96/62 O2 Sat by Pulse 95 100 96 Oximetry - General Appearance General appearance: well-developed, appears stated age, other (no distress) EENT: ATNC, PERRL, mucous membranes moist, hearing intact, vision intact Neck: no JVD, supple Respiratory: Present: Clear to Ascultation Cardiology: regular, S1S2, no murmurs Gastrointestinal: normoactive bowel sounds, no tenderness, no distended Integumentary: no rash, warm and dry Neurologic: no focal deficit, no asterixis, alert and oriented x3 Musculoskeletal: other (no edema) Psychiatric: mood/affect appropriate, cooperative - Lab 09/14/17 07:05 09/14/17 07:05 Most recent lab results Calcium 8.3 mg/dL (8.4-10.2) L 09/14/17 07:05 Phosphorus 1.90 mg/dL (2.5-4.5) L 09/14/17 07:05 Magnesium 2.10 mg/dL (1.7-2.3) 09/14/17 07:05
[2017-09-14] MEDS: PROTONIX PO SCH (10:01)
[2017-09-14] MEDS: PHOS-NAK PO SCH ×2 (10:12→13:25)
--- NOTE | 2017-09-14 11:16 | Progress Note ---
Assessment and Plan Assessment and plan: Hyperosmolar nonketotic coma - Resolved Diabetes mellitus type 1, uncontrolled -Patient previously on D5 IV fluids, which has been discontinued. -Resume Levemir, 12 units twice a day Metabolic acidosis - resolved Metabolic encephalopthy - Resolved - 1013 rescinded per Psych - Psych following Hypernatremia -Resolving. -Continue hypotonic IV fluids Treatment non compliance - will be counselled once his mentation is getting better Seizure disorder - continue depakote. Bipolar disorder - Psych is following DAVE due to vasomotor nephropathy - Resolved DVT prophylaxis - Lovenox Disposition - Anticipate discharge in a.m. History Interval history: No new issues overnight. Hospitalist Physical - Constitutional Vitals: Temp Pulse Resp BP Pulse Ox 97.8 F 100 H 18 96/62 96 09/14/17 07:39 09/14/17 07:39 09/14/17 09:27 09/14/17 07:39 09/14/17 07:39 General appearance: Present: no acute distress, well-nourished, other (Agitated and fighting) - EENT Eyes: Present: PERRL, EOM intact ENT: hearing intact, clear oral mucosa, dentition normal - Neck Neck: Present: supple, normal ROM - Respiratory Respiratory effort: normal Respiratory: bilateral: CTA - Cardiovascular Rhythm: regular Heart Sounds: Present: S1 & S2. Absent: gallop, rub - Extremities Extremities: no ischemia, No edema, Full ROM - Abdominal General gastrointestinal: soft, non-tender, non-distended, normal bowel sounds - Integumentary Integumentary: Present: clear, warm, dry - Neurologic Neurologic: CNII-XII intact, moves all extremities Results - Labs CBC & Chem 7: 09/14/17 07:05 09/14/17 07:05 Labs: Laboratory Last Values WBC 6.0 K/mm3 (4.5-11.0) 09/14/17 07:05 RBC 3.55 M/mm3 (3.65-5.03) L 09/14/17 07:05 Hgb 10.9 gm/dl (11.8-15.2) L 09/14/17 07:05 Hct 33.5 % (35.5-45.6) L D 09/14/17 07:05 MCV 94 fl (84-94) 09/14/17 07:05 MCH 31 pg (28-32) 09/14/17 07:05 MCHC 33 % (32-34) 09/14/17 07:05 RDW 14.8 % (13.2-15.2) 09/14/17 07:05 Plt Count 332 K/mm3 (140-440) 09/14/17 07:05 Lymph % (Auto) 21.7 % (13.4-35.0) 09/14/17 07:05 Douglas % (Auto) 3.6 % (0.0-7.3) 09/14/17 07:05 Eos % (Auto) 0.8 % (0.0-4.3) 09/14/17 07:05 Baso % (Auto) 0.4 % (0.0-1.8) 09/14/17 07:05 Lymph # 1.3 K/mm3 (1.2-5.4) 09/14/17 07:05 Douglas # 0.2 K/mm3 (0.0-0.8) 09/14/17 07:05 Eos # 0.0 K/mm3 (0.0-0.4) 09/14/17 07:05 Baso # 0.0 K/mm3 (0.0-0.1) 09/14/17 07:05 Seg Neutrophils % 73.5 % (40.0-70.0) H 09/14/17 07:05 Seg Neutrophils # 4.4 K/mm3 (1.8-7.7) 09/14/17 07:05 POC ABG pH 7.503 (7.35-7.45) H 09/11/17 05:08 POC ABG pCO2 29.4 (35-45) L 09/11/17 05:08 POC ABG pO2 100 (80-105) 09/11/17 05:08 POC ABG HCO3 23.1 09/11/17 05:08 POC ABG Total CO2 24 09/11/17 05:08 POC ABG O2 Sat 98 09/11/17 05:08 POC ABG Base Excess 0 09/11/17 05:08 FiO2 21 % 09/11/17 05:08 Sodium 150 mmol/L (137-145) H 09/14/17 07:05 Potassium 4.6 mmol/L (3.6-5.0) 09/14/17 07:05 Chloride 111.6 mmol/L (98-107) H 09/14/17 07:05 Carbon Dioxide 27 mmol/L (22-30) 09/14/17 07:05 Anion Gap 16 mmol/L 09/14/17 07:05 BUN 16 mg/dL (9-20) 09/14/17 07:05 Creatinine 0.7 mg/dL (0.8-1.5) L 09/14/17 07:05 Estimated GFR > 60 ml/min 09/14/17 07:05 BUN/Creatinine Ratio 23 % 09/14/17 07:05 Glucose 361 mg/dL (75-100) H 09/14/17 07:05 POC Glucose 423 (70-105) H 09/13/17 20:09 Hemoglobin A1c 13.6 % (4-6) H 09/11/17 10:24 Osmolality 400 Mosm/kg 09/11/17 03:27 Lactic Acid 2.10 mmol/L (0.7-2.0) H* 09/11/17 21:30 Calcium 8.3 mg/dL (8.4-10.2) L 09/14/17 07:05 Phosphorus 1.90 mg/dL (2.5-4.5) L 09/14/17 07:05 Magnesium 2.10 mg/dL (1.7-2.3) 09/14/17 07:05 Total Bilirubin 0.70 mg/dL (0.1-1.2) 09/13/17 06:20 AST 54 units/L (5-40) H 09/13/17 06:20 ALT 70 units/L (7-56) H 09/13/17 06:20 Alkaline Phosphatase 129 units/L (35-129) 09/13/17 06:20 Total Creatine Kinase 301 units/L (55-170) H 09/12/17 05:18 Total Protein 5.1 g/dL (6.3-8.2) L D 09/13/17 06:20 Albumin 2.8 g/dL (3.9-5) L 09/13/17 06:20 Albumin/Globulin Ratio 1.2 % 09/13/17 06:20 Valproic Acid 28.4 ug/mL (50-100) L 09/13/17 08:58 Hepatitis A IgM Ab Non-reactive (NonReactive) 09/11/17 10:32 Hep Bs Antigen Non-reactive (Negative) 09/11/17 10:32 Hep B Core IgM Ab Non-reactive (NonReactive) 09/11/17 10:32 Hepatitis C Antibody Non-reactive (NonReactive) 09/11/17 10:32
[2017-09-14] MEDS ORDERED: NACL 0.9% 1000 ML 1,000 ML IV SCH (12:00)
[2017-09-14] MEDS ORDERED: NACL 0.45% 1000 ML 1,000 ML IV SCH (12:00)
[2017-09-14] MEDS: PEPCID PO SCH (22:03)
[2017-09-14] MEDS: LEVEMIR SUB-Q SCH (22:11)
[2017-09-15] MEDS: NEURONTIN PO SCH ×2 (05:25→09:05)
[2017-09-15] MEDS: HEPARIN SUB-Q SCH (05:25)
[2017-09-15 07:22] LABS: Hematocrit 31.7 % (35.5-45.6); Hemoglobin 10.7 gm/dl (11.8-15.2); Mean Corpuscular HGB Conc 34 % (32-34); Mean Corpuscular Hemoglobin 32 pg (28-32); Mean Corpuscular Volume 94 fl (84-94); Platelet Count 282 K/mm3 (140-440); Red Blood Count 3.39 M/mm3 (3.65-5.03); Red Cell Distribution Width 15.1 % (13.2-15.2)
[2017-09-15 07:30] LABS: BUN/Creatinine Ratio 18; Blood Urea Nitrogen 11 mg/dL (9-20); Calcium 8.1 mg/dL (8.4-10.2); Hemolysis Index 2
--- NOTE | 2017-09-15 08:13 | Discharge Summary ---
Providers - Providers Date of Admission: 09/11/17 05:15 Date of discharge: 09/15/17 Attending physician: KLAUS GAINES 09/11/17 06:02 Consult to Physician [CONS] Routine Consulting Provider: MARK REHMAN Reason For Exam: icu admission Place consult to:: Dr. Rehman Notified:: Answering Service Phone number called:: [phone] Was contact made?: Yes If yes, spoke with:: Melissa Time called:: 06:08 09/11/17 08:31 Consult to Mental Health [CONS] Routine Reason For Exam: Bipolar Agitation Place consult to:: y Notified:: y 09/11/17 15:08 Consult to Physician [CONS] Routine Consulting Provider: LUIS TAM Reason For Exam: DAVE Place consult to:: answering service Notified:: yes Phone number called:: [phone] Was contact made?: Yes If yes, spoke with:: Dary Almonte called:: 18:35 09/11/17 15:58 Consult to Physician [CONS] Routine Consulting Provider: LUIS TAM Reason For Exam: DAVE, metabolic acidosis Place consult to:: answering service Notified:: yes Phone number called:: [phone] Was contact made?: Yes If yes, spoke with:: Dary Time called:: 18:35 09/12/17 18:31 Consult to Dietitian/Nutrition [CONS] Routine Physician Instructions: Reason For Exam: Reason for Consult: Malnutrition Primary care physician: ALIE VITAL Hospitalization Reason for admission: DKA Condition: Serious Hospital course: The patient is a 31 year-old AAM with history significant for Insulin dependent diabetes, GERD, Seizure disorder, Bipolar disorder and Scizophrenia who presented to the emergency department with altered MS. The patient was also found to be combative. This patient has been to [facility] multiple times with a similar presentation and is often found with significant hyperglycemia and diabetic ketoacidosis. His intial blood sugar was 1360 with potassium of 6.6. The patient was placed on Insulin drip and the DKA, resolved. Patient later was transitioned to long-acting insulin. Other complications or the hospital stay included metabolic encephalopathy that resolved with resolution of DKA. Given altered mentation, patient was placed under 1013. The patient was evaluated by psychiatry. Patient does have a history of bipolar disorder. Recommendations were to rescind 1013, continue Depakote and start Zyprexa 5 mg at bedtime. Patient can follow up with [facility] for outpatient psy services once discharged. The patient is aware of the importance of getting his Depakote levels checked. He stated that he can get that done at [facility]. . The patient was also noted to have acute kidney injury and hypernatremia in the setting of DKA. Patient also likely have vasomotor nephropathy from volume depletion and dehydration Renal function improved with IV fluid hydration. Dedicated discharge time 35 minutes. Disposition: DC-01 TO HOME OR SELFCARE Time spent for discharge: 35 - Discharge Diagnoses (1) Metabolic encephalopathy Status: Acute (2) Vasomotor nephropathy Status: Acute (3) Altered mental status, unspecified Status: Acute Qualifiers: Altered mental status type: unspecified Qualified Code(s): R41.82 - Altered mental status, unspecified (4) DKA (diabetic ketoacidoses) Status: Acute Qualifiers: Diabetes mellitus type: type 2 Diabetes mellitus complication detail: without coma Qualified Code(s): E11.10 - Type 2 diabetes mellitus with ketoacidosis without coma (5) Bipolar disorder Status: Chronic Qualifiers: Active/Remission status: currently active (6) Acute renal insufficiency Status: Acute Core Measure Documentation - Palliative Care Palliative Care/ Comfort Measures: Not Applicable - Core Measures Any of the following diagnoses?: none Exam - Constitutional Vitals: Temp Pulse Resp BP Pulse Ox 98.2 F 102 H 18 87/54 98 09/15/17 03:52 09/15/17 03:52 09/15/17 03:52 09/15/17 03:52 09/15/17 03:52 General appearance: Present: no acute distress, well-nourished - EENT Eyes: Present: PERRL ENT: hearing intact, clear oral mucosa - Neck Neck: Present: supple, normal ROM - Respiratory Respiratory effort: normal Respiratory: bilateral: CTA - Cardiovascular Heart Sounds: Present: S1 & S2. Absent: rub, click - Extremities Extremities: pulses symmetrical, No edema Peripheral Pulses: within normal limits - Abdominal General gastrointestinal: Present: soft, non-tender, non-distended, normal bowel sounds Male genitourinary: Present: normal - Integumentary Integumentary: Present: clear, warm, dry - Musculoskeletal Musculoskeletal: gait normal, strength equal bilaterally - Psychiatric Psychiatric: appropriate mood/affect, intact judgment & insight - Neurologic Neurologic: CNII-XII intact, moves all extremities Plan Activity: no restrictions Weight Bearing Status: Full Weight Bearing Diet: diabetic Follow up with: ALIE VITAL MD [Primary Care Provider] - 3-5 Days Prescriptions: Divalproex [Waldemar Crocker] 500 mg PO QHS #30 tablet Divalproex [Waldemar Crocker] 250 mg PO QAM #30 tablet Famotidine [Pepcid] 20 mg PO BID #30 tablet Gabapentin [Neurontin] 600 mg PO Q8H #90 tablet Insulin Aspart [NovoLOG 100 UNITS/ML VIAL] 1 dose SQ AC #30 day Insulin Detemir [Levemir VIAL] 12 unit SQ BID #1 vial OLANzapine [ZyPREXA] 5 mg PO HS #30 tablet
[2017-09-15] MEDS: PROTONIX PO SCH (09:05)
[2017-09-15] MEDS: PEPCID PO SCH (09:05)
[2017-09-15] MEDS: LEVEMIR SUB-Q SCH (09:06)
--- NOTE | 2017-09-15 09:46 | Progress Note ---
Assessment and Plan 1. Acute kdiney injury: DAVE in the setting of DKA. Renal function has improved. 2. Hyperkalemia: Improved. 3. Hypernatremia: Sodium level is improving. 4. DKA: Improved. 5. Hypotension: Stable. Subjective Date of service: 09/15/17 Interval history: Patient is feeling better. Objective - Vital Signs Vital signs: Vital Signs - 12hr 09/14/17 09/15/17 23:18 03:52 Temperature 98.2 F 98.2 F Pulse Rate 106 H 102 H Respiratory 18 18 Rate Blood Pressure 99/62 87/54 O2 Sat by Pulse 99 98 Oximetry - General Appearance General appearance: well-developed, appears stated age, other (no distress) EENT: ATNC, PERRL, mucous membranes moist, hearing intact, vision intact Neck: supple Respiratory: Present: Clear to Ascultation Cardiology: regular, S1S2, no murmurs Gastrointestinal: normoactive bowel sounds, no tenderness, no distended Integumentary: no rash, warm and dry Neurologic: no focal deficit, no asterixis, alert and oriented x3 Musculoskeletal: other (no edema) Psychiatric: mood/affect appropriate, cooperative - Lab 09/15/17 06:49 09/15/17 06:49 Most recent lab results Calcium 8.1 mg/dL (8.4-10.2) L 09/15/17 06:49 Phosphorus 2.10 mg/dL (2.5-4.5) L 09/15/17 06:49 Magnesium 2.10 mg/dL (1.7-2.3) 09/14/17 07:05
[2017-09-15] MEDS ORDERED: PHOS-NAK PO ONE (09:47)
[2017-09-15 09:49] VITALS: BP 100/63
--- NOTE | 2017-09-15 11:46 | Progress Note ---
Subjective - Reason for Consult Consult date: 09/15/17 Reason for consult: Psychiatry Follow-up - Chief Complaint Chief complaint: "I feel much better" 31 y.o. AA male presenting to [facility] for AMS. Today the patient is calm and cooperative during the assessment. He stated that he feels much better. He stated that he look forward to being discharged. He denies SI/HI's and AVH's. He denies any side effects of her medications. Mental Status Exam - Vital signs Last Vital Signs Temp 97.8 F 09/15/17 07:05 Pulse 95 H 09/15/17 07:05 Resp 18 09/15/17 07:05 BP 100/63 09/15/17 07:05 Pulse Ox 100 09/15/17 07:05 - Exam Narrative exam: MSE: Appearance: calm, cooperative Behavior: good eye contact Speech: regular rate and tone Mood: "okay" Affect: congruent to mood Thought Process: logical Thought Content: denies SI/HI's and AVH's Motor Activity: ambulatory Cognition: A/O x 3 Insight: appropriate Judgment: appropriate Assessment and Plan Impression: Hx of Bipolar DO. Today patient is cooperative during the assessment. Patient is no threat to self. Delirium has resolved. Medical: Metabolic Encephalopthy, Hypernatremia, Hyperkalemia Recommendation/Plan: Continue Depakote and Zyprexa. Discussed possible metabolic side effects of Zyprexa with patient. Patient can follow up with [facility] for outpatient psy services once discharged. The patient is aware of the importance of getting his Depakote levels checked. He stated that he can get that done at [facility].
== END 2017-09-15 09:55 | disposition home or self-care (01) | DRG 314 ==
LOC: ED 02:22 → CC1 05:15 → 4A 09-12 20:10
PROVIDERS: ADMIT Internal Medicine; ATTEND Hospitalist
DX: I95.9 Hypotension, unspecified (principal); N17.0 Acute kidney failure with tubular necrosis; E11.11 Type 2 diabetes mellitus with ketoacidosis with coma; G93.41 Metabolic encephalopathy; E11.00 Type 2 diabetes mellitus with hyperosmolarity without nonketotic hyperglycemic-hyperosmolar coma (NKHHC); E11.42 Type 2 diabetes mellitus with diabetic polyneuropathy; K21.9 Gastro-esophageal reflux disease without esophagitis; F31.9 Bipolar disorder, unspecified; R74.0 Nonspecific elevation of levels of transaminase and lactic acid dehydrogenase [LDH]; E87.5 Hyperkalemia; E87.0 Hyperosmolality and hypernatremia; E86.9 Volume depletion, unspecified; F20.9 Schizophrenia, unspecified; E86.0 Dehydration; G40.909 Epilepsy, unspecified, not intractable, without status epilepticus; Z91.19 Patient's noncompliance with other medical treatment and regimen; Z91.012 Allergy to eggs; Z91.018 Allergy to other foods
CPT/HCPCS: 36415; 36600; 71045; 80048; 80053; 80074; 80164; 82140; 82550; 82803; 82962; 83036; 83735; 83930; 84100; 85025; 85027; 87040; 93005; 93010; 96365; 96372; 96375; 99291; J0610; J1170; J1200; J1630; J1644; J1815; J1818; J2060; J2405; J3486; J7030; J7070

== ENCOUNTER 2017-09-29 18:12 | Emergency (ER) | payer MEDICAID ==
[2017-09-29] MEDS ORDERED: TYLENOL ONE (19:27)
[2017-09-29] MEDS ORDERED: TYLENOL PO ONE (19:28)
[2017-09-30] MEDS ORDERED: MOTRIN PO ONE ×2 (01:16→01:58)
[2017-09-30] MEDS ORDERED: ZOFRAN ODT PO ONE (01:17)
--- NOTE | 2017-09-30 02:18 | XRay Report ---
FINAL REPORT PROCEDURE: XR CHEST ROUTINE 2V TECHNIQUE: PA and lateral chest radiographs were obtained. CPT 45887 HISTORY: cough COMPARISON: No prior studies are available for comparison. FINDINGS: Heart: Normal. Mediastinum/Vessels: Normal. Lungs/Pleural space: The lungs are well-expanded. There are no infiltrates, effusions or pneumothoraces.. Bony thorax: No acute osseous abnormality. Other: IMPRESSION: Normal examination.
--- NOTE | 2017-09-30 02:40 | Emergency Department Report ---
- General Chief Complaint: Upper Respiratory Infection Stated Complaint: FLU SX Time Seen by Provider: 09/30/17 01:17 Source: patient Mode of arrival: Ambulatory Limitations: No Limitations - History of Present Illness Initial Comments: This is a 31-year-old female nontoxic, well nourished in appearance, no acute signs of distress presents to the ED with c/o of productive cough, fever, chills , body aches, rhinorrhea, frontal sinus headache, nasal congestion x2 days. Patient describes productive cough as yellow mucus production. Patient stated has sick contact with positive flu. Patient denies any recent travels, long car , recent hospital stays. Patient denies any calf pain or calf tenderness. Patient denies any chest pain, short of breath, fever, chills, nausea, vomiting , hemoptysis, numbness, tingling, headache or stiff neck. Patient denies any drug allergies. PMH includes HTN, seizure, diabets, gerd. MD Complaint: fever, cough, rhinorrhea, nasal congestion, sinus pain (frontal ) , other (body aches) -: days(s) (2) Severity: mild Severity scale (0 -10): 8 Quality: aching Consistency: constant Improves With: nothing Worsens With: nothing Context: sick contacts Associated Symptoms: fever, chills, headache (frontal sinus), rhinorrhea, nasal congestion, cough. denies: myalgias, diaphoresis, sore throat, stiff neck, chest pain, shortness of breath, abdominal pain, nausea, vomiting, diarrhea, dysuria, rash, confusion, right sweats, weight loss, epistaxis, hoarseness, ear pain Treatments Prior to Arrival: none - Related Data Previous Rx's Medication Instructions Recorded Last Taken Type Acetaminophen [Acetaminophen TAB] 325 mg PO Q4H PRN #30 tablet 08/20/17 Unknown Rx Esomeprazole Magnesium [NexIUM] 40 mg PO QDAY #30 capsule. 08/20/17 Unknown Rx Divalproex [Waldemar Crocker] 250 mg PO QAM #30 tablet 09/15/17 Unknown Rx Divalproex [Waldemar Crocker] 500 mg PO QHS #30 tablet 09/15/17 Unknown Rx Famotidine [Pepcid] 20 mg PO BID #30 tablet 09/15/17 Unknown Rx Gabapentin [Neurontin] 600 mg PO Q8H #90 tablet 09/15/17 Unknown Rx Insulin Aspart [NovoLOG 100 1 dose SQ AC #30 day 09/15/17 Unknown Rx UNITS/ML VIAL] Insulin Detemir [Levemir VIAL] 12 unit SQ BID #1 vial 09/15/17 Unknown Rx OLANzapine [ZyPREXA] 5 mg PO HS #30 tablet 09/15/17 Unknown Rx Amoxicillin/K Clav Tab [Augmentin 1 tab PO Q12HR #20 tab 09/30/17 Unknown Rx 875 mg] Benzonatate [Tessalon Perle] 100 mg PO Q6H PRN #20 capsule 09/30/17 Unknown Rx Ibuprofen [Motrin] 600 mg PO Q8H PRN #30 tablet 09/30/17 Unknown Rx Oseltamivir [Tamiflu] 75 mg PO BID #14 cap 09/30/17 Unknown Rx Allergies Allergy/AdvReac Type Severity Reaction Status Date / Time banana Allergy Severe Angioedema Verified 09/11/17 03:42 egg Allergy Unknown Verified 09/11/17 03:42 ED Review of Systems ROS: Stated complaint: FLU SX Other details as noted in HPI Constitutional: chills, fever Eyes: denies: eye pain, eye discharge, vision change ENT: denies: ear pain, throat pain Respiratory: cough. denies: shortness of breath, wheezing Cardiovascular: denies: chest pain, palpitations Endocrine: no symptoms reported Gastrointestinal: denies: abdominal pain, nausea, diarrhea Genitourinary: denies: urgency, dysuria Musculoskeletal: denies: back pain, joint swelling, arthralgia Skin: denies: rash, lesions Neurological: headache (frontal sinus). denies: weakness, paresthesias Psychiatric: denies: anxiety, depression Hematological/Lymphatic: denies: easy bleeding, easy bruising ED Past Medical Hx - Past Medical History Previous Medical History?: Yes Hx Hypertension: Yes Hx CVA: No Hx Heart Attack/AMI: No Hx Congestive Heart Failure: No Hx Diabetes: Yes Hx Deep Vein Thrombosis: No Hx Pulmonary Embolism: No Hx GERD: Yes Hx Liver Disease: No Hx Renal Disease: No Hx Sickle Cell Disease: No Hx Arthritis: No Hx Headaches / Migraines: No Hx Seizures: Yes Hx Kidney Stones: No Hx Psychiatric Treatment: Yes (bipolar ;schizophrenia) Hx Asthma: No Hx COPD: No Hx Tuberculosis: No Hx Dementia: No Hx HIV: No - Surgical History Past Surgical History?: Yes Hx Coronary Stent: No Hx Open Heart Surgery: No Hx Pacemaker: No Hx Internal Defibrillator: No Hx Cholecystectomy: No Hx Appendectomy: No Hx Breast Surgery: No Additional Surgical History: r) wrist surgery - Social History Smoking Status: Current Every Day Smoker Substance Use Type: None - Medications Home Medications: Home Medications Medication Instructions Recorded Confirmed Last Taken Type Acetaminophen [Acetaminophen TAB] 325 mg PO Q4H PRN #30 tablet 08/20/17 Unknown Rx Esomeprazole Magnesium [NexIUM] 40 mg PO QDAY #30 capsule.dr 08/20/17 09/12/17 Unknown Rx Divalproex [Waldemar Crocker] 250 mg PO QAM #30 tablet 09/15/17 Unknown Rx Divalproex [Waldemar Crocker] 500 mg PO QHS #30 tablet 09/15/17 Unknown Rx Famotidine [Pepcid] 20 mg PO BID #30 tablet 09/15/17 Unknown Rx Gabapentin [Neurontin] 600 mg PO Q8H #90 tablet 09/15/17 Unknown Rx Insulin Aspart [NovoLOG 100 1 dose SQ AC #30 day 09/15/17 Unknown Rx UNITS/ML VIAL] Insulin Detemir [Levemir VIAL] 12 unit SQ BID #1 vial 09/15/17 Unknown Rx OLANzapine [ZyPREXA] 5 mg PO HS #30 tablet 09/15/17 Unknown Rx Amoxicillin/K Clav Tab [Augmentin 1 tab PO Q12HR #20 tab 09/30/17 Unknown Rx 875 mg] Benzonatate [Tessalon Perle] 100 mg PO Q6H PRN #20 capsule 09/30/17 Unknown Rx Ibuprofen [Motrin] 600 mg PO Q8H PRN #30 tablet 09/30/17 Unknown Rx Oseltamivir [Tamiflu] 75 mg PO BID #14 cap 09/30/17 Unknown Rx ED Physical Exam - General Limitations: No Limitations General appearance: alert, in no apparent distress - Head Head exam: Present: atraumatic, normocephalic - Eye Eye exam: Present: normal appearance, PERRL, EOMI Pupils: Present: normal accommodation - ENT ENT exam: Present: normal exam, normal orophraynx, mucous membranes moist, TM's normal bilaterally, normal external ear exam - Neck Neck exam: Present: normal inspection, full ROM. Absent: tenderness, meningismus, lymphadenopathy, thyromegaly - Respiratory Respiratory exam: Present: normal lung sounds bilaterally. Absent: respiratory distress, wheezes, rales, rhonchi, stridor, chest wall tenderness, accessory muscle use, decreased breath sounds, prolonged expiratory - Cardiovascular Cardiovascular Exam: Present: regular rate, normal rhythm, tachycardia, normal heart sounds. Absent: irregular rhythm, systolic murmur, diastolic murmur, rubs , gallop - GI/Abdominal GI/Abdominal exam: Present: soft, normal bowel sounds. Absent: distended, tenderness, guarding, rebound, rigid, diminished bowel sounds - Rectal Rectal exam: Present: deferred - Extremities Exam Extremities exam: Present: normal inspection, full ROM, normal capillary refill. Absent: tenderness, pedal edema, joint swelling, calf tenderness - Back Exam Back exam: Present: normal inspection, full ROM. Absent: tenderness, CVA tenderness (R), CVA tenderness (L), muscle spasm, paraspinal tenderness, vertebral tenderness, rash noted - Neurological Exam Neurological exam: Present: alert, oriented X3, CN II-XII intact, normal gait, reflexes normal - Psychiatric Psychiatric exam: Present: normal affect, normal mood - Skin Skin exam: Present: warm, dry, intact, normal color. Absent: rash - Other Other exam information: Positive frontal sinus tenderness. ED Course Vital Signs 09/29/17 09/29/17 09/30/17 19:20 20:32 01:13 Temperature 102.9 F H 99.2 F Pulse Rate 118 H 99 H Respiratory 20 18 18 Rate Blood Pressure 137/94 O2 Sat by Pulse 98 97 Oximetry 09/30/17 01:58 Temperature Pulse Rate Respiratory 18 Rate Blood Pressure O2 Sat by Pulse Oximetry - Reevaluation(s) Reevaluation #1: 09/30/17 02:42 Patient is speaking in full sentences with no signs of distress noted. ED Medical Decision Making - Medical Decision Making This is a 31-year-old male that presents with sinusitis, URI, and influenza. Patient is stable and was examined by me. Chest x-ray has been obtained and dictated by radiologist with normal exam. Patient is notified of x-ray results with no questions noted. Due to patient having symptoms of influenza and upper respiratory infection I will treat patient empirically with Tamiflu and augmentin for sinusitis. Patient was instructed to increase hydration, rest and take Motrin for fever episodes. Patient received motrin and tesslone perrls in the ED. Vitals stable. Patient is nonfebrile and normal heart rate. Patient was orally hydrated and patient tolerated well known nausea or vomiting. Patient was instructed Follow-up with a primary care doctor in 3-5 days or if symptoms worsen and continue return to emergency room as soon as possible. At time time of discharge, the patient does not seem toxic or ill in appearance. No acute signs of distress noted. Patient agrees to discharge treatment plan of care. No further questions noted by the patient. Critical care attestation.: If time is entered above; I have spent that time in minutes in the direct care of this critically ill patient, excluding procedure time. ED Disposition Clinical Impression: Influenza Sinusitis Qualifiers: Sinusitis location: frontal Chronicity: acute Recurrence: non-recurrent Qualified Code(s): J01.10 - Acute frontal sinusitis, unspecified Upper respiratory infection Qualifiers: URI type: unspecified URI Qualified Code(s): J06.9 - Acute upper respiratory infection, unspecified Disposition: DC-01 TO HOME OR SELFCARE Is pt being admited?: No Does the pt Need Aspirin: No Condition: Stable Instructions: Upper Respiratory Infection (ED), Amoxicillin/Clavulanate Potassium (By mouth), Benzonatate (By mouth), Fever in Adults (ED), Ibuprofen ( By mouth), Oseltamivir (By mouth), Sinusitis (ED) Additional Instructions: Follow-up with a primary care doctor in 3-5 days or if symptoms worsen and continue return to emergency room as soon as possible. Increase rest, hydration and take Motrin for fever episodes. Prescriptions: Amoxicillin/K Clav Tab [Augmentin 875 mg] 1 tab PO Q12HR #20 tab Benzonatate [Tessalon Perle] 100 mg PO Q6H PRN #20 capsule PRN Reason: Cough Ibuprofen [Motrin] 600 mg PO Q8H PRN #30 tablet PRN Reason: Fever Oseltamivir [Tamiflu] 75 mg PO BID #14 cap Referrals: PRIMARY CAREMD [Primary Care Provider] - 3-5 Days ALAYNA WHEELER MD [Staff Physician] - 3-5 Days [facility] [Outside] - 3-5 Days [facility] [Outside] - 3-5 Days Forms: Work/School Release Form(ED)
[2017-09-30 02:50] VITALS: BP 117/77
== END 2017-09-30 02:57 | disposition home or self-care (01) ==
LOC: ED 18:12
DX: J11.1 Influenza due to unidentified influenza virus with other respiratory manifestations (principal); J01.10 Acute frontal sinusitis, unspecified; J06.9 Acute upper respiratory infection, unspecified; I10 Essential (primary) hypertension; E11.9 Type 2 diabetes mellitus without complications; K21.9 Gastro-esophageal reflux disease without esophagitis; F17.200 Nicotine dependence, unspecified, uncomplicated
CPT/HCPCS: 71046; Q0162

== ENCOUNTER 2017-10-20 17:35 | Emergency (ER) | payer MEDICAID ==
[2017-10-20 18:09] LABS: Basophils % (Auto) 0.5 % (0.0-1.8); Eosinophils % (Auto) 0.5 % (0.0-4.3); Hematocrit 36.2 % (35.5-45.6); Hemoglobin 12.3 gm/dl (11.8-15.2); Lymphocytes # (Auto) 1.3 K/mm3 (1.2-5.4); Lymphocytes % (Auto) 16.9 % (13.4-35.0); Mean Corpuscular HGB Conc 34 % (32-34); Mean Corpuscular Hemoglobin 33 pg (28-32); Mean Corpuscular Volume 95 fl (84-94); Monocytes # (Auto) 0.3 K/mm3 (0.0-0.8); Monocytes % (Auto) 3.4 % (0.0-7.3); Platelet Count 550 K/mm3 (140-440); Red Cell Distribution Width 15.7 % (13.2-15.2)
[2017-10-20 18:20] LABS: Bilirubin,Urine NEG (Negative); Blood,Urine NEG (Negative); Color,Urine Straw (Yellow); Protein,Urine <15 mg/dL mg/dL (Negative); Urobilinogen,Urine < 2.0 mg/dL (<2.0)
[2017-10-20 18:21] LABS: BUN/Creatinine Ratio 28; Blood Urea Nitrogen 22 mg/dL (9-20); Calcium 8.8 mg/dL (8.4-10.2); Hemolysis Index 8
[2017-10-20 18:28] LABS: Amphetamine Screen,Urine PRESUMPTIVE NEGATIVE; Benzodiazepines Screen,Urine PRESUMPTIVE NEGATIVE; Cannabinoid Screen,Urine PRESUMPTIVE NEGATIVE; Methadone Screen,Urine PRESUMPTIVE NEGATIVE; Opiate Screen,Urine PRESUMPTIVE NEGATIVE
[2017-10-20 18:48] LABS: Cocaine Screen,Urine PRESUMPTIVE POSITIVE
[2017-10-20] MEDS ORDERED: HumuLIN R IV ONE ×2 (19:06→20:48)
[2017-10-20] MEDS ORDERED: NACL 0.9% 1000 ML 3,000 ML IV ONE (19:06)
[2017-10-20] MEDS ORDERED: ATIVAN IM ONE (19:13)
[2017-10-20 21:31] LABS: BUN/Creatinine Ratio 24; Blood Urea Nitrogen 19 mg/dL (9-20); Hemolysis Index 33
--- NOTE | 2017-10-20 22:33 | Emergency Department Report ---
HPI - General Chief Complaint: Hyperglycemia Time Seen by Provider: 10/20/17 18:59 - HPI HPI: The patient is a 31-year-old male with a history of diabetes, recurrent DKA, noncompliance of medications, and schizophrenia, and whom presents for evaluation of generalized weakness. The patient reports constant and severe generalized weakness for the past one day, exacerbated with exertion. He also admits to polyuria. The patient denies fever, head injury, headache, neck pain, neck stiffness, vision or hearing changes, smell or taste changes, paresthesias , facial drooping, slurred speech, seizure-like activity, urine or bowel incontinence or retention, or other focal neurological deficit. ED Past Medical Hx - Past Medical History Hx Hypertension: Yes Hx CVA: No Hx Heart Attack/AMI: No Hx Congestive Heart Failure: No Hx Diabetes: Yes Hx Deep Vein Thrombosis: No Hx Pulmonary Embolism: No Hx GERD: Yes Hx Liver Disease: No Hx Renal Disease: No Hx Sickle Cell Disease: No Hx Arthritis: No Hx Headaches / Migraines: No Hx Seizures: Yes Hx Kidney Stones: No Hx Psychiatric Treatment: Yes (bipolar ;schizophrenia) Hx Asthma: No Hx COPD: No Hx Tuberculosis: No Hx Dementia: No Hx HIV: No - Surgical History Hx Coronary Stent: No Hx Open Heart Surgery: No Hx Pacemaker: No Hx Internal Defibrillator: No Hx Cholecystectomy: No Hx Appendectomy: No Hx Breast Surgery: No Additional Surgical History: r) wrist surgery - Social History Smoking Status: Unknown if ever smoked - Medications Home Medications: Home Medications Medication Instructions Recorded Confirmed Last Taken Type Divalproex Dr Jaden Crocker] 250 mg PO QAM #30 tablet 09/15/17 10/06/[address] Jaden Crocker] 500 mg PO QHS #30 tablet 09/15/17 10/06/17 Unknown Rx Famotidine [Pepcid] 20 mg PO BID #30 tablet 09/15/17 10/06/17 Unknown Rx Insulin Aspart [NovoLOG 100 1 dose SQ AC #30 day 09/15/17 10/06/17 Unknown Rx UNITS/ML VIAL] OLANzapine [ZyPREXA] 5 mg PO HS #30 tablet 09/15/17 10/06/17 Unknown Rx Benzonatate [Tessalon Perle] 100 mg PO Q6H PRN #20 capsule 09/30/17 10/06/17 Unknown Rx Ondansetron [Zofran ODT TAB] 4 mg PO Q8HR PRN #20 tab.rapdis 09/30/17 10/06/17 Unknown Rx Insulin NPH/Regular [NovoLIN 70/30] 22 unit SUB-Q BIDDIAB 30 Days 10/13/17 Unknown Rx units ED Review of Systems ROS: Stated complaint: ALTERED MENTAL STATUS Other details as noted in HPI Constitutional: reports weakness denies: fever ENT: denies: throat or neck pain Respiratory: denies: cough, shortness of breath Cardiovascular: denies: chest pain Endocrine: denies unexplained weight loss or gain Gastrointestinal: denies: abdominal pain, nausea Genitourinary: reports polyuria denies: dysuria Musculoskeletal: denies: leg swelling Skin: denies: rash Neurological: denies: headache Hematological/Lymphatic: denies: easy bleeding or easy bruising Psych: denies sadness or hopelessness Physical Exam - Physical Exam Vital Signs: Vital Signs 10/20/17 10/20/17 17:44 20:11 Temperature 98.4 F Pulse Rate 62 103 H Respiratory 18 18 Rate Blood Pressure 106/72 O2 Sat by Pulse 96 99 Oximetry Physical Exam: General: well-nourished, well-developed, no acute distress Head: Normocephalic, atraumatic Eyes: normal sclera ENT: Mucous membranes are pale and dry Neck: No neck stiffness, no cervical adenopathy Respiratory: Breath sounds equal bilaterally, no wheezing, rales, or rhonchi Cardio: S1 and S2 present, no murmurs, rubs, gallops, capillary refill is delayed Abdomen: Normoactive bowel sounds, soft abdomen, no rigidity, no guarding or rebound tenderness Musc: No pitting edema Skin: No rash Neuro: Alert, disoriented, no facial drooping, no gross sensation or motor deficits Psych: Flat affect, agitated mood ED Course Vital Signs 10/20/17 10/20/17 17:44 20:11 Temperature 98.4 F Pulse Rate 62 103 H Respiratory 18 18 Rate Blood Pressure 106/72 O2 Sat by Pulse 96 99 Oximetry ED Medical Decision Making - Lab Data Result diagrams: 10/20/17 17:55 10/20/17 21:06 - Medical Decision Making The patient was seen and examined by myself. The patient is placed on a director of cardiac cath lab and continuous pulse ox. On initial evaluation, the patient was found to be in no distress. Evaluation orders are placed. Accu-Chek reveals elevated blood glucose greater than 500. IV access is established and the patient is given 1 L normal saline fluid bolus for treatment of his dehydration and hypoxemia. Lab results revealed elevated glucose level of 700, with increased anion gap, although with normal bicarbonate and venous pH level, not consistent with DKA. The patient is given IV insulin and additional normal saline fluid boluses for treatment of his hyperglycemia. Repeat BMP reveals correction of electrolyte imbalance and decrease in glucose level to 350. Repeat Accu-Chek reveals blood sugar now 128. As the patient's metabolic imbalances health been corrected, the patient does not require medical admission to the hospital at this time. The patient was reevaluated and found to have severe agitation, poor insight, inappropriate behavior, flat affect, concerning for acute psychosis. CT scan of the head was ordered and was negative for acute intracranial disease process. Mental health is consulted. A 1013 is completed. The patient will be transferred to a psychiatric facility once bed placement is obtained. Critical care attestation.: If time is entered above; I have spent that time in minutes in the direct care of this critically ill patient, excluding procedure time. ED Disposition Clinical Impression: Hyperkalemia, Acute hyperglycemia, Dehydration, Acute psychosis Disposition: DC/TX-65 PSY HOSP/PSY UNIT Is pt being admited?: No Does the pt Need Aspirin: No Condition: Serious Referrals: ALIE VITAL MD [Primary Care Provider] - 3-5 Days Time of Disposition: 22:37
[2017-10-20] MEDS ORDERED: ATIVAN IV ONE ×4 (23:29→23:53)
[2017-10-21] MEDS ORDERED: HALDOL IM ONE (01:06)
[2017-10-21] MEDS ORDERED: ALUM-MAG HYDROX-SIMETH 200-200-20MG/5ML PO PRN (01:11)
[2017-10-21] MEDS ORDERED: TYLENOL PO PRN (01:11)
[2017-10-21] MEDS ORDERED: MILK OF MAGNESIA PO PRN (01:11)
[2017-10-21] MEDS ORDERED: ATIVAN IV ONE ×2 (01:23→02:00)
--- NOTE | 2017-10-21 02:59 | Cat Scan Report ---
FINAL REPORT EXAM: CT HEAD/BRAIN WO CON HISTORY: headache COMPARISON: CT of the head from August 2017. TECHNIQUE: Axial images obtained skull base through vertex. FINDINGS: No acute intracranial hemorrhage, midline shift or pathologic extra axial fluid collection. Benign punctate calcifications bilateral basal ganglia. Ocular globes are grossly unremarkable. Ventricles and cisterns are normal in size and configuration for the patient's age. Luciano-white differentiation preserved. Calvarium grossly intact. Mild mucosal thickening the paranasal sinuses. Mastoid air cells are clear. Stable chronic fracture of the medial wall the right orbital rim. IMPRESSION: No grossly acute intracranial abnormality.
--- NOTE | 2017-10-21 15:27 | Consultation ---
History of Present Illness - Reason for Consult Consult date: 10/21/17 Reason for consult: Mental Health Evaluation Requesting physician: MARISOL PEARL - Chief Complaint Chief complaint: "Patient altered" - History of Present Psychiatric Illness The patient is a 31-year-old male with a history of diabetes, recurrent DKA, and noncompliance of medications presents for evaluation of generalized weakness. This patient is known to me. Today the patient is altered and a psy assessment was unsuccessful. The patient was discharged 10/13/2017 with an admitting dx of DKA. Medications and Allergies Allergies Allergy/AdvReac Type Severity Reaction Status Date / Time banana Allergy Severe Angioedema Verified 10/20/17 17:43 egg Allergy Unknown Verified 10/20/17 17:43 Home Medications Medication Instructions Recorded Confirmed Last Taken Type Divalproex Dr [Waldemar Crocker] 250 mg PO QAM #30 tablet 09/15/17 10/06/[address] Jaden Crocker] 500 mg PO QHS #30 tablet 09/15/17 10/06/17 Unknown Rx Famotidine [Pepcid] 20 mg PO BID #30 tablet 09/15/17 10/06/17 Unknown Rx Insulin Aspart [NovoLOG 100 1 dose SQ AC #30 day 09/15/17 10/06/17 Unknown Rx UNITS/ML VIAL] OLANzapine [ZyPREXA] 5 mg PO HS #30 tablet 09/15/17 10/06/17 Unknown Rx Benzonatate [Tessalon Perle] 100 mg PO Q6H PRN #20 capsule 09/30/17 10/06/17 Unknown Rx Ondansetron [Zofran ODT TAB] 4 mg PO Q8HR PRN #20 tab.rapdis 09/30/17 10/06/17 Unknown Rx Insulin NPH/Regular [NovoLIN 70/30] 22 unit SUB-Q BIDDIAB 30 Days 10/13/17 Unknown Rx units Active Meds: Active Medications Acetaminophen (Tylenol) 650 mg PO Q4HR PRN PRN Reason: Pain MILD(1-3)/Fever >100.5/MASON Al Hydrox/Mg Hydrox/Simethicone (Alum-Mag Hydrox-Simeth [id number]/5ml) 30 ml PO Q4HR PRN PRN Reason: Indigestion Divalproex Sodium (Waldemar Crocker) 250 mg PO QAM [facility] Last Admin: 10/21/17 10:05 Dose: Not Given Divalproex Sodium (Depakote Dr) 500 mg PO QHS [facility] Insulin Human Isoph/Insulin Regular (Novolin 70/30) 22 unit SUB-Q BIDDIAB [facility] Last Admin: 10/21/17 09:05 Dose: 22 unit Magnesium Hydroxide (Milk Of Magnesia) 30 ml PO Q12HR PRN PRN Reason: Constipation Olanzapine (Zyprexa) 5 mg PO [facility] Past psychiatric history - Past Medical History Past Medical History: diabetes Past Surgical History: No surgical history - past Psychiatric treatment and history psychiatric treatment history: The patient seen outpatient at [facility]. Unable to get a fam psy hx. - Social History Social history: lives with family Mental Status Exam - Vital signs Last Vital Signs Temp 98.4 F 10/20/17 20:11 Pulse 78 10/21/17 14:59 Resp 18 10/21/17 14:59 BP 118/82 10/21/17 14:59 Pulse Ox 97 10/21/17 14:59 - Exam Narrative exam: Unable to complete the MSE because of the patient's condition. Results Result Diagrams: 10/20/17 17:55 10/20/17 21:06 Abnormal lab results 10/20/17 10/20/17 10/20/17 Range/Units 17:44 17:55 17:55 MCV 95 H (84-94) fl MCH 33 H (28-32) pg RDW 15.7 H (13.2-15.2) % Plt Count 550 H (140-440) K/mm3 Seg Neutrophils % 78.7 H (40.0-70.0) % POC ABG pH (7.35-7.45) POC ABG pCO2 (35-45) POC ABG pO2 (80-105) VBG pH (7.320-7.420) Sodium 130 L (137-145) mmol/L Potassium 5.1 H (3.6-5.0) mmol/L Chloride 90.7 L (98-107) mmol/L Carbon Dioxide (22-30) mmol/L BUN 22 H (9-20) mg/dL Glucose 732 H* (75-100) mg/dL POC Glucose > 500 H (70-105) Calcium (8.4-10.2) mg/dL Urine pH (5.0-7.0) Valproic Acid (50-100) ug/mL 10/20/17 10/20/17 10/20/17 Range/Units 17:55 18:02 20:51 MCV (84-94) fl MCH (28-32) pg RDW (13.2-15.2) % Plt Count (140-440) K/mm3 Seg Neutrophils % (40.0-70.0) % POC ABG pH (7.35-7.45) POC ABG pCO2 (35-45) POC ABG pO2 (80-105) VBG pH 7.516 H (7.320-7.420) Sodium (137-145) mmol/L Potassium (3.6-5.0) mmol/L Chloride (98-107) mmol/L Carbon Dioxide (22-30) mmol/L BUN (9-20) mg/dL Glucose (75-100) mg/dL POC Glucose 400 H (70-105) Calcium (8.4-10.2) mg/dL Urine pH 9.0 H (5.0-7.0) Valproic Acid (50-100) ug/mL 10/20/17 10/20/17 10/20/17 Range/Units 21:06 23:22 23:58 MCV (84-94) fl MCH (28-32) pg RDW (13.2-15.2) % Plt Count (140-440) K/mm3 Seg Neutrophils % (40.0-70.0) % POC ABG pH 7.484 H (7.35-7.45) POC ABG pCO2 28.2 L (35-45) POC ABG pO2 119 H (80-105) VBG pH (7.320-7.420) Sodium (137-145) mmol/L Potassium (3.6-5.0) mmol/L Chloride (98-107) mmol/L Carbon Dioxide 18 L (22-30) mmol/L BUN (9-20) mg/dL Glucose 369 H (75-100) mg/dL POC Glucose 128 H (70-105) Calcium 8.0 L (8.4-10.2) mg/dL Urine pH (5.0-7.0) Valproic Acid (50-100) ug/mL 03/02/18 03/02/18 Range/Units 02:25 09:07 MCV (84-94) fl MCH (28-32) pg RDW (13.2-15.2) % Plt Count (140-440) K/mm3 Seg Neutrophils % (40.0-70.0) % POC ABG pH (7.35-7.45) POC ABG pCO2 (35-45) POC ABG pO2 (80-105) VBG pH (7.320-7.420) Sodium (137-145) mmol/L Potassium (3.6-5.0) mmol/L Chloride (98-107) mmol/L Carbon Dioxide (22-30) mmol/L BUN (9-20) mg/dL Glucose (75-100) mg/dL POC Glucose 398 H (70-105) Calcium (8.4-10.2) mg/dL Urine pH (5.0-7.0) Valproic Acid < 2.8 L (50-100) ug/mL All other labs normal. Assessment and Plan Assessment and plan: Impression: Hx of Bipolar DO. Today the patient is altered and a psy assessment was unsuccessful. The patient is in restraints. The patient is positive for cocaine. Recommendation/Plan: Continue 1013. Reassess in 24 hours to determine if we will restart his psy medications. Recommend aspiration precaution at this time. Recommend delirium precautions below: 1. Frequently reorient patient and involve him/her in their care (simple explanations of procedures, tests, medications). 2. Lights on and shades open during daytime hours. 3. Try to avoid unnecessary interruptions to sleep during nighttime hours. 4. Obtain glasses, hearing aids from home if patient uses these at baseline. 5. Avoid medications that may exacerbate delirium (especially narcotics, barbiturates, ambien, lunesta, benzos, and medications with excessive anticholinergic properties). 6. D/C restraints when not indicated. 7. Haldol 2 mg IM Q6hrs PRN for acute agitation.
--- NOTE | 2017-10-22 17:10 | Progress Note ---
Subjective - Reason for Consult Consult date: 10/22/17 Reason for consult: psychiatric follow up - Chief Complaint Chief complaint: The patient is a 31-year-old male with a history of diabetes, recurrent DKA, and noncompliance of medications presents for evaluation of generalized weakness. The patient was discharged 10/13/2017 with an admitting dx of DKA. He was ambulating around the room today. He describes his mental state as "good." He denies suicidal or homicidal ideation. He denies psychotic symptoms. He states his medical problems are why he is in the ER. Mental Status Exam - Vital signs Last Vital Signs Temp 98.1 F 10/22/17 09:01 Pulse 76 10/22/17 09:01 Resp 16 10/22/17 09:02 BP 119/74 10/22/17 09:01 Pulse Ox 100 10/22/17 09:02 - Exam Orientation: time, place, person Affect: normal Mood: calm Thought content: other (no SI/HI) Thought Process: Intact Perceptions: none Speech: normal rate and pattern Concentration: focused Motor activity: restless Level of consciousness: alert Memory: Intact Sleep Symptoms: None Interaction: cooperative Assessment and Plan Impression: Hx of Bipolar DO. He is ambulatory, A& O x 4 today. The patient is positive for cocaine. Recommendation/Plan: Continue 1013 and will assess in 24 hours to determine need for ongoing psychiatric hold.
[2017-10-22] MEDS: HALDOL IM PRN (21:53)
[2017-10-23] MEDS: ATIVAN IV PRN ×2 (03:11→09:15)
[2017-10-23] MEDS: HALDOL IM PRN (15:49)
--- NOTE | 2017-10-23 16:19 | Progress Note ---
Subjective - Reason for Consult Consult date: 10/23/17 Reason for consult: follow up - Chief Complaint Chief complaint: The patient is a 31-year-old male with a history of diabetes, recurrent DKA, and noncompliance of medications presents for evaluation of generalized weakness. The patient was discharged 10/13/2017 with an admitting dx of DKA. He was ambulating around the room today. He describes his mental state as "good." He is irritable today stating he should be able to go home. He acknowledges being non compliant with his psychiatric medications. He denies suicidal or homicidal ideation. He denies psychotic symptoms. He states his medical problems are why he is in the ER. Mental Status Exam - Vital signs Last Vital Signs Temp 98.5 F 10/23/17 08:00 Pulse 80 10/23/17 08:00 Resp 18 10/23/17 08:00 BP 108/72 10/23/17 08:00 Pulse Ox 98 10/23/17 08:00 - Exam Orientation: time, place, person Affect: normal Mood: other (irritable) Thought content: other (no SI/HI) Thought Process: Intact Perceptions: none Speech: normal rate and pattern Concentration: distractible Motor activity: restless Level of consciousness: alert Memory: Intact Sleep Symptoms: None Appetite: increased Interaction: cooperative Assessment and Plan Impression: Hx of Bipolar DO. He is ambulatory, A& O x 4 today. The patient is positive for cocaine. Recommendation/Plan: Continue 1013 and will assess in 24 hours to determine need for ongoing psychiatric hold. restart home medication zyprexa 5mg hs for mood
[2017-10-23] MEDS ORDERED: ATIVAN ONE (18:44)
[2017-10-23] MEDS ORDERED: ATIVAN IM ONE (18:55)
[2017-10-23] MEDS ORDERED: ATIVAN PO ONE ×2 (18:58→22:10)
[2017-10-23 19:07] LABS: BUN/Creatinine Ratio 13; Blood Urea Nitrogen 10 mg/dL (9-20); Calcium 8.2 mg/dL (8.4-10.2); Hemolysis Index 3
[2017-10-24 08:32] LABS: Alanine Aminotransferase 21 units/L (7-56); Lipase 25 units/L (13-60)
--- NOTE | 2017-10-24 10:02 | Progress Note ---
Subjective - Reason for Consult Consult date: 10/24/17 Reason for consult: Psychiatry Follow-up - Chief Complaint Chief complaint: "I have to do better" The patient is a 31-year-old male with a history of diabetes, recurrent DKA, and noncompliance of medications presents for evaluation of generalized weakness. This patient is known to me. The patient was discharged 10/13/2017 with an admitting dx of DKA. Today the patient is calm and cooperative during the assessment. He stated that he has to do better by managing his diabetes. He stated that he plan to follow up with [facility] for outpatient psy/rehab services when discharged. He stated having psy medications at his residence and plan to be compliant. He denies SI/HI's and AVH's. He denies any side effects of his medication. Mental Status Exam - Vital signs Last Vital Signs Temp 98.5 F 10/23/17 08:00 Pulse 80 10/23/17 08:00 Resp 18 10/23/17 08:00 BP 108/72 10/23/17 08:00 Pulse Ox 98 10/23/17 08:00 - Exam Narrative exam: MSE: Appearance: calm, cooperative Behavior: regular eye contact Speech: regular rate and tone Mood: "okay" Affect: congruent to mood Thought Process: linear Thought Content: denies SI/HI's and AVH's Motor Activity: ambulatory Cognition: A/O x3 Insight: fair Judgment: fair Assessment and Plan Impression: Hx of Bipolar DO. Substance Use DO (cocaine). Today the patient is calm and cooperative during the assessment. The patient is positive for cocaine. Recommendation/Plan: Rescind 1013. Continue Zyprexa 5 mg Po HS for mood. Discussed possible metabolic side effects of Zyprexa with patient. Discussed the importance to abstain from recreational drug use. The patient can follow-up with [facility] for outpatient rehab/psy services.
[2017-10-24 18:02] VITALS: BP 106/58
--- NOTE | 2017-10-24 18:10 | Emergency Department Report ---
Blank Doc - Documentation Documentation: I was asked to assess Mr Reddy for possible discharge. Patient was seen here for noncompliant with his medications. Patient denied any suicidal or homicidal ideation. No visual or auditory hallucination. Patient stated that he will follow-up with outpatient rehabilitation as directed by psychiatric team. Patient does not have any physical complaint ,chest and shortness of breath ,nausea or vomiting. Patient is stable to be discharged.
== END 2017-10-24 18:35 ==
LOC: EEVIPCON 17:35 → ED 17:35
DX: E11.65 Type 2 diabetes mellitus with hyperglycemia (principal); E86.0 Dehydration; I10 Essential (primary) hypertension; K21.9 Gastro-esophageal reflux disease without esophagitis; F31.9 Bipolar disorder, unspecified; Z79.4 Long term (current) use of insulin
CPT/HCPCS: 36415; 80048; 80164; 80307; 81001; 82140; 82150; 82550; 82803; 82805; 82962; 83690; 84075; 84450; 84460; 85025; 96361; 96372; 96374; 96375; 96376; 99284; J1630; J2060; J7030; J1815

== ENCOUNTER 2017-11-24 00:52 | Emergency (ER) | payer MEDICAID | END 2017-11-24 00:53 | disposition left against medical advice (07) | LOC: ED 00:52 | DX: R10.9 Unspecified abdominal pain (principal); Z53.21 Procedure and treatment not carried out due to patient leaving prior to being seen by health care provider ==

== ENCOUNTER 2017-11-24 07:38 | Emergency (ER) | payer MEDICAID ==
[2017-11-24 08:08] LABS: Basophils # (Auto) 0.1 K/mm3 (0.0-0.1); Basophils % (Auto) 0.5 % (0.0-1.8); Eosinophils # (Auto) 0.5 K/mm3 (0.0-0.4); Eosinophils % (Auto) 3.5 % (0.0-4.3); Hematocrit 50.7 % (35.5-45.6); Hemoglobin 16.8 gm/dl (11.8-15.2); Lymphocytes % (Auto) 21.2 % (13.4-35.0); Mean Corpuscular HGB Conc 33 % (32-34); Mean Corpuscular Hemoglobin 31 pg (28-32); Mean Corpuscular Volume 94 fl (84-94); Monocytes # (Auto) 0.6 K/mm3 (0.0-0.8); Platelet Count 401 K/mm3 (140-440); Red Blood Count 5.39 M/mm3 (3.65-5.03); Red Cell Distribution Width 14.9 % (13.2-15.2)
[2017-11-24 08:16] LABS: Bilirubin,Urine NEG (Negative); Blood,Urine NEG (Negative); Color,Urine Yellow (Yellow); Mucus,Urine FEW /HPF; Urobilinogen,Urine < 2.0 mg/dL (<2.0)
[2017-11-24 08:22] LABS: Alanine Aminotransferase 32 units/L (7-56); Albumin 4.2 g/dL (3.9-5); BUN/Creatinine Ratio 26; Blood Urea Nitrogen 26 mg/dL (9-20); Calcium 10.6 mg/dL (8.4-10.2); Hemolysis Index 17; Lipase 15 units/L (13-60)
[2017-11-24] MEDS ORDERED: ZOFRAN IV ONE (09:07)
[2017-11-24] MEDS ORDERED: NACL 0.9% 1000 ML 1,000 ML IV ONE (09:07)
--- NOTE | 2017-11-24 09:31 | Emergency Department Report ---
HPI - General Chief Complaint: Abdominal Pain Time Seen by Provider: 11/24/17 08:06 - HPI HPI: 32-year-old male presents to the emergency department with a complaint of some generalized abdominal pain, nausea and vomiting that started last night. He denies any fever, diarrhea, constipation. He did not take anything for her symptoms prior to presentation. Some of the patient's presentation is confusing but it sounds like he arrived last night but then was sleeping in the waiting room for a while. He woke up this morning and signed in for this abdominal complaint. He has a history of diabetes, GERD, hypertension, bipolar disorder, schizophrenia, seizures. He denies any recent travel or any sick contacts at home. He says that he lives at home with family. ED Past Medical Hx - Past Medical History Previous Medical History?: Yes Hx Hypertension: Yes Hx CVA: No Hx Heart Attack/AMI: No Hx Congestive Heart Failure: No Hx Diabetes: Yes Hx Deep Vein Thrombosis: No Hx Pulmonary Embolism: No Hx GERD: Yes Hx Liver Disease: No Hx Renal Disease: No Hx Sickle Cell Disease: No Hx Arthritis: No Hx Headaches / Migraines: No Hx Seizures: Yes Hx Kidney Stones: No Hx Psychiatric Treatment: Yes (bipolar ;schizophrenia) Hx Asthma: No Hx COPD: No Hx Tuberculosis: No Hx Dementia: No Hx HIV: No - Surgical History Past Surgical History?: Yes Hx Coronary Stent: No Hx Open Heart Surgery: No Hx Pacemaker: No Hx Internal Defibrillator: No Hx Cholecystectomy: No Hx Appendectomy: No Hx Breast Surgery: No Additional Surgical History: r) wrist surgery - Social History Smoking Status: Current Every Day Smoker - Medications Home Medications: Home Medications Medication Instructions Recorded Confirmed Last Taken Type Divalproex [Waldemar Crocker] 250 mg PO QAM #30 tablet 09/15/17 10/24/[address] Jaden Crocker] 500 mg PO QHS #30 tablet 09/15/17 10/24/17 Unknown Rx Famotidine [Pepcid] 20 mg PO BID #30 tablet 09/15/17 10/24/17 Unknown Rx Insulin Aspart [NovoLOG 100 1 dose SQ AC #30 day 09/15/17 10/24/17 Unknown Rx UNITS/ML VIAL] OLANzapine [ZyPREXA] 5 mg PO HS #30 tablet 09/15/17 10/24/17 Unknown Rx Benzonatate [Tessalon Perle] 100 mg PO Q6H PRN #20 capsule 09/30/17 10/24/17 Unknown Rx Insulin NPH/Regular [NovoLIN 70/30] 22 unit SUB-Q BIDDIAB 30 Days 10/13/1710/24 Unknown Rx units Docusate Sodium [Colace] 100 mg PO BID PRN #20 capsule 11/24/17 Unknown Rx Ondansetron [Zofran ODT TAB] 4 mg PO Q8HR PRN #10 tab.rapdis 11/24/17 Unknown Rx ED Review of Systems ROS: Stated complaint: ABDOMINAL PAIN Other details as noted in HPI Comment: All other systems reviewed and negative Constitutional: denies: chills, fever Eyes: denies: eye pain, eye discharge, vision change ENT: denies: ear pain, throat pain Respiratory: denies: cough, shortness of breath, wheezing Cardiovascular: denies: chest pain, palpitations Gastrointestinal: abdominal pain, nausea, vomiting Genitourinary: denies: urgency, dysuria Musculoskeletal: denies: back pain, joint swelling, arthralgia Skin: denies: rash, lesions Neurological: denies: headache, weakness, paresthesias Physical Exam - Physical Exam Vital Signs: Vital Signs 11/24/17 11/24/17 07:46 08:35 Temperature 97.6 F 97.4 F L Pulse Rate 80 106 H Respiratory 20 10 L Rate Blood Pressure 150/88 Blood Pressure 112/86 [Left] O2 Sat by Pulse 91 100 Oximetry Physical Exam: GENERAL: The patient is well-developed well-nourished. HENT: Normocephalic. Atraumatic. Patient has moist mucous membranes. EYES: Extraocular motions are intact. Pupils equal reactive to light bilaterally. NECK: Supple. Trachea is midline. CHEST/LUNGS: Clear to auscultation. There is no respiratory distress noted. HEART/CARDIOVASCULAR: Regular. There is no tachycardia. There is no murmur. ABDOMEN: Abdomen is soft. Mild generalized tenderness to palpation of the abdomen. No guarding. Patient has normal bowel sounds. There is no abdominal distention. SKIN: Skin is warm and dry. NEURO: The patient is awake, alert. The patient is cooperative. The patient has no focal neurologic deficits. The patient has normal speech. MUSCULOSKELETAL: There is no tenderness or deformity. There is no limitation range of motion. There is no evidence of acute injury. ED Course Vital Signs 11/24/17 11/24/17 07:46 08:35 Temperature 97.6 F 97.4 F L Pulse Rate 80 106 H Respiratory 20 10 L Rate Blood Pressure 150/88 Blood Pressure 112/86 [Left] O2 Sat by Pulse 91 100 Oximetry ED Medical Decision Making - Lab Data Result diagrams: 11/24/17 07:56 11/24/17 08:00 - Radiology Data Radiology results: report reviewed EXAM: CT ABDOMEN PELVIS W CON HISTORY: Abd pain TECHNIQUE: CT of the abdomen and pelvis with IV contrast. Coronal and sagittal reconstructed imaging provided. PRIORS: CT abdomen pelvis August 17, 2017. FINDINGS: ABDOMEN: Liver, gallbladder, stomach, spleen, pancreas, adrenals, and kidneys are unremarkable. There is no abdominal aortic aneurysm. No dissection. IVC is unremarkable. There is no periaortic or retroperitoneal adenopathy or mass. Moderate to marked stool in the rectum. Moderate stool in the remainder of the colon. No wall thickening or inflammatory changes. No appendix is normal. Terminal ilium is unremarkable. There may be mild fold and wall thickening of the small bowel loops without obstruction. No air-fluid levels. Mesentery is unremarkable. PELVIS: Bladder is unremarkable. There is no pelvic mass or adenopathy. Inguinal regions are unremarkable. Bones: No suspicious osseous lesions on this limited examination of the skeleton. Metastatic disease better evaluated with bone scan. IMPRESSION: Possible constipation with fecal impaction at the rectum. Small-bowel findings are nonspecific. Possible normal variation versus a mild gastroenteritis. Transcribed By: TYM Dictated By: KRUPA ALONZO MD Electronically Authenticated By: KRUPA ALONZO MD Signed Date/Time: 11/24/17 8819 - Medical Decision Making Patient says he has generalized abdominal pain with nausea and vomiting that started last night. Patient has a leukocytosis of about 13,000 but no source of infection seen. He has some hyperglycemia with history of diabetes but does not appear to be in diabetic ketoacidosis. CT of the abdomen and pelvis shows some constipation but otherwise no acute process. Patient will be discharged home with some Zofran for nausea and Colace for stool softener. He has been given referrals for primary care and gastroenterology. He has been encouraged to return to the emergency Department with any worsening of symptoms or any acute distress. Vital signs stable throughout his ED course including being afebrile. - Differential Diagnosis diverticulitis, constipation, gastritis, malignancy Critical Care Time: No Critical care attestation.: If time is entered above; I have spent that time in minutes in the direct care of this critically ill patient, excluding procedure time. ED Disposition Clinical Impression: Abdominal pain Qualifiers: Abdominal location: generalized Qualified Code(s): R10.84 - Generalized abdominal pain Nausea & vomiting Qualifiers: Vomiting type: unspecified Vomiting Intractability: non-intractable Qualified Code(s): R11.2 - Nausea with vomiting, unspecified Disposition: DC- TO HOME OR SELFCARE Is pt being admited?: No Condition: Stable Instructions: Acute Nausea and Vomiting (ED), Abdominal Pain (ED) Additional Instructions: Please follow up with a primary care physician in the next few days. Return to the emergency Department with any worsening of your symptoms or any acute distress. Prescriptions: Ondansetron [Zofran ODT TAB] 4 mg PO Q8HR PRN #10 tab.rapdis PRN Reason: Nausea Referrals: PRIMARY KARIN, [Primary Care Provider] - 3-5 Days MARGA ESPINOSA MD [Staff Physician] - 3-5 Days [facility] [Outside] - 3-5 Days Time of Disposition: 11:58
--- NOTE | 2017-11-24 11:04 | Cat Scan Report ---
FINAL REPORT EXAM: CT ABDOMEN PELVIS W CON HISTORY: Abd pain TECHNIQUE: CT of the abdomen and pelvis with IV contrast. Coronal and sagittal reconstructed imaging provided. PRIORS: CT abdomen pelvis August 17, 2017. FINDINGS: ABDOMEN: Liver, gallbladder, stomach, spleen, pancreas, adrenals, and kidneys are unremarkable. There is no abdominal aortic aneurysm. No dissection. IVC is unremarkable. There is no periaortic or retroperitoneal adenopathy or mass. Moderate to marked stool in the rectum. Moderate stool in the remainder of the colon. No wall thickening or inflammatory changes. No appendix is normal. Terminal ilium is unremarkable. There may be mild fold and wall thickening of the small bowel loops without obstruction. No air-fluid levels. Mesentery is unremarkable. PELVIS: Bladder is unremarkable. There is no pelvic mass or adenopathy. Inguinal regions are unremarkable. Bones: No suspicious osseous lesions on this limited examination of the skeleton. Metastatic disease better evaluated with bone scan. IMPRESSION: Possible constipation with fecal impaction at the rectum. Small-bowel findings are nonspecific. Possible normal variation versus a mild gastroenteritis.
[2017-11-24 12:32] VITALS: BP 113/76
== END 2017-11-24 13:27 | disposition home or self-care (01) ==
LOC: ED 07:38
DX: R10.84 Generalized abdominal pain (principal); R11.2 Nausea with vomiting, unspecified; I10 Essential (primary) hypertension; E11.9 Type 2 diabetes mellitus without complications; K21.9 Gastro-esophageal reflux disease without esophagitis; F17.200 Nicotine dependence, unspecified, uncomplicated
CPT/HCPCS: 36415; 74177; 80053; 81001; 82962; 83690; 85025; 96361; 96374; 99284; J2405; J7030; Q9967

== ENCOUNTER 2017-12-13 10:31 | Inpatient (IN) | payer MEDICAID ==
[2017-12-13] MEDS ORDERED: ATIVAN ONE (11:10)
[2017-12-13] MEDS ORDERED: NACL 0.9% 500 ML 500 ML IV ONE (11:17)
[2017-12-13] MEDS: ATIVAN IV ONE ×2 (11:18→12:02)
[2017-12-13] MEDS ORDERED: NACL 0.9% 1000 ML IV ONE (11:19)
[2017-12-13 11:59] LABS: Eosinophils % (Auto) 0.2 % (0.0-4.3); INR 0.89 (0.87-1.13); Monocytes # (Auto) 0.3 K/mm3 (0.0-0.8); Monocytes % (Auto) 3.8 % (0.0-7.3); Partial Thromboplastin Time 21.6 Sec. (24.2-36.6)
[2017-12-13 12:00] LABS: Hematocrit 54.3 % (35.5-45.6); Hemoglobin 15.7 gm/dl (11.8-15.2); Mean Corpuscular HGB Conc 29 % (32-34); Mean Corpuscular Hemoglobin 32 pg (28-32); Mean Corpuscular Volume 109 fl (84-94); Red Blood Count 4.97 M/mm3 (3.65-5.03)
[2017-12-13 12:01] LABS: Basophils % (Auto) 0.3 % (0.0-1.8); Lymphocytes # (Auto) 1.3 K/mm3 (1.2-5.4); Platelet Count 376 K/mm3 (140-440); Red Cell Distribution Width 15.9 % (13.2-15.2)
[2017-12-13 12:06] LABS: Albumin 3.9 g/dL (3.9-5); BUN/Creatinine Ratio 26; Bilirubin,Direct < 0.2 mg/dL (0-0.2); Blood Urea Nitrogen 34 mg/dL (9-20); Calcium 9.6 mg/dL (8.4-10.2); Hemolysis Index 94
[2017-12-13 12:20] LABS: Alanine Aminotransferase 67 units/L (7-56)
[2017-12-13] MEDS ORDERED: D50W (25GM) Syringe IV PRN (12:25)
--- NOTE | 2017-12-13 12:31 | History and Physical Report ---
History of Present Illness Chief complaint: confusion History of present illness: 32 YO Male with DM, GERD, HTN, DM, Seizure Disorder, Bipolar DO, Schizophrenia presents to ED for evaluation presents to ED for evaluation. Pt confused and unable to provide history. Pt history taken fro medical record, ED staff. Pt dropped off at ED triage by two people who subsequently departed the hospital. Pt combative. Code security called. Pt seen and evaluated in ED and found to have Encephalopathy, DKA, and SIRS. Pt admitted to ICU. Past History Past Medical History: diabetes, GERD, hypertension, other (bipolar,schizophrenia ) Past Surgical History: Other (wrist surgery) Social history: single. denies: smoking, alcohol abuse, prescription drug abuse Family history: diabetes, hypertension Medications and Allergies Allergies Allergy/AdvReac Type Severity Reaction Status Date / Time banana Allergy Severe Angioedema Verified 10/20/17 17:43 egg Allergy Unknown Verified 10/20/17 17:43 Home Medications Medication Instructions Recorded Confirmed Last Taken Type Divalproex [Waldemar Crocker] 250 mg PO QAM #30 tablet 09/15/17 12/13/[address] Jaden Crocker] 500 mg PO QHS #30 tablet 09/15/17 12/13/17 Unknown Rx Famotidine [Pepcid] 20 mg PO BID #30 tablet 09/15/17 12/13/17 Unknown Rx OLANzapine [ZyPREXA] 5 mg PO HS #30 tablet 09/15/17 12/13/17 Unknown Rx Insulin NPH/Regular [NovoLIN 70/30] 22 unit SUB-Q BIDDIAB 30 Days 10/13/1712/13 Unknown Rx units Docusate Sodium [Colace CAP] 100 mg PO BID PRN #20 capsule 11/24/17 12/13/17 Unknown Rx Active Meds: Active Medications Dextrose (D50w (25gm) Syringe) 0 ml IV ONCE PRN PRN Reason: Hypoglycemia Insulin Human Regular 100 (units/ Sodium Chloride) 100 mls @ 1 mls/hr IV TITR ANTONIA; Protocol Piperacillin Sod/Tazobactam Sod (Zosyn/Ns 3.375gm/50ml) 50 mls @ 100 mls/hr IV Q6HR ANTONIA; Protocol Vancomycin HCl (Vancomycin Pharmacy To Dose) 1 each IV PKCONSULT ANTONIA; Protocol Review of Systems ROS unobtainable: due to mental status Exam - Constitutional Vitals: Temp Pulse Resp BP Pulse Ox 99.7 F H 115 H 11 L 107/63 99 12/13/17 12:03 12/13/17 12:04 12/13/17 12:00 12/13/17 12:00 12/13/17 12:03 General appearance: Present: severe distress, cachectic - EENT Eyes: Present: miosis ENT: hearing intact, clear oral mucosa - Neck Neck: Present: supple, normal ROM - Respiratory Respiratory effort: normal Respiratory: bilateral: CTA - Cardiovascular Heart Sounds: Present: S1 & S2. Absent: rub, click - Extremities Extremities: pulses symmetrical, No edema Peripheral Pulses: within normal limits - Abdominal General gastrointestinal: Present: soft, non-tender, non-distended, normal bowel sounds Male genitourinary: Present: normal - Integumentary Integumentary: Present: dry, clammy, decreased turgor - Musculoskeletal Musculoskeletal: gait normal, strength equal bilaterally - Psychiatric Psychiatric: no intact judgment & insight, no memory intact - Neurologic Neurologic: CNII-XII intact, moves all extremities Results - Labs CBC & Chem 7: 12/16/17 05:17 12/15/17 04:38 Labs: Abnormal lab results 12/13/17 12/13/17 12/13/17 Range/Units 11:11 11:20 11:20 Hgb 15.7 H (11.8-15.2) gm/dl Hct 54.3 H (35.5-45.6) % MCV 109 H (84-94) fl MCHC 29 L (32-34) % RDW 15.9 H (13.2-15.2) % Seg Neutrophils % 80.7 H (40.0-70.0) % APTT 21.6 L (24.2-36.6) Sec. VBG pH (7.320-7.420) Sodium (137-145) mmol/L Potassium (3.6-5.0) mmol/L Chloride (98-107) mmol/L Carbon Dioxide (22-30) mmol/L BUN (9-20) mg/dL Glucose (75-100) mg/dL POC Glucose > 500 H (70-105) Lactic Acid (0.7-2.0) mmol/L Magnesium (1.7-2.3) mg/dL ALT (7-56) units/L Alkaline Phosphatase (35-129) units/L 12/13/17 12/13/17 12/13/17 Range/Units 11:20 11:39 11:39 Hgb (11.8-15.2) gm/dl Hct (35.5-45.6) % MCV (84-94) fl MCHC (32-34) % RDW (13.2-15.2) % Seg Neutrophils % (40.0-70.0) % APTT (24.2-36.6) Sec. VBG pH 7.256 L (7.320-7.420) Sodium 133 L (137-145) mmol/L Potassium 5.3 H (3.6-5.0) mmol/L Chloride 88.5 L (98-107) mmol/L Carbon Dioxide 17 L (22-30) mmol/L BUN 34 H (9-20) mg/dL Glucose 1708 H* (75-100) mg/dL POC Glucose (70-105) Lactic Acid 5.00 H* (0.7-2.0) mmol/L Magnesium 2.80 H (1.7-2.3) mg/dL ALT 67 H (7-56) units/L Alkaline Phosphatase 163 H (35-129) units/L Assessment and Plan - Patient Problems (1) DKA, type 1 Current Visit: Yes Status: Acute Qualifiers: Diabetes mellitus complication detail: with coma Qualified Code(s): E10.11 - Type 1 diabetes mellitus with ketoacidosis with coma Plan to address problem: Insulin Drip, IVF resuscitation, monitor uop q shift, serial BMP, monitor anion gap, potassium replacement as per protocol, The high probability of a clinically significant, sudden or life threatening deterioration of the [Endocrine, renal, neuro] system(s) required my full and direct attention, intervention and personal management. The aggregate critical care time was [65] minutes. This time is in addition to time spent performing reported procedures but includes the following: [x] Data Review and interpretation [x] Patient assessment and monitoring of vital signs [x] Documentation [x] Medication orders and management (2) SIRS (systemic inflammatory response syndrome) Current Visit: Yes Status: Acute Plan to address problem: IV antibiotics, IVF resuscitation, Chest X ray, urinalysis, CBC (3) Encephalopathy Current Visit: Yes Status: Acute Plan to address problem: CT Head, neuro checks, supportive care, treat DKA (4) Acidosis Current Visit: Yes Status: Acute Plan to address problem: Secondary to DKA, Treat DKA, IVF resuscitation, serial bmp, (5) DVT prophylaxis Current Visit: No Status: Acute
[2017-12-13] MEDS ORDERED: SODIUM CHLORIDE FLUSH SYRINGE 10 ML IV PRN (12:33)
--- NOTE | 2017-12-13 12:34 | XRay Report ---
AP CHEST: HISTORY: Sepsis AP view of the chest demonstrates a normal mediastinal and cardiac contour with clear lungs and normal bony and soft tissue structures. IMPRESSION: Unremarkable AP chest.
[2017-12-13 12:35] LABS: WBC,Urine < 1.0 /HPF (0.0-6.0)
--- NOTE | 2017-12-13 12:38 | Emergency Department Report ---
ED General Adult HPI - General Chief complaint: Altered Mental Status Stated complaint: DKA Time Seen by Provider: 12/13/17 11:24 Source: old records reviewed Mode of arrival: Ambulatory Limitations: Other - History of Present Illness Initial comments: 32-year-old male who was recently discharged from the hospital. He is an insulin-dependent diabetic who was admitted for hyperosmotic nonketotic state. I don't think a specific focus of infection was identified on his previous admission. However the discharge summary is still pending. In any case he presents to the emergency department today by ambulance completely altered nonverbal and biting at staff. He was given Ativan for sedation. -: unknown Consistency: constant - Related Data Previous Rx's Medication Instructions Recorded Last Taken Type Divalproex Dr [Waldemar Crocker] 250 mg PO QAM #30 tablet 09/15/[address] [Waldemar Crocker] 500 mg PO QHS #30 tablet 09/15/17 Unknown Rx Famotidine [Pepcid] 20 mg PO BID #30 tablet 09/15/17 Unknown Rx Insulin Aspart [NovoLOG 100 1 dose SQ AC #30 day 09/15/17 Unknown Rx UNITS/ML VIAL] OLANzapine [ZyPREXA] 5 mg PO HS #30 tablet 09/15/17 Unknown Rx Benzonatate [Tessalon Perle] 100 mg PO Q6H PRN #20 capsule 09/30/17 Unknown Rx Insulin NPH/Regular [NovoLIN 70/30] 22 unit SUB-Q BIDDIAB 30 Days 10/13/17 Unknown Rx units Docusate Sodium [Colace CAP] 100 mg PO BID PRN #20 capsule 11/24/17 Unknown Rx Ondansetron [Zofran ODT TAB] 4 mg PO Q8HR PRN #10 tab.rapdis 11/24/17 Unknown Rx Allergies Allergy/AdvReac Type Severity Reaction Status Date / Time banana Allergy Severe Angioedema Verified 10/20/17 17:43 egg Allergy Unknown Verified 10/20/17 17:43 ED Review of Systems ROS: Stated complaint: DKA Other details as noted in HPI Comment: Unobtainable due to pts medical conditions ED Past Medical Hx - Past Medical History Hx Hypertension: Yes Hx CVA: No Hx Heart Attack/AMI: No Hx Congestive Heart Failure: No Hx Diabetes: Yes Hx Deep Vein Thrombosis: No Hx Pulmonary Embolism: No Hx GERD: Yes Hx Liver Disease: No Hx Renal Disease: No Hx Sickle Cell Disease: No Hx Arthritis: No Hx Headaches / Migraines: No Hx Seizures: Yes Hx Kidney Stones: No Hx Psychiatric Treatment: Yes (bipolar ;schizophrenia) Hx Asthma: No Hx COPD: No Hx Tuberculosis: No Hx Dementia: No Hx HIV: No - Surgical History Hx Coronary Stent: No Hx Open Heart Surgery: No Hx Pacemaker: No Hx Internal Defibrillator: No Hx Cholecystectomy: No Hx Appendectomy: No Hx Breast Surgery: No Additional Surgical History: r) wrist surgery - Social History Smoking Status: Unknown if ever smoked - Medications Home Medications: Home Medications Medication Instructions Recorded Confirmed Last Taken Type Divalproex Dr [Waldemar Crocker] 250 mg PO QAM #30 tablet 09/15/17 10/24/[address] [Waldemar Dr] 500 mg PO QHS #30 tablet 09/15/17 10/24/17 Unknown Rx Famotidine [Pepcid] 20 mg PO BID #30 tablet 09/15/17 10/24/17 Unknown Rx Insulin Aspart [NovoLOG 100 1 dose SQ AC #30 day 09/15/17 10/24/17 Unknown Rx UNITS/ML VIAL] OLANzapine [ZyPREXA] 5 mg PO HS #30 tablet 09/15/17 10/24/17 Unknown Rx Benzonatate [Tessalon Perle] 100 mg PO Q6H PRN #20 capsule 09/30/17 10/24/17 Unknown Rx Insulin NPH/Regular [NovoLIN 70/30] 22 unit SUB-Q BIDDIAB 30 Days 10/13/1710/24 Unknown Rx units Docusate Sodium [Colace CAP] 100 mg PO BID PRN #20 capsule 11/24/17 Unknown Rx Ondansetron [Zofran ODT TAB] 4 mg PO Q8HR PRN #10 tab.rapdis 11/24/17 Unknown Rx ED Physical Exam - General Limitations: Altered Mental Status General appearance: other (agitated) - Head Head exam: Present: atraumatic - Eye Eye exam: Present: normal appearance, PERRL, EOMI. Absent: scleral icterus - ENT ENT exam: Present: mucous membranes dry - Neck Neck exam: Present: normal inspection. Absent: tenderness, meningismus - Respiratory Respiratory exam: Present: normal lung sounds bilaterally. Absent: respiratory distress - Cardiovascular Cardiovascular Exam: Present: tachycardia - GI/Abdominal GI/Abdominal exam: Present: soft, normal bowel sounds. Absent: distended, tenderness, guarding, rebound, rigid - Extremities Exam Extremities exam: Present: normal inspection - Back Exam Back exam: Present: normal inspection - Neurological Exam Neurological exam: Present: altered, CN II-XII intact (as tested). Absent: motor sensory deficit - Psychiatric Psychiatric exam: Present: agitated - Skin Skin exam: Present: warm, dry, intact, normal color ED Course Vital Signs 12/13/17 12/13/17 12/13/17 11:12 11:24 11:30 Temperature Pulse Rate 130 H 126 H Respiratory 32 H 32 H 17 Rate Blood Pressure 131/72 O2 Sat by Pulse 100 93 Oximetry 12/13/17 12/13/17 12/13/17 12:00 12:03 12:04 Temperature 99.7 F H Pulse Rate 116 H 115 H Respiratory 11 L Rate Blood Pressure 107/63 O2 Sat by Pulse 99 99 Oximetry - Reevaluation(s) Reevaluation #1: An Accu-Chek was done immediately on arrival. The patient was found to be hyperglycemic. Therefore bolused fluids were begun. The patient required 4. restraint for medical intervention. He was never verbal. He was found to have a sugar of 1700 and an anion gap of 33. He was placed on an insulin drip. He was treated empirically with Zosyn and vancomycin as his lactic acid level was 5. However at this time I have not identified a focus of infection. He will be admitted by Dr. Oneil to the intensive care unit. 12/13/17 12:36 ED Medical Decision Making - Lab Data Result diagrams: 12/13/17 11:20 12/13/17 11:20 Laboratory Results - last 24 hr 12/13/17 12/13/17 12/13/17 11:11 11:20 11:20 WBC 8.5 RBC 4.97 Hgb 15.7 H Hct 54.3 H MCV 109 H MCH 32 MCHC 29 L RDW 15.9 H Plt Count 376 Lymph % (Auto) 15.0 [place] % (Auto) 3.8 Eos % (Auto) 0.2 Baso % (Auto) 0.3 Lymph # 1.3 [place] # 0.3 Eos # 0.0 Baso # 0.0 Seg Neutrophils % 80.7 H Seg Neutrophils # 6.8 PT 12.5 INR 0.89 APTT 21.6 L VBG pH Sodium Potassium Chloride Carbon Dioxide Anion Gap BUN Creatinine Estimated GFR BUN/Creatinine Ratio Glucose POC Glucose > 500 H Lactic Acid Calcium Magnesium Total Bilirubin Direct Bilirubin AST ALT Alkaline Phosphatase Total Creatine Kinase CK-MB (CK-2) CK-MB (CK-2) Rel Index Troponin T NT-Pro-B Natriuret Pep Total Protein Albumin Albumin/Globulin Ratio Plasma/Serum Alcohol Blood Type 12/13/17 12/13/17 12/13/17 11:20 11:20 11:20 WBC RBC Hgb Hct MCV MCH MCHC RDW Plt Count Lymph % (Auto) [place] % (Auto) Eos % (Auto) Baso % (Auto) Lymph # [place] # Eos # Baso # Seg Neutrophils % Seg Neutrophils # PT INR APTT VBG pH Sodium 133 L Potassium 5.3 H Chloride 88.5 L Carbon Dioxide 17 L Anion Gap 33 BUN 34 H Creatinine 1.3 Estimated GFR > 60 BUN/Creatinine Ratio 26 Glucose 1708 H* POC Glucose Lactic Acid Calcium 9.6 Magnesium 2.80 H Total Bilirubin 0.30 Direct Bilirubin < 0.2 AST 28 ALT 67 H Alkaline Phosphatase 163 H Total Creatine Kinase 79 CK-MB (CK-2) 2.0 CK-MB (CK-2) Rel Index 2.5 Troponin T < 0.010 NT-Pro-B Natriuret Pep 78.06 Total Protein 7.5 Albumin 3.9 Albumin/Globulin Ratio 1.1 Plasma/Serum Alcohol < 0.01 Blood Type 12/13/17 12/13/17 12/13/17 11:39 11:39 11:39 WBC RBC Hgb Hct MCV MCH MCHC RDW Plt Count Lymph % (Auto) [place] % (Auto) Eos % (Auto) Baso % (Auto) Lymph # [place] # Eos # Baso # Seg Neutrophils % Seg Neutrophils # PT INR APTT VBG pH 7.256 L Sodium Potassium Chloride Carbon Dioxide Anion Gap BUN Creatinine Estimated GFR BUN/Creatinine Ratio Glucose POC Glucose Lactic Acid 5.00 H* Calcium Magnesium Total Bilirubin Direct Bilirubin AST ALT Alkaline Phosphatase Total Creatine Kinase CK-MB (CK-2) CK-MB (CK-2) Rel Index Troponin T NT-Pro-B Natriuret Pep Total Protein Albumin Albumin/Globulin Ratio Plasma/Serum Alcohol Blood Type O NEGATIVE - EKG Data -: EKG Interpreted by Me EKG shows normal: sinus rhythm, axis, intervals, QRS complexes, ST-T waves Rate: normal - EKG Data Interpretation: no acute changes - Radiology Data interpreted by me: Chest x-ray shows no acute process Critical Care Time: Yes Critical care time in (mins) excluding proc time.: 100 Critical care attestation.: If time is entered above; I have spent that time in minutes in the direct care of this critically ill patient, excluding procedure time. ED Disposition Clinical Impression: Lactic acidosis DKA, type 1 Qualifiers: Diabetes mellitus complication detail: with coma Qualified Code(s): E10.11 - Type 1 diabetes mellitus with ketoacidosis with coma Disposition: DC-09 OP ADMIT IP TO THIS HOSP Is pt being admited?: Yes Does the pt Need Aspirin: Yes Condition: Stable Instructions: Diabetic Ketoacidosis (ED) Referrals: PRIMARY CARE, [Primary Care Provider] - 3-5 Days Time of Disposition: 12:41
[2017-12-13] MEDS ORDERED: ASPIRIN PR ONE (12:42)
[2017-12-13 12:44] LABS: Bilirubin,Urine NEG (Negative); Blood,Urine NEG (Negative); Color,Urine Straw (Yellow); Protein,Urine <15 mg/dL mg/dL (Negative); Urobilinogen,Urine < 2.0 mg/dL (<2.0)
[2017-12-13 12:45] LABS: RBC,Urine < 1.0 /HPF (0.0-6.0)
[2017-12-13] MEDS ORDERED: ZOFRAN ODT PO PRN (12:46)
[2017-12-13] MEDS ORDERED: COLACE PO PRN (12:46)
[2017-12-13] MEDS ORDERED: TESSALON PERLES PO PRN (12:46)
[2017-12-13 12:54] LABS: Amphetamine Screen,Urine PRESUMPTIVE NEGATIVE; Benzodiazepines Screen,Urine PRESUMPTIVE NEGATIVE; Cannabinoid Screen,Urine PRESUMPTIVE NEGATIVE; Methadone Screen,Urine PRESUMPTIVE NEGATIVE; Opiate Screen,Urine PRESUMPTIVE NEGATIVE
[2017-12-13] MEDS ORDERED: VANCOMYCIN 1,500 MG in NACL 0.9% 500 ML 500 ML IV ONE (13:00)
[2017-12-13] MEDS ORDERED: ZOSYN/NS 3.375GM/50ML 3.375 GM/50 ML BAG IV SCH (13:00)
[2017-12-13] MEDS ORDERED: VANCOMYCIN PHARMACY TO DOSE IV SCH (13:00)
[2017-12-13] MEDS ORDERED: HumuLIN R IV ONE (13:08)
[2017-12-13] MEDS: HumuLIN R 100 UNITS in NACL 0.9% 99 ML IV SCH (13:26)
[2017-12-13 13:54] LABS: Cocaine Screen,Urine PRESUMPTIVE POSITIVE
[2017-12-13] MEDS: NACL 0.9% 1000 ML 1,000 ML IV SCH ×3 (14:00→20:33)
[2017-12-13 15:37] LABS: BUN/Creatinine Ratio 25; Blood Urea Nitrogen 30 mg/dL (9-20); Calcium 8.7 mg/dL (8.4-10.2); Hemolysis Index 43
[2017-12-13] MEDS ORDERED: HALDOL IV ONE (16:00)
[2017-12-13 17:10] LABS: BUN/Creatinine Ratio 26; Blood Urea Nitrogen 23 mg/dL (9-20); Calcium 8.2 mg/dL (8.4-10.2); Hemolysis Index 15
[2017-12-13] MEDS: ATIVAN IM PRN ×2 (17:20→23:04)
[2017-12-13 19:58] LABS: BUN/Creatinine Ratio 29; Blood Urea Nitrogen 23 mg/dL (9-20); Calcium 7.9 mg/dL (8.4-10.2); Hemolysis Index 174
[2017-12-13] MEDS: HALDOL IV PRN (21:43)
[2017-12-13] MEDS: PEPCID PO SCH (22:05)
[2017-12-13] MEDS: SODIUM CHLORIDE FLUSH SYRINGE 10 ML IV SCH (22:05)
[2017-12-13 22:12] LABS: BUN/Creatinine Ratio 27; Blood Urea Nitrogen 19 mg/dL (9-20); Calcium 7.9 mg/dL (8.4-10.2); Hemolysis Index 35
[2017-12-13] MEDS ORDERED: D5W/0.45% NACL/KCL 20 MEQ 20 MEQ/1,000 ML BAG IV SCH (23:00)
[2017-12-14] MEDS ORDERED: VANCOMYCIN/NS 1 GM/250 ML 1 GM/250 ML BAG IV SCH (01:00)
[2017-12-14] MEDS: ATIVAN IM PRN (04:22)
[2017-12-14] MEDS: HALDOL IV PRN ×3 (06:05→22:36)
[2017-12-14 07:00] LABS: BUN/Creatinine Ratio 20; Blood Urea Nitrogen 14 mg/dL (9-20); Calcium 8.3 mg/dL (8.4-10.2); Hemolysis Index 1
[2017-12-14] MEDS: HumuLIN R 100 UNITS in NACL 0.9% 99 ML IV SCH (08:07)
--- NOTE | 2017-12-14 08:27 | Progress Note ---
Assessment and Plan Assessment and plan: --Diabetic ketoacidosis; on insulin drip Anion gap Closed, blood sugars reasonable levels Bedside swallow screen, ADA diet as tolerated, DC insulin drip Add long-acting insulin, diabetic education, nutrition education HbA1c 12.5 --Hypernatremia; DC normal saline Change IV fluids to D5W, increase oral free water intake Closely monitor --1 diabetes mellitus; uncontrolled, secondary to noncompliance Patient is bipolar, closely monitor blood sugars, adjust as needed May need placement --Hypertension; patient's blood pressures are in the lower range, closely monitor, IV hydration --History of seizure disorder; seizure precautions, continue current antiepileptic medications --History of bipolar disorder; continue current psych medications --Metabolic encephalopathy; patient is agitated and restless requiring restraints, probably secondary to underlying disease process mainly psych Psych evaluation once patient is more alert, restraints for safety --DVT prophylaxis; Lovenox --Discharge planning. Case management; possible placement Closely monitor the patient and adjust the management as needed Plan of care discussed with the patient's nurse If stable next 1-2 hours patient may be transferred out of ICU to medical floor with remote telemetry Critical care time 35 minutes History Interval history: Patient seen and examined in ICU this morning Medical records reviewed, no overnight events reported by the nursing Patient is admitted with DKA on insulin drip Significant improvement of a gap and acidosis Patient is sleeping, agitated, restrained for safety Vital signs reviewed Hospitalist Physical - Constitutional Vitals: Temp Pulse Resp BP Pulse Ox 97.3 F L 103 H 14 110/78 97 12/14/17 04:00 12/14/17 06:00 12/14/17 06:00 12/14/17 06:00 12/14/17 06:00 General appearance: Present: no acute distress, other (noncommunicative) - EENT Eyes: Present: PERRL, EOM intact - Respiratory Respiratory effort: normal Respiratory: negative: rales, rhonchi, wheezing - Cardiovascular Rhythm: regular Heart Sounds: Present: S1 & S2 - Extremities Extremities: no ischemia, No edema - Abdominal General gastrointestinal: soft, non-tender, non-distended, normal bowel sounds - Integumentary Integumentary: Present: clear, warm - Psychiatric Psychiatric: other (noncommunicative) - Neurologic Neurologic: other (noncommunicative) Results - Labs CBC & Chem 7: 12/13/17 11:20 12/14/17 06:00 Labs: Laboratory Last Values WBC 8.5 K/mm3 (4.5-11.0) 12/13/17 11:20 RBC 4.97 M/mm3 (3.65-5.03) 12/13/17 11:20 Hgb 15.7 gm/dl (11.8-15.2) H 12/13/17 11:20 Hct 54.3 % (35.5-45.6) H 12/13/17 11:20 MCV 109 fl (84-94) H 12/13/17 11:20 MCH 32 pg (28-32) 12/13/17 11:20 MCHC 29 % (32-34) L 12/13/17 11:20 RDW 15.9 % (13.2-15.2) H 12/13/17 11:20 Plt Count 376 K/mm3 (140-440) 12/13/17 11:20 Lymph % (Auto) 15.0 % (13.4-35.0) 12/13/17 11:20 [place] % (Auto) 3.8 % (0.0-7.3) 12/13/17 11:20 Eos % (Auto) 0.2 % (0.0-4.3) 12/13/17 11:20 Baso % (Auto) 0.3 % (0.0-1.8) 12/13/17 11:20 Lymph # 1.3 K/mm3 (1.2-5.4) 12/13/17 11:20 [place] # 0.3 K/mm3 (0.0-0.8) 12/13/17 11:20 Eos # 0.0 K/mm3 (0.0-0.4) 12/13/17 11:20 Baso # 0.0 K/mm3 (0.0-0.1) 12/13/17 11:20 Seg Neutrophils % 80.7 % (40.0-70.0) H 12/13/17 11:20 Seg Neutrophils # 6.8 K/mm3 (1.8-7.7) 12/13/17 11:20 PT 12.5 Sec. (12.2-14.9) 12/13/17 11:20 INR 0.89 (0.87-1.13) 12/13/17 11:20 APTT 21.6 Sec. (24.2-36.6) L 12/13/17 11:20 VBG pH 7.256 (7.320-7.420) L 12/13/17 11:39 Sodium 157 mmol/L (137-145) H 12/14/17 06:00 Potassium 3.8 mmol/L (3.6-5.0) 12/14/17 06:00 Chloride 122.2 mmol/L (98-107) H 12/14/17 06:00 Carbon Dioxide 22 mmol/L (22-30) 12/14/17 06:00 Anion Gap 17 mmol/L 12/14/17 06:00 BUN 14 mg/dL (9-20) 12/14/17 06:00 Creatinine 0.7 mg/dL (0.8-1.5) L 12/14/17 06:00 Estimated GFR > 60 ml/min 12/14/17 06:00 BUN/Creatinine Ratio 20 % 12/14/17 06:00 Glucose 102 mg/dL (75-100) H 12/14/17 06:00 POC Glucose 106 (70-105) H 12/14/17 06:11 Ketones Quantitative Negative (Negative) 12/13/17 11:39 Lactic Acid 0.80 mmol/L (0.7-2.0) 12/14/17 06:00 Calcium 8.3 mg/dL (8.4-10.2) L 12/14/17 06:00 Phosphorus 1.80 mg/dL (2.5-4.5) L 12/13/17 14:46 Magnesium 2.70 mg/dL (1.7-2.3) H 12/13/17 14:46 Total Bilirubin 0.30 mg/dL (0.1-1.2) 12/13/17 11:20 Direct Bilirubin < 0.2 mg/dL (0-0.2) 12/13/17 11:20 AST 28 units/L (5-40) 12/13/17 11:20 ALT 67 units/L (7-56) H 12/13/17 11:20 Alkaline Phosphatase 163 units/L (35-129) H 12/13/17 11:20 Total Creatine Kinase 79 units/L (55-170) 12/13/17 11:20 CK-MB (CK-2) 2.0 ng/mL (0.0-4.0) 12/13/17 11:20 CK-MB (CK-2) Rel Index 2.5 (0-4) 12/13/17 11:20 Troponin T < 0.010 ng/mL (0.00-0.029) 12/13/17 11:20 NT-Pro-B Natriuret Pep 78.06 pg/mL (0-450) 12/13/17 11:20 Total Protein 7.5 g/dL (6.3-8.2) 12/13/17 11:20 Albumin 3.9 g/dL (3.9-5) 12/13/17 11:20 Albumin/Globulin Ratio 1.1 % 12/13/17 11:20 Urine Color Straw (Yellow) 12/13/17 11:30 Urine Turbidity Clear (Clear) 12/13/17 11:30 Urine pH 5.0 (5.0-7.0) 12/13/17 11:30 Ur Specific [place] 1.028 (1.003-1.030) 12/13/17 11:30 Urine Protein <15 mg/dl mg/dL (Negative) 12/13/17 11:30 Urine Glucose (UA) >=500 mg/dL (Negative) 12/13/17 11:30 Urine Ketones Tr mg/dL (Negative) 12/13/17 11:30 Urine Blood Neg (Negative) 12/13/17 11:30 Urine Nitrite Neg (Negative) 12/13/17 11:30 Urine Bilirubin Neg (Negative) 12/13/17 11:30 Urine Urobilinogen < 2.0 mg/dL (<2.0) 12/13/17 11:30 Ur Leukocyte Esterase Neg (Negative) 12/13/17 11:30 Urine WBC (Auto) < 1.0 /HPF (0.0-6.0) 12/13/17 11:30 Urine RBC (Auto) < 1.0 /HPF (0.0-6.0) 12/13/17 11:30 Urine Opiates Screen Presumptive negative 12/13/17 11:30 Urine Methadone Screen Presumptive negative 12/13/17 11:30 Ur Barbiturates Screen Presumptive negative 12/13/17 11:30 Ur Phencyclidine Scrn Presumptive negative 12/13/17 11:30 Ur Amphetamines Screen Presumptive negative 12/13/17 11:30 U Benzodiazepines Scrn Presumptive negative 12/13/17 11:30 Urine Cocaine Screen Presumptive positive 12/13/17 11:30 U Marijuana (THC) Screen Presumptive negative 12/13/17 11:30 Drugs of Abuse Note Disclamer 12/13/17 11:30 Plasma/Serum Alcohol < 0.01 % (0-0.07) 12/13/17 11:20 Blood Type O NEGATIVE 12/13/17 11:39 Antibody Screen Negative 12/13/17 11:39
[2017-12-14] MEDS: D5W 1,000 ML IV SCH ×2 (10:11→22:01)
[2017-12-14] MEDS: SODIUM CHLORIDE FLUSH SYRINGE 10 ML IV SCH ×2 (10:13→21:58)
[2017-12-14] MEDS: HumaLOG SUB-Q SCH ×3 (11:50→22:08)
[2017-12-14] MEDS: PEPCID PO SCH ×2 (11:53→21:57)
[2017-12-14 15:03] LABS: BUN/Creatinine Ratio 17; Blood Urea Nitrogen 12 mg/dL (9-20); Calcium 8.3 mg/dL (8.4-10.2); Hemolysis Index 5
[2017-12-14] MEDS ORDERED: NACL 0.9% 1000 ML 1,000 ML IV ONE ×2 (15:30→17:06)
[2017-12-14] MEDS ORDERED: XANAX PO PRN (15:45)
[2017-12-14] MEDS ORDERED: ATIVAN IV ONE (16:00)
[2017-12-14] MEDS: TYLENOL PR PRN ×2 (16:46→21:54)
[2017-12-14] MEDS: KCL 10MEQ/100ML 10 MEQ/100 ML BAG IV SCH ×4 (16:47→20:00)
--- NOTE | 2017-12-14 16:55 | Event Note ---
Date: 12/14/17 Patient is lethargic, uncooperative, unable to perform swallow eval Tachycardic, mild elevation of temperature Aggressive IV hydration, if unable to perform swallow eval Dobbhoff placement, initiate tube feeding, antianxiety medications as needed Nutrition consult We'll hold the transfer, closely monitor in ICU overnight Plan of care discussed with the nurse and the charge nurse
[2017-12-14] MEDS ORDERED: K-DUR PO ONE (17:00)
--- NOTE | 2017-12-14 17:52 | XRay Report ---
FINAL REPORT EXAM: XR ABDOMEN 1V AP HISTORY: Dobhoff placement TECHNIQUE: KUB was performed Comparison: CT 11/24/2017 FINDINGS: A weighted tip feeding tube is present with the tip in the region of the mid gastric body, projecting laterally. There is a dense right-sided infiltrate. The left lung is clear. There stool in the right central abdomen. IMPRESSION: Weighted tip feeding tube with the tip projecting in the mid gastric body pointing laterally. The wire appears to be extended to the weighted tip. Recommend placing the patient in the right lateral decubitus position and twisting the tube clockwise maintaining the forward pressure and then retracting the wire, leaving the patient in the right lateral decubitus position. Dense right-sided infiltrate.
[2017-12-14] MEDS: HEPARIN SUB-Q SCH (21:59)
[2017-12-15 04:56] LABS: Basophils # (Auto) 0.1 K/mm3 (0.0-0.1); Basophils % (Auto) 0.5 % (0.0-1.8); Eosinophils % (Auto) 0.1 % (0.0-4.3); Hematocrit 37.3 % (35.5-45.6); Hemoglobin 12.8 gm/dl (11.8-15.2); Lymphocytes # (Auto) 1.4 K/mm3 (1.2-5.4); Lymphocytes % (Auto) 11.4 % (13.4-35.0); Mean Corpuscular HGB Conc 34 % (32-34); Mean Corpuscular Hemoglobin 31 pg (28-32); Mean Corpuscular Volume 91 fl (84-94); Monocytes # (Auto) 0.5 K/mm3 (0.0-0.8); Monocytes % (Auto) 4.5 % (0.0-7.3); Platelet Count 313 K/mm3 (140-440); Red Blood Count 4.09 M/mm3 (3.65-5.03); Red Cell Distribution Width 14.2 % (13.2-15.2)
[2017-12-15] MEDS: HALDOL IV PRN (05:06)
[2017-12-15 05:34] LABS: BUN/Creatinine Ratio 18; Blood Urea Nitrogen 11 mg/dL (9-20); Calcium 7.9 mg/dL (8.4-10.2); Hemolysis Index 2
--- NOTE | 2017-12-15 07:44 | Progress Note ---
Assessment and Plan Assessment and plan: --Hypomagnesemia; replenished per protocol --Hypophosphatemia; replace per protocol --Diabetic ketoacidosis; resolved Insulin drip DC'd A1c 12.5 --Hypernatremia; corrected --1 diabetes mellitus; uncontrolled, secondary to noncompliance Patient is bipolar, closely monitor blood sugars, adjust as needed May need placement --Hypertension; patient's blood pressures are in the lower range, closely monitor, IV hydration --History of seizure disorder; seizure precautions, continue current antiepileptic medications --History of bipolar disorder; continue current psych medications --Metabolic encephalopathy; patient is agitated and restless requiring restraints, probably secondary to underlying disease process mainly psych --Psych evaluation , restraints for safety --DVT prophylaxis; Lovenox --Discharge planning. Discussed with Case management; possible placement Patient may be transferred out of ICU Possible discharge in 1-2 days if stable History Interval history: Patient seen and examined in ICU this morning medical records reviewed Patient is more alert and awake, tolerated some breakfast Responding to simple questions appropriately, still lethargic No new overnight events reported Vital signs reviewed Hospitalist Physical - Constitutional Vitals: Temp Pulse Resp BP Pulse Ox 100.8 F H 115 H 20 163/97 100 12/15/17 04:00 12/15/17 07:00 12/15/17 07:00 12/15/17 07:00 12/15/17 06:00 General appearance: Present: no acute distress, other (lethargic, responds to simple questions appropriately) - EENT Eyes: Present: PERRL, EOM intact - Neck Neck: Present: supple, normal ROM - Respiratory Respiratory effort: normal Respiratory: bilateral: diminished, negative: rales, rhonchi, wheezing - Cardiovascular Rhythm: regular Heart Sounds: Present: S1 & S2 - Extremities Extremities: no ischemia, No edema - Abdominal General gastrointestinal: soft, non-tender, non-distended, normal bowel sounds - Integumentary Integumentary: Present: clear, warm - Psychiatric Psychiatric: appropriate mood/affect, agitated (mild agitation) - Neurologic Neurologic: moves all extremities Results - Labs CBC & Chem 7: 12/15/17 04:38 12/15/17 04:38 Labs: Laboratory Last Values WBC 12.0 K/mm3 (4.5-11.0) H 12/15/17 04:38 RBC 4.09 M/mm3 (3.65-5.03) 12/15/17 04:38 Hgb 12.8 gm/dl (11.8-15.2) 12/15/17 04:38 Hct 37.3 % (35.5-45.6) D 12/15/17 04:38 MCV 91 fl (84-94) 12/15/17 04:38 MCH 31 pg (28-32) 12/15/17 04:38 MCHC 34 % (32-34) 12/15/17 04:38 RDW 14.2 % (13.2-15.2) 12/15/17 04:38 Plt Count 313 K/mm3 (140-440) 12/15/17 04:38 Lymph % (Auto) 11.4 % (13.4-35.0) L 12/15/17 04:38 [place] % (Auto) 4.5 % (0.0-7.3) 12/15/17 04:38 Eos % (Auto) 0.1 % (0.0-4.3) 12/15/17 04:38 Baso % (Auto) 0.5 % (0.0-1.8) 12/15/17 04:38 Lymph # 1.4 K/mm3 (1.2-5.4) 12/15/17 04:38 [place] # 0.5 K/mm3 (0.0-0.8) 12/15/17 04:38 Eos # 0.0 K/mm3 (0.0-0.4) 12/15/17 04:38 Baso # 0.1 K/mm3 (0.0-0.1) 12/15/17 04:38 Seg Neutrophils % 83.5 % (40.0-70.0) H 12/15/17 04:38 Seg Neutrophils # 10.0 K/mm3 (1.8-7.7) H 12/15/17 04:38 PT 12.5 Sec. (12.2-14.9) 12/13/17 11:20 INR 0.89 (0.87-1.13) 12/13/17 11:20 APTT 21.6 Sec. (24.2-36.6) L 12/13/17 11:20 VBG pH 7.256 (7.320-7.420) L 12/13/17 11:39 Sodium 145 mmol/L (137-145) 12/15/17 04:38 Potassium 3.7 mmol/L (3.6-5.0) 12/15/17 04:38 Chloride 109.3 mmol/L (98-107) H 12/15/17 04:38 Carbon Dioxide 21 mmol/L (22-30) L 12/15/17 04:38 Anion Gap 18 mmol/L 12/15/17 04:38 BUN 11 mg/dL (9-20) 12/15/17 04:38 Creatinine 0.6 mg/dL (0.8-1.5) L 12/15/17 04:38 Estimated GFR > 60 ml/min 12/15/17 04:38 BUN/Creatinine Ratio 18 % 12/15/17 04:38 Glucose 73 mg/dL (75-100) L 12/15/17 04:38 POC Glucose 168 (70-105) H 12/14/17 21:52 Ketones Quantitative Negative (Negative) 12/13/17 11:39 Lactic Acid 0.80 mmol/L (0.7-2.0) 12/14/17 06:00 Calcium 7.9 mg/dL (8.4-10.2) L 12/15/17 04:38 Phosphorus 1.70 mg/dL (2.5-4.5) L 12/15/17 04:38 Magnesium 1.50 mg/dL (1.7-2.3) L 12/15/17 04:38 Total Bilirubin 0.30 mg/dL (0.1-1.2) 12/13/17 11:20 Direct Bilirubin < 0.2 mg/dL (0-0.2) 12/13/17 11:20 AST 28 units/L (5-40) 12/13/17 11:20 ALT 67 units/L (7-56) H 12/13/17 11:20 Alkaline Phosphatase 163 units/L (35-129) H 12/13/17 11:20 Total Creatine Kinase 79 units/L (55-170) 12/13/17 11:20 CK-MB (CK-2) 2.0 ng/mL (0.0-4.0) 12/13/17 11:20 CK-MB (CK-2) Rel Index 2.5 (0-4) 12/13/17 11:20 Troponin T < 0.010 ng/mL (0.00-0.029) 12/13/17 11:20 NT-Pro-B Natriuret Pep 78.06 pg/mL (0-450) 12/13/17 11:20 Total Protein 7.5 g/dL (6.3-8.2) 12/13/17 11:20 Albumin 3.9 g/dL (3.9-5) 12/13/17 11:20 Albumin/Globulin Ratio 1.1 % 12/13/17 11:20 Urine Color Straw (Yellow) 12/13/17 11:30 Urine Turbidity Clear (Clear) 12/13/17 11:30 Urine pH 5.0 (5.0-7.0) 12/13/17 11:30 Ur Specific [place] 1.028 (1.003-1.030) 12/13/17 11:30 Urine Protein <15 mg/dl mg/dL (Negative) 12/13/17 11:30 Urine Glucose (UA) >=500 mg/dL (Negative) 12/13/17 11:30 Urine Ketones Tr mg/dL (Negative) 12/13/17 11:30 Urine Blood Neg (Negative) 12/13/17 11:30 Urine Nitrite Neg (Negative) 12/13/17 11:30 Urine Bilirubin Neg (Negative) 12/13/17 11:30 Urine Urobilinogen < 2.0 mg/dL (<2.0) 12/13/17 11:30 Ur Leukocyte Esterase Neg (Negative) 12/13/17 11:30 Urine WBC (Auto) < 1.0 /HPF (0.0-6.0) 12/13/17 11:30 Urine RBC (Auto) < 1.0 /HPF (0.0-6.0) 12/13/17 11:30 Urine Opiates Screen Presumptive negative 12/13/17 11:30 Urine Methadone Screen Presumptive negative 12/13/17 11:30 Ur Barbiturates Screen Presumptive negative 12/13/17 11:30 Ur Phencyclidine Scrn Presumptive negative 12/13/17 11:30 Ur Amphetamines Screen Presumptive negative 12/13/17 11:30 U Benzodiazepines Scrn Presumptive negative 12/13/17 11:30 Urine Cocaine Screen Presumptive positive 12/13/17 11:30 U Marijuana (THC) Screen Presumptive negative 12/13/17 11:30 Drugs of Abuse Note Disclamer 12/13/17 11:30 Plasma/Serum Alcohol < 0.01 % (0-0.07) 12/13/17 11:20 Blood Type O NEGATIVE 12/13/17 11:39 Antibody Screen Negative 12/13/17 11:39
[2017-12-15] MEDS ORDERED: PANCREAZE DR 10,500 UNIT FEEDTUBE PRN (07:51)
[2017-12-15] MEDS ORDERED: SODIUM BICARBONATE FEEDTUBE PRN (07:51)
[2017-12-15] MEDS ORDERED: SIMPLE SYRUP FEEDTUBE PRN ×2 (07:51)
[2017-12-15] MEDS ORDERED: MAGNESIUM SULFATE 2GM/50ML 2 GM/50 ML BAG IV ONE (08:00)
[2017-12-15] MEDS ORDERED: KPHOS 45 MMOL in NACL 0.9% 500 ML 500 ML IV ONE (09:00)
[2017-12-15] MEDS ORDERED: LEVAQUIN 750MG/150ML 750 MG/150 ML BAG IV SCH (10:00)
[2017-12-15] MEDS: PEPCID PO SCH ×2 (11:30→22:56)
[2017-12-15] MEDS ORDERED: TYLENOL FEEDTUBE PRN (12:12)
--- NOTE | 2017-12-15 13:00 | XRay Report ---
AP CHEST: HISTORY: Sepsis Subtle hazy opacity has developed at the right lung base since 12/13/17. It is unclear if this represents a very early infiltrate or congestive changes. The left lung is clear. No pleural effusion or pneumothorax. Normal heart and mediastinal structures. IMPRESSION: Questionable early right lower lung infiltrate.
[2017-12-15] MEDS ORDERED: ZOSYN/NS 4.5GM/100ML 4.5 GM/100 ML VIAL IV SCH (14:00)
--- NOTE | 2017-12-15 14:09 | XRay Report ---
AP CHEST: HISTORY: Fever There is increased infiltrate at the right lung base since earlier today at 1112 hrs. The left lung remains clear. Normal heart and mediastinal structures. Normal bony thorax. IMPRESSION: Right lung pneumonia.
[2017-12-15] MEDS: CLEOCIN PO SCH ×3 (14:16→23:49)
[2017-12-15] MEDS: LEVAQUIN PO SCH (14:16)
[2017-12-15] MEDS: HumaLOG SUB-Q SCH ×4 (14:17→23:04)
[2017-12-15] MEDS: D5W 1,000 ML IV SCH (16:04)
[2017-12-15] MEDS: LOPRESSOR PO SCH ×2 (18:52→22:56)
[2017-12-15] MEDS: HEPARIN SUB-Q SCH ×2 (19:49→23:04)
[2017-12-15] MEDS: SODIUM CHLORIDE FLUSH SYRINGE 10 ML IV SCH ×2 (19:51→23:49)
[2017-12-16 05:59] LABS: Basophils % (Auto) 0.3 % (0.0-1.8); Eosinophils # (Auto) 0.1 K/mm3 (0.0-0.4); Eosinophils % (Auto) 0.6 % (0.0-4.3); Hematocrit 37.7 % (35.5-45.6); Hemoglobin 12.2 gm/dl (11.8-15.2); Lymphocytes # (Auto) 1.3 K/mm3 (1.2-5.4); Mean Corpuscular HGB Conc 32 % (32-34); Mean Corpuscular Hemoglobin 30 pg (28-32); Mean Corpuscular Volume 93 fl (84-94); Monocytes # (Auto) 0.4 K/mm3 (0.0-0.8); Monocytes % (Auto) 3.6 % (0.0-7.3); Platelet Count 288 K/mm3 (140-440); Red Blood Count 4.07 M/mm3 (3.65-5.03); Red Cell Distribution Width 14.4 % (13.2-15.2)
[2017-12-16] MEDS: D5W 1,000 ML IV SCH (06:03)
[2017-12-16] MEDS: CLEOCIN PO SCH ×3 (06:04→17:59)
[2017-12-16] MEDS: HumaLOG SUB-Q SCH ×3 (07:30→16:30)
[2017-12-16] MEDS: LOPRESSOR PO SCH (10:09)
[2017-12-16] MEDS: PEPCID PO SCH (10:10)
[2017-12-16] MEDS: HEPARIN SUB-Q SCH (10:11)
[2017-12-16] MEDS: SODIUM CHLORIDE FLUSH SYRINGE 10 ML IV SCH (10:13)
[2017-12-16] MEDS: HALDOL IV PRN (10:29)
[2017-12-16] MEDS ORDERED: HALDOL IM PRN (10:35)
--- NOTE | 2017-12-16 10:49 | Consultation ---
History of Present Illness - Reason for Consult Consult date: 12/16/17 Reason for consult: Mental Health Evaluation - Chief Complaint Chief complaint: "The patient is confused' - History of Present Psychiatric Illness 32 YO Male with DM, GERD, HTN, DM, Seizure Disorder, and Bipolar DO, presenting to the ER. Per the note the patient was combative on arrival. This patient is known to me. The patient is confused during the assessment. A psy assessment could not be completed on this patient. Medications and Allergies Allergies Allergy/AdvReac Type Severity Reaction Status Date / Time banana Allergy Severe Angioedema Verified 10/20/17 17:43 egg Allergy Unknown Verified 10/20/17 17:43 Home Medications Medication Instructions Recorded Confirmed Last Taken Type Divalproex Dr [Waldemar Crocker] 250 mg PO QAM #30 tablet 09/15/17 12/13/[address] [Waldemar Crocker] 500 mg PO QHS #30 tablet 09/15/17 12/13/17 Unknown Rx Famotidine [Pepcid] 20 mg PO BID #30 tablet 09/15/17 12/13/17 Unknown Rx OLANzapine [ZyPREXA] 5 mg PO HS #30 tablet 09/15/17 12/13/17 Unknown Rx Insulin NPH/Regular [NovoLIN 70/30] 22 unit SUB-Q BIDDIAB 30 Days 10/13/1712/13 Unknown Rx units Docusate Sodium [Colace CAP] 100 mg PO BID PRN #20 capsule 11/24/17 12/13/17 Unknown Rx Active Meds: Active Medications Acetaminophen (Tylenol) 650 mg WA Q4H PRN PRN Reason: Fever >101 Last Admin: 12/14/17 21:54 Dose: 650 mg Acetaminophen (Tylenol) 650 mg FEEDTUBE Q6H PRN PRN Reason: Fever Alprazolam (Xanax) 0.25 mg PO Q8H PRN PRN Reason: Anxiety Last Admin: 12/14/17 22:37 Dose: 0.25 mg Lipase/Protease/Amylase (Stanley Dr 10,500 Unit) 1 each FEEDTUBE PRN PRN PRN Reason: For Clogged Feeding Tube Benzonatate (Tessalon Perles) 100 mg PO Q6H PRN PRN Reason: Cough Clindamycin HCl (Cleocin) 300 mg PO Q6HR ANTONIA Stop: 12/20/17 11:59 Last Admin: 12/16/17 06:04 Dose: 300 mg Dextrose (D50w (25gm) Syringe) 0 ml IV ONCE PRN PRN Reason: Hypoglycemia Divalproex Sodium (Depakote Dr) 250 mg PO QAM [facility] Last Admin: 12/16/17 10:11 Dose: 250 mg Divalproex Sodium (Depakote Dr) 500 mg PO QHS [facility] Last Admin: 12/15/17 22:56 Dose: 500 mg Docusate Sodium (Colace) 100 mg PO BID PRN PRN Reason: Constipation Famotidine (Pepcid) 20 mg PO BID [facility] Last Admin: 12/16/17 10:10 Dose: 20 mg Haloperidol Lactate (Haldol) 5 mg IM Q6H PRN PRN Reason: Agitation Heparin Sodium (Porcine) (Heparin) 5,000 unit SUB-Q BID [facility] Last Admin: 12/16/17 10:11 Dose: 5,000 unit Dextrose (D5w) 1,000 mls @ 100 mls/hr IV DIRECT [facility] Last Admin: 12/16/17 06:03 Dose: 100 mls/hr Insulin Human Isoph/Insulin Regular (Humulin 70/30) 8 unit SUB-Q BIDDIAB [facility] Last Admin: 12/16/17 07:30 Dose: 8 unit Insulin Human Lispro (Humalog) 0 unit SUB-Q ACHS [facility]; Protocol Last Admin: 12/16/17 07:30 Dose: 4 unit Levofloxacin (Levaquin) 750 mg PO Q24H [facility] Stop: 12/19/17 12:01 Last Admin: 12/15/17 14:16 Dose: 750 mg Metoprolol Tartrate (Lopressor) 12.5 mg PO BID [facility] Last Admin: 12/16/17 10:09 Dose: 12.5 mg Olanzapine (Zyprexa) 5 mg PO HS [facility] Last Admin: 12/15/17 22:56 Dose: 5 mg Ondansetron HCl (Zofran Odt) 4 mg PO Q8HR PRN PRN Reason: Nausea Simple Syrup (Simple Syrup) 15 ml FEEDTUBE PRN PRN PRN Reason: Hypoglycemia Simple Syrup (Simple Syrup) 30 ml FEEDTUBE PRN PRN PRN Reason: Hypoglycemia Sodium Bicarbonate (Sodium Bicarbonate) 325 mg FEEDTUBE PRN PRN PRN Reason: For Clogged Feeding Tube Sodium Chloride (Sodium Chloride Flush Syringe 10 Ml) 10 ml IV BID ANTONIA Last Admin: 12/16/17 10:13 Dose: 10 ml Sodium Chloride (Sodium Chloride Flush Syringe 10 Ml) 10 ml IV PRN PRN PRN Reason: LINE FLUSH Past psychiatric history - Past Medical History Past Medical History: diabetes Past Surgical History: No surgical history - past Psychiatric treatment and history psychiatric treatment history: This patient is known to me. Per his last admission, the patient was referred to the [facility] for rehab/outpatient psy services. - Social History Social history: other (Unable to obtain) Mental Status Exam - Vital signs Last Vital Signs Temp 98.3 F 12/16/17 07:21 Pulse 103 H 12/16/17 07:21 Resp 28 H 12/16/17 07:21 BP 109/71 12/16/17 07:21 Pulse Ox 92 12/16/17 07:21 - Exam Narrative exam: Unable to complete the MSE because of the patient's condition. Results Result Diagrams: 12/16/17 05:17 12/15/17 04:38 Abnormal lab results 12/15/17 12/15/17 12/15/17 Range/Units 12:38 16:52 21:46 Lymph % (Auto) (13.4-35.0) % Seg Neutrophils % (40.0-70.0) % Seg Neutrophils # (1.8-7.7) K/mm3 POC Glucose 318 H 172 H 214 H (70-105) Phosphorus (2.5-4.5) mg/dL 12/16/17 12/16/17 12/16/17 Range/Units 05:17 05:17 05:48 Lymph % (Auto) 12.0 L (13.4-35.0) % Seg Neutrophils % 83.5 H (40.0-70.0) % Seg Neutrophils # 8.9 H (1.8-7.7) K/mm3 POC Glucose 273 H (70-105) Phosphorus 1.50 L (2.5-4.5) mg/dL All other labs normal. Assessment and Plan Assessment and plan: Impression: Hx of Bipolar DO. The patient is confused during the assessment. The patient is positive for cocaine. Per the staff, the patient can feed himself with assistance. Medical: Metabolic Encephalopathy, DKA on admission Recommendation/Plan: Ordered ALT/Alkaline Phos along with STAT [facility] in AM. Continue home medications (Depakote and Zyprexa). Aspiration precaution for this patient. Recommend delirium precautions below: 1. Frequently reorient patient and involve him/her in their care (simple explanations of procedures, tests, medications). 2. Lights on and shades open during daytime hours. 3. Write date and goals of care in a visible place. 4. Try to avoid unnecessary interruptions to sleep during nighttime hours. 5. Obtain glasses, hearing aids from home if patient uses these at baseline. 6. Avoid medications that may exacerbate delirium (especially narcotics, benzodiazepines, barbiturates, ambien, lunesta, and medications with excessive anticholinergic properties). 7. Use haloperidol 5 mg IM Q6hrs PRN for agitation.
[2017-12-16] MEDS: LEVAQUIN PO SCH (11:55)
[2017-12-16] MEDS ORDERED: KPHOS 30 MMOL in NACL 0.9% 500 ML 500 ML IV ONE (13:00)
[2017-12-16 13:24] LABS: Alanine Aminotransferase 36 units/L (7-56); Lipase 14 units/L (13-60)
--- NOTE | 2017-12-16 20:06 | Progress Note ---
Assessment and Plan Assessment and plan: --Right-sided pneumonia; possible aspiration Continue Levaquin, clindamycin follow cultures, --Hypomagnesemia; corrected --Hypophosphatemia; replace per protocol --Diabetic ketoacidosis; resolved Insulin drip DC'd A1c 12.5 --1 diabetes mellitus; uncontrolled, secondary to noncompliance Patient is bipolar, closely monitor blood sugars, adjust as needed May need placement --Hypertension; patient's blood pressures are in the lower range, closely monitor, IV hydration --History of seizure disorder; seizure precautions, continue current antiepileptic medications --History of bipolar disorder; continue current psych medications --Metabolic encephalopathy; patient is agitated and restless requiring restraints, probably secondary to underlying psych disorder --Psych evaluation noted and appreciated --DVT prophylaxis; Lovenox --Discharge planning. Discussed with Case management; possible placement in assisted living/intermediate History Interval history: Patient seen and examined medical records reviewed Patient is sleeping easily awakened, agitated at times requiring roll belt for safety Psych evaluation and recommendations noted and appreciated No new events reported by the nursing staff Vital signs reviewed Hospitalist Physical - Constitutional Vitals: Temp Pulse Resp BP Pulse Ox 98.0 F 96 H 18 102/67 96 12/16/17 16:54 12/16/17 16:54 12/16/17 16:54 12/16/17 16:52 12/16/17 16:54 General appearance: Present: no acute distress, cachectic, disheveled - EENT Eyes: Present: PERRL, EOM intact - Neck Neck: Present: supple, normal ROM - Respiratory Respiratory effort: normal Respiratory: bilateral: rhonchi, negative: rales, wheezing - Cardiovascular Rhythm: regular Heart Sounds: Present: S1 & S2 - Extremities Extremities: no ischemia, No edema - Abdominal General gastrointestinal: soft, non-tender, non-distended, normal bowel sounds - Integumentary Integumentary: Present: clear, warm - Psychiatric Psychiatric: agitated (at times) - Neurologic Neurologic: moves all extremities Results - Labs CBC & Chem 7: 12/16/17 05:17 12/15/17 04:38 Labs: Laboratory Last Values WBC 10.6 K/mm3 (4.5-11.0) 12/16/17 05:17 RBC 4.07 M/mm3 (3.65-5.03) 12/16/17 05:17 Hgb 12.2 gm/dl (11.8-15.2) 12/16/17 05:17 Hct 37.7 % (35.5-45.6) 12/16/17 05:17 MCV 93 fl (84-94) 12/16/17 05:17 MCH 30 pg (28-32) 12/16/17 05:17 MCHC 32 % (32-34) 12/16/17 05:17 RDW 14.4 % (13.2-15.2) 12/16/17 05:17 Plt Count 288 K/mm3 (140-440) 12/16/17 05:17 Lymph % (Auto) 12.0 % (13.4-35.0) L 12/16/17 05:17 [place] % (Auto) 3.6 % (0.0-7.3) 12/16/17 05:17 Eos % (Auto) 0.6 % (0.0-4.3) 12/16/17 05:17 Baso % (Auto) 0.3 % (0.0-1.8) 12/16/17 05:17 Lymph # 1.3 K/mm3 (1.2-5.4) 12/16/17 05:17 [place] # 0.4 K/mm3 (0.0-0.8) 12/16/17 05:17 Eos # 0.1 K/mm3 (0.0-0.4) 12/16/17 05:17 Baso # 0.0 K/mm3 (0.0-0.1) 12/16/17 05:17 Seg Neutrophils % 83.5 % (40.0-70.0) H 12/16/17 05:17 Seg Neutrophils # 8.9 K/mm3 (1.8-7.7) H 12/16/17 05:17 PT 12.5 Sec. (12.2-14.9) 12/13/17 11:20 INR 0.89 (0.87-1.13) 12/13/17 11:20 APTT 21.6 Sec. (24.2-36.6) L 12/13/17 11:20 VBG pH 7.256 (7.320-7.420) L 12/13/17 11:39 Sodium 145 mmol/L (137-145) 12/15/17 04:38 Potassium 3.7 mmol/L (3.6-5.0) 12/15/17 04:38 Chloride 109.3 mmol/L (98-107) H 12/15/17 04:38 Carbon Dioxide 21 mmol/L (22-30) L 12/15/17 04:38 Anion Gap 18 mmol/L 12/15/17 04:38 BUN 11 mg/dL (9-20) 12/15/17 04:38 Creatinine 0.6 mg/dL (0.8-1.5) L 12/15/17 04:38 Estimated GFR > 60 ml/min 12/15/17 04:38 BUN/Creatinine Ratio 18 % 12/15/17 04:38 Glucose 73 mg/dL (75-100) L 12/15/17 04:38 POC Glucose 114 (70-105) H 12/16/17 16:55 Ketones Quantitative Negative (Negative) 12/13/17 11:39 Lactic Acid 0.80 mmol/L (0.7-2.0) 12/14/17 06:00 Calcium 7.9 mg/dL (8.4-10.2) L 12/15/17 04:38 Phosphorus 1.50 mg/dL (2.5-4.5) L 12/16/17 05:17 Magnesium 1.90 mg/dL (1.7-2.3) 12/16/17 05:17 Total Bilirubin 0.30 mg/dL (0.1-1.2) 12/13/17 11:20 Direct Bilirubin < 0.2 mg/dL (0-0.2) 12/13/17 11:20 AST 28 units/L (5-40) 12/13/17 11:20 ALT 36 units/L (7-56) 12/16/17 12:22 Alkaline Phosphatase 128 units/L (35-129) 12/16/17 12:22 Total Creatine Kinase 79 units/L (55-170) 12/13/17 11:20 CK-MB (CK-2) 2.0 ng/mL (0.0-4.0) 12/13/17 11:20 CK-MB (CK-2) Rel Index 2.5 (0-4) 12/13/17 11:20 Troponin T < 0.010 ng/mL (0.00-0.029) 12/13/17 11:20 NT-Pro-B Natriuret Pep 78.06 pg/mL (0-450) 12/13/17 11:20 Total Protein 7.5 g/dL (6.3-8.2) 12/13/17 11:20 Albumin 3.9 g/dL (3.9-5) 12/13/17 11:20 Albumin/Globulin Ratio 1.1 % 12/13/17 11:20 Amylase 96 units/L (27-131) 12/16/17 12:22 Lipase 14 units/L (13-60) 12/16/17 12:22 Urine Color Straw (Yellow) 12/13/17 11:30 Urine Turbidity Clear (Clear) 12/13/17 11:30 Urine pH 5.0 (5.0-7.0) 12/13/17 11:30 Ur Specific [place] 1.028 (1.003-1.030) 12/13/17 11:30 Urine Protein <15 mg/dl mg/dL (Negative) 12/13/17 11:30 Urine Glucose (UA) >=500 mg/dL (Negative) 12/13/17 11:30 Urine Ketones Tr mg/dL (Negative) 12/13/17 11:30 Urine Blood Neg (Negative) 12/13/17 11:30 Urine Nitrite Neg (Negative) 12/13/17 11:30 Urine Bilirubin Neg (Negative) 12/13/17 11:30 Urine Urobilinogen < 2.0 mg/dL (<2.0) 12/13/17 11:30 Ur Leukocyte Esterase Neg (Negative) 12/13/17 11:30 Urine WBC (Auto) < 1.0 /HPF (0.0-6.0) 12/13/17 11:30 Urine RBC (Auto) < 1.0 /HPF (0.0-6.0) 12/13/17 11:30 Urine Opiates Screen Presumptive negative 12/13/17 11:30 Urine Methadone Screen Presumptive negative 12/13/17 11:30 Ur Barbiturates Screen Presumptive negative 12/13/17 11:30 Ur Phencyclidine Scrn Presumptive negative 12/13/17 11:30 Ur Amphetamines Screen Presumptive negative 12/13/17 11:30 U Benzodiazepines Scrn Presumptive negative 12/13/17 11:30 Urine Cocaine Screen Presumptive positive 12/13/17 11:30 U Marijuana (THC) Screen Presumptive negative 12/13/17 11:30 Drugs of Abuse Note Disclamer 12/13/17 11:30 Plasma/Serum Alcohol < 0.01 % (0-0.07) 12/13/17 11:20 Blood Type O NEGATIVE 12/13/17 11:39 Antibody Screen Negative 12/13/17 11:39
[2017-12-17] MEDS: HEPARIN SUB-Q SCH ×2 (00:35→09:43)
[2017-12-17] MEDS: HumaLOG SUB-Q SCH ×4 (00:35→16:55)
[2017-12-17] MEDS: SODIUM CHLORIDE FLUSH SYRINGE 10 ML IV SCH ×2 (00:36→09:43)
[2017-12-17] MEDS: PEPCID PO SCH ×2 (00:36→09:41)
[2017-12-17] MEDS: LOPRESSOR PO SCH ×2 (00:36→13:47)
[2017-12-17] MEDS: PHOS-NAK PO SCH ×3 (00:36→13:47)
[2017-12-17] MEDS: CLEOCIN PO SCH ×3 (00:37→13:47)
[2017-12-17] MEDS ORDERED: HumaLOG SUB-Q ONE (08:39)
[2017-12-17 10:07] LABS: BUN/Creatinine Ratio 22; Blood Urea Nitrogen 13 mg/dL (9-20); Calcium 8.1 mg/dL (8.4-10.2); Hemolysis Index 32
[2017-12-17 10:14] LABS: BUN/Creatinine Ratio TNR; Blood Urea Nitrogen TNR mg/dL (9-20); Calcium TNR mg/dL (8.4-10.2)
[2017-12-17 10:15] LABS: Hemolysis Index TNR
--- NOTE | 2017-12-17 10:19 | Progress Note ---
Assessment and Plan Assessment and plan: --Severe hyperglycemia, secondary to noncompliance with medications and diet Patient frequently goes down and eats excessively, refuses medications Accu-Chek sliding scale coverage and ADA diet and insulin Restraints for safety if needed --Right-sided pneumonia; possible aspiration Continue Levaquin, clindamycin follow cultures, --Hypomagnesemia; corrected --Hypophosphatemia; replace per protocol --Diabetic ketoacidosis; resolved Insulin drip DC'd A1c 12.5 --1 diabetes mellitus; uncontrolled, secondary to noncompliance Patient is bipolar, closely monitor blood sugars, adjust as needed May need placement --Hypertension; patient's blood pressures are in the lower range, closely monitor, IV hydration --History of seizure disorder; seizure precautions, continue current antiepileptic medications --History of bipolar disorder; continue current psych medications --Metabolic encephalopathy; patient is agitated and restless requiring restraints, probably secondary to underlying psych disorder --Psych evaluation noted and appreciated --DVT prophylaxis; Lovenox --Discharge planning. Discussed with Case management; possible placement in assisted living/detention History Interval history: Patient seen and examined, medical records reviewed Overnight events noted, patient wanted to leave AMA last night However could not get a ride, and patient was noncompliant with diet Diffuse medications In today with blood sugars are very high more than 500 Patient is agitated and wants to go home Hospitalist Physical - Constitutional Vitals: Temp Pulse Resp BP Pulse Ox 98.0 F 96 H 18 102/67 96 12/16/17 16:54 12/16/17 16:54 12/16/17 16:54 12/16/17 16:52 12/16/17 16:54 General appearance: Present: no acute distress, cachectic, disheveled Results - Labs CBC & Chem 7: 12/16/17 05:17 12/17/17 09:16 Labs: Laboratory Last Values WBC 10.6 K/mm3 (4.5-11.0) 12/16/17 05:17 RBC 4.07 M/mm3 (3.65-5.03) 12/16/17 05:17 Hgb 12.2 gm/dl (11.8-15.2) 12/16/17 05:17 Hct 37.7 % (35.5-45.6) 12/16/17 05:17 MCV 93 fl (84-94) 12/16/17 05:17 MCH 30 pg (28-32) 12/16/17 05:17 MCHC 32 % (32-34) 12/16/17 05:17 RDW 14.4 % (13.2-15.2) 12/16/17 05:17 Plt Count 288 K/mm3 (140-440) 12/16/17 05:17 Lymph % (Auto) 12.0 % (13.4-35.0) L 12/16/17 05:17 [place] % (Auto) 3.6 % (0.0-7.3) 12/16/17 05:17 Eos % (Auto) 0.6 % (0.0-4.3) 12/16/17 05:17 Baso % (Auto) 0.3 % (0.0-1.8) 12/16/17 05:17 Lymph # 1.3 K/mm3 (1.2-5.4) 12/16/17 05:17 [place] # 0.4 K/mm3 (0.0-0.8) 12/16/17 05:17 Eos # 0.1 K/mm3 (0.0-0.4) 12/16/17 05:17 Baso # 0.0 K/mm3 (0.0-0.1) 12/16/17 05:17 Seg Neutrophils % 83.5 % (40.0-70.0) H 12/16/17 05:17 Seg Neutrophils # 8.9 K/mm3 (1.8-7.7) H 12/16/17 05:17 PT 12.5 Sec. (12.2-14.9) 12/13/17 11:20 INR 0.89 (0.87-1.13) 12/13/17 11:20 APTT 21.6 Sec. (24.2-36.6) L 12/13/17 11:20 VBG pH 7.256 (7.320-7.420) L 12/13/17 11:39 Sodium 135 mmol/L (137-145) L D 12/17/17 09:16 Potassium 4.3 mmol/L (3.6-5.0) 12/17/17 09:16 Chloride 97.0 mmol/L (98-107) L 12/17/17 09:16 Carbon Dioxide 21 mmol/L (22-30) L 12/17/17 09:16 Anion Gap 21 mmol/L 12/17/17 09:16 BUN 13 mg/dL (9-20) 12/17/17 09:16 Creatinine 0.6 mg/dL (0.8-1.5) L 12/17/17 09:16 Estimated GFR > 60 ml/min 12/17/17 09:16 BUN/Creatinine Ratio 22 % 12/17/17 09:16 Glucose 587 mg/dL (75-100) H* 12/17/17 09:16 POC Glucose > 500 (70-105) H 12/17/17 08:28 Ketones Quantitative Negative (Negative) 12/13/17 11:39 Lactic Acid 0.80 mmol/L (0.7-2.0) 12/14/17 06:00 Calcium 8.1 mg/dL (8.4-10.2) L 12/17/17 09:16 Phosphorus 3.40 mg/dL (2.5-4.5) D 12/17/17 09:16 Magnesium 1.90 mg/dL (1.7-2.3) 12/16/17 05:17 Total Bilirubin 0.30 mg/dL (0.1-1.2) 12/13/17 11:20 Direct Bilirubin < 0.2 mg/dL (0-0.2) 12/13/17 11:20 AST 28 units/L (5-40) 12/13/17 11:20 ALT 36 units/L (7-56) 12/16/17 12:22 Alkaline Phosphatase 128 units/L (35-129) 12/16/17 12:22 Total Creatine Kinase 79 units/L (55-170) 12/13/17 11:20 CK-MB (CK-2) 2.0 ng/mL (0.0-4.0) 12/13/17 11:20 CK-MB (CK-2) Rel Index 2.5 (0-4) 12/13/17 11:20 Troponin T < 0.010 ng/mL (0.00-0.029) 12/13/17 11:20 NT-Pro-B Natriuret Pep 78.06 pg/mL (0-450) 12/13/17 11:20 Total Protein 7.5 g/dL (6.3-8.2) 12/13/17 11:20 Albumin 3.9 g/dL (3.9-5) 12/13/17 11:20 Albumin/Globulin Ratio 1.1 % 12/13/17 11:20 Amylase 96 units/L (27-131) 12/16/17 12:22 Lipase 14 units/L (13-60) 12/16/17 12:22 Urine Color Straw (Yellow) 12/13/17 11:30 Urine Turbidity Clear (Clear) 12/13/17 11:30 Urine pH 5.0 (5.0-7.0) 12/13/17 11:30 Ur Specific [place] 1.028 (1.003-1.030) 12/13/17 11:30 Urine Protein <15 mg/dl mg/dL (Negative) 12/13/17 11:30 Urine Glucose (UA) >=500 mg/dL (Negative) 12/13/17 11:30 Urine Ketones Tr mg/dL (Negative) 12/13/17 11:30 Urine Blood Neg (Negative) 12/13/17 11:30 Urine Nitrite Neg (Negative) 12/13/17 11:30 Urine Bilirubin Neg (Negative) 12/13/17 11:30 Urine Urobilinogen < 2.0 mg/dL (<2.0) 12/13/17 11:30 Ur Leukocyte Esterase Neg (Negative) 12/13/17 11:30 Urine WBC (Auto) < 1.0 /HPF (0.0-6.0) 12/13/17 11:30 Urine RBC (Auto) < 1.0 /HPF (0.0-6.0) 12/13/17 11:30 Urine Opiates Screen Presumptive negative 12/13/17 11:30 Urine Methadone Screen Presumptive negative 12/13/17 11:30 Ur Barbiturates Screen Presumptive negative 12/13/17 11:30 Valproic Acid 12.7 ug/mL (50-100) L 12/17/17 09:16 Ur Phencyclidine Scrn Presumptive negative 12/13/17 11:30 Ur Amphetamines Screen Presumptive negative 12/13/17 11:30 U Benzodiazepines Scrn Presumptive negative 12/13/17 11:30 Urine Cocaine Screen Presumptive positive 12/13/17 11:30 U Marijuana (THC) Screen Presumptive negative 12/13/17 11:30 Drugs of Abuse Note Disclamer 12/13/17 11:30 Plasma/Serum Alcohol < 0.01 % (0-0.07) 12/13/17 11:20 Blood Type O NEGATIVE 12/13/17 11:39 Antibody Screen Negative 12/13/17 11:39
[2017-12-17] MEDS: LEVAQUIN PO SCH (13:47)
[2017-12-17 17:11] VITALS: BP 103/72
--- NOTE | 2017-12-17 17:19 | Discharge Summary ---
Providers - Providers Date of Admission: 12/13/17 12:33 Attending physician: KEYANNA GRAHAM 12/13/17 12:25 Consult to Case Management [CONS] Routine Services Needed at Discharge: Home Health Services Notified:: yes Phone number called:: [phone] Was contact made?: Yes If yes, spoke with:: Yris Time called:: 12:30 12/13/17 12:46 Consult to Physician [CONS] Routine Comment: Consulting Provider: MARK GRUBBS Physician Instructions: Reason For Exam: dka on insulin drip 12/14/17 16:55 Consult to Dietitian/Nutrition [CONS] Routine Physician Instructions: Reason For Exam: Reason for Consult: Write/Manage Tube Feeding 12/14/17 17:31 Consult to Dietitian/Nutrition [CONS] Routine Physician Instructions: Reason For Exam: Tube feeding Reason for Consult: Write/Manage Tube Feeding 12/15/17 19:20 psychiatry consult [Consult to Mental Health] [CONS] Routine Reason For Exam: Bipolar/schizophrenia Place consult to:: education officer Notified:: Yes 12/16/17 17:07 Physical Therapy Evaluation and Treat [CONS] Urgent Comment: Reason For Exam: Debility and generalized weakness 12/16/17 17:08 Occupational Therapy Evaluate and Treat [CONS] Urgent Comment: Reason For Exam: Debility and generalized weakness Primary care physician: HARNESS MAKER Hospitalization Reason for admission: altered level of consciousness/DKA Condition: Stable Pertinent studies: Multiple chest x-rays Multiple abdominal x-rays Hospital course: 32-year-old male patient with significant history of type 1 diabetes mellitus bipolar disorder ,seizure disorder and schizophrenia was admitted through emergency room with altered level of consciousness, noted to be in severe DKA, admitted to ICU, DKA pathway initiated Patient has severe acidosis, possible blood sugars are reasonable control and anion gap closed, patient's insulin drip was discontinued and started on long- acting subcutaneous insulin Stabilized and transferred to the floor Patient's symptoms significantly improved, however noncompliant with medications and diet, frequently left the floor, closely monitor blood sugars with regular labile Yesterday patient signed out AMA in the night, however could not get a ride and stayed back Today patient is more alert and awake, blood sugars are still uncontrolled, not in acidosis Ambulating and tolerating oral nutrition, patient's caregiver and sister came to the hospital, reporting that patient is very familiar with managing himself, and patient has all the medications that he needs, and requested to be discharged The patient was set up with home health, psych has evaluated the patient and recommended assisted living, which patient and the sister refused Today patient's vital signs are stable Physical examination prior to discharge is unremarkable Diabetic ketoacidosis; --Diabetic ketoacidosis; resolved, A1c 12.5 --Severe hyperglycemia, --Right-sided pneumonia; --Hypomagnesemia; corrected --Hypophosphatemia; corrected --1 diabetes mellitus; --Hypertension; --History of seizure disorder; --History of bipolar disorder; --Metabolic encephalopathy; Disposition: [id number] HOME UNDER HOME [facility] Time spent for discharge: 31 min Core Measure Documentation - Palliative Care Palliative Care/ Comfort Measures: Not Applicable - Core Measures Any of the following diagnoses?: none Exam - Constitutional Vitals: Temp Pulse Resp BP Pulse Ox 97.8 F 92 H 20 103/72 97 12/17/17 16:11 12/17/17 16:11 12/17/17 16:11 12/17/17 16:11 12/17/17 16:11 General appearance: Present: no acute distress, well-nourished - EENT Eyes: Present: PERRL, EOM intact - Neck Neck: Present: supple, normal ROM - Respiratory Respiratory effort: normal Respiratory: bilateral: diminished, negative: rales, rhonchi, wheezing - Cardiovascular Rhythm: regular Heart Sounds: Present: S1 & S2 - Extremities Extremities: no ischemia, No edema - Abdominal General gastrointestinal: Present: soft, non-tender, non-distended, normal bowel sounds - Integumentary Integumentary: Present: clear, warm - Musculoskeletal Musculoskeletal: strength equal bilaterally - Psychiatric Psychiatric: appropriate mood/affect, cooperative - Neurologic Neurologic: CNII-XII intact, moves all extremities Plan Activity: advance as tolerated Diet: diabetic Additional Instructions: f/u behavioral health in 3-4 days Follow up with: PRIMARY CARE, [Primary Care Provider] - 3-5 Days Prescriptions: Clindamycin [Clindamycin CAP] 300 mg PO Q6HR #30 capsule Levofloxacin [Levaquin TAB] 750 mg PO Q24H #7 tablet Pot Phosphate/Na Phosphate [Phos-Nak] 1 each PO Q8HR #9 powd.pack
--- NOTE | 2017-12-18 14:37 | Progress Note ---
Subjective - Reason for Consult Consult date: 12/18/17 Reason for consult: Psychiatric Follow-up Evaluation - Chief Complaint Chief complaint: confusion Mental Status Exam - Vital signs Last Vital Signs Temp 97.8 F 12/17/17 16:11 Pulse 92 H 12/17/17 16:11 Resp 20 12/17/17 16:11 BP 103/72 12/17/17 16:11 Pulse Ox 97 12/17/17 16:11
== END 2017-12-17 17:35 | disposition home health service (06) | DRG 177 ==
LOC: ED 10:31 → CC1 12:33 → 3A 12-15 11:31
PROVIDERS: ADMIT Internal Medicine; ATTEND Internal Medicine
DX: J69.0 Pneumonitis due to inhalation of food and vomit (principal); E10.10 Type 1 diabetes mellitus with ketoacidosis without coma; G93.41 Metabolic encephalopathy; R65.10 Systemic inflammatory response syndrome (SIRS) of non-infectious origin without acute organ dysfunction; E87.0 Hyperosmolality and hypernatremia; K21.9 Gastro-esophageal reflux disease without esophagitis; F31.9 Bipolar disorder, unspecified; E83.42 Hypomagnesemia; E83.39 Other disorders of phosphorus metabolism; F20.9 Schizophrenia, unspecified; I10 Essential (primary) hypertension; Z82.49 Family history of ischemic heart disease and other diseases of the circulatory system; Z83.3 Family history of diabetes mellitus; Z91.012 Allergy to eggs; Z91.018 Allergy to other foods; Z79.899 Other long term (current) drug therapy; Z79.4 Long term (current) use of insulin; Z91.19 Patient's noncompliance with other medical treatment and regimen
CPT/HCPCS: 36415; 71045; 74018; 80048; 80074; 80164; 80307; 80320; 81001; 82010; 82140; 82150; 82550; 82553; 82805; 82962; 83690; 83735; 83880; 84075; 84100; 84460; 84484; 85025; 85610; 85730; 86850; 86900; 86901; 87040; 87086; 93005; 93010; 94760; 96361; 96374; 99292; G0480; J1630; J1644; J1815; J2060; J2543; J3370; J3475; J3480; J7030; J7040; J7070

== ENCOUNTER 2017-12-31 02:38 | Emergency (ER) | payer MEDICAID ==
[2017-12-31 04:40] LABS: Albumin 3.5 g/dL (3.9-5); BUN/Creatinine Ratio 14; Blood Urea Nitrogen 10 mg/dL (9-20); Calcium 8.9 mg/dL (8.4-10.2); Hemolysis Index 133
[2017-12-31 04:46] LABS: Basophils % (Auto) 1.1 % (0.0-1.8); Eosinophils # (Auto) 0.2 K/mm3 (0.0-0.4); Eosinophils % (Auto) 1.8 % (0.0-4.3); Hematocrit 37.3 % (35.5-45.6); Hemoglobin 12.8 gm/dl (11.8-15.2); Lymphocytes # (Auto) 1.5 K/mm3 (1.2-5.4); Lymphocytes % (Auto) 14.6 % (13.4-35.0); Mean Corpuscular HGB Conc 34 % (32-34); Mean Corpuscular Hemoglobin 32 pg (28-32); Mean Corpuscular Volume 92 fl (84-94); Mean Platelet Volume 7.7 fl (6-12); Monocytes # (Auto) 0.7 K/mm3 (0.0-0.8); Monocytes % (Auto) 6.6 % (0.0-7.3); Platelet Count 471 K/mm3 (140-440); Red Blood Count 4.07 M/mm3 (3.65-5.03)
[2017-12-31 04:48] LABS: Alanine Aminotransferase 18 units/L (7-56)
[2017-12-31] MEDS ORDERED: NACL 0.9% 1000 ML 1,000 ML IV ONE (09:38)
--- NOTE | 2017-12-31 09:39 | Emergency Department Report ---
HPI - General Chief Complaint: Altered Mental Status Time Seen by Provider: 12/31/17 08:49 - HPI HPI: The patient is a 32-year-old male who presents for evaluation of dizziness and tiredness. The patient states that since last night he has experienced intermittent dizziness, moderate severity, exacerbated with position changes, particular standing, and improved with laying down and rest. He states that in the past she has experienced similar symptoms when his blood sugar level was abnormal. The patient denies fever, headache, neck pain, paresthesias, focal motor weakness, blurry vision, ear pain, tinnitus, chest pain, hemoptysis, dyspnea, abdominal pain, or recent URI or diarrhea. ED Past Medical Hx - Past Medical History Previous Medical History?: Yes Hx Hypertension: Yes Hx CVA: No Hx Heart Attack/AMI: No Hx Congestive Heart Failure: No Hx Diabetes: Yes Hx Deep Vein Thrombosis: No Hx Pulmonary Embolism: No Hx GERD: Yes Hx Liver Disease: No Hx Renal Disease: No Hx Sickle Cell Disease: No Hx Arthritis: No Hx Headaches / Migraines: No Hx Seizures: Yes Hx Kidney Stones: No Hx Psychiatric Treatment: Yes (bipolar ;schizophrenia) Hx Asthma: No Hx COPD: No Hx Tuberculosis: No Hx Dementia: No Hx HIV: No - Surgical History Hx Coronary Stent: No Hx Open Heart Surgery: No Hx Pacemaker: No Hx Internal Defibrillator: No Hx Cholecystectomy: No Hx Appendectomy: No Hx Breast Surgery: No Additional Surgical History: r) wrist surgery - Social History Smoking Status: Current Every Day Smoker Substance Use Type: Marijuana - Medications Home Medications: Home Medications Medication Instructions Recorded Confirmed Last Taken Type Divalproex Dr Jaden Crocker] 250 mg PO QAM #30 tablet 09/15/17 12/13/[address] Jaden Crocker] 500 mg PO QHS #30 tablet 09/15/17 12/13/17 Unknown Rx Famotidine [Pepcid] 20 mg PO BID #30 tablet 09/15/17 12/13/17 Unknown Rx OLANzapine [ZyPREXA] 5 mg PO HS #30 tablet 09/15/17 12/13/17 Unknown Rx Insulin NPH/Regular [NovoLIN 70/30] 22 unit SUB-Q BIDDIAB 30 Days 10/13/1712/13 Unknown Rx units Docusate Sodium [Colace CAP] 100 mg PO BID PRN #20 capsule 11/24/17 12/13/17 Unknown Rx Clindamycin [Clindamycin CAP] 300 mg PO Q6HR #30 capsule 12/17/17 Unknown Rx Levofloxacin [Levaquin TAB] 750 mg PO Q24H #7 tablet 12/17/17 Unknown Rx Pot Phosphate/Na Phosphate 1 each PO Q8HR #9 powd.pack 12/17/17 Unknown Rx [Phos-Nak] ED Review of Systems ROS: Stated complaint: HYPERGYCEMIA Other details as noted in HPI Constitutional: reports dizziness denies: fever ENT: denies: throat or neck pain Respiratory: denies: cough, shortness of breath Cardiovascular: denies: chest pain Endocrine: denies unexplained weight loss or gain Gastrointestinal: denies: abdominal pain, nausea Genitourinary: denies: dysuria Musculoskeletal: denies: leg swelling Skin: denies: rash Neurological: denies: headache Hematological/Lymphatic: denies: easy bleeding or easy bruising Psych: denies sadness or hopelessness Physical Exam - Physical Exam Vital Signs: Vital Signs 12/31/17 12/31/17 12/31/17 03:24 07:30 07:40 Temperature 98.6 F Pulse Rate 93 H 96 H Respiratory 20 16 16 Rate Blood Pressure 102/62 104/75 [Right] O2 Sat by Pulse 100 98 98 Oximetry Physical Exam: General: well-nourished, well-developed, no acute distress Head: Normocephalic, atraumatic Eyes: normal sclera ENT: Mucous membranes are pale and dry Neck: No neck stiffness, no cervical adenopathy Respiratory: Breath sounds equal bilaterally, no wheezing, rales, or rhonchi Cardio: S1 and S2 present, no murmurs, rubs, gallops, capillary refill is delayed Abdomen: Normoactive bowel sounds, soft abdomen, no tenderness Chest WALL/Back: No tenderness to palpation of the chest wall, no CVA tenderness with percussion Musc: No pitting edema Skin: No rash Neuro: alert oriented x4, normal cognition, speech normal, PERRL, EOM intact, no facial drooping, no uvula or tongue deviation on protrusion, no deficit with rotation of neck or shoulder shrug, no obvious gross motor deficit in the upper or lower extremities with flexion or extension at the shoulder, elbow, wrist, hip, knee, or ankle bilaterally, no obvious gross sensation deficit to crude touch or 2 pt discrimination, 2+ symmetric reflexes on DTR testing, no coordination deficit with [id number] or [id number]-[id number] testing, Babinski downgoing, romberg negative, patient able to to ambulate without abnormal gait Psych: Normal affect ED Course Vital Signs 12/31/17 12/31/17 12/31/17 03:24 07:30 07:40 Temperature 98.6 F Pulse Rate 93 H 96 H Respiratory 20 16 16 Rate Blood Pressure 102/62 104/75 [Right] O2 Sat by Pulse 100 98 98 Oximetry ED Medical Decision Making - Lab Data Result diagrams: 12/31/17 04:09 12/31/17 04:09 - Medical Decision Making The patient was seen and examined by myself. The patient is placed on a secured entrance monitor and continuous pulse ox. On initial evaluation, the patient was found to be in no distress. EKG was negative for findings suggestive of acute cardiac infarct. Labs and imaging are obtained. The patient is given normal saline fluid bolus for treatment of his dehydration. Lab results revealed hemoglobin of 60, and labs were grossly non-concerning including levels of WBC, hemoglobin, hematocrit, electrolytes, renal function. The patient is given an amp of D50 for treatment of his mild hypoglycemia. The patient was reevaluated and reported that he was now asymptomatic, and the patient's tachycardia has resolved, all vital signs within normal limits. The patient is stable for discharge with outpatient follow-up. The patient is given follow-up and return instructions. The patient expressed understanding and agreed with the plan. The patient is discharged in stable condition. Critical care attestation.: If time is entered above; I have spent that time in minutes in the direct care of this critically ill patient, excluding procedure time. ED Disposition Clinical Impression: Dehydration, Orthostatic dizziness, Hypoglycemia Disposition: DC-01 TO HOME OR SELFCARE Is pt being admited?: No Does the pt Need Aspirin: No Condition: Stable Instructions: Dehydration (ED), Non-diabetic Hypoglycemia (ED), Dizziness (ED) Referrals: PRIMARY CARE, [Primary Care Provider] - 3-5 Days Time of Disposition: 09:38
[2017-12-31 11:58] VITALS: BP 101/66
[2017-12-31] MEDS ORDERED: D50W (25GM) Syringe IV ONE (12:00)
== END 2017-12-31 13:40 | disposition home or self-care (01) ==
LOC: ED 02:38
DX: E86.0 Dehydration (principal); E11.649 Type 2 diabetes mellitus with hypoglycemia without coma; I10 Essential (primary) hypertension; K21.9 Gastro-esophageal reflux disease without esophagitis; F31.9 Bipolar disorder, unspecified; F20.9 Schizophrenia, unspecified; F17.200 Nicotine dependence, unspecified, uncomplicated; F12.10 Cannabis abuse, uncomplicated; Z79.899 Other long term (current) drug therapy; Z91.018 Allergy to other foods; Z79.4 Long term (current) use of insulin
CPT/HCPCS: 36415; 80053; 82962; 84443; 85025; 93005; 93010; 96360; 99284; G0480; J7030; 80320

== ENCOUNTER 2018-01-28 16:21 | Inpatient (IN) | payer MEDICAID ==
[2018-01-28] MEDS ORDERED: ATIVAN IV ONE (17:14)
[2018-01-28] MEDS ORDERED: NACL 0.9% 1000 ML 3,000 ML IV ONE (17:14)
[2018-01-28 17:21] LABS: Basophils % (Auto) 0.2 % (0.0-1.8); Eosinophils % (Auto) 0.1 % (0.0-4.3); Hemoglobin 15.3 gm/dl (11.8-15.2); Lymphocytes # (Auto) 1.2 K/mm3 (1.2-5.4); Lymphocytes % (Auto) 10.8 % (13.4-35.0); Monocytes # (Auto) 0.5 K/mm3 (0.0-0.8); Monocytes % (Auto) 4.3 % (0.0-7.3)
[2018-01-28 17:26] LABS: Hematocrit 48.7 % (35.5-45.6); Mean Corpuscular HGB Conc 32 % (32-34); Mean Corpuscular Hemoglobin 31 pg (28-32); Mean Corpuscular Volume 97 fl (84-94); Platelet Count 335 K/mm3 (140-440); Red Blood Count 5.01 M/mm3 (3.65-5.03); Red Cell Distribution Width 15.5 % (13.2-15.2)
[2018-01-28 17:35] LABS: BUN/Creatinine Ratio 29; Blood Urea Nitrogen 38 mg/dL (9-20); Calcium 10.5 mg/dL (8.4-10.2); Hemolysis Index 43
[2018-01-28 17:47] LABS: Bilirubin,Urine NEG (Negative); Blood,Urine NEG (Negative); Color,Urine Yellow (Yellow); Protein,Urine <15 mg/dL mg/dL (Negative); Urobilinogen,Urine < 2.0 mg/dL (<2.0); WBC,Urine < 1.0 /HPF (0.0-6.0)
[2018-01-28] MEDS ORDERED: D50W (25GM) Syringe IV PRN (17:51)
[2018-01-28] MEDS ORDERED: HumuLIN R IV ONE (17:51)
--- NOTE | 2018-01-28 17:52 | History and Physical Report ---
History of Present Illness Chief complaint: My sugar is high History of present illness: 32 YO Male with DM, GERD, HTN, Seizure Disorder, Bipolar DO, Cocaine Dependence , Schizophrenia presents to ED for evaluation presents to ED for evaluation. Pt confused and unable to provide history. Pt history taken from medical record, ED staff, And EMS. Pt was at a friends house and became confused. EMS notified and upon arrival the patient was found to be confused, and combative. Pt seen and evaluated in ED and found to have Encephalopathy, DKA. Pt admitted to ICU. Past History Past Medical History: diabetes, GERD, hypertension, seizures, other (Bipolar, Schizophrenia) Past Surgical History: Other (right wrist) Social history: single. denies: smoking Family history: diabetes, hypertension Medications and Allergies Allergies Allergy/AdvReac Type Severity Reaction Status Date / Time banana Allergy Severe Angioedema Verified 10/20/17 17:43 Home Medications Medication Instructions Recorded Confirmed Last Taken Type Divalproex [Waldemar Crocker] 250 mg PO QAM #30 tablet 09/15/17 12/13/[address] Jaden Crocker] 500 mg PO QHS #30 tablet 09/15/17 12/13/17 Unknown Rx Famotidine [Pepcid] 20 mg PO BID #30 tablet 09/15/17 12/13/17 Unknown Rx OLANzapine [ZyPREXA] 5 mg PO HS #30 tablet 09/15/17 12/13/17 Unknown Rx Insulin NPH/Regular [NovoLIN 70/30] 22 unit SUB-Q BIDDIAB 30 Days 10/13/1712/13 Unknown Rx units Docusate Sodium [Colace CAP] 100 mg PO BID PRN #20 capsule 11/24/17 12/13/17 Unknown Rx Clindamycin [Clindamycin CAP] 300 mg PO Q6HR #30 capsule 12/17/17 Unknown Rx Levofloxacin [Levaquin TAB] 750 mg PO Q24H #7 tablet 12/17/17 Unknown Rx Pot Phosphate/Na Phosphate 1 each PO Q8HR #9 powd.pack 12/17/17 Unknown Rx [Phos-Nak] Active Meds: Active Medications Sodium Chloride (Nacl 0.9% 1000 Ml) 3,000 mls @ 999 mls/hr IV BOLUS ONE Stop: 01/28/18 20:14 Last Admin: 01/28/18 17:25 Dose: 999 mls/hr Review of Systems ROS unobtainable: due to mental status Exam - Constitutional Vitals: Temp Pulse Resp BP Pulse Ox 98.8 F 127 H 18 99/59 99 01/28/18 17:46 01/28/18 16:32 01/28/18 16:32 01/28/18 16:32 01/28/18 16:32 General appearance: Present: mild distress - EENT Eyes: Present: PERRL ENT: hearing intact, clear oral mucosa - Neck Neck: Present: supple, normal ROM - Respiratory Respiratory effort: normal Respiratory: bilateral: CTA - Cardiovascular Heart Sounds: Present: S1 & S2. Absent: rub, click - Extremities Extremities: pulses symmetrical, No edema - Abdominal General gastrointestinal: Present: soft, non-tender, non-distended, normal bowel sounds Male genitourinary: Present: normal - Integumentary Integumentary: Present: clear, dry, clammy, decreased turgor - Musculoskeletal Musculoskeletal: generalized weakness - Psychiatric Psychiatric: no appropriate mood/affect, no intact judgment & insight, no memory intact, no cooperative, agitated - Neurologic Neurologic: moves all extremities, no gait normal Results - Labs CBC & Chem 7: 01/28/18 16:53 01/28/18 16:53 Labs: Abnormal lab results 01/28/18 01/28/18 01/28/18 Range/Units 16:53 16:53 16:53 Hgb 15.3 H (11.8-15.2) gm/dl Hct 48.7 H (35.5-45.6) % MCV 97 H (84-94) fl RDW 15.5 H (13.2-15.2) % Lymph % (Auto) 10.8 L (13.4-35.0) % Seg Neutrophils % 84.6 H (40.0-70.0) % Seg Neutrophils # 9.2 H (1.8-7.7) K/mm3 VBG pH 7.226 L (7.320-7.420) Sodium 158 H (137-145) mmol/L Potassium 5.5 H (3.6-5.0) mmol/L Chloride 109.8 H (98-107) mmol/L Carbon Dioxide 15 L (22-30) mmol/L BUN 38 H (9-20) mg/dL Calcium 10.5 H (8.4-10.2) mg/dL Assessment and Plan - Patient Problems (1) DKA, type 1 Current Visit: Yes Status: Acute Qualifiers: Diabetes mellitus complication detail: with coma Qualified Code(s): E10.11 - Type 1 diabetes mellitus with ketoacidosis with coma Plan to address problem: DKA Protocol: Insulin drip, serial bmp, IVR resuscitation, monitor anion gap, urinalysis, The high probability of a clinically significant, sudden or life threatening deterioration of the [endocrine, neuro, cardiac] system(s) required my full and direct attention, intervention and personal management. The aggregate critical care time was [65] minutes. This time is in addition to time spent performing reported procedures but includes the following: [x] Data Review and interpretation [x] Patient assessment and monitoring of vital signs [x] Documentation [x] Medication orders and management (2) Metabolic encephalopathy Current Visit: Yes Status: Acute Plan to address problem: Treat DKA, neuro checks, seizure precautions. (3) Lactic acidosis Current Visit: No Status: Acute Plan to address problem: Treat DKA, IVF resuscitation, monitor uop q shift. (4) GERD (gastroesophageal reflux disease) Current Visit: No Status: Chronic Qualifiers: Esophagitis presence: without esophagitis Qualified Code(s): K21.9 - Gastro -esophageal reflux disease without esophagitis Plan to address problem: PPI therapy, (5) Seizure disorder Current Visit: No Status: Chronic Plan to address problem: seizure precautions, neuro checks, resume prehospital AED (6) Bipolar 1 disorder Current Visit: Yes Status: Acute Plan to address problem: Ativan prn, supportive care, (7) DVT prophylaxis Current Visit: No Status: Acute Plan to address problem: scd to ble while in bed.
--- NOTE | 2018-01-28 17:53 | Emergency Department Report ---
HPI - General Chief Complaint: Hyperglycemia Time Seen by Provider: 01/28/18 17:10 - HPI HPI: The patient is a 32-year-old male with a history of diabetes, noncompliance, recurrent DKA, crack cocaine/polysubstance abuse, well-known to myself in this emergency department, and who presented via EMS with altered mental status and agitation. Per EMS the patient was found to be exhibiting combative behavior at the home of an associate of the patients, prompting call to EMS. ED Past Medical Hx - Past Medical History Hx Hypertension: Yes Hx CVA: No Hx Heart Attack/AMI: No Hx Congestive Heart Failure: No Hx Diabetes: Yes Hx Deep Vein Thrombosis: No Hx Pulmonary Embolism: No Hx GERD: Yes Hx Liver Disease: No Hx Renal Disease: No Hx Sickle Cell Disease: No Hx Arthritis: No Hx Headaches / Migraines: No Hx Seizures: Yes Hx Kidney Stones: No Hx Psychiatric Treatment: Yes (bipolar ;schizophrenia) Hx Asthma: No Hx COPD: No Hx Tuberculosis: No Hx Dementia: No Hx HIV: No - Surgical History Hx Coronary Stent: No Hx Open Heart Surgery: No Hx Pacemaker: No Hx Internal Defibrillator: No Hx Cholecystectomy: No Hx Appendectomy: No Hx Breast Surgery: No Additional Surgical History: r) wrist surgery - Social History Smoking Status: Never Smoker Substance Use Type: Cocaine - Medications Home Medications: Home Medications Medication Instructions Recorded Confirmed Last Taken Type Divalproex Dr Jaden Crocker] 250 mg PO QAM #30 tablet 09/15/17 12/13/[address] Jaden Crocker] 500 mg PO QHS #30 tablet 09/15/17 12/13/17 Unknown Rx Famotidine [Pepcid] 20 mg PO BID #30 tablet 09/15/17 12/13/17 Unknown Rx OLANzapine [ZyPREXA] 5 mg PO HS #30 tablet 09/15/17 12/13/17 Unknown Rx Insulin NPH/Regular [NovoLIN 70/30] 22 unit SUB-Q BIDDIAB 30 Days 10/13/1712/13 Unknown Rx units Docusate Sodium [Colace CAP] 100 mg PO BID PRN #20 capsule 11/24/17 12/13/17 Unknown Rx Clindamycin [Clindamycin CAP] 300 mg PO Q6HR #30 capsule 12/17/17 Unknown Rx Levofloxacin [Levaquin TAB] 750 mg PO Q24H #7 tablet 12/17/17 Unknown Rx Pot Phosphate/Na Phosphate 1 each PO Q8HR #9 powd.pack 12/17/17 Unknown Rx [Phos-Nak] ED Review of Systems ROS: Stated complaint: HYPERGLYCEMIA Other details as noted in HPI Comment: Unobtainable due to pts medical conditions (altered mental status) Physical Exam - Physical Exam Vital Signs: Vital Signs 01/28/18 01/28/18 01/28/18 16:22 16:30 16:32 Temperature 98.9 F Pulse Rate 126 H 128 H 127 H Respiratory 19 18 18 Rate Blood Pressure 99/59 99/59 O2 Sat by Pulse 99 99 Oximetry 01/28/18 17:46 Temperature 98.8 F Pulse Rate Respiratory Rate Blood Pressure O2 Sat by Pulse Oximetry Physical Exam: General: poorly-nourished, well-developed, no acute distress Head: Normocephalic, atraumatic Eyes: normal sclera ENT: Mucous membranes are pale and dry Neck: No neck stiffness, no cervical adenopathy Respiratory: Breath sounds equal bilaterally, no wheezing, rales, or rhonchi Cardio: S1 and S2 present, no murmurs, rubs, gallops, capillary refill is delayed Abdomen: Normoactive bowel sounds, soft abdomen, no rigidity, no guarding or rebound tenderness Chest WALL/Back: No tenderness to palpation of the chest wall, no CVA tenderness with percussion Musc: No pitting edema Skin: No rash Neuro: Patient drowsy, intermittently combative, unable to follow instructions, PERRL Psych: Normal affect ED Course Vital Signs 01/28/18 01/28/18 01/28/18 16:22 16:30 16:32 Temperature 98.9 F Pulse Rate 126 H 128 H 127 H Respiratory 19 18 18 Rate Blood Pressure 99/59 99/59 O2 Sat by Pulse 99 99 Oximetry 01/28/18 17:46 Temperature 98.8 F Pulse Rate Respiratory Rate Blood Pressure O2 Sat by Pulse Oximetry ED Medical Decision Making - Lab Data Result diagrams: 01/28/18 16:53 01/28/18 16:53 - Medical Decision Making The patient was seen and examined by myself. The patient is placed on a hospital monitor and continuous pulse ox. On initial evaluation, the patient was found to be combative with altered mental status, unable to follow instructions , attempted to pull IV lines out, with severe tachycardia The patient is given IV Ativan and placed in restraints. Evaluation orders were placed. Accu-Chek revealed the patient's blood sugar greater than 500, and the patient was started on normal saline fluid bolus. Multiple bedside reassessments were performed to assess patient responsiveness to fluids resuscitation and anxiolytics. Lab results reveal low pH of 7.2, elevated glucose greater than 500 , low bicarbonate, and increased anion gap, consistent with acute metabolic acidosis secondary to diabetic ketoacidosis. The patient started on insulin drip. The on-call hospitalist service was contacted. They agreed to admit the patient for further treatment and close monitoring. The ED admit order was placed. The patient was admitted in guarded condition. Critical Care Time: Yes Critical care time in (mins) excluding proc time.: 35 Critical care attestation.: Due to the critical nature of this patients presentation, which necessitated multiple bedside assessments, manipulation and supportive measures to prevent further life threatening deterioration, I would like to bill for a total of 35 minutes of critical care time. This was exclusive of any separately billable procedures. Critical Care Time: 35 min ED Disposition Clinical Impression: Dehydration, Acute hyperkalemia, Metabolic encephalopathy, Acidosis DKA, type 1 Qualifiers: Diabetes mellitus complication detail: with coma Qualified Code(s): E10.11 - Type 1 diabetes mellitus with ketoacidosis with coma Altered mental status, unspecified Qualifiers: Altered mental status type: delirium Qualified Code(s): R41.0 - Disorientation , unspecified Disposition: DC-09 OP ADMIT IP TO THIS HOSP Is pt being admited?: Yes Does the pt Need Aspirin: Yes Condition: Critical Instructions: Diabetic Ketoacidosis (ED) Time of Disposition: 17:52
[2018-01-28] MEDS ORDERED: SODIUM CHLORIDE FLUSH SYRINGE 10 ML IV PRN (17:54)
[2018-01-28] MEDS ORDERED: PROVENTIL IH PRN (17:54)
[2018-01-28 17:56] LABS: Amphetamine Screen,Urine PRESUMPTIVE NEGATIVE; Benzodiazepines Screen,Urine PRESUMPTIVE NEGATIVE; Cannabinoid Screen,Urine PRESUMPTIVE NEGATIVE; Cocaine Screen,Urine PRESUMPTIVE NEGATIVE; Methadone Screen,Urine PRESUMPTIVE NEGATIVE; Opiate Screen,Urine PRESUMPTIVE NEGATIVE
[2018-01-28] MEDS ORDERED: COLACE PO PRN (18:30)
[2018-01-28] MEDS: HumuLIN R 100 UNITS in NACL 0.9% 99 ML IV SCH (19:00)
[2018-01-28 20:54] LABS: BUN/Creatinine Ratio 28; Blood Urea Nitrogen 31 mg/dL (9-20); Calcium 8.9 mg/dL (8.4-10.2); Hemolysis Index 135
[2018-01-28] MEDS: PEPCID PO SCH (22:32)
[2018-01-28] MEDS: PHOS-NAK PO SCH (22:32)
[2018-01-28] MEDS: SODIUM CHLORIDE FLUSH SYRINGE 10 ML IV SCH (22:32)
[2018-01-29] MEDS: D5W/0.45% NACL/KCL 20 MEQ 20 MEQ/1,000 ML BAG IV SCH ×2 (01:32→09:54)
[2018-01-29] MEDS ORDERED: ATIVAN IV ONE (06:02)
[2018-01-29] MEDS: PHOS-NAK PO SCH (07:06)
--- NOTE | 2018-01-29 07:30 | Consultation ---
History of Present Illness - Reason for Consult Consult date: 01/29/18 Requesting physician: MORALES CARTWRIGHT - History of Present Illness 32 y/o male, with known Diabetes, presented to the ED with altered mental state. Found to be in DKA as well. Given several sedatives for calming and then started on Insulin drip. Does not appear that DKA protocol was ordered as last BMP was at 1999 on 01/28. Anion Gap at that time was 25 and Na was 163. Most recent blood sugar is 133. Past History Past Medical History: diabetes, GERD, hypertension, seizures, other (Bipolar, Schizophrenia) Past Surgical History: Other (right wrist) Social history: single. denies: smoking Family history: diabetes, hypertension Medications and Allergies Allergies Allergy/AdvReac Type Severity Reaction Status Date / Time banana Allergy Severe Angioedema Verified 10/20/17 17:43 Home Medications Medication Instructions Recorded Confirmed Last Taken Type Divalproex [Wadlemar Crocker] 250 mg PO QAM #30 tablet 09/15/17 12/13/[address] Jaden Crocker] 500 mg PO QHS #30 tablet 09/15/17 12/13/17 Unknown Rx Famotidine [Pepcid] 20 mg PO BID #30 tablet 09/15/17 12/13/17 Unknown Rx OLANzapine [ZyPREXA] 5 mg PO HS #30 tablet 09/15/17 12/13/17 Unknown Rx Insulin NPH/Regular [NovoLIN 70/30] 22 unit SUB-Q BIDDIAB 30 Days 10/13/1712/13 Unknown Rx units Docusate Sodium [Colace CAP] 100 mg PO BID PRN #20 capsule 11/24/17 12/13/17 Unknown Rx Clindamycin [Clindamycin CAP] 300 mg PO Q6HR #30 capsule 12/17/17 Unknown Rx Levofloxacin [Levaquin TAB] 750 mg PO Q24H #7 tablet 12/17/17 Unknown Rx Pot Phosphate/Na Phosphate 1 each PO Q8HR #9 powd.pack 12/17/17 Unknown Rx [Phos-Nak] Active Meds: Active Medications Albuterol (Proventil) 2.5 mg IH Q3H PRN PRN Reason: Shortness Of Breath Dextrose (D50w (25gm) Syringe) 0 ml IV PRN PRN PRN Reason: Hypoglycemia Divalproex Sodium (Depakote Dr) 250 mg PO QAM [facility] Divalproex Sodium (Depakote Dr) 500 mg PO QHS [facility] Last Admin: 01/28/18 22:32 Dose: Not Given Docusate Sodium (Colace) 100 mg PO BID PRN PRN Reason: Constipation Famotidine (Pepcid) 20 mg PO BID [facility] Last Admin: 01/28/18 22:32 Dose: Not Given Insulin Human Regular 100 (units/ Sodium Chloride) 100 mls @ 1 mls/hr IV TITR [facility]; Protocol Last Titration: 01/29/18 07:06 Dose: 2 units/hr, 2 mls/hr Potassium Chloride/Dextrose/Sod Cl (D5w/0.45% Nacl/Kcl 20 Meq) 20 meq in 1,000 mls @ 125 mls/hr IV DIRECT [facility] Last Admin: 01/29/18 01:32 Dose: 125 mls/hr Olanzapine (Zyprexa) 5 mg PO HS [facility] Last Admin: 01/28/18 22:32 Dose: Not Given Potassium Phos/Sodium Phos (Phos-Nak) 1 each PO Q8HR [facility] Last Admin: 01/29/18 07:06 Dose: Not Given Sodium Chloride (Sodium Chloride Flush Syringe 10 Ml) 10 ml IV BID [facility] Last Admin: 01/28/18 22:32 Dose: Not Given Sodium Chloride (Sodium Chloride Flush Syringe 10 Ml) 10 ml IV PRN PRN PRN Reason: LINE FLUSH Review of Systems ROS unobtainable: due to mental status Exam - Constitutional Vitals: Temp Pulse Resp BP Pulse Ox 97.4 F L 95 H 18 126/81 100 01/29/18 03:46 01/29/18 07:00 01/29/18 07:00 01/29/18 07:00 01/29/18 07:00 General appearance: Present: other (alseep, snoring, but no further documentation of aggressive behavior) - Neck Neck: Present: supple - Respiratory Respiratory effort: normal Respiratory: bilateral: CTA - Cardiovascular Rhythm: regular Heart Sounds: Present: S1 & S2 - Extremities Extremities: no ischemia - Abdominal General gastrointestinal: Present: soft, non-tender, normal bowel sounds Male genitourinary: Present: deferred - Rectal Rectal Exam: deferred Results - Labs CBC & Chem 7: 01/28/18 16:53 01/28/18 20:35 Labs: Abnormal lab results 01/28/18 01/28/18 01/28/18 Range/Units 16:53 16:53 16:53 Hgb 15.3 H (11.8-15.2) gm/dl Hct 48.7 H (35.5-45.6) % MCV 97 H (84-94) fl RDW 15.5 H (13.2-15.2) % Lymph % (Auto) 10.8 L (13.4-35.0) % Seg Neutrophils % 84.6 H (40.0-70.0) % Seg Neutrophils # 9.2 H (1.8-7.7) K/mm3 POC ABG pH (7.35-7.45) POC ABG pO2 (80-105) VBG pH 7.226 L (7.320-7.420) Sodium 158 H (137-145) mmol/L Potassium 5.5 H (3.6-5.0) mmol/L Chloride 109.8 H (98-107) mmol/L Carbon Dioxide 15 L (22-30) mmol/L BUN 38 H (9-20) mg/dL Glucose 972 H* (75-100) mg/dL POC Glucose (70-105) Lactic Acid (0.7-2.0) mmol/L Calcium 10.5 H (8.4-10.2) mg/dL Phosphorus (2.5-4.5) mg/dL Magnesium (1.7-2.3) mg/dL 01/28/18 01/28/18 01/28/18 Range/Units 16:53 16:53 17:45 Hgb (11.8-15.2) gm/dl Hct (35.5-45.6) % MCV (84-94) fl RDW (13.2-15.2) % Lymph % (Auto) (13.4-35.0) % Seg Neutrophils % (40.0-70.0) % Seg Neutrophils # (1.8-7.7) K/mm3 POC ABG pH (7.35-7.45) POC ABG pO2 (80-105) VBG pH (7.320-7.420) Sodium (137-145) mmol/L Potassium (3.6-5.0) mmol/L Chloride (98-107) mmol/L Carbon Dioxide (22-30) mmol/L BUN (9-20) mg/dL Glucose (75-100) mg/dL POC Glucose (70-105) Lactic Acid 2.30 H* (0.7-2.0) mmol/L Calcium (8.4-10.2) mg/dL Phosphorus 5.50 H (2.5-4.5) mg/dL Magnesium 3.00 H (1.7-2.3) mg/dL 01/28/18 01/28/18 01/28/18 Range/Units 18:31 18:50 20:11 Hgb (11.8-15.2) gm/dl Hct (35.5-45.6) % MCV (84-94) fl RDW (13.2-15.2) % Lymph % (Auto) (13.4-35.0) % Seg Neutrophils % (40.0-70.0) % Seg Neutrophils # (1.8-7.7) K/mm3 POC ABG pH 7.186 L (7.35-7.45) POC ABG pO2 77 L (80-105) VBG pH (7.320-7.420) Sodium (137-145) mmol/L Potassium (3.6-5.0) mmol/L Chloride (98-107) mmol/L Carbon Dioxide (22-30) mmol/L BUN (9-20) mg/dL Glucose (75-100) mg/dL POC Glucose (70-105) Lactic Acid 2.60 H* 3.70 H* (0.7-2.0) mmol/L Calcium (8.4-10.2) mg/dL Phosphorus (2.5-4.5) mg/dL Magnesium (1.7-2.3) mg/dL 01/28/18 01/28/18 01/28/18 Range/Units 20:20 20:35 21:37 Hgb (11.8-15.2) gm/dl Hct (35.5-45.6) % MCV (84-94) fl RDW (13.2-15.2) % Lymph % (Auto) (13.4-35.0) % Seg Neutrophils % (40.0-70.0) % Seg Neutrophils # (1.8-7.7) K/mm3 POC ABG pH (7.35-7.45) POC ABG pO2 (80-105) VBG pH (7.320-7.420) Sodium 163 H* (137-145) mmol/L Potassium 5.1 H (3.6-5.0) mmol/L Chloride 126.0 H (98-107) mmol/L Carbon Dioxide 18 L (22-30) mmol/L BUN 31 H (9-20) mg/dL Glucose 510 H* (75-100) mg/dL POC Glucose > 500 H (70-105) Lactic Acid 2.20 H* (0.7-2.0) mmol/L Calcium (8.4-10.2) mg/dL Phosphorus (2.5-4.5) mg/dL Magnesium (1.7-2.3) mg/dL 01/28/18 01/28/18 01/29/18 Range/Units 22:22 23:45 00:59 Hgb (11.8-15.2) gm/dl Hct (35.5-45.6) % MCV (84-94) fl RDW (13.2-15.2) % Lymph % (Auto) (13.4-35.0) % Seg Neutrophils % (40.0-70.0) % Seg Neutrophils # (1.8-7.7) K/mm3 POC ABG pH (7.35-7.45) POC ABG pO2 (80-105) VBG pH (7.320-7.420) Sodium (137-145) mmol/L Potassium (3.6-5.0) mmol/L Chloride (98-107) mmol/L Carbon Dioxide (22-30) mmol/L BUN (9-20) mg/dL Glucose (75-100) mg/dL POC Glucose 421 H 278 H 212 H (70-105) Lactic Acid (0.7-2.0) mmol/L Calcium (8.4-10.2) mg/dL Phosphorus (2.5-4.5) mg/dL Magnesium (1.7-2.3) mg/dL 01/29/18 01/29/18 01/29/18 Range/Units 02:02 03:06 04:13 Hgb (11.8-15.2) gm/dl Hct (35.5-45.6) % MCV (84-94) fl RDW (13.2-15.2) % Lymph % (Auto) (13.4-35.0) % Seg Neutrophils % (40.0-70.0) % Seg Neutrophils # (1.8-7.7) K/mm3 POC ABG pH (7.35-7.45) POC ABG pO2 (80-105) VBG pH (7.320-7.420) Sodium (137-145) mmol/L Potassium (3.6-5.0) mmol/L Chloride (98-107) mmol/L Carbon Dioxide (22-30) mmol/L BUN (9-20) mg/dL Glucose (75-100) mg/dL POC Glucose 205 H 156 H 139 H (70-105) Lactic Acid (0.7-2.0) mmol/L Calcium (8.4-10.2) mg/dL Phosphorus (2.5-4.5) mg/dL Magnesium (1.7-2.3) mg/dL 01/29/18 01/29/18 01/29/18 Range/Units 05:15 06:10 06:59 Hgb (11.8-15.2) gm/dl Hct (35.5-45.6) % MCV (84-94) fl RDW (13.2-15.2) % Lymph % (Auto) (13.4-35.0) % Seg Neutrophils % (40.0-70.0) % Seg Neutrophils # (1.8-7.7) K/mm3 POC ABG pH (7.35-7.45) POC ABG pO2 (80-105) VBG pH (7.320-7.420) Sodium (137-145) mmol/L Potassium (3.6-5.0) mmol/L Chloride (98-107) mmol/L Carbon Dioxide (22-30) mmol/L BUN (9-20) mg/dL Glucose (75-100) mg/dL POC Glucose 128 H 203 H 133 H (70-105) Lactic Acid (0.7-2.0) mmol/L Calcium (8.4-10.2) mg/dL Phosphorus (2.5-4.5) mg/dL Magnesium (1.7-2.3) mg/dL Assessment and Plan 32 y/o male with altered mental state and diabetic ketoacidosis 1. Stat BMP and then [id number] from here starting at 12 noon 2. Pending BMP, will change D5W 1/ normal to likely just D5W. Corrected NA on admission was actually 179. 3. Likely will need K replacement but need most recent BMP 4. No fever, other vitals stable 5. Continue psych meds, may need psych consult once electrolytes corrected 6. Continue ICU monitoring. CCT 31 minutes.
[2018-01-29 12:09] LABS: BUN/Creatinine Ratio 26; Blood Urea Nitrogen 18 mg/dL (9-20); Calcium 9.2 mg/dL (8.4-10.2); Hemolysis Index 3
--- NOTE | 2018-01-29 12:26 | Progress Note ---
Assessment and Plan Assessment and plan: Patient is a 32 yo man with IDDM, GERD, HTN, Seizure Disorder, Bipolar DO, Cocaine Dependence and Schizophrenia who presented with AMS/confusion/combative and high blood glucose. Admitted to icu for dka on insulin drip -Acute metabolic encephalopathy -DKA: treat with DKA Protoco including IVF, Insulin drip, serial bmp to monitor anion gap -Metabolic acidosis: Treat DKA, IVF resuscitation, monitor uop q shift. -Hypernatremia: treat with free water, hold lithium if he is taking -GERD (gastroesophageal reflux disease): PPI therapy, -Seizure disorder: seizure precautions, neuro checks, resume prehospital AED -Bipolar 1 disorder: Ativan prn, supportive care, -DVT prophylaxis: scd to ble while in bed. renewed restraints History Interval history: Patient was seen and examined. Follow-up on current diagnosis of Ams, stil present. Overnight uneventful. Imaging, nursing note, chart, labs and old chart reviewed. Hospitalist Physical - Physical exam Narrative exam: GEN: ill appearing, sleeping but easy arousal HEENT: NCAT, EOMI, PERRL, OP Clear NECK: supple, no adenopathy, no thyromegaly, no JVD CVS/HEART: RRR, normal S1S2, pulses present bilaterally CHEST/LUNGS: CTA B, Symmetrical chest expansion, good air entry bilaterally GI/Abdomen: soft, NTND, good bowel sounds, no guarding or rebound /Bladder: no suprapubic tenderness, no CVA or paraspinal tenderness EXT/Skin: no c/c/e, no obvious rash MSK: spontaneous fROM x 4 Neuro: CN 2-12 grossly intact, doesn't follow commands Psych: combative - Constitutional Vitals: Temp Pulse Resp BP Pulse Ox 97.4 F L 97 H 26 H 111/86 96 01/29/18 08:00 01/29/18 10:21 01/29/18 10:21 01/29/18 10:21 01/29/18 10:21 General appearance: Present: other (alseep, snoring, but no further documentation of aggressive behavior) Results - Labs CBC & Chem 7: 01/28/18 16:53 01/29/18 11:41 Labs: Laboratory Last Values WBC 10.8 K/mm3 (4.5-11.0) 01/28/18 16:53 RBC 5.01 M/mm3 (3.65-5.03) 01/28/18 16:53 Hgb 15.3 gm/dl (11.8-15.2) H 01/28/18 16:53 Hct 48.7 % (35.5-45.6) H 01/28/18 16:53 MCV 97 fl (84-94) H 01/28/18 16:53 MCH 31 pg (28-32) 01/28/18 16:53 MCHC 32 % (32-34) 01/28/18 16:53 RDW 15.5 % (13.2-15.2) H 01/28/18 16:53 Plt Count 335 K/mm3 (140-440) 01/28/18 16:53 Lymph % (Auto) 10.8 % (13.4-35.0) L 01/28/18 16:53 [place] % (Auto) 4.3 % (0.0-7.3) 01/28/18 16:53 Eos % (Auto) 0.1 % (0.0-4.3) 01/28/18 16:53 Baso % (Auto) 0.2 % (0.0-1.8) 01/28/18 16:53 Lymph # 1.2 K/mm3 (1.2-5.4) 01/28/18 16:53 [place] # 0.5 K/mm3 (0.0-0.8) 01/28/18 16:53 Eos # 0.0 K/mm3 (0.0-0.4) 01/28/18 16:53 Baso # 0.0 K/mm3 (0.0-0.1) 01/28/18 16:53 Seg Neutrophils % 84.6 % (40.0-70.0) H 01/28/18 16:53 Seg Neutrophils # 9.2 K/mm3 (1.8-7.7) H 01/28/18 16:53 POC ABG pH 7.186 (7.35-7.45) L 01/28/18 18:31 POC ABG pCO2 35.3 (35-45) 01/28/18 18:31 POC ABG pO2 77 (80-105) L 01/28/18 18:31 POC ABG HCO3 13.4 01/28/18 18:31 POC ABG Total CO2 14 01/28/18 18:31 POC ABG O2 Sat 92 01/28/18 18:31 POC ABG Base Excess -15 01/28/18 18:31 VBG pH 7.226 (7.320-7.420) L 01/28/18 16:53 FiO2 21 % 01/28/18 18:31 Sodium 163 mmol/L (137-145) H* 01/29/18 11:41 Potassium 4.1 mmol/L (3.6-5.0) 01/29/18 11:41 Chloride 128.7 mmol/L (98-107) H 01/29/18 11:41 Carbon Dioxide 25 mmol/L (22-30) D 01/29/18 11:41 Anion Gap 13 mmol/L 01/29/18 11:41 BUN 18 mg/dL (9-20) 01/29/18 11:41 Creatinine 0.7 mg/dL (0.8-1.5) L 01/29/18 11:41 Estimated GFR > 60 ml/min 01/29/18 11:41 BUN/Creatinine Ratio 26 % 01/29/18 11:41 Glucose 142 mg/dL (75-100) H 01/29/18 11:41 POC Glucose 139 (70-105) H 01/29/18 11:21 Lactic Acid 1.00 mmol/L (0.7-2.0) 01/29/18 11:41 Calcium 9.2 mg/dL (8.4-10.2) 01/29/18 11:41 Phosphorus 5.50 mg/dL (2.5-4.5) H 01/28/18 16:53 Magnesium 3.00 mg/dL (1.7-2.3) H 01/28/18 16:53 Urine Color Yellow (Yellow) 01/28/18 17:33 Urine Turbidity Clear (Clear) 01/28/18 17:33 Urine pH 5.0 (5.0-7.0) 01/28/18 17:33 Ur Specific [employer] [place] 1.028 (1.003-1.030) 01/28/18 17:33 Urine Protein <15 mg/dl mg/dL (Negative) 01/28/18 17:33 Urine Glucose (UA) >=500 mg/dL (Negative) 01/28/18 17:33 Urine Ketones 20 mg/dL (Negative) 01/28/18 17:33 Urine Blood Neg (Negative) 01/28/18 17:33 Urine Nitrite Neg (Negative) 01/28/18 17:33 Urine Bilirubin Neg (Negative) 01/28/18 17:33 Urine Urobilinogen < 2.0 mg/dL (<2.0) 01/28/18 17:33 Ur Leukocyte Esterase Neg (Negative) 01/28/18 17:33 Urine WBC (Auto) < 1.0 /HPF (0.0-6.0) 01/28/18 17:33 Urine RBC (Auto) 1.0 /HPF (0.0-6.0) 01/28/18 17:33 Urine Opiates Screen Presumptive negative 01/28/18 17:23 Urine Methadone Screen Presumptive negative 01/28/18 17:23 Ur Barbiturates Screen Presumptive negative 01/28/18 17:23 Ur Phencyclidine Scrn Presumptive negative 01/28/18 17:23 Ur Amphetamines Screen Presumptive negative 01/28/18 17:23 U Benzodiazepines Scrn Presumptive negative 01/28/18 17:23 Urine Cocaine Screen Presumptive negative 01/28/18 17:23 U Marijuana (THC) Screen Presumptive negative 01/28/18 17:23 Drugs of Abuse Note Disclamer 01/28/18 17:23
[2018-01-29] MEDS: SODIUM CHLORIDE FLUSH SYRINGE 10 ML IV SCH (13:24)
[2018-01-29] MEDS: PEPCID PO SCH ×2 (13:25→21:46)
[2018-01-29] MEDS: D5W 1,000 ML IV SCH ×2 (13:55→21:45)
[2018-01-29 18:03] LABS: BUN/Creatinine Ratio 23; Blood Urea Nitrogen 16 mg/dL (9-20); Calcium 9.4 mg/dL (8.4-10.2); Hemolysis Index 66
[2018-01-29] MEDS: HumuLIN R 100 UNITS in NACL 0.9% 99 ML IV SCH (23:57)
[2018-01-30 02:17] LABS: BUN/Creatinine Ratio 16; Blood Urea Nitrogen 11 mg/dL (9-20); Calcium 8.9 mg/dL (8.4-10.2); Hemolysis Index 15
[2018-01-30 05:30] LABS: BUN/Creatinine Ratio 14; Blood Urea Nitrogen 10 mg/dL (9-20); Calcium 8.8 mg/dL (8.4-10.2); Hemolysis Index 17
[2018-01-30] MEDS: D5W 1,000 ML IV SCH ×3 (06:32→23:29)
[2018-01-30] MEDS ORDERED: D50W (25GM) Syringe IV PRN (07:58)
--- NOTE | 2018-01-30 11:54 | Progress Note ---
Assessment and Plan Assessment and plan: Patient is a 32 yo man with IDDM, GERD, HTN, Seizure Disorder, Bipolar DO, Cocaine Dependence and Schizophrenia who presented with AMS/confusion/combative and high blood glucose. Admitted to icu for dka on insulin drip -Acute metabolic encephalopathy -DKA: treat with DKA Protoco including IVF, Insulin drip, serial bmp to monitor anion gap -Metabolic acidosis: Treat DKA, IVF resuscitation, monitor uop q shift. -Hypernatremia: treat with free water, hold lithium if he is taking -GERD (gastroesophageal reflux disease): PPI therapy, -Seizure disorder: seizure precautions, neuro checks, resume prehospital AED -Bipolar 1 disorder: Ativan prn, supportive care, -DVT prophylaxis: scd to ble while in bed. renewed restraints Anion gap closed, ordered sq lantus, stop drip after but keep dextrose ivf due to severe hypernatremia, will consult neprhology CCT 32 minutes History Interval history: Patient was seen and examined. Follow-up on current diagnosis of Ams, stil present. Overnight uneventful. Imaging, nursing note, chart, labs and old chart reviewed. Hospitalist Physical - Physical exam Narrative exam: GEN: ill appearing, on bipap, somnolent HEENT: NCAT, EOMI, PERRL, OP Clear NECK: supple, no adenopathy, no thyromegaly, no JVD CVS/HEART: reg tachycardia, normal S1S2, pulses present bilaterally CHEST/LUNGS: diminished bs bilateral, Symmetrical chest expansion, good air entry bilaterally GI/Abdomen: soft, NTND, good bowel sounds, no guarding or rebound /Bladder: no suprapubic tenderness, no CVA or paraspinal tenderness EXT/Skin: no c/c/e, no obvious rash MSK: spontaneous fROM x 4 Neuro: CN 2-12 grossly intact, doesn't follow commands Psych: confused - Constitutional Vitals: Temp Pulse Resp BP Pulse Ox 97.9 F 103 H 17 97/75 100 01/30/18 08:00 01/30/18 11:33 01/30/18 11:33 01/30/18 11:33 01/30/18 11:33 General appearance: Present: other (alseep, snoring, but no further documentation of aggressive behavior) Results - Labs CBC & Chem 7: 01/28/18 16:53 01/30/18 04:50 Labs: Laboratory Last Values WBC 10.8 K/mm3 (4.5-11.0) 01/28/18 16:53 RBC 5.01 M/mm3 (3.65-5.03) 01/28/18 16:53 Hgb 15.3 gm/dl (11.8-15.2) H 01/28/18 16:53 Hct 48.7 % (35.5-45.6) H 01/28/18 16:53 MCV 97 fl (84-94) H 01/28/18 16:53 MCH 31 pg (28-32) 01/28/18 16:53 MCHC 32 % (32-34) 01/28/18 16:53 RDW 15.5 % (13.2-15.2) H 01/28/18 16:53 Plt Count 335 K/mm3 (140-440) 01/28/18 16:53 Lymph % (Auto) 10.8 % (13.4-35.0) L 01/28/18 16:53 [place] % (Auto) 4.3 % (0.0-7.3) 01/28/18 16:53 Eos % (Auto) 0.1 % (0.0-4.3) 01/28/18 16:53 Baso % (Auto) 0.2 % (0.0-1.8) 01/28/18 16:53 Lymph # 1.2 K/mm3 (1.2-5.4) 01/28/18 16:53 [place] # 0.5 K/mm3 (0.0-0.8) 01/28/18 16:53 Eos # 0.0 K/mm3 (0.0-0.4) 01/28/18 16:53 Baso # 0.0 K/mm3 (0.0-0.1) 01/28/18 16:53 Seg Neutrophils % 84.6 % (40.0-70.0) H 01/28/18 16:53 Seg Neutrophils # 9.2 K/mm3 (1.8-7.7) H 01/28/18 16:53 POC ABG pH 7.432 (7.35-7.45) 01/29/18 12:42 POC ABG pCO2 45.2 (35-45) H 01/29/18 12:42 POC ABG pO2 54 (80-105) L 01/29/18 12:42 POC ABG HCO3 30.2 01/29/18 12:42 POC ABG Total CO2 32 01/29/18 12:42 POC ABG O2 Sat 88 01/29/18 12:42 POC ABG Base Excess 6 01/29/18 12:42 VBG pH 7.226 (7.320-7.420) L 01/28/18 16:53 FiO2 50 % 01/29/18 12:42 Sodium 169 mmol/L (137-145) H* D 01/30/18 04:50 Potassium 4.1 mmol/L (3.6-5.0) 01/30/18 04:50 Chloride 134.8 mmol/L (98-107) H 01/30/18 04:50 Carbon Dioxide 26 mmol/L (22-30) 01/30/18 04:50 Anion Gap 12 mmol/L 01/30/18 04:50 BUN 10 mg/dL (9-20) 01/30/18 04:50 Creatinine 0.7 mg/dL (0.8-1.5) L 01/30/18 04:50 Estimated GFR > 60 ml/min 01/30/18 04:50 BUN/Creatinine Ratio 14 % 01/30/18 04:50 Glucose 198 mg/dL (75-100) H 01/30/18 04:50 POC Glucose 168 (70-105) H 01/30/18 08:25 Lactic Acid 1.00 mmol/L (0.7-2.0) 01/29/18 11:41 Calcium 8.8 mg/dL (8.4-10.2) 01/30/18 04:50 Phosphorus 5.50 mg/dL (2.5-4.5) H 01/28/18 16:53 Magnesium 3.00 mg/dL (1.7-2.3) H 01/28/18 16:53 Urine Color Yellow (Yellow) 01/28/18 17:33 Urine Turbidity Clear (Clear) 01/28/18 17:33 Urine pH 5.0 (5.0-7.0) 01/28/18 17:33 Ur Specific [place] 1.028 (1.003-1.030) 01/28/18 17:33 Urine Protein <15 mg/dl mg/dL (Negative) 01/28/18 17:33 Urine Glucose (UA) >=500 mg/dL (Negative) 01/28/18 17:33 Urine Ketones 20 mg/dL (Negative) 01/28/18 17:33 Urine Blood Neg (Negative) 01/28/18 17:33 Urine Nitrite Neg (Negative) 01/28/18 17:33 Urine Bilirubin Neg (Negative) 01/28/18 17:33 Urine Urobilinogen < 2.0 mg/dL (<2.0) 01/28/18 17:33 Ur Leukocyte Esterase Neg (Negative) 01/28/18 17:33 Urine WBC (Auto) < 1.0 /HPF (0.0-6.0) 01/28/18 17:33 Urine RBC (Auto) 1.0 /HPF (0.0-6.0) 01/28/18 17:33 Urine Opiates Screen Presumptive negative 01/28/18 17:23 Urine Methadone Screen Presumptive negative 01/28/18 17:23 Ur Barbiturates Screen Presumptive negative 01/28/18 17:23 Ur Phencyclidine Scrn Presumptive negative 01/28/18 17:23 Ur Amphetamines Screen Presumptive negative 01/28/18 17:23 U Benzodiazepines Scrn Presumptive negative 01/28/18 17:23 Urine Cocaine Screen Presumptive negative 01/28/18 17:23 U Marijuana (THC) Screen Presumptive negative 01/28/18 17:23 Drugs of Abuse Note Disclamer 01/28/18 17:23
--- NOTE | 2018-01-30 13:00 | Consultation ---
History of Present Illness - Reason for Consult Consult date: 01/30/18 acute renal failure, hypernatremia, metabolic acidosis - History of Present Illness The patient is a 32 YO Male with history significant for Insulin dependent DM, GERD, Seizure disorder, Bipolar disorder, Cocaine use and Schizophrenia who presented to the emergency department with altered MS. Patient is not able to provide any history and information obtained from previous documentation and staff. The patient found with significant hyperglycemia and diabetic ketoacidosis. His intial labs were significant for blood sugar of 972, potassium of 5.5, Creatinine 1.3 and positive ketones in the urine. His sodium level was 169 this morning. Past History Past Medical History: diabetes, GERD, hypertension, seizures, other (Bipolar, Schizophrenia) Past Surgical History: Other (right wrist) Social history: single. denies: smoking Family history: diabetes, hypertension Medications and Allergies Allergies Allergy/AdvReac Type Severity Reaction Status Date / Time banana Allergy Severe Angioedema Verified 10/20/17 17:43 Home Medications Medication Instructions Recorded Confirmed Last Taken Type Divalproex Dr Jaden Crocker] 250 mg PO QAM #30 tablet 09/15/17 12/13/[address] Jaden Crocker] 500 mg PO QHS #30 tablet 09/15/17 12/13/17 Unknown Rx Famotidine [Pepcid] 20 mg PO BID #30 tablet 09/15/17 12/13/17 Unknown Rx OLANzapine [ZyPREXA] 5 mg PO HS #30 tablet 09/15/17 12/13/17 Unknown Rx Insulin NPH/Regular [NovoLIN 70/30] 22 unit SUB-Q BIDDIAB 30 Days 10/13/1712/13 Unknown Rx units Docusate Sodium [Colace CAP] 100 mg PO BID PRN #20 capsule 11/24/17 12/13/17 Unknown Rx Clindamycin [Clindamycin CAP] 300 mg PO Q6HR #30 capsule 12/17/17 Unknown Rx Levofloxacin [Levaquin TAB] 750 mg PO Q24H #7 tablet 12/17/17 Unknown Rx Pot Phosphate/Na Phosphate 1 each PO Q8HR #9 powd.pack 12/17/17 Unknown Rx [Phos-Nak] Active Meds: Active Medications Albuterol (Proventil) 2.5 mg IH Q3H PRN PRN Reason: Shortness Of Breath Dextrose (D50w (25gm) Syringe) 0 ml IV PRN PRN PRN Reason: Hypoglycemia Last Admin: 01/30/18 04:34 Dose: 50 ml Dextrose (D50w (25gm) Syringe) 50 ml IV PRN PRN PRN Reason: Hypoglycemia Divalproex Sodium (Depakote Dr) 250 mg PO QAM [facility] Last Admin: 01/29/18 13:24 Dose: Not Given Divalproex Sodium (Depakote Dr) 500 mg PO QHS [facility] Last Admin: 01/29/18 21:45 Dose: 500 mg Docusate Sodium (Colace) 100 mg PO BID PRN PRN Reason: Constipation Famotidine (Pepcid) 20 mg PO BID [facility] Last Admin: 01/29/18 21:46 Dose: 20 mg Dextrose (D5w) 1,000 mls @ 125 mls/hr IV DIRECT ANTONIA Last Admin: 01/30/18 06:32 Dose: 125 mls/hr Insulin Glargine (Lantus) 10 units SUB-Q QAMDIAB [facility]TONIA Insulin Human Lispro (Humalog) 0 unit SUB-Q Q4H [facility]; Protocol Olanzapine (Zyprexa) 5 mg PO HS [facility] Last Admin: 01/29/18 21:46 Dose: 5 mg Sodium Chloride (Sodium Chloride Flush Syringe 10 Ml) 10 ml IV BID [facility] Last Admin: 01/29/18 13:24 Dose: Not Given Sodium Chloride (Sodium Chloride Flush Syringe 10 Ml) 10 ml IV PRN PRN PRN Reason: LINE FLUSH Review of Systems ROS unobtainable: due to mental status Exam - Vital Signs Vital signs: Vital Signs Pulse Resp 126 H 19 01/28/18 16:22 01/28/18 16:22 - General Appearance General appearance: well-developed, appears stated age, other (stuporous, on restrains) EENT: ATNC Neck: Present: neck supple, trachea midline Respiratory: Clear to Ascultation Heart: regular, S1S2, no murmurs Gastrointestinal: Present: normoactive bowel sounds. Absent: tenderness Integumentary: warm and dry Neurologic: other (barely opens eyes) Musculoskeletal: Present: other (no edema) Results - Lab Results 01/28/18 16:53 01/30/18 13:21 Most recent lab results Calcium 8.8 mg/dL (8.4-10.2) 01/30/18 04:50 Phosphorus 5.50 mg/dL (2.5-4.5) H 01/28/18 16:53 Magnesium 3.00 mg/dL (1.7-2.3) H 01/28/18 16:53 Assessment and Plan 1. Hypernatremia: In the setting of DKA and volume depletion. Continue IV D5W, improving. 2. Acute kidney injury: Improved. 3. DKA: Acidosis has improved. Monitor blood sugar. 4. Encephalopathy.
--- NOTE | 2018-01-30 14:15 | Progress Note ---
Assessment and Plan Imp: 1. DKA 2. Volume depletion 3. Hypernatremia 4. Acute respiratory failure, hypoxia 5. Bipolar disorder Rec: 1. Wean off BIPAP as tolerated 2. Avoid sedating meds; use Haldol prn for agitation; consider psych eval. 3. Increase D5W; f/u renal recs; encourage free water intake PO 4. Check CXR 5. Keep in ICU No family present. CCT 31 minutes. Subjective Date of service: 01/30/18 Principal diagnosis: DKA Interval history: No events. Somnolent on BIPAP. Unable to give history. Active Medications Albuterol (Proventil) 2.5 mg IH Q3H PRN PRN Reason: Shortness Of Breath Dextrose (D50w (25gm) Syringe) 0 ml IV PRN PRN PRN Reason: Hypoglycemia Last Admin: 01/30/18 04:34 Dose: 50 ml Dextrose (D50w (25gm) Syringe) 50 ml IV PRN PRN PRN Reason: Hypoglycemia Divalproex Sodium (Depakote Dr) 250 mg PO QAM [facility] Last Admin: 01/29/18 13:24 Dose: Not Given Divalproex Sodium (Depakote Dr) 500 mg PO QHS [facility] Last Admin: 01/29/18 21:45 Dose: 500 mg Docusate Sodium (Colace) 100 mg PO BID PRN PRN Reason: Constipation Famotidine (Pepcid) 20 mg PO BID [facility] Last Admin: 01/29/18 21:46 Dose: 20 mg Dextrose (D5w) 1,000 mls @ 150 mls/hr IV DIRECT [facility] Last Admin: 01/30/18 06:32 Dose: 125 mls/hr Insulin Glargine (Lantus) 10 units SUB-Q QAMDIAB [facility] Insulin Human Lispro (Humalog) 0 unit SUB-Q Q4H [facility]; Protocol Olanzapine (Zyprexa) 5 mg PO HS [facility] Last Admin: 01/29/18 21:46 Dose: 5 mg Sodium Chloride (Sodium Chloride Flush Syringe 10 Ml) 10 ml IV BID [facility] Last Admin: 01/29/18 13:24 Dose: Not Given Sodium Chloride (Sodium Chloride Flush Syringe 10 Ml) 10 ml IV PRN PRN PRN Reason: LINE FLUSH Objective Vital Signs - 12hr 01/30/18 01/30/18 01/30/18 02:20 02:30 02:40 Temperature Pulse Rate 102 H 103 H 103 H Respiratory 16 16 16 Rate Blood Pressure 96/65 92/67 92/67 O2 Sat by Pulse 100 100 100 Oximetry 01/30/18 01/30/18 01/30/18 02:50 03:00 03:03 Temperature 98.8 F Pulse Rate 102 H 101 H Respiratory 16 16 Rate Blood Pressure 92/67 98/62 O2 Sat by Pulse 100 99 Oximetry 01/30/18 01/30/18 01/30/18 03:10 03:20 03:30 Temperature Pulse Rate 117 H 109 H 106 H Respiratory 24 16 16 Rate Blood Pressure 98/62 98/62 96/65 O2 Sat by Pulse 100 100 100 Oximetry 01/30/18 01/30/18 01/30/18 03:40 03:50 04:00 Temperature Pulse Rate 105 H 107 H 105 H Respiratory 16 15 16 Rate Blood Pressure 96/65 96/65 107/72 O2 Sat by Pulse 100 100 100 Oximetry 01/30/18 01/30/18 01/30/18 04:10 04:20 04:30 Temperature Pulse Rate 103 H 105 H 107 H Respiratory 17 16 16 Rate Blood Pressure 107/72 107/72 107/72 O2 Sat by Pulse 100 100 100 Oximetry 01/30/18 01/30/18 01/30/18 04:40 04:50 04:59 Temperature Pulse Rate 105 H 116 H 122 H Respiratory 17 16 30 H Rate Blood Pressure 107/72 107/72 107/72 O2 Sat by Pulse 100 100 100 Oximetry 01/30/18 01/30/18 01/30/18 05:00 05:10 05:20 Temperature Pulse Rate 126 H 114 H 105 H Respiratory 31 H 16 17 Rate Blood Pressure 107/72 115/75 115/75 O2 Sat by Pulse 100 99 100 Oximetry 01/30/18 01/30/18 01/30/18 05:30 05:40 05:50 Temperature Pulse Rate 104 H 104 H 101 H Respiratory 20 17 17 Rate Blood Pressure 115/75 115/75 115/75 O2 Sat by Pulse 100 100 100 Oximetry 01/30/18 01/30/18 01/30/18 06:00 06:10 06:20 Temperature Pulse Rate 101 H 99 H 99 H Respiratory 21 22 20 Rate Blood Pressure 102/73 102/73 102/73 O2 Sat by Pulse 100 98 Oximetry 01/30/18 01/30/18 01/30/18 06:30 06:40 06:50 Temperature Pulse Rate 102 H 107 H 106 H Respiratory 18 17 17 Rate Blood Pressure 102/73 102/73 102/73 O2 Sat by Pulse 100 100 100 Oximetry 01/30/18 01/30/18 01/30/18 07:00 07:10 07:20 Temperature Pulse Rate 108 H 106 H 105 H Respiratory 20 17 16 Rate Blood Pressure 108/79 102/73 102/73 O2 Sat by Pulse 100 100 100 Oximetry 01/30/18 01/30/18 01/30/18 07:30 07:40 07:47 Temperature Pulse Rate 109 H 104 H 107 H Respiratory 19 18 16 Rate Blood Pressure 102/73 102/73 108/79 O2 Sat by Pulse 100 100 100 Oximetry 01/30/18 01/30/18 01/30/18 07:50 08:00 08:10 Temperature 97.9 F Pulse Rate 107 H 102 H 104 H Respiratory 15 16 16 Rate Blood Pressure 102/73 117/82 117/82 O2 Sat by Pulse 100 100 100 Oximetry 01/30/18 01/30/18 01/30/18 08:20 08:30 08:40 Temperature Pulse Rate 103 H 105 H 104 H Respiratory 16 16 17 Rate Blood Pressure 117/82 117/82 117/82 O2 Sat by Pulse 100 100 100 Oximetry 01/30/18 01/30/18 01/30/18 08:50 09:00 09:10 Temperature Pulse Rate 108 H 105 H 104 H Respiratory 15 16 15 Rate Blood Pressure 117/82 114/78 114/78 O2 Sat by Pulse 100 100 Oximetry 01/30/18 01/30/18 01/30/18 09:20 09:30 09:40 Temperature Pulse Rate 103 H 115 H 103 H Respiratory 15 18 17 Rate Blood Pressure 114/78 114/78 114/78 O2 Sat by Pulse 100 100 100 Oximetry 01/30/18 01/30/18 01/30/18 09:50 10:00 10:10 Temperature Pulse Rate 104 H 97 H 98 H Respiratory 16 17 16 Rate Blood Pressure 114/78 115/79 115/79 O2 Sat by Pulse 100 100 100 Oximetry 01/30/18 01/30/18 11:33 12:00 Temperature 98.2 F Pulse Rate 103 H Respiratory 17 Rate Blood Pressure 97/75 O2 Sat by Pulse 100 Oximetry Constitutional: asleep (somnolent), other (critically ill on bipap) Eyes: non-icteric ENT: oropharynx moist Effort: normal Ascultation: Bilateral: clear Cardiovascular: regular rate and rhythm (no mrg) Gastrointestinal: normoactive bowel sounds, soft, non-tender, non-distended Integumentary: normal Extremities: no cyanosis, no edema, pink and warm Neurologic: unable to assess Psychiatric: other (unable to assess) CBC and BMP: 01/28/18 16:53 01/30/18 04:50 ABG, PT/INR, D-dimer: ABG POC ABG pH 7.432 (7.35-7.45) 01/29/18 12:42 POC ABG pCO2 45.2 (35-45) H 01/29/18 12:42 POC ABG pO2 54 (80-105) L 01/29/18 12:42 POC ABG HCO3 30.2 01/29/18 12:42 POC ABG Total CO2 32 01/29/18 12:42 POC ABG O2 Sat 88 01/29/18 12:42 Abnormal lab findings: Abnormal Labs 01/28/18 01/28/18 01/28/18 16:35 16:53 16:53 Hgb 15.3 H Hct 48.7 H MCV 97 H RDW 15.5 H Lymph % (Auto) 10.8 L Seg Neutrophils % 84.6 H Seg Neutrophils # 9.2 H POC ABG pH POC ABG pCO2 POC ABG pO2 VBG pH Sodium 158 H Potassium 5.5 H Chloride 109.8 H Carbon Dioxide 15 L BUN 38 H Creatinine Glucose 972 H* POC Glucose > 500 H Lactic Acid Calcium 10.5 H Phosphorus Magnesium 01/28/18 01/28/18 01/28/18 16:53 16:53 16:53 Hgb Hct MCV RDW Lymph % (Auto) Seg Neutrophils % Seg Neutrophils # POC ABG pH POC ABG pCO2 POC ABG pO2 VBG pH 7.226 L Sodium Potassium Chloride Carbon Dioxide BUN Creatinine Glucose POC Glucose Lactic Acid Calcium Phosphorus 5.50 H Magnesium 3.00 H 01/28/18 01/28/18 01/28/18 17:45 18:31 18:50 Hgb Hct MCV RDW Lymph % (Auto) Seg Neutrophils % Seg Neutrophils # POC ABG pH 7.186 L POC ABG pCO2 POC ABG pO2 77 L VBG pH Sodium Potassium Chloride Carbon Dioxide BUN Creatinine Glucose POC Glucose Lactic Acid 2.30 H* 2.60 H* Calcium Phosphorus Magnesium 01/28/18 01/28/18 01/28/18 20:11 20:20 20:35 Hgb Hct MCV RDW Lymph % (Auto) Seg Neutrophils % Seg Neutrophils # POC ABG pH POC ABG pCO2 POC ABG pO2 VBG pH Sodium 163 H* Potassium 5.1 H Chloride 126.0 H Carbon Dioxide 18 L BUN 31 H Creatinine Glucose 510 H* POC Glucose > 500 H Lactic Acid 3.70 H* Calcium Phosphorus Magnesium 01/28/18 01/28/18 01/28/18 21:37 22:22 23:45 Hgb Hct MCV RDW Lymph % (Auto) Seg Neutrophils % Seg Neutrophils # POC ABG pH POC ABG pCO2 POC ABG pO2 VBG pH Sodium Potassium Chloride Carbon Dioxide BUN Creatinine Glucose POC Glucose 421 H 278 H Lactic Acid 2.20 H* Calcium Phosphorus Magnesium 01/29/18 01/29/18 01/29/18 00:59 02:02 03:06 Hgb Hct MCV RDW Lymph % (Auto) Seg Neutrophils % Seg Neutrophils # POC ABG pH POC ABG pCO2 POC ABG pO2 VBG pH Sodium Potassium Chloride Carbon Dioxide BUN Creatinine Glucose POC Glucose 212 H 205 H 156 H Lactic Acid Calcium Phosphorus Magnesium 01/29/18 01/29/18 01/29/18 04:13 05:15 06:10 Hgb Hct MCV RDW Lymph % (Auto) Seg Neutrophils % Seg Neutrophils # POC ABG pH POC ABG pCO2 POC ABG pO2 VBG pH Sodium Potassium Chloride Carbon Dioxide BUN Creatinine Glucose POC Glucose 139 H 128 H 203 H Lactic Acid Calcium Phosphorus Magnesium 01/29/18 01/29/18 01/29/18 06:59 08:24 09:00 Hgb Hct MCV RDW Lymph % (Auto) Seg Neutrophils % Seg Neutrophils # POC ABG pH POC ABG pCO2 POC ABG pO2 VBG pH Sodium Potassium Chloride Carbon Dioxide BUN Creatinine Glucose POC Glucose 133 H 182 H 133 H Lactic Acid Calcium Phosphorus Magnesium 01/29/18 01/29/18 01/29/18 10:25 11:21 11:41 Hgb Hct MCV RDW Lymph % (Auto) Seg Neutrophils % Seg Neutrophils # POC ABG pH POC ABG pCO2 POC ABG pO2 VBG pH Sodium 163 H* Potassium Chloride 128.7 H Carbon Dioxide BUN Creatinine 0.7 L Glucose 142 H POC Glucose 292 H 139 H Lactic Acid Calcium Phosphorus Magnesium 01/29/18 01/29/18 01/29/18 11:56 12:42 13:22 Hgb Hct MCV RDW Lymph % (Auto) Seg Neutrophils % Seg Neutrophils # POC ABG pH POC ABG pCO2 45.2 H POC ABG pO2 54 L VBG pH Sodium Potassium Chloride Carbon Dioxide BUN Creatinine Glucose POC Glucose 150 H 166 H Lactic Acid Calcium Phosphorus Magnesium 01/29/18 01/29/18 01/29/18 15:07 17:04 17:22 Hgb Hct MCV RDW Lymph % (Auto) Seg Neutrophils % Seg Neutrophils # POC ABG pH POC ABG pCO2 POC ABG pO2 VBG pH Sodium 161 H* Potassium 5.1 H D Chloride 125.4 H Carbon Dioxide BUN Creatinine 0.7 L Glucose 129 H POC Glucose 145 H 149 H Lactic Acid Calcium Phosphorus Magnesium 01/29/18 01/29/18 01/29/18 20:08 20:59 21:49 Hgb Hct MCV RDW Lymph % (Auto) Seg Neutrophils % Seg Neutrophils # POC ABG pH POC ABG pCO2 POC ABG pO2 VBG pH Sodium Potassium Chloride Carbon Dioxide BUN Creatinine Glucose POC Glucose 138 H 141 H 120 H Lactic Acid Calcium Phosphorus Magnesium 01/29/18 01/30/18 01/30/18 23:03 01:03 01:45 Hgb Hct MCV RDW Lymph % (Auto) Seg Neutrophils % Seg Neutrophils # POC ABG pH POC ABG pCO2 POC ABG pO2 VBG pH Sodium 160 H Potassium Chloride 121.0 H Carbon Dioxide BUN Creatinine 0.7 L Glucose 127 H POC Glucose 142 H 182 H Lactic Acid Calcium Phosphorus Magnesium 01/30/18 01/30/18 01/30/18 04:32 04:50 05:06 Hgb Hct MCV RDW Lymph % (Auto) Seg Neutrophils % Seg Neutrophils # POC ABG pH POC ABG pCO2 POC ABG pO2 VBG pH Sodium 169 H* D Potassium Chloride 134.8 H Carbon Dioxide BUN Creatinine 0.7 L Glucose 198 H POC Glucose 40 L 199 H Lactic Acid Calcium Phosphorus Magnesium 01/30/18 01/30/18 05:54 08:25 Hgb Hct MCV RDW Lymph % (Auto) Seg Neutrophils % Seg Neutrophils # POC ABG pH POC ABG pCO2 POC ABG pO2 VBG pH Sodium Potassium Chloride Carbon Dioxide BUN Creatinine Glucose POC Glucose 115 H 168 H Lactic Acid Calcium Phosphorus Magnesium
[2018-01-30 14:47] LABS: BUN/Creatinine Ratio 15; Blood Urea Nitrogen 9 mg/dL (9-20); Hemolysis Index 6
[2018-01-30 14:54] LABS: Calcium 8.8 mg/dL (8.4-10.2)
--- NOTE | 2018-01-30 15:08 | XRay Report ---
AP CHEST: HISTORY: Acute respiratory failure AP view of the chest demonstrates a normal mediastinal and cardiac contour with clear lungs and normal bony and soft tissue structures. Right lung infiltrate has resolved since 12/15/17. IMPRESSION: Unremarkable AP chest.
[2018-01-30] MEDS ORDERED: HALDOL IM PRN (15:30)
[2018-01-30] MEDS: SODIUM CHLORIDE FLUSH SYRINGE 10 ML IV SCH ×2 (17:06→17:18)
[2018-01-30] MEDS: HumaLOG SUB-Q SCH ×6 (17:06→22:16)
[2018-01-30] MEDS: PEPCID PO SCH ×2 (17:14→22:15)
[2018-01-30] MEDS: LANTUS SUB-Q SCH (17:15)
[2018-01-30 20:51] LABS: BUN/Creatinine Ratio 18; Blood Urea Nitrogen 11 mg/dL (9-20); Calcium 8.3 mg/dL (8.4-10.2); Hemolysis Index 7
[2018-01-31] MEDS: HumaLOG SUB-Q SCH ×7 (02:07→23:41)
--- NOTE | 2018-01-31 08:00 | Progress Note ---
Assessment and Plan 1. Hypernatremia: In the setting of DKA and volume depletion. Continue IV D5W, improving. 2. Acute kidney injury: Improved. 3. DKA: Acidosis has improved. Monitor blood sugar. 4. Encephalopathy. Subjective Date of service: 01/31/18 Principal diagnosis: DKA Interval history: Patient was seen and examined at the bedside. Objective - Vital Signs Vital signs: Vital Signs - 12hr 01/30/18 01/30/18 01/30/18 20:08 20:10 20:20 Temperature Pulse Rate 108 H 111 H 97 H Respiratory 20 17 18 Rate Blood Pressure 113/81 113/81 113/81 O2 Sat by Pulse 100 100 100 Oximetry 01/30/18 01/30/18 01/30/18 20:30 20:40 20:50 Temperature Pulse Rate 106 H 108 H 111 H Respiratory 14 9 L 17 Rate Blood Pressure 113/81 113/81 113/81 O2 Sat by Pulse 100 100 100 Oximetry 01/30/18 01/30/18 01/30/18 21:00 21:10 21:20 Temperature Pulse Rate 112 H 105 H 97 H Respiratory 18 23 19 Rate Blood Pressure 113/81 108/73 108/73 O2 Sat by Pulse 100 100 100 Oximetry 01/30/18 01/30/18 01/30/18 21:30 21:40 21:50 Temperature Pulse Rate 99 H 100 H 103 H Respiratory 19 17 20 Rate Blood Pressure 108/73 108/73 108/73 O2 Sat by Pulse 100 100 100 Oximetry 01/30/18 01/30/18 01/30/18 22:00 22:10 22:20 Temperature Pulse Rate 99 H 98 H 92 H Respiratory 20 16 19 Rate Blood Pressure 106/75 106/75 106/75 O2 Sat by Pulse 100 100 100 Oximetry 01/30/18 01/30/18 01/30/18 22:30 22:40 22:50 Temperature Pulse Rate 92 H 98 H 95 H Respiratory 20 22 18 Rate Blood Pressure 106/75 106/75 106/75 O2 Sat by Pulse 100 100 100 Oximetry 01/30/18 01/30/18 01/30/18 23:00 23:10 23:20 Temperature Pulse Rate 104 H 96 H 96 H Respiratory 16 19 17 Rate Blood Pressure 102/81 102/81 102/81 O2 Sat by Pulse 100 100 100 Oximetry 06/07/0901/30/18 01/30/18 23:30 23:40 23:45 Temperature Pulse Rate 97 H 102 H 100 H Respiratory 18 19 20 Rate Blood Pressure 102/81 102/81 102/81 O2 Sat by Pulse 100 100 100 Oximetry 01/30/18 01/31/18 01/31/18 23:50 00:00 00:10 Temperature 98.7 F Pulse Rate 96 H 96 H 103 H Respiratory 19 18 46 H Rate Blood Pressure 102/81 108/76 108/76 O2 Sat by Pulse 100 99 100 Oximetry 01/31/18 01/31/18 01/31/18 00:20 00:30 00:40 Temperature Pulse Rate 95 H 99 H 102 H Respiratory 18 24 19 Rate Blood Pressure 108/76 108/76 108/76 O2 Sat by Pulse 100 100 100 Oximetry 01/31/18 01/31/18 01/31/18 00:50 01:00 01:10 Temperature Pulse Rate 96 H 105 H 110 H Respiratory 19 23 22 Rate Blood Pressure 108/76 103/57 103/57 O2 Sat by Pulse 100 99 Oximetry 01/31/18 01/31/18 01/31/18 01:20 01:30 01:40 Temperature Pulse Rate 109 H 101 H 102 H Respiratory 20 21 19 Rate Blood Pressure 103/57 103/57 103/57 O2 Sat by Pulse 100 100 100 Oximetry 01/31/18 01/31/18 01/31/18 01:50 02:00 02:10 Temperature Pulse Rate 99 H 97 H 99 H Respiratory 18 18 17 Rate Blood Pressure 103/57 106/76 106/76 O2 Sat by Pulse 100 100 100 Oximetry 01/31/18 01/31/18 01/31/18 02:20 02:30 02:40 Temperature Pulse Rate 95 H 90 91 H Respiratory 17 16 16 Rate Blood Pressure 106/76 106/76 106/76 O2 Sat by Pulse 100 100 100 Oximetry 01/31/18 01/31/18 01/31/18 02:50 03:00 03:10 Temperature Pulse Rate 97 H 88 91 H Respiratory 19 21 15 Rate Blood Pressure 106/76 107/78 106/76 O2 Sat by Pulse 100 100 Oximetry 01/31/18 01/31/18 01/31/18 03:20 03:30 03:40 Temperature Pulse Rate 95 H 95 H 91 H Respiratory 16 17 17 Rate Blood Pressure 106/76 106/76 106/76 O2 Sat by Pulse 100 100 100 Oximetry 01/31/18 01/31/18 01/31/18 03:50 04:00 04:10 Temperature 98.9 F Pulse Rate 94 H 93 H 89 Respiratory 47 H 36 H 18 Rate Blood Pressure 106/76 101/70 101/70 O2 Sat by Pulse 100 100 100 Oximetry 01/31/18 01/31/18 01/31/18 04:20 04:30 04:40 Temperature Pulse Rate 92 H 91 H 89 Respiratory 18 44 H 19 Rate Blood Pressure 101/70 101/70 101/70 O2 Sat by Pulse 100 100 100 Oximetry 01/31/18 01/31/18 01/31/18 04:50 05:00 05:10 Temperature Pulse Rate 91 H 88 91 H Respiratory 19 20 18 Rate Blood Pressure 101/70 98/68 98/68 O2 Sat by Pulse 100 100 100 Oximetry 01/31/18 01/31/18 01/31/18 05:20 05:30 05:39 Temperature Pulse Rate 88 87 100 H Respiratory 17 20 17 Rate Blood Pressure 98/68 98/68 98/68 O2 Sat by Pulse 100 98 100 Oximetry 01/31/18 01/31/18 01/31/18 05:40 05:51 06:00 Temperature Pulse Rate 87 93 H 88 Respiratory 19 16 16 Rate Blood Pressure 98/68 94/67 O2 Sat by Pulse 100 100 100 Oximetry 01/31/18 01/31/18 01/31/18 06:11 06:21 06:31 Temperature Pulse Rate 88 92 H 87 Respiratory 16 17 17 Rate Blood Pressure 94/67 94/67 94/67 O2 Sat by Pulse 100 99 100 Oximetry 01/31/18 01/31/18 01/31/18 06:41 06:51 07:00 Temperature Pulse Rate 101 H 92 H 89 Respiratory 17 19 18 Rate Blood Pressure 94/67 94/67 103/79 O2 Sat by Pulse 100 100 Oximetry 01/31/18 01/31/18 01/31/18 07:10 07:21 07:31 Temperature Pulse Rate 85 97 H 97 H Respiratory 19 21 13 Rate Blood Pressure 103/79 103/79 103/79 O2 Sat by Pulse 100 100 100 Oximetry 01/31/18 07:53 Temperature 97.8 F Pulse Rate Respiratory Rate Blood Pressure O2 Sat by Pulse Oximetry - General Appearance General appearance: well-developed, appears stated age, other (barely arousable) EENT: ATNC Neck: supple Respiratory: Present: Clear to Ascultation Cardiology: regular, S1S2, no murmurs Gastrointestinal: normoactive bowel sounds, no tenderness Integumentary: no rash, warm and dry Musculoskeletal: other (no edema) - Lab 01/31/18 14:57 01/31/18 14:57 Most recent lab results Calcium 8.3 mg/dL (8.4-10.2) L 01/30/18 20:30 Phosphorus 5.50 mg/dL (2.5-4.5) H 01/28/18 16:53 Magnesium 3.00 mg/dL (1.7-2.3) H 01/28/18 16:53
[2018-01-31] MEDS: D5W 1,000 ML IV SCH (09:02)
[2018-01-31] MEDS: PEPCID PO SCH ×2 (09:03→23:22)
[2018-01-31] MEDS: LANTUS SUB-Q SCH (09:04)
[2018-01-31] MEDS: NACL 0.45% 1000 ML 1,000 ML IV SCH ×2 (10:28→18:27)
[2018-01-31] MEDS ORDERED: LANTUS SUB-Q ONE (14:00)
--- NOTE | 2018-01-31 14:13 | Progress Note ---
Assessment and Plan Imp: 1. DKA 2. Volume depletion 3. Hypernatremia 4. Acute respiratory failure, hypoxia 5. Bipolar disorder Rec: 1. BIPAP QHS/prn 2. Avoid sedating meds; use Haldol prn for agitation; consider psych eval. 3. Agree with changing to 1/2 NS 4. Encourage PO intake 5. D/c duque 6. Try to ambulate patient 7. Can go to floor [id number] No family present. Subjective Date of service: 01/31/18 Principal diagnosis: DKA Interval history: No events. Arousable with incoherent speech. About to eat lunch/sitting up. Active Medications Albuterol (Proventil) 2.5 mg IH Q3H PRN PRN Reason: Shortness Of Breath Dextrose (D50w (25gm) Syringe) 0 ml IV PRN PRN PRN Reason: Hypoglycemia Last Admin: 01/30/18 04:34 Dose: 50 ml Divalproex Sodium (Depakote Dr) 250 mg PO QAM [facility] Last Admin: 01/31/18 09:03 Dose: 250 mg Divalproex Sodium (Depakote Dr) 500 mg PO QHS [facility] Last Admin: 01/30/18 22:15 Dose: 500 mg Docusate Sodium (Colace) 100 mg PO BID PRN PRN Reason: Constipation Enoxaparin Sodium (Lovenox) 40 mg SUB-Q QDAY ANTONIA Famotidine (Pepcid) 20 mg PO BID [facility] Last Admin: 01/31/18 09:03 Dose: 20 mg Haloperidol Lactate (Haldol) 2 mg IM Q6H PRN PRN Reason: Agitation Last Admin: 01/30/18 17:15 Dose: 2 mg Sodium Chloride (Nacl 0.45% 1000 Ml) 1,000 mls @ 125 mls/hr IV DIRECT [facility] Last Admin: 01/31/18 10:28 Dose: 125 mls/hr Insulin Glargine (Lantus) 15 units SUB-Q QAMDIAB [facility] Insulin Human Lispro (Humalog) 0 unit SUB-Q Q4H [facility]; Protocol Last Admin: 01/31/18 13:41 Dose: 3 unit Olanzapine (Zyprexa) 5 mg PO HS [facility] Last Admin: 01/30/18 22:15 Dose: 5 mg Sodium Chloride (Sodium Chloride Flush Syringe 10 Ml) 10 ml IV BID ANTONIA Last Admin: 01/30/18 17:18 Dose: Not Given Sodium Chloride (Sodium Chloride Flush Syringe 10 Ml) 10 ml IV PRN PRN PRN Reason: LINE FLUSH Objective Vital Signs - 12hr 01/31/18 01/31/18 01/31/18 02:20 02:30 02:40 Temperature Pulse Rate 95 H 90 91 H Pulse Rate [ Right Dorsalis Pedis] Respiratory 17 16 16 Rate Blood Pressure 106/76 106/76 106/76 O2 Sat by Pulse 100 100 100 Oximetry 01/31/18 01/31/18 01/31/18 02:50 03:00 03:10 Temperature Pulse Rate 97 H 88 91 H Pulse Rate [ Right Dorsalis Pedis] Respiratory 19 21 15 Rate Blood Pressure 106/76 107/78 106/76 O2 Sat by Pulse 100 100 Oximetry 01/31/18 01/31/18 01/31/18 03:20 03:30 03:40 Temperature Pulse Rate 95 H 95 H 91 H Pulse Rate [ Right Dorsalis Pedis] Respiratory 16 17 17 Rate Blood Pressure 106/76 106/76 106/76 O2 Sat by Pulse 100 100 100 Oximetry 01/31/18 01/31/18 01/31/18 03:50 04:00 04:10 Temperature 98.9 F Pulse Rate 94 H 93 H 89 Pulse Rate [ Right Dorsalis Pedis] Respiratory 47 H 36 H 18 Rate Blood Pressure 106/76 101/70 101/70 O2 Sat by Pulse 100 100 100 Oximetry 01/31/18 01/31/18 01/31/18 04:20 04:30 04:40 Temperature Pulse Rate 92 H 91 H 89 Pulse Rate [ Right Dorsalis Pedis] Respiratory 18 44 H 19 Rate Blood Pressure 101/70 101/70 101/70 O2 Sat by Pulse 100 100 100 Oximetry 01/31/18 01/31/18 01/31/18 04:50 05:00 05:10 Temperature Pulse Rate 91 H 88 91 H Pulse Rate [ Right Dorsalis Pedis] Respiratory 19 20 18 Rate Blood Pressure 101/70 98/68 98/68 O2 Sat by Pulse 100 100 100 Oximetry 01/31/18 01/31/18 01/31/18 05:20 05:30 05:39 Temperature Pulse Rate 88 87 100 H Pulse Rate [ Right Dorsalis Pedis] Respiratory 17 20 17 Rate Blood Pressure 98/68 98/68 98/68 O2 Sat by Pulse 100 98 100 Oximetry 01/31/18 01/31/18 01/31/18 05:40 05:51 06:00 Temperature Pulse Rate 87 93 H 88 Pulse Rate [ Right Dorsalis Pedis] Respiratory 19 16 16 Rate Blood Pressure 98/68 94/67 O2 Sat by Pulse 100 100 100 Oximetry 01/31/18 01/31/18 01/31/18 06:11 06:21 06:31 Temperature Pulse Rate 88 92 H 87 Pulse Rate [ Right Dorsalis Pedis] Respiratory 16 17 17 Rate Blood Pressure 94/67 94/67 94/67 O2 Sat by Pulse 100 99 100 Oximetry 01/31/18 01/31/18 01/31/18 06:41 06:51 07:00 Temperature Pulse Rate 101 H 92 H 89 Pulse Rate [ Right Dorsalis Pedis] Respiratory 17 19 18 Rate Blood Pressure 94/67 94/67 103/79 O2 Sat by Pulse 100 100 Oximetry 01/31/18 01/31/18 01/31/18 07:10 07:21 07:31 Temperature Pulse Rate 85 97 H 97 H Pulse Rate [ Right Dorsalis Pedis] Respiratory 19 21 13 Rate Blood Pressure 103/79 103/79 103/79 O2 Sat by Pulse 100 100 100 Oximetry 01/31/18 01/31/18 01/31/18 07:41 07:51 07:53 Temperature 97.8 F Pulse Rate 92 H 92 H Pulse Rate [ Right Dorsalis Pedis] Respiratory 18 21 Rate Blood Pressure 103/79 103/79 O2 Sat by Pulse 100 100 Oximetry 01/31/18 01/31/18 01/31/18 08:00 08:02 08:11 Temperature Pulse Rate 91 H 90 Pulse Rate [ 90 Right Dorsalis Pedis] Respiratory 17 21 Rate Blood Pressure 102/69 102/69 O2 Sat by Pulse 100 100 98 Oximetry 01/31/18 01/31/18 01/31/18 08:21 08:31 08:41 Temperature Pulse Rate 92 H 94 H 95 H Pulse Rate [ Right Dorsalis Pedis] Respiratory 15 15 15 Rate Blood Pressure 102/69 102/69 102/69 O2 Sat by Pulse 100 100 99 Oximetry 01/31/18 01/31/18 01/31/18 08:51 09:00 09:11 Temperature Pulse Rate 87 98 H 89 Pulse Rate [ Right Dorsalis Pedis] Respiratory 18 23 18 Rate Blood Pressure 102/69 95/67 95/67 O2 Sat by Pulse 99 Oximetry 01/31/18 01/31/18 01/31/18 09:21 09:31 09:41 Temperature Pulse Rate 88 88 86 Pulse Rate [ Right Dorsalis Pedis] Respiratory 18 19 19 Rate Blood Pressure 95/67 95/67 95/67 O2 Sat by Pulse Oximetry 01/31/18 01/31/18 01/31/18 09:51 10:00 10:11 Temperature Pulse Rate 88 89 102 H Pulse Rate [ Right Dorsalis Pedis] Respiratory 19 25 H 18 Rate Blood Pressure 95/67 100/69 100/69 O2 Sat by Pulse Oximetry 01/31/18 01/31/18 01/31/18 10:21 10:31 10:41 Temperature Pulse Rate 85 88 85 Pulse Rate [ Right Dorsalis Pedis] Respiratory 17 18 18 Rate Blood Pressure 100/69 100/69 100/69 O2 Sat by Pulse Oximetry 01/31/18 01/31/18 01/31/18 10:51 11:00 11:11 Temperature Pulse Rate 87 87 86 Pulse Rate [ Right Dorsalis Pedis] Respiratory 20 22 19 Rate Blood Pressure 100/69 108/81 108/81 O2 Sat by Pulse Oximetry 01/31/18 01/31/18 01/31/18 11:21 11:31 11:41 Temperature Pulse Rate 91 H 89 95 H Pulse Rate [ Right Dorsalis Pedis] Respiratory 22 19 24 Rate Blood Pressure 108/81 108/81 108/81 O2 Sat by Pulse Oximetry 01/31/18 01/31/18 01/31/18 11:51 11:55 12:00 Temperature 98.0 F Pulse Rate 91 H 85 Pulse Rate [ 84 Right Dorsalis Pedis] Respiratory 21 20 Rate Blood Pressure 108/81 106/80 O2 Sat by Pulse 100 Oximetry 01/31/18 01/31/18 01/31/18 12:11 12:21 12:31 Temperature Pulse Rate 91 H 84 88 Pulse Rate [ Right Dorsalis Pedis] Respiratory 19 17 18 Rate Blood Pressure 106/80 106/80 106/80 O2 Sat by Pulse Oximetry 01/31/18 01/31/18 01/31/18 12:41 12:51 13:00 Temperature Pulse Rate 84 86 104 H Pulse Rate [ Right Dorsalis Pedis] Respiratory 19 18 13 Rate Blood Pressure 106/80 106/80 104/73 O2 Sat by Pulse Oximetry 01/31/18 13:11 Temperature Pulse Rate 99 H Pulse Rate [ Right Dorsalis Pedis] Respiratory 11 L Rate Blood Pressure 104/73 O2 Sat by Pulse Oximetry Constitutional: no acute distress, alert Eyes: non-icteric ENT: oropharynx moist Neck: supple Effort: normal Ascultation: Bilateral: clear Cardiovascular: regular rate and rhythm (no mrg) Gastrointestinal: normoactive bowel sounds, soft, non-tender, non-distended Integumentary: normal Extremities: no cyanosis, no edema, pink and warm Neurologic: non-focal exam, pupils equal and round, CN II-XII normal, other ( confused) Psychiatric: mood appropriate, affect normal CBC and BMP: 01/28/18 16:53 01/30/18 20:30 ABG, PT/INR, D-dimer: ABG POC ABG pH 7.432 (7.35-7.45) 01/29/18 12:42 POC ABG pCO2 45.2 (35-45) H 01/29/18 12:42 POC ABG pO2 54 (80-105) L 01/29/18 12:42 POC ABG HCO3 30.2 01/29/18 12:42 POC ABG Total CO2 32 01/29/18 12:42 POC ABG O2 Sat 88 01/29/18 12:42 Abnormal lab findings: Abnormal Labs 01/28/18 01/28/18 01/28/18 16:35 16:53 16:53 Hgb 15.3 H Hct 48.7 H MCV 97 H RDW 15.5 H Lymph % (Auto) 10.8 L Seg Neutrophils % 84.6 H Seg Neutrophils # 9.2 H POC ABG pH POC ABG pCO2 POC ABG pO2 VBG pH Sodium 158 H Potassium 5.5 H Chloride 109.8 H Carbon Dioxide 15 L BUN 38 H Creatinine Glucose 972 H* POC Glucose > 500 H Lactic Acid Calcium 10.5 H Phosphorus Magnesium 01/28/18 01/28/18 01/28/18 16:53 16:53 16:53 Hgb Hct MCV RDW Lymph % (Auto) Seg Neutrophils % Seg Neutrophils # POC ABG pH POC ABG pCO2 POC ABG pO2 VBG pH 7.226 L Sodium Potassium Chloride Carbon Dioxide BUN Creatinine Glucose POC Glucose Lactic Acid Calcium Phosphorus 5.50 H Magnesium 3.00 H 01/28/18 01/28/18 01/28/18 17:45 18:31 18:50 Hgb Hct MCV RDW Lymph % (Auto) Seg Neutrophils % Seg Neutrophils # POC ABG pH 7.186 L POC ABG pCO2 POC ABG pO2 77 L VBG pH Sodium Potassium Chloride Carbon Dioxide BUN Creatinine Glucose POC Glucose Lactic Acid 2.30 H* 2.60 H* Calcium Phosphorus Magnesium 01/28/18 01/28/18 01/28/18 20:11 20:20 20:35 Hgb Hct MCV RDW Lymph % (Auto) Seg Neutrophils % Seg Neutrophils # POC ABG pH POC ABG pCO2 POC ABG pO2 VBG pH Sodium 163 H* Potassium 5.1 H Chloride 126.0 H Carbon Dioxide 18 L BUN 31 H Creatinine Glucose 510 H* POC Glucose > 500 H Lactic Acid 3.70 H* Calcium Phosphorus Magnesium 01/28/18 01/28/18 01/28/18 21:37 22:22 23:45 Hgb Hct MCV RDW Lymph % (Auto) Seg Neutrophils % Seg Neutrophils # POC ABG pH POC ABG pCO2 POC ABG pO2 VBG pH Sodium Potassium Chloride Carbon Dioxide BUN Creatinine Glucose POC Glucose 421 H 278 H Lactic Acid 2.20 H* Calcium Phosphorus Magnesium 01/29/18 01/29/18 01/29/18 00:59 02:02 03:06 Hgb Hct MCV RDW Lymph % (Auto) Seg Neutrophils % Seg Neutrophils # POC ABG pH POC ABG pCO2 POC ABG pO2 VBG pH Sodium Potassium Chloride Carbon Dioxide BUN Creatinine Glucose POC Glucose 212 H 205 H 156 H Lactic Acid Calcium Phosphorus Magnesium 01/29/18 01/29/18 01/29/18 04:13 05:15 06:10 Hgb Hct MCV RDW Lymph % (Auto) Seg Neutrophils % Seg Neutrophils # POC ABG pH POC ABG pCO2 POC ABG pO2 VBG pH Sodium Potassium Chloride Carbon Dioxide BUN Creatinine Glucose POC Glucose 139 H 128 H 203 H Lactic Acid Calcium Phosphorus Magnesium 01/29/18 01/29/18 01/29/18 06:59 08:24 09:00 Hgb Hct MCV RDW Lymph % (Auto) Seg Neutrophils % Seg Neutrophils # POC ABG pH POC ABG pCO2 POC ABG pO2 VBG pH Sodium Potassium Chloride Carbon Dioxide BUN Creatinine Glucose POC Glucose 133 H 182 H 133 H Lactic Acid Calcium Phosphorus Magnesium 01/29/18 01/29/18 01/29/18 10:25 11:21 11:41 Hgb Hct MCV RDW Lymph % (Auto) Seg Neutrophils % Seg Neutrophils # POC ABG pH POC ABG pCO2 POC ABG pO2 VBG pH Sodium 163 H* Potassium Chloride 128.7 H Carbon Dioxide BUN Creatinine 0.7 L Glucose 142 H POC Glucose 292 H 139 H Lactic Acid Calcium Phosphorus Magnesium 01/29/18 01/29/18 01/29/18 11:56 12:42 13:22 Hgb Hct MCV RDW Lymph % (Auto) Seg Neutrophils % Seg Neutrophils # POC ABG pH POC ABG pCO2 45.2 H POC ABG pO2 54 L VBG pH Sodium Potassium Chloride Carbon Dioxide BUN Creatinine Glucose POC Glucose 150 H 166 H Lactic Acid Calcium Phosphorus Magnesium 01/29/18 01/29/18 01/29/18 15:07 17:04 17:22 Hgb Hct MCV RDW Lymph % (Auto) Seg Neutrophils % Seg Neutrophils # POC ABG pH POC ABG pCO2 POC ABG pO2 VBG pH Sodium 161 H* Potassium 5.1 H D Chloride 125.4 H Carbon Dioxide BUN Creatinine 0.7 L Glucose 129 H POC Glucose 145 H 149 H Lactic Acid Calcium Phosphorus Magnesium 01/29/18 01/29/18 01/29/18 20:08 20:59 21:49 Hgb Hct MCV RDW Lymph % (Auto) Seg Neutrophils % Seg Neutrophils # POC ABG pH POC ABG pCO2 POC ABG pO2 VBG pH Sodium Potassium Chloride Carbon Dioxide BUN Creatinine Glucose POC Glucose 138 H 141 H 120 H Lactic Acid Calcium Phosphorus Magnesium 01/29/18 01/30/18 01/30/18 23:03 01:03 01:45 Hgb Hct MCV RDW Lymph % (Auto) Seg Neutrophils % Seg Neutrophils # POC ABG pH POC ABG pCO2 POC ABG pO2 VBG pH Sodium 160 H Potassium Chloride 121.0 H Carbon Dioxide BUN Creatinine 0.7 L Glucose 127 H POC Glucose 142 H 182 H Lactic Acid Calcium Phosphorus Magnesium 01/30/18 01/30/18 01/30/18 04:32 04:50 05:06 Hgb Hct MCV RDW Lymph % (Auto) Seg Neutrophils % Seg Neutrophils # POC ABG pH POC ABG pCO2 POC ABG pO2 VBG pH Sodium 169 H* D Potassium Chloride 134.8 H Carbon Dioxide BUN Creatinine 0.7 L Glucose 198 H POC Glucose 40 L 199 H Lactic Acid Calcium Phosphorus Magnesium 01/30/18 01/30/18 01/30/18 05:54 08:25 11:46 Hgb Hct MCV RDW Lymph % (Auto) Seg Neutrophils % Seg Neutrophils # POC ABG pH POC ABG pCO2 POC ABG pO2 VBG pH Sodium Potassium Chloride Carbon Dioxide BUN Creatinine Glucose POC Glucose 115 H 168 H 108 H Lactic Acid Calcium Phosphorus Magnesium 01/30/18 01/30/18 01/30/18 13:21 14:17 16:06 Hgb Hct MCV RDW Lymph % (Auto) Seg Neutrophils % Seg Neutrophils # POC ABG pH POC ABG pCO2 POC ABG pO2 VBG pH Sodium 163 H* Potassium Chloride 128.5 H Carbon Dioxide BUN Creatinine 0.6 L Glucose 259 H POC Glucose 384 H 395 H Lactic Acid Calcium Phosphorus Magnesium 01/30/18 01/30/18 01/31/18 20:30 21:49 09:19 Hgb Hct MCV RDW Lymph % (Auto) Seg Neutrophils % Seg Neutrophils # POC ABG pH POC ABG pCO2 POC ABG pO2 VBG pH Sodium 146 H D Potassium Chloride 110.2 H Carbon Dioxide BUN Creatinine 0.6 L Glucose 306 H POC Glucose 384 H 204 H Lactic Acid Calcium 8.3 L Phosphorus Magnesium 01/31/18 10:05 Hgb Hct MCV RDW Lymph % (Auto) Seg Neutrophils % Seg Neutrophils # POC ABG pH POC ABG pCO2 POC ABG pO2 VBG pH Sodium Potassium Chloride Carbon Dioxide BUN Creatinine Glucose POC Glucose 222 H Lactic Acid Calcium Phosphorus Magnesium Chest x-ray: report reviewed, image reviewed (clear lungs)
[2018-01-31 15:25] LABS: Basophils % (Auto) 0.2 % (0.0-1.8); Eosinophils # (Auto) 0.4 K/mm3 (0.0-0.4); Eosinophils % (Auto) 4.4 % (0.0-4.3); Hematocrit 39.5 % (35.5-45.6); Hemoglobin 13.1 gm/dl (11.8-15.2); Lymphocytes # (Auto) 1.2 K/mm3 (1.2-5.4); Lymphocytes % (Auto) 14.1 % (13.4-35.0); Mean Corpuscular HGB Conc 33 % (32-34); Mean Corpuscular Hemoglobin 30 pg (28-32); Mean Corpuscular Volume 92 fl (84-94); Monocytes # (Auto) 0.3 K/mm3 (0.0-0.8); Monocytes % (Auto) 3.2 % (0.0-7.3); Platelet Count 174 K/mm3 (140-440); Red Blood Count 4.31 M/mm3 (3.65-5.03); Red Cell Distribution Width 14.4 % (13.2-15.2)
[2018-01-31 15:39] LABS: Alanine Aminotransferase 45 units/L (7-56); Albumin 2.9 g/dL (3.9-5); BUN/Creatinine Ratio 13; Blood Urea Nitrogen 8 mg/dL (9-20); Hemolysis Index 6
[2018-01-31] MEDS: LOVENOX SUB-Q SCH (16:56)
[2018-01-31] MEDS: SODIUM CHLORIDE FLUSH SYRINGE 10 ML IV SCH ×2 (21:40→23:21)
[2018-02-01] MEDS: NACL 0.45% 1000 ML 1,000 ML IV SCH (03:34)
[2018-02-01] MEDS: HumaLOG SUB-Q SCH ×2 (05:23→18:20)
[2018-02-01] MEDS: SODIUM CHLORIDE FLUSH SYRINGE 10 ML IV SCH (06:54)
[2018-02-01] MEDS ORDERED: LANTUS SUB-Q SCH (08:00)
[2018-02-01 08:32] LABS: BUN/Creatinine Ratio 22; Blood Urea Nitrogen 13 mg/dL (9-20); Calcium 8.3 mg/dL (8.4-10.2); Hemolysis Index 3
[2018-02-01] MEDS: LOVENOX SUB-Q SCH (08:55)
[2018-02-01] MEDS: PEPCID PO SCH (08:56)
--- NOTE | 2018-02-01 09:10 | Progress Note ---
Assessment and Plan 1. Hypernatremia: In the setting of DKA and volume depletion. Continue IV D5W, improving. Replete K and Phos. 2. Acute kidney injury: Improved. 3. DKA: Acidosis has improved. Monitor blood sugar. 4. Encephalopathy. Subjective Date of service: 02/01/18 Principal diagnosis: DKA Interval history: Patient was seen and examined at the bedside. Eating breakfast. Objective - Vital Signs Vital signs: Vital Signs - 12hr 01/31/18 02/01/18 21:37 08:14 Temperature 98.4 F 98.2 F Pulse Rate 106 H 98 H Respiratory 16 18 Rate Blood Pressure 116/86 124/81 O2 Sat by Pulse 100 97 Oximetry - General Appearance General appearance: well-developed, appears stated age, other (no distress) EENT: ATNC, PERRL, mucous membranes moist, hearing intact, vision intact Neck: supple Respiratory: Present: Clear to Ascultation Cardiology: regular, S1S2, no murmurs Gastrointestinal: normoactive bowel sounds, no tenderness Integumentary: no rash, ulcer (left heel) Neurologic: no focal deficit, no asterixis, confused Musculoskeletal: other (no edema) - Lab 01/31/18 14:57 02/01/18 07:26 Most recent lab results Calcium 8.3 mg/dL (8.4-10.2) L 02/01/18 07:26 Phosphorus 1.80 mg/dL (2.5-4.5) L 02/01/18 07:26 Magnesium 1.70 mg/dL (1.7-2.3) 02/01/18 07:26
--- NOTE | 2018-02-01 14:13 | Progress Note ---
Assessment and Plan Imp: 1. DKA 2. Volume depletion 3. Hypernatremia 4. Acute respiratory failure, hypoxia 5. Bipolar disorder Rec: 1. Do not believe he needs BIPAP at this point; if any concern re: CHRISTOPHER he would need an outpatient sleep study, but he would likely not be compliant with CPAP; would focus on keeping DM controlled and staying out of DKA 2. Okay to d/c pulm-najera; will sign off; call with questions, or if new issues arise Plan of care reviewed w/ patient, he understands/agrees Subjective Date of service: 02/01/18 Principal diagnosis: DKA Interval history: No events. Awake, alert. On RA. Has periods of "hyperventilation" for no reason , which is chronic. Cannot tell me about CHRISTOPHER symptoms as he is a poor historian and there is no family present. Active Medications Albuterol (Proventil) 2.5 mg IH Q3H PRN PRN Reason: Shortness Of Breath Dextrose (D50w (25gm) Syringe) 0 ml IV PRN PRN PRN Reason: Hypoglycemia Last Admin: 01/30/18 04:34 Dose: 50 ml Divalproex Sodium (Depakote Dr) 250 mg PO QAM [facility] Last Admin: 01/31/18 09:03 Dose: 250 mg Divalproex Sodium (Depakote Dr) 500 mg PO QHS [facility] Last Admin: 01/31/18 23:22 Dose: 500 mg Docusate Sodium (Colace) 100 mg PO BID PRN PRN Reason: Constipation Enoxaparin Sodium (Lovenox) 40 mg SUB-Q QDAY [facility] Last Admin: 02/01/18 08:55 Dose: 40 mg Famotidine (Pepcid) 20 mg PO BID [facility] Last Admin: 02/01/18 08:56 Dose: 20 mg Haloperidol Lactate (Haldol) 2 mg IM Q6H PRN PRN Reason: Agitation Last Admin: 01/30/18 17:15 Dose: 2 mg Sodium Chloride (Nacl 0.45% 1000 Ml) 1,000 mls @ 125 mls/hr IV DIRECT [facility] Last Admin: 02/01/18 03:34 Dose: 125 mls/hr Insulin Glargine (Lantus) 15 units SUB-Q QAMDIAB [facility] Last Admin: 02/01/18 08:55 Dose: 15 units Insulin Human Lispro (Humalog) 0 unit SUB-Q Q4H [facility]; Protocol Last Admin: 02/01/18 05:23 Dose: 8 unit Olanzapine (Zyprexa) 5 mg PO HS [facility] Last Admin: 01/31/18 23:21 Dose: Not Given Sodium Chloride (Sodium Chloride Flush Syringe 10 Ml) 10 ml IV BID [facility] Last Admin: 02/01/18 06:54 Dose: Not Given Sodium Chloride (Sodium Chloride Flush Syringe 10 Ml) 10 ml IV PRN PRN PRN Reason: LINE FLUSH Sodium Phosphate (K-Phos Neutral) 250 mg PO QID [facility] Objective Vital Signs - 12hr 02/01/18 02/01/18 08:14 10:00 Temperature 98.2 F Pulse Rate 98 H Respiratory 18 Rate Blood Pressure 124/81 O2 Sat by Pulse 97 97 Oximetry Constitutional: no acute distress, alert Eyes: non-icteric ENT: oropharynx moist Neck: supple Effort: normal Ascultation: Bilateral: clear Cardiovascular: regular rate and rhythm (no mrg) Gastrointestinal: normoactive bowel sounds, soft, non-tender, non-distended Integumentary: normal Extremities: no cyanosis, no edema, pink and warm Neurologic: non-focal exam, pupils equal and round, CN II-XII normal, other ( confused) Psychiatric: mood appropriate, affect normal CBC and BMP: 01/31/18 14:57 02/01/18 07:26 ABG, PT/INR, D-dimer: ABG POC ABG pH 7.432 (7.35-7.45) 01/29/18 12:42 POC ABG pCO2 45.2 (35-45) H 01/29/18 12:42 POC ABG pO2 54 (80-105) L 01/29/18 12:42 POC ABG HCO3 30.2 01/29/18 12:42 POC ABG Total CO2 32 01/29/18 12:42 POC ABG O2 Sat 88 01/29/18 12:42 Abnormal lab findings: Abnormal Labs 01/28/18 01/28/18 01/28/18 16:35 16:53 16:53 Hgb 15.3 H Hct 48.7 H MCV 97 H RDW 15.5 H Lymph % (Auto) 10.8 L Eos % (Auto) Seg Neutrophils % 84.6 H Seg Neutrophils # 9.2 H POC ABG pH POC ABG pCO2 POC ABG pO2 VBG pH Sodium 158 H Potassium 5.5 H Chloride 109.8 H Carbon Dioxide 15 L BUN 38 H Creatinine Glucose 972 H* POC Glucose > 500 H Lactic Acid Calcium 10.5 H Phosphorus Magnesium Total Protein Albumin 01/28/18 01/28/18 01/28/18 16:53 16:53 16:53 Hgb Hct MCV RDW Lymph % (Auto) Eos % (Auto) Seg Neutrophils % Seg Neutrophils # POC ABG pH POC ABG pCO2 POC ABG pO2 VBG pH 7.226 L Sodium Potassium Chloride Carbon Dioxide BUN Creatinine Glucose POC Glucose Lactic Acid Calcium Phosphorus 5.50 H Magnesium 3.00 H Total Protein Albumin 01/28/18 01/28/18 01/28/18 17:45 18:31 18:50 Hgb Hct MCV RDW Lymph % (Auto) Eos % (Auto) Seg Neutrophils % Seg Neutrophils # POC ABG pH 7.186 L POC ABG pCO2 POC ABG pO2 77 L VBG pH Sodium Potassium Chloride Carbon Dioxide BUN Creatinine Glucose POC Glucose Lactic Acid 2.30 H* 2.60 H* Calcium Phosphorus Magnesium Total Protein Albumin 01/28/18 01/28/18 01/28/18 20:11 20:20 20:35 Hgb Hct MCV RDW Lymph % (Auto) Eos % (Auto) Seg Neutrophils % Seg Neutrophils # POC ABG pH POC ABG pCO2 POC ABG pO2 VBG pH Sodium 163 H* Potassium 5.1 H Chloride 126.0 H Carbon Dioxide 18 L BUN 31 H Creatinine Glucose 510 H* POC Glucose > 500 H Lactic Acid 3.70 H* Calcium Phosphorus Magnesium Total Protein Albumin 01/28/18 01/28/18 01/28/18 21:37 22:22 23:45 Hgb Hct MCV RDW Lymph % (Auto) Eos % (Auto) Seg Neutrophils % Seg Neutrophils # POC ABG pH POC ABG pCO2 POC ABG pO2 VBG pH Sodium Potassium Chloride Carbon Dioxide BUN Creatinine Glucose POC Glucose 421 H 278 H Lactic Acid 2.20 H* Calcium Phosphorus Magnesium Total Protein Albumin 01/29/18 01/29/18 01/29/18 00:59 02:02 03:06 Hgb Hct MCV RDW Lymph % (Auto) Eos % (Auto) Seg Neutrophils % Seg Neutrophils # POC ABG pH POC ABG pCO2 POC ABG pO2 VBG pH Sodium Potassium Chloride Carbon Dioxide BUN Creatinine Glucose POC Glucose 212 H 205 H 156 H Lactic Acid Calcium Phosphorus Magnesium Total Protein Albumin 01/29/18 01/29/18 01/29/18 04:13 05:15 06:10 Hgb Hct MCV RDW Lymph % (Auto) Eos % (Auto) Seg Neutrophils % Seg Neutrophils # POC ABG pH POC ABG pCO2 POC ABG pO2 VBG pH Sodium Potassium Chloride Carbon Dioxide BUN Creatinine Glucose POC Glucose 139 H 128 H 203 H Lactic Acid Calcium Phosphorus Magnesium Total Protein Albumin 01/29/18 01/29/18 01/29/18 06:59 08:24 09:00 Hgb Hct MCV RDW Lymph % (Auto) Eos % (Auto) Seg Neutrophils % Seg Neutrophils # POC ABG pH POC ABG pCO2 POC ABG pO2 VBG pH Sodium Potassium Chloride Carbon Dioxide BUN Creatinine Glucose POC Glucose 133 H 182 H 133 H Lactic Acid Calcium Phosphorus Magnesium Total Protein Albumin 01/29/18 01/29/18 01/29/18 10:25 11:21 11:41 Hgb Hct MCV RDW Lymph % (Auto) Eos % (Auto) Seg Neutrophils % Seg Neutrophils # POC ABG pH POC ABG pCO2 POC ABG pO2 VBG pH Sodium 163 H* Potassium Chloride 128.7 H Carbon Dioxide BUN Creatinine 0.7 L Glucose 142 H POC Glucose 292 H 139 H Lactic Acid Calcium Phosphorus Magnesium Total Protein Albumin 01/29/18 01/29/18 01/29/18 11:56 12:42 13:22 Hgb Hct MCV RDW Lymph % (Auto) Eos % (Auto) Seg Neutrophils % Seg Neutrophils # POC ABG pH POC ABG pCO2 45.2 H POC ABG pO2 54 L VBG pH Sodium Potassium Chloride Carbon Dioxide BUN Creatinine Glucose POC Glucose 150 H 166 H Lactic Acid Calcium Phosphorus Magnesium Total Protein Albumin 01/29/18 01/29/18 01/29/18 15:07 17:04 17:22 Hgb Hct MCV RDW Lymph % (Auto) Eos % (Auto) Seg Neutrophils % Seg Neutrophils # POC ABG pH POC ABG pCO2 POC ABG pO2 VBG pH Sodium 161 H* Potassium 5.1 H D Chloride 125.4 H Carbon Dioxide BUN Creatinine 0.7 L Glucose 129 H POC Glucose 145 H 149 H Lactic Acid Calcium Phosphorus Magnesium Total Protein Albumin 01/29/18 01/29/18 01/29/18 20:08 20:59 21:49 Hgb Hct MCV RDW Lymph % (Auto) Eos % (Auto) Seg Neutrophils % Seg Neutrophils # POC ABG pH POC ABG pCO2 POC ABG pO2 VBG pH Sodium Potassium Chloride Carbon Dioxide BUN Creatinine Glucose POC Glucose 138 H 141 H 120 H Lactic Acid Calcium Phosphorus Magnesium Total Protein Albumin 01/29/18 01/30/18 01/30/18 23:03 01:03 01:45 Hgb Hct MCV RDW Lymph % (Auto) Eos % (Auto) Seg Neutrophils % Seg Neutrophils # POC ABG pH POC ABG pCO2 POC ABG pO2 VBG pH Sodium 160 H Potassium Chloride 121.0 H Carbon Dioxide BUN Creatinine 0.7 L Glucose 127 H POC Glucose 142 H 182 H Lactic Acid Calcium Phosphorus Magnesium Total Protein Albumin 01/30/18 01/30/18 01/30/18 04:32 04:50 05:06 Hgb Hct MCV RDW Lymph % (Auto) Eos % (Auto) Seg Neutrophils % Seg Neutrophils # POC ABG pH POC ABG pCO2 POC ABG pO2 VBG pH Sodium 169 H* D Potassium Chloride 134.8 H Carbon Dioxide BUN Creatinine 0.7 L Glucose 198 H POC Glucose 40 L 199 H Lactic Acid Calcium Phosphorus Magnesium Total Protein Albumin 01/30/18 01/30/18 01/30/18 05:54 08:25 11:46 Hgb Hct MCV RDW Lymph % (Auto) Eos % (Auto) Seg Neutrophils % Seg Neutrophils # POC ABG pH POC ABG pCO2 POC ABG pO2 VBG pH Sodium Potassium Chloride Carbon Dioxide BUN Creatinine Glucose POC Glucose 115 H 168 H 108 H Lactic Acid Calcium Phosphorus Magnesium Total Protein Albumin 01/30/18 01/30/18 01/30/18 13:21 14:17 16:06 Hgb Hct MCV RDW Lymph % (Auto) Eos % (Auto) Seg Neutrophils % Seg Neutrophils # POC ABG pH POC ABG pCO2 POC ABG pO2 VBG pH Sodium 163 H* Potassium Chloride 128.5 H Carbon Dioxide BUN Creatinine 0.6 L Glucose 259 H POC Glucose 384 H 395 H Lactic Acid Calcium Phosphorus Magnesium Total Protein Albumin 01/30/18 01/30/18 01/31/18 20:30 21:49 02:06 Hgb Hct MCV RDW Lymph % (Auto) Eos % (Auto) Seg Neutrophils % Seg Neutrophils # POC ABG pH POC ABG pCO2 POC ABG pO2 VBG pH Sodium 146 H D Potassium Chloride 110.2 H Carbon Dioxide BUN Creatinine 0.6 L Glucose 306 H POC Glucose 384 H 230 H Lactic Acid Calcium 8.3 L Phosphorus Magnesium Total Protein Albumin 01/31/18 01/31/18 01/31/18 09:19 10:05 14:57 Hgb Hct MCV RDW Lymph % (Auto) Eos % (Auto) 4.4 H Seg Neutrophils % 78.1 H Seg Neutrophils # POC ABG pH POC ABG pCO2 POC ABG pO2 VBG pH Sodium Potassium Chloride Carbon Dioxide BUN Creatinine Glucose POC Glucose 204 H 222 H Lactic Acid Calcium Phosphorus Magnesium Total Protein Albumin 01/31/18 01/31/18 01/31/18 14:57 17:08 21:49 Hgb Hct MCV RDW Lymph % (Auto) Eos % (Auto) Seg Neutrophils % Seg Neutrophils # POC ABG pH POC ABG pCO2 POC ABG pO2 VBG pH Sodium Potassium Chloride Carbon Dioxide BUN 8 L Creatinine 0.6 L Glucose 326 H POC Glucose 321 H 243 H Lactic Acid Calcium 8.0 L Phosphorus Magnesium Total Protein 5.8 L Albumin 2.9 L 02/01/18 02/01/18 02/01/18 00:23 04:55 07:26 Hgb Hct MCV RDW Lymph % (Auto) Eos % (Auto) Seg Neutrophils % Seg Neutrophils # POC ABG pH POC ABG pCO2 POC ABG pO2 VBG pH Sodium Potassium Chloride Carbon Dioxide BUN Creatinine 0.6 L Glucose 265 H POC Glucose 190 H 361 H Lactic Acid Calcium 8.3 L Phosphorus 1.80 L Magnesium Total Protein Albumin 02/01/18 02/01/18 09:34 11:37 Hgb Hct MCV RDW Lymph % (Auto) Eos % (Auto) Seg Neutrophils % Seg Neutrophils # POC ABG pH POC ABG pCO2 POC ABG pO2 VBG pH Sodium Potassium Chloride Carbon Dioxide BUN Creatinine Glucose POC Glucose 170 H 229 H Lactic Acid Calcium Phosphorus Magnesium Total Protein Albumin Chest x-ray: report reviewed, image reviewed
[2018-02-01] MEDS: K-PHOS NEUTRAL PO SCH ×3 (15:07→18:19)
--- NOTE | 2018-02-01 16:05 | Discharge Summary ---
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
[2018-02-01 16:52] VITALS: BP 116/73
== END 2018-02-01 19:37 | disposition home or self-care (01) | DRG 682 ==
LOC: ED 16:21 → CC1 17:54 → 3A 01-31 18:02
PROVIDERS: ADMIT Internal Medicine; ATTEND Internal Medicine
PROC: 4A033R1 Measurement of Arterial Saturation, Peripheral, Percutaneous Approach (ICD-10-PCS; principal; 2018-01-28)
PROC: 5A09457 Assistance with Respiratory Ventilation, 24-96 Consecutive Hours, Continuous Positive Airway Pressure (ICD-10-PCS; 2018-01-29)
DX: N17.9 Acute kidney failure, unspecified (principal); E10.10 Type 1 diabetes mellitus with ketoacidosis without coma; G93.41 Metabolic encephalopathy; J96.01 Acute respiratory failure with hypoxia; K21.9 Gastro-esophageal reflux disease without esophagitis; E87.0 Hyperosmolality and hypernatremia; E86.0 Dehydration; E86.9 Volume depletion, unspecified; F31.9 Bipolar disorder, unspecified; I10 Essential (primary) hypertension; G40.909 Epilepsy, unspecified, not intractable, without status epilepticus; F20.9 Schizophrenia, unspecified; Z82.49 Family history of ischemic heart disease and other diseases of the circulatory system; Z83.3 Family history of diabetes mellitus; Z79.4 Long term (current) use of insulin; Z79.899 Other long term (current) drug therapy
CPT/HCPCS: 36415; 36600; 71045; 80048; 80053; 80307; 81001; 82140; 82803; 82805; 82962; 83735; 84100; 85025; 94660; 94760; J1630; J1650; J1815; J2060; J7030; J7070

== ENCOUNTER 2018-02-03 17:07 | Emergency (ER) | payer MEDICAID ==
[2018-02-03 18:11] LABS: Basophils # (Auto) 0.1 K/mm3 (0.0-0.1); Basophils % (Auto) 2.1 % (0.0-1.8); Eosinophils # (Auto) 0.2 K/mm3 (0.0-0.4); Eosinophils % (Auto) 3.1 % (0.0-4.3); Hematocrit 38.9 % (35.5-45.6); Hemoglobin 12.8 gm/dl (11.8-15.2); Lymphocytes % (Auto) 18.8 % (13.4-35.0); Mean Corpuscular HGB Conc 33 % (32-34); Mean Corpuscular Hemoglobin 30 pg (28-32); Mean Corpuscular Volume 92 fl (84-94); Monocytes # (Auto) 0.4 K/mm3 (0.0-0.8); Monocytes % (Auto) 6.6 % (0.0-7.3); Platelet Count 224 K/mm3 (140-440); Red Blood Count 4.24 M/mm3 (3.65-5.03)
[2018-02-03 18:37] LABS: BUN/Creatinine Ratio 23; Blood Urea Nitrogen 16 mg/dL (9-20); Calcium 9.4 mg/dL (8.4-10.2); Hemolysis Index 64
[2018-02-03] MEDS ORDERED: HumuLIN R IV ONE (20:28)
[2018-02-03] MEDS ORDERED: NACL 0.9% 1000 ML 1,000 ML IV ONE ×2 (20:28)
--- NOTE | 2018-02-03 20:32 | Emergency Department Report ---
ED General Adult HPI - General Chief complaint: Hyperglycemia Stated complaint: BLOOD SUGAR Time Seen by Provider: 02/03/18 19:20 Source: patient Mode of arrival: Ambulatory Limitations: No Limitations - History of Present Illness Initial comments: Patient presents to emergency department with complaint of elevated glucose levels. Patient states that he thinks he is in DKA. Patient is a very poor historian and is not able to add to the history. Patient denies chest pain, headache, abdominal pain. Severity scale (0 -10): 0 - Related Data Previous Rx's Medication Instructions Recorded Last Taken Type Divalproex Dr [Depakote Dr] 250 mg PO QAM #30 tablet 09/15/[address] [Depakote Dr] 500 mg PO QHS #30 tablet 09/15/17 Unknown Rx Famotidine [Pepcid] 20 mg PO BID #30 tablet 09/15/17 Unknown Rx OLANzapine [ZyPREXA] 5 mg PO HS #30 tablet 09/15/17 Unknown Rx Docusate Sodium [Colace CAP] 100 mg PO BID PRN #20 capsule 11/24/17 Unknown Rx Insulin Glargine [Lantus VIAL] 15 units SUB-Q QAMDIAB #1 vial 02/01/18 Unknown Rx Lispro Insulin [Humalog] 0 unit SUB-Q ACHS #1 vial 02/01/18 Unknown Rx Phosphorus #1 [K-Phos Neutral] 250 mg PO BID #60 tablet 02/01/18 Unknown Rx oxyCODONE /ACETAMINOPHEN [Percocet 1 tab PO Q6HR PRN #20 tablet 02/01/18 Unknown Rx 5/325] Allergies Allergy/AdvReac Type Severity Reaction Status Date / Time banana Allergy Severe Angioedema Verified 10/20/17 17:43 ED Review of Systems ROS: Stated complaint: BLOOD SUGAR Other details as noted in HPI Comment: All other systems reviewed and negative Constitutional: denies: chills, fever Eyes: denies: eye pain, eye discharge, vision change ENT: denies: ear pain, throat pain Respiratory: denies: cough, shortness of breath, wheezing Cardiovascular: denies: chest pain, palpitations Endocrine: no symptoms reported Gastrointestinal: denies: abdominal pain, nausea, diarrhea Genitourinary: denies: urgency, dysuria Musculoskeletal: denies: back pain, joint swelling, arthralgia Skin: denies: rash, lesions Neurological: denies: headache, weakness, paresthesias Psychiatric: denies: anxiety, depression Hematological/Lymphatic: denies: easy bleeding, easy bruising ED Past Medical Hx - Past Medical History Hx Hypertension: Yes Hx CVA: No Hx Heart Attack/AMI: No Hx Congestive Heart Failure: No Hx Diabetes: Yes Hx Deep Vein Thrombosis: No Hx Pulmonary Embolism: No Hx GERD: Yes Hx Liver Disease: No Hx Renal Disease: No Hx Sickle Cell Disease: No Hx Arthritis: No Hx Headaches / Migraines: No Hx Seizures: Yes Hx Kidney Stones: No Hx Psychiatric Treatment: Yes (bipolar ;schizophrenia) Hx Asthma: No Hx COPD: No Hx Tuberculosis: No Hx Dementia: No Hx HIV: No - Surgical History Hx Coronary Stent: No Hx Open Heart Surgery: No Hx Pacemaker: No Hx Internal Defibrillator: No Hx Cholecystectomy: No Hx Appendectomy: No Hx Breast Surgery: No Additional Surgical History: r) wrist surgery - Social History Smoking Status: Never Smoker Substance Use Type: Alcohol - Medications Home Medications: Home Medications Medication Instructions Recorded Confirmed Last Taken Type Divalproex Dr [Waldemar Crocker] 250 mg PO QAM #30 tablet 09/15/17 12/13/[address] Jaden Crocker] 500 mg PO QHS #30 tablet 09/15/17 12/13/17 Unknown Rx Famotidine [Pepcid] 20 mg PO BID #30 tablet 09/15/17 12/13/17 Unknown Rx OLANzapine [ZyPREXA] 5 mg PO HS #30 tablet 09/15/17 12/13/17 Unknown Rx Docusate Sodium [Colace CAP] 100 mg PO BID PRN #20 capsule 11/24/17 12/13/17 Unknown Rx Insulin Glargine [Lantus VIAL] 15 units SUB-Q QAMDIAB #1 vial 02/01/18 Unknown Rx Lispro Insulin [Humalog] 0 unit SUB-Q ACHS #1 vial 02/01/18 Unknown Rx Phosphorus #1 [K-Phos Neutral] 250 mg PO BID #60 tablet 02/01/18 Unknown Rx oxyCODONE /ACETAMINOPHEN [Percocet 1 tab PO Q6HR PRN #20 tablet 02/01/18 Unknown Rx 5/325] ED Physical Exam - General Limitations: No Limitations General appearance: alert, in no apparent distress - Head Head exam: Present: atraumatic, normocephalic - Eye Eye exam: Present: normal appearance - ENT ENT exam: Present: other (dry mucous membranes) - Neck Neck exam: Present: normal inspection - Respiratory Respiratory exam: Present: normal lung sounds bilaterally. Absent: respiratory distress - Cardiovascular Cardiovascular Exam: Present: normal rhythm, other (tachycardic). Absent: systolic murmur, diastolic murmur, rubs, gallop - GI/Abdominal GI/Abdominal exam: Present: soft, normal bowel sounds - Rectal Rectal exam: Present: deferred - Extremities Exam Extremities exam: Present: normal inspection - Back Exam Back exam: Present: normal inspection - Neurological Exam Neurological exam: Present: alert, oriented X3, CN II-XII intact. Absent: motor sensory deficit - Psychiatric Psychiatric exam: Present: normal affect, normal mood - Skin Skin exam: Present: warm, dry, intact, normal color. Absent: rash ED Course Vital Signs 02/03/18 02/03/18 02/03/18 17:16 18:40 18:45 Temperature 98.7 F Pulse Rate 108 H 118 H 110 H Respiratory 18 19 16 Rate Blood Pressure 119/82 123/90 Blood Pressure [Left] O2 Sat by Pulse 100 99 Oximetry 02/03/18 02/03/18 02/03/18 18:51 19:00 19:15 Temperature 98.7 F Pulse Rate 115 H 113 H Respiratory 22 17 Rate Blood Pressure 123/90 126/105 Blood Pressure 126/89 [Left] O2 Sat by Pulse 100 98 98 Oximetry 02/03/18 02/03/18 02/03/18 20:49 20:50 20:51 Temperature Pulse Rate 107 H 105 H 103 H Respiratory 21 18 18 Rate Blood Pressure 126/105 119/83 119/83 Blood Pressure [Left] O2 Sat by Pulse Oximetry 02/03/18 02/03/18 02/03/18 20:59 21:00 21:16 Temperature Pulse Rate 107 H 107 H Respiratory 20 16 11 L Rate Blood Pressure 115/78 115/78 Blood Pressure [Left] O2 Sat by Pulse 90 100 Oximetry 02/03/18 21:30 Temperature Pulse Rate 110 H Respiratory 13 Rate Blood Pressure 112/82 Blood Pressure [Left] O2 Sat by Pulse 99 Oximetry ED Medical Decision Making - Lab Data Result diagrams: 02/03/18 17:52 02/03/18 20:43 - Medical Decision Making IV fluids and IV insulin started Patient was in the process of being admitted at least 81 to leave AGAINST MEDICAL ADVICE. The risk of leaving AGAINST MEDICAL ADVICE was discussed with the patient and concluded that the patient may develop DKA which may result in . The patient stated almost a year. Critical care attestation.: If time is entered above; I have spent that time in minutes in the direct care of this critically ill patient, excluding procedure time. ED Disposition Clinical Impression: Hyperglycemia without ketosis Disposition: DC-07 LEFT AGAINST MED ADVICE Is pt being admited?: No Does the pt Need Aspirin: No Condition: Stable Instructions: Diabetic Hyperglycemia (ED) Referrals: PRIMARY CARE, [Primary Care Provider] - 3-5 Days Forms: AMA Form Time of Disposition: 22:27
[2018-02-03 21:18] LABS: BUN/Creatinine Ratio 21; Blood Urea Nitrogen 17 mg/dL (9-20); Calcium 10.1 mg/dL (8.4-10.2); Hemolysis Index 2
[2018-02-03 21:43] VITALS: BP 112/82
== END 2018-02-03 22:26 | disposition left against medical advice (07) ==
LOC: ED 17:07
DX: E11.65 Type 2 diabetes mellitus with hyperglycemia (principal); I10 Essential (primary) hypertension; K21.9 Gastro-esophageal reflux disease without esophagitis; F31.9 Bipolar disorder, unspecified; F20.9 Schizophrenia, unspecified; Z91.02 Food additives allergy status
CPT/HCPCS: 36415; 80048; 82805; 82947; 82962; 85025; 96361; 96374; 99284; J7030; J1815

== ENCOUNTER 2018-02-04 18:53 | Inpatient (IN) | payer MEDICAID ==
[2018-02-04] MEDS ORDERED: ZOFRAN IV ONE (19:21)
[2018-02-04] MEDS ORDERED: NACL 0.9% 1000 ML 2,000 ML IV ONE (19:21)
[2018-02-04] MEDS ORDERED: SUBLIMAZE IV ONE (19:21)
--- NOTE | 2018-02-04 19:32 | Emergency Department Report ---
HPI - General Chief Complaint: Altered Mental Status Time Seen by Provider: 02/04/18 19:10 - HPI HPI: The patient is a 32-year-old male with a significant history of diabetes who presents for evaluation of abdominal pain and vomiting. The patient is well- known to this emergency Department myself. The patient reports 1 day of constant severe generalized abdominal pain, crampy in quality, exacerbated with retching. He reports constant intractable nausea and multiple episodes of nonbilious, nonbloody emesis. The patient denies fever, chills, night sweats, diarrhea, blood in the stool, dark tarry stool, dysuria, hematuria, flank pain, genital discharge, inability to pass flatus. ED Past Medical Hx - Past Medical History Previous Medical History?: Yes Hx Hypertension: Yes Hx CVA: No Hx Heart Attack/AMI: No Hx Congestive Heart Failure: No Hx Diabetes: Yes Hx Deep Vein Thrombosis: No Hx Pulmonary Embolism: No Hx GERD: Yes Hx Liver Disease: No Hx Renal Disease: No Hx Sickle Cell Disease: No Hx Arthritis: No Hx Headaches / Migraines: No Hx Seizures: Yes Hx Kidney Stones: No Hx Psychiatric Treatment: Yes (bipolar ;schizophrenia) Hx Asthma: No Hx COPD: No Hx Tuberculosis: No Hx Dementia: No Hx HIV: No - Surgical History Past Surgical History?: Yes Hx Coronary Stent: No Hx Open Heart Surgery: No Hx Pacemaker: No Hx Internal Defibrillator: No Hx Cholecystectomy: No Hx Appendectomy: No Hx Breast Surgery: No Additional Surgical History: r) wrist surgery - Social History Smoking Status: Unknown if ever smoked - Medications Home Medications: Home Medications Medication Instructions Recorded Confirmed Last Taken Type Divalproex Dr Jaden Crocker] 250 mg PO QAM #30 tablet 09/15/17 12/13/[address] Jaden Crocker] 500 mg PO QHS #30 tablet 09/15/17 12/13/17 Unknown Rx Famotidine [Pepcid] 20 mg PO BID #30 tablet 09/15/17 12/13/17 Unknown Rx OLANzapine [ZyPREXA] 5 mg PO HS #30 tablet 09/15/17 12/13/17 Unknown Rx Docusate Sodium [Colace CAP] 100 mg PO BID PRN #20 capsule 11/24/17 12/13/17 Unknown Rx Insulin Glargine [Lantus VIAL] 15 units SUB-Q QAMDIAB #1 vial 02/01/18 Unknown Rx Lispro Insulin [Humalog] 0 unit SUB-Q ACHS #1 vial 02/01/18 Unknown Rx Phosphorus #1 [K-Phos Neutral] 250 mg PO BID #60 tablet 02/01/18 Unknown Rx oxyCODONE /ACETAMINOPHEN [Percocet 1 tab PO Q6HR PRN #20 tablet 02/01/18 Unknown Rx 5/325] ED Review of Systems ROS: Stated complaint: AMS Other details as noted in HPI Constitutional: denies: fever ENT: denies: throat or neck pain Respiratory: denies: cough, shortness of breath Cardiovascular: denies: chest pain Endocrine: denies unexplained weight loss or gain Gastrointestinal: reports abdominal pain, nausea, vomiting Genitourinary: denies: dysuria Musculoskeletal: denies: leg swelling Skin: denies: rash Neurological: denies: headache Hematological/Lymphatic: denies: easy bleeding or easy bruising Psych: denies sadness or hopelessness Physical Exam - Physical Exam Vital Signs: Vital Signs 02/04/18 19:08 Temperature 98.2 F Pulse Rate 107 H Respiratory 19 Rate Blood Pressure 92/60 O2 Sat by Pulse 98 Oximetry Physical Exam: General: well-nourished, well-developed, no acute distress Head: Normocephalic, atraumatic Eyes: normal sclera ENT: Mucous membranes are pale and dry Neck: No neck stiffness, no cervical adenopathy Respiratory: Breath sounds equal bilaterally, no wheezing, rales, or rhonchi Cardio: S1 and S2 present, no murmurs, rubs, gallops, capillary refill is delayed Abdomen: Normoactive bowel sounds, soft abdomen, generalized tenderness to palpation present, no rigidity, no guarding or rebound tenderness Chest WALL/Back: No tenderness to palpation of the chest wall, no CVA tenderness with percussion Musc: No pitting edema Skin: No rash Neuro: no facial drooping, normal speech Psych: Normal affect ED Course Vital Signs 02/04/18 19:08 Temperature 98.2 F Pulse Rate 107 H Respiratory 19 Rate Blood Pressure 92/60 O2 Sat by Pulse 98 Oximetry ED Medical Decision Making - Lab Data Result diagrams: 02/04/18 20:14 02/05/18 00:01 - Medical Decision Making The patient was seen and examined by myself. The patient is placed on a buffet manager and continuous pulse ox. On initial evaluation, the patient was found to be in no distress. Evaluation orders were placed. The patient's found have severely elevated blood sugar on Accu-Chek. The patient is given 2 L NS fluid bolus for treatment of his dehydration and hyperglycemia. The patient given IV pain medicine and nausea medicine well. Multiple bedside reassessments were performed to assess patient's responsiveness to fluids resuscitation and pain medicine. Lab results reveal severely elevated glucose, low bicarbonate, increased anion gap, consistent with acute diabetic ketoacidosis. Labs also reveal elevated potassium level. The patient is started on an IV insulin drip for treatment of his DKA and hyperkalemia. The on -call hospitalist service was contacted. They agreed to admit the patient for further treatment and close monitoring. The ED admit order was placed. The patient was admitted in guarded condition. Critical Care Time: Yes Critical care time in (mins) excluding proc time.: 35 Critical care attestation.: Due to the critical nature of this patients presentation, which necessitated multiple bedside assessments, manipulation and supportive measures to prevent further life threatening deterioration, I would like to bill for a total of 35 minutes of critical care time. This was exclusive of any separately billable procedures. Critical Care Time: 35 min ED Disposition Clinical Impression: Dehydration, Acute hyperkalemia DKA, type 1 Qualifiers: Diabetes mellitus complication detail: without coma Qualified Code(s): E10.10 - Type 1 diabetes mellitus with ketoacidosis without coma Altered mental status, unspecified Qualifiers: Altered mental status type: unspecified Qualified Code(s): R41.82 - Altered mental status, unspecified Disposition: DC09 OP ADMIT IP TO THIS HOSP Is pt being admited?: Yes Does the pt Need Aspirin: Yes Condition: Critical Time of Disposition: 19:32
[2018-02-04 20:44] LABS: Basophils % (Auto) 0.5 % (0.0-1.8); Eosinophils # (Auto) 0.2 K/mm3 (0.0-0.4); Eosinophils % (Auto) 3.4 % (0.0-4.3); Hematocrit 40.9 % (35.5-45.6); Hemoglobin 13.4 gm/dl (11.8-15.2); Lymphocytes # (Auto) 1.5 K/mm3 (1.2-5.4); Lymphocytes % (Auto) 21.7 % (13.4-35.0); Mean Corpuscular HGB Conc 33 % (32-34); Mean Corpuscular Hemoglobin 30 pg (28-32); Mean Corpuscular Volume 92 fl (84-94); Monocytes # (Auto) 0.4 K/mm3 (0.0-0.8); Platelet Count 341 K/mm3 (140-440); Red Blood Count 4.46 M/mm3 (3.65-5.03)
[2018-02-04 20:49] LABS: Alanine Aminotransferase 85 units/L (7-56); Albumin 3.5 g/dL (3.9-5); BUN/Creatinine Ratio 30; Blood Urea Nitrogen 24 mg/dL (9-20); Calcium 9.6 mg/dL (8.4-10.2); Hemolysis Index 32
[2018-02-04] MEDS ORDERED: D50W (25GM) Syringe IV PRN ×2 (21:32→23:14)
[2018-02-04] MEDS ORDERED: HumuLIN R 100 UNITS in NACL 0.9% 99 ML IV SCH ×2 (22:00→23:45)
[2018-02-04 22:07] LABS: BUN/Creatinine Ratio 29; Blood Urea Nitrogen 23 mg/dL (9-20); Calcium 9.1 mg/dL (8.4-10.2); Hemolysis Index 15
--- NOTE | 2018-02-04 23:02 | History and Physical Report ---
History of Present Illness Date of examination: 02/04/18 Date of admission: 02/04/2018 Chief complaint: Chief complaint Nausea vomiting and abdominal pain 1 day History of present illness: [employer] [place]: The patient is a 32-year-old male with a significant history of diabetes who presents for evaluation of abdominal pain and vomiting. The patient is well- known to this emergency Department myself. The patient reports 1 day of constant severe generalized abdominal pain, crampy in quality, exacerbated with retching. He reports constant intractable nausea and multiple episodes of nonbilious, nonbloody emesis. The patient denies fever, chills, night sweats, diarrhea, blood in the stool, dark tarry stool, dysuria, hematuria, flank pain, genital discharge, inability to pass flatus. Past Medical History Previous Medical History?: Yes Hx Hypertension: Yes Hx Diabetes: Yes Hx GERD: Yes Hx Seizures: Yes - Surgical History Past Surgical History?: Yes Additional Surgical History: r) wrist surgery Social History Smoking Status: Unknown if ever smoked Family history HTN - Medications Home Medications: Home Medications Medication Instructions Recorded Confirmed Last Taken Type Divalproex Dr [Waldemar Crocker] 250 mg PO QAM #30 tablet 09/15/17 12/13/[address] Jaden Crocker] 500 mg PO QHS #30 tablet 09/15/17 12/13/17 Unknown Rx Famotidine [Pepcid] 20 mg PO BID #30 tablet 09/15/17 12/13/17 Unknown Rx OLANzapine [ZyPREXA] 5 mg PO HS #30 tablet 09/15/17 12/13/17 Unknown Rx Docusate Sodium [Colace CAP] 100 mg PO BID PRN #20 capsule 11/24/17 12/13/17 Unknown Rx Insulin Glargine [Lantus VIAL] 15 units SUB-Q QAMDIAB #1 vial 02/01/18 Unknown Rx Lispro Insulin [Humalog] 0 unit SUB-Q ACHS #1 vial 02/01/18 Unknown Rx Phosphorus #1 [K-Phos Neutral] 250 mg PO BID #60 tablet 02/01/18 Unknown Rx oxyCODONE /ACETAMINOPHEN [Percocet 1 tab PO Q6HR PRN #20 tablet 02/01/18 Unknown Rx 5/325] Review of Systems ROS: Stated complaint: AMS Other details as noted in HPI Constitutional: denies: fever ENT: denies: throat or neck pain Respiratory: denies: cough, shortness of breath Cardiovascular: denies: chest pain Endocrine: denies unexplained weight loss or gain Gastrointestinal: reports abdominal pain, nausea, vomiting Genitourinary: denies: dysuria Musculoskeletal: denies: leg swelling Skin: denies: rash Neurological: denies: headache Hematological/Lymphatic: denies: easy bleeding or easy bruising Psych: denies sadness or hopelessness Medications and Allergies Allergies Allergy/AdvReac Type Severity Reaction Status Date / Time banana Allergy Severe Angioedema Verified 10/20/17 17:43 Home Medications Medication Instructions Recorded Confirmed Last Taken Type Divalproex Dr [Waldemar Crocker] 250 mg PO QAM #30 tablet 09/15/17 12/13/[address] [Waldemar Dr] 500 mg PO QHS #30 tablet 09/15/17 12/13/17 Unknown Rx Famotidine [Pepcid] 20 mg PO BID #30 tablet 09/15/17 12/13/17 Unknown Rx OLANzapine [ZyPREXA] 5 mg PO HS #30 tablet 09/15/17 12/13/17 Unknown Rx Docusate Sodium [Colace CAP] 100 mg PO BID PRN #20 capsule 11/24/17 12/13/17 Unknown Rx Insulin Glargine [Lantus VIAL] 15 units SUB-Q QAMDIAB #1 vial 02/01/18 Unknown Rx Lispro Insulin [Humalog] 0 unit SUB-Q ACHS #1 vial 02/01/18 Unknown Rx Phosphorus #1 [K-Phos Neutral] 250 mg PO BID #60 tablet 02/01/18 Unknown Rx oxyCODONE /ACETAMINOPHEN [Percocet 1 tab PO Q6HR PRN #20 tablet 02/01/18 Unknown Rx 5/325] Active Meds: Active Medications Dextrose (D50w (25gm) Syringe) 0 ml IV PRN PRN PRN Reason: Hypoglycemia Insulin Human Regular 100 (units/ Sodium Chloride) 100 mls @ 1 mls/hr IV TITR ANTONIA; Protocol Last Admin: 02/04/18 22:54 Dose: 7 units/hr, 7 mls/hr Exam - Constitutional Vitals: Temp Pulse Resp BP Pulse Ox 97.7 F 97 H 14 111/77 100 02/04/18 21:18 06/16/18 21:18 02/04/18 21:18 02/04/18 21:18 02/04/18 21:18 General appearance: Present: mild distress, well-nourished - EENT Eyes: Present: PERRL ENT: hearing intact, clear oral mucosa, other (tongue dry) - Neck Neck: Present: supple, normal ROM - Respiratory Respiratory effort: normal Respiratory: bilateral: CTA - Cardiovascular Heart rate: 98 Rhythm: regular Heart Sounds: Present: S1 & S2. Absent: rub, click - Extremities Extremities: no ischemia, pulses intact, pulses symmetrical, No edema Peripheral Pulses: within normal limits - Abdominal General gastrointestinal: Present: soft, non-tender, non-distended, normal bowel sounds Male genitourinary: Present: normal - Rectal Rectal Exam: deferred - Integumentary Integumentary: Present: clear, warm, dry - Musculoskeletal Musculoskeletal: gait normal, strength equal bilaterally - Psychiatric Psychiatric: appropriate mood/affect, intact judgment & insight - Neurologic Neurologic: CNII-XII intact, moves all extremities - Allied Health Allied health notes reviewed: nursing, case management Results - Labs CBC & Chem 7: 02/04/18 20:14 02/05/18 04:16 Labs: Laboratory Last Values WBC 6.9 K/mm3 (4.5-11.0) 02/04/18 20:14 RBC 4.46 M/mm3 (3.65-5.03) 02/04/18 20:14 Hgb 13.4 gm/dl (11.8-15.2) 02/04/18 20:14 Hct 40.9 % (35.5-45.6) 02/04/18 20:14 MCV 92 fl (84-94) 02/04/18 20:14 MCH 30 pg (28-32) 02/04/18 20:14 MCHC 33 % (32-34) 02/04/18 20:14 RDW 14.0 % (13.2-15.2) 02/04/18 20:14 Plt Count 341 K/mm3 (140-440) 02/04/18 20:14 Lymph % (Auto) 21.7 % (13.4-35.0) 02/04/18 20:14 [place] % (Auto) 6.0 % (0.0-7.3) 02/04/18 20:14 Eos % (Auto) 3.4 % (0.0-4.3) 02/04/18 20:14 Baso % (Auto) 0.5 % (0.0-1.8) 02/04/18 20:14 Lymph # 1.5 K/mm3 (1.2-5.4) 02/04/18 20:14 [place] # 0.4 K/mm3 (0.0-0.8) 02/04/18 20:14 Eos # 0.2 K/mm3 (0.0-0.4) 02/04/18 20:14 Baso # 0.0 K/mm3 (0.0-0.1) 02/04/18 20:14 Seg Neutrophils % 68.4 % (40.0-70.0) 02/04/18 20:14 Seg Neutrophils # 4.7 K/mm3 (1.8-7.7) 02/04/18 20:14 Sodium 138 mmol/L (137-145) 02/04/18 21:40 Potassium 5.1 mmol/L (3.6-5.0) H 02/04/18 21:40 Chloride 91.2 mmol/L (98-107) L 02/04/18 21:40 Carbon Dioxide 16 mmol/L (22-30) L 02/04/18 21:40 Anion Gap 36 mmol/L 02/04/18 21:40 BUN 23 mg/dL (9-20) H 02/04/18 21:40 Creatinine 0.8 mg/dL (0.8-1.5) 02/04/18 21:40 Estimated GFR > 60 ml/min 02/04/18 21:40 BUN/Creatinine Ratio 29 % 02/04/18 21:40 Glucose 439 mg/dL (75-100) H 02/04/18 21:40 POC Glucose 370 (70-105) H 02/04/18 22:54 Lactic Acid 1.40 mmol/L (0.7-2.0) 02/04/18 20:14 Calcium 9.1 mg/dL (8.4-10.2) 02/04/18 21:40 Phosphorus 4.60 mg/dL (2.5-4.5) H 02/04/18 21:40 Magnesium 2.00 mg/dL (1.7-2.3) 02/04/18 21:40 Total Bilirubin 0.40 mg/dL (0.1-1.2) 02/04/18 20:14 AST 85 units/L (5-40) H 02/04/18 20:14 ALT 85 units/L (7-56) H 02/04/18 20:14 Alkaline Phosphatase 218 units/L (35-129) H 02/04/18 20:14 Total Protein 7.4 g/dL (6.3-8.2) D 02/04/18 20:14 Albumin 3.5 g/dL (3.9-5) L 02/04/18 20:14 Albumin/Globulin Ratio 0.9 % 02/04/18 20:14 Lipase 27 units/L (13-60) 02/04/18 20:14 TSH 0.557 mlU/mL (0.270-4.200) 02/04/18 20:14 Plasma/Serum Alcohol < 0.01 % (0-0.07) 02/04/18 20:14 Short CBC 02/04/18 Range/Units 20:14 WBC 6.9 (4.5-11.0) K/mm3 Hgb 13.4 (11.8-15.2) gm/dl Hct 40.9 (35.5-45.6) % Plt Count 341 (140-440) K/mm3 BMP 02/04/18 02/04/18 02/05/18 20:14 21:40 00:01 Sodium 134 L 138 139 Potassium 5.2 H 5.1 H 7.5 H* D Chloride 89.6 L 91.2 L 98.5 Carbon Dioxide 14 L D 16 L 11 L BUN 24 H 23 H 23 H Creatinine 0.8 0.8 0.7 L Glucose 488 H 439 H 432 H Calcium 9.6 9.1 5.6 L* D 02/05/18 02/05/18 02:39 04:16 Sodium 138 140 Potassium 4.8 D 5.1 H Chloride 100.1 100.2 Carbon Dioxide 9 L* 15 L BUN 22 H 20 Creatinine 0.7 L 0.8 Glucose 398 H 320 H Calcium 8.1 L D 9.3 Liver Function 02/04/18 Range/Units 20:14 Total Bilirubin 0.40 (0.1-1.2) mg/dL AST 85 H (5-40) units/L ALT 85 H (7-56) units/L Alkaline Phosphatase 218 H (35-129) units/L Albumin 3.5 L (3.9-5) g/dL Urine 02/05/18 Range/Units 00:38 Urine Color Straw (Yellow) Urine pH 5.0 (5.0-7.0) Ur Specific [place] 1.024 (1.003-1.030) Urine Protein <15 mg/dl (Negative) mg/dL Urine Glucose (UA) >=500 (Negative) mg/dL Assessment and Plan Assessment and plan: The high probability of a clinically significant, sudden or life threatening deterioration of the [Pulmonary, cadiac, renal] system(s) required my full and direct attention, intervention and personal management. The aggregate critical care time was [35] minutes. This time is in addition to time spent performing reported procedures but includes the following: [x] Data Review and interpretation [x] Patient assessment and monitoring of vital signs [x] Documentation [x] Medication orders and management Advance Directives: Yes (full code) - Patient Problems (1) DKA, type 1 Current Visit: Yes Status: Acute Qualifiers: Diabetes mellitus complication detail: without coma Qualified Code(s): E10.10 - Type 1 diabetes mellitus with ketoacidosis without coma Plan to address problem: Patient on IV insulin and IV fluids DKA protocol initiated Monitor lites closely Patient counseled about compliance but he is going to be noncompliant Patient also cocaine dependent which contributions to his noncompliance His home insulin to be adjusted upwards His A1c is an 13.4 (2) Acute hyperkalemia Current Visit: Yes Status: Acute Plan to address problem: Should correct with IV insulin (3) Cocaine dependence Current Visit: Yes Status: Chronic Qualifiers: Substance use status: uncomplicated Qualified Code(s): F14.20 - Cocaine dependence, uncomplicated Plan to address problem: Patient counseled about staying away from cocaine (4) Hypomagnesemia Current Visit: Yes Status: Acute Plan to address problem: IV magnesium initiated (5) Metabolic acidosis Current Visit: Yes Status: Acute Plan to address problem: Severe Bicarbonate if necessary (6) Transaminitis Current Visit: Yes Status: Acute Plan to address problem: Etiology unclear Hepatitis profile ordered (7) DVT prophylaxis Current Visit: Yes Status: Acute Plan to address problem: heparin 5000 every 12 initiated (8) Seizure disorder Current Visit: Yes Status: Chronic Plan to address problem: Continue Depakote (9) Hypertension Current Visit: Yes Status: Acute
[2018-02-04] MEDS ORDERED: SODIUM CHLORIDE FLUSH SYRINGE 10 ML IV PRN (23:05)
[2018-02-04] MEDS ORDERED: TYLENOL PO PRN (23:05)
[2018-02-04] MEDS ORDERED: MORPHINE IV PRN (23:05)
[2018-02-04] MEDS ORDERED: ZOFRAN IV PRN (23:05)
[2018-02-04] MEDS ORDERED: NACL 0.9% 1000 ML 1,000 ML IV ONE (23:14)
[2018-02-04] MEDS ORDERED: NACL 0.9% 1000 ML 1,000 ML ONE (23:44)
[2018-02-04] MEDS ORDERED: D5W/0.45% NACL/KCL 20 MEQ 20 MEQ/1,000 ML BAG IV SCH (23:45)
[2018-02-05 00:36] LABS: BUN/Creatinine Ratio 33; Blood Urea Nitrogen 23 mg/dL (9-20); Hemolysis Index 29
[2018-02-05 00:58] LABS: Calcium 5.6 mg/dL (8.4-10.2)
[2018-02-05] MEDS ORDERED: D5/0.45NS 1,000 ML IV SCH (01:00)
[2018-02-05 01:10] LABS: Bilirubin,Urine NEG (Negative); Blood,Urine NEG (Negative); Color,Urine Straw (Yellow); Mucus,Urine FEW /HPF; Protein,Urine <15 mg/dL mg/dL (Negative); Urobilinogen,Urine < 2.0 mg/dL (<2.0); WBC,Urine < 1.0 /HPF (0.0-6.0)
[2018-02-05] MEDS ORDERED: D5/0.45NS 1,000 ML IV ONE (01:12)
[2018-02-05 01:17] LABS: Amphetamine Screen,Urine PRESUMPTIVE NEGATIVE; Benzodiazepines Screen,Urine PRESUMPTIVE NEGATIVE; Cannabinoid Screen,Urine PRESUMPTIVE NEGATIVE; Methadone Screen,Urine PRESUMPTIVE NEGATIVE; Opiate Screen,Urine PRESUMPTIVE NEGATIVE
[2018-02-05 01:31] LABS: Cocaine Screen,Urine PRESUMPTIVE POSITIVE
[2018-02-05] MEDS ORDERED: KIONEX PO ONE (01:47)
[2018-02-05] MEDS ORDERED: CALCIUM GLUCONATE 2,000 MG in NACL 0.9% 100 ML IV ONE (01:48)
[2018-02-05] MEDS ORDERED: MAGNESIUM SULFATE 2GM/50ML 2 GM/50 ML BAG IV ONE ×3 (01:48→06:54)
[2018-02-05] MEDS: KCL 10MEQ/100ML 10 MEQ/100 ML BAG IV SCH ×6 (01:59→07:00)
[2018-02-05] MEDS ORDERED: KIONEX ONE ×2 (02:32→02:33)
[2018-02-05 03:22] LABS: BUN/Creatinine Ratio 31; Blood Urea Nitrogen 22 mg/dL (9-20); Hemolysis Index 23
[2018-02-05 03:42] LABS: Calcium 8.1 mg/dL (8.4-10.2)
[2018-02-05 05:04] LABS: BUN/Creatinine Ratio 25; Blood Urea Nitrogen 20 mg/dL (9-20); Calcium 9.3 mg/dL (8.4-10.2); Hemolysis Index 15
[2018-02-05] MEDS ORDERED: COLACE PO PRN (06:53)
[2018-02-05] MEDS ORDERED: PERCOCET 5/325 PO PRN (06:53)
[2018-02-05] MEDS ORDERED: LANTUS SUB-Q SCH ×2 (08:00)
[2018-02-05 08:18] LABS: BUN/Creatinine Ratio 27; Blood Urea Nitrogen 16 mg/dL (9-20); Calcium 8.6 mg/dL (8.4-10.2); Hemolysis Index 10
[2018-02-05] MEDS ORDERED: HEPARIN SUB-Q SCH (10:00)
[2018-02-05] MEDS ORDERED: K-PHOS NEUTRAL PO SCH (10:00)
[2018-02-05] MEDS ORDERED: PEPCID PO SCH (10:00)
[2018-02-05] MEDS ORDERED: SODIUM CHLORIDE FLUSH SYRINGE 10 ML IV SCH (10:00)
[2018-02-05 10:49] VITALS: BP 96/67
--- NOTE | 2018-02-05 11:57 | Discharge Summary ---
Providers - Providers Date of Admission: 02/04/18 23:05 Date of discharge: 02/05/18 Attending physician: KEYANNA GRAHAM 02/04/18 23:05 Consult to Physician [CONS] Routine Comment: A/S NOTIFIED ELVIA [id number] Consulting Provider: CARLA ROJAS Physician Instructions: Reason For Exam: DKA 02/04/18 23:14 Consult to Dietitian/Nutrition [CONS] Routine Physician Instructions: Reason For Exam: DKA Reason for Consult: Nutrition Recommendations Reason for Consult: Diet education Primary care physician: JEWISH THOUGHT PROFESSOR Hospitalization Reason for admission: nausea vomiting abdominal pain/DKA Condition: Serious Hospital course: Very pleasant 32-year-old -[place] male patient well known to our service, with multiple admissions in the past with DKA, noncompliant with medications cocaine use and bipolar disorder, Was admitted through emergency room with the DKA, on DKA pathway Patient is on insulin drip, with reasonable levels of blood sugars In ED awaiting ICU room assignment Patient states he feels better and wants to leave the hospital Patient denies any nausea vomiting or abdominal pain Denies headache dizziness However I strongly advised the patient to stay at least 1-2 days until his sugars are stabilized Patient refused signed AMA papers and left the emergency room, waiting for his sister to picker box operator Final diagnosis; --Diabetic ketoacidosis --Metabolic acidosis --History of seizure disorder --Acute liver injury/transaminitis --Hypomagnesemia --Cocaine abuse --type 1 diabetes mellitus --Medical noncompliance --Multiple admissions Disposition: DC-[id number] LEFT AGAINST MED ADVICE Time spent for discharge: 31 min Core Measure Documentation - Palliative Care Palliative Care/ Comfort Measures: Not Applicable - Core Measures Any of the following diagnoses?: none Exam - Constitutional Vitals: Temp Pulse Resp BP Pulse Ox 97.7 F 80 16 96/67 100 02/04/18 21:18 02/05/18 10:16 02/05/18 10:16 02/05/18 10:16 02/05/18 09:30 General appearance: Present: no acute distress, cachectic, disheveled - EENT Eyes: Present: PERRL, EOM intact - Neck Neck: Present: supple, normal ROM - Respiratory Respiratory effort: normal Respiratory: bilateral: diminished, negative: rales, rhonchi, wheezing - Cardiovascular Rhythm: regular Heart Sounds: Present: S1 & S2 - Extremities Extremities: no ischemia, No edema - Abdominal General gastrointestinal: Present: soft, non-tender, non-distended, normal bowel sounds - Integumentary Integumentary: Present: clear, warm - Musculoskeletal Musculoskeletal: strength equal bilaterally - Psychiatric Psychiatric: appropriate mood/affect, cooperative - Neurologic Neurologic: CNII-XII intact, moves all extremities Plan Activity: advance as tolerated Diet: diabetic Additional Instructions: Patient left AMA Follow up with: PRIMARY CARE, [Primary Care Provider] - 3-5 Days
--- NOTE | 2018-02-05 12:54 | Event Note ---
Date: 02/05/18 Patient signed out AMA before my evaluation. Case discussed with attending
== END 2018-02-05 12:19 | disposition left against medical advice (07) | DRG 637 ==
LOC: ED 18:53 → CC1 23:05
PROVIDERS: ADMIT Internal Medicine; ATTEND Internal Medicine
DX: E10.10 Type 1 diabetes mellitus with ketoacidosis without coma (principal); K72.00 Acute and subacute hepatic failure without coma; F14.20 Cocaine dependence, uncomplicated; I10 Essential (primary) hypertension; K21.9 Gastro-esophageal reflux disease without esophagitis; F20.9 Schizophrenia, unspecified; F31.9 Bipolar disorder, unspecified; E86.0 Dehydration; E87.5 Hyperkalemia; E83.42 Hypomagnesemia; G40.909 Epilepsy, unspecified, not intractable, without status epilepticus; Z91.14 Patient's other noncompliance with medication regimen; Z82.49 Family history of ischemic heart disease and other diseases of the circulatory system; Z91.018 Allergy to other foods; Z79.899 Other long term (current) drug therapy
CPT/HCPCS: 36415; 80048; 80053; 80307; 80320; 81001; 82140; 82962; 83036; 83690; 83735; 84100; 84443; 85025; 87086; 93005; 93010; G0480; J0610; J1644; J1815; J2405; J3010; J3475; J7030

== ENCOUNTER 2019-03-01 00:06 | Inpatient (IN) | payer MEDICAID ==
[2019-03-01 01:04] LABS: Basophils % (Auto) 0.2 % (0.0-1.8); Eosinophils % (Auto) 0.4 % (0.0-4.3); Hematocrit 38.8 % (35.5-45.6); Hemoglobin 12.9 gm/dl (11.8-15.2); Lymphocytes # (Auto) 1.3 K/mm3 (1.2-5.4); Lymphocytes % (Auto) 11.5 % (13.4-35.0); Mean Corpuscular HGB Conc 33 % (32-34); Mean Corpuscular Volume 87 fl (84-94); Monocytes % (Auto) 8.9 % (0.0-7.3); Platelet Count 371 K/mm3 (140-440); Red Blood Count 4.45 M/mm3 (3.65-5.03); Red Cell Distribution Width 16.1 % (13.2-15.2)
[2019-03-01 01:27] LABS: Alanine Aminotransferase 17 units/L (7-56); Albumin 3.9 g/dL (3.9-5); BUN/Creatinine Ratio 15; Blood Urea Nitrogen 18 mg/dL (9-20); Calcium 8.8 mg/dL (8.4-10.2); Hemolysis Index 7
[2019-03-01] MEDS ORDERED: NACL 0.9% 1000 ML 1,000 ML IV ONE ×2 (01:51)
[2019-03-01] MEDS ORDERED: D50W (25GM) Syringe IV PRN (01:51)
--- NOTE | 2019-03-01 01:57 | Emergency Department Report ---
ED General Adult HPI - General Chief complaint: Abdominal Pain Stated complaint: ABDOMINAL PAIN, ELEVATED BLOOD SUGAR Time Seen by Provider: 03/01/19 01:46 Source: patient Mode of arrival: Ambulatory Limitations: No Limitations - History of Present Illness Initial comments: 33-year-old male with history of diabetes, bipolar disorder, denies presents to ED stating, "I think I'm in DKA." Patient reports using cocaine earlier tonight. States has been noncompliant with his insulin. The patient is uncooperative with questioning. -: unknown - Related Data Previous Rx's Medication Instructions Recorded Last Taken Type Lispro Insulin [HumaLOG] 0 unit SUB-Q ACHS #1 vial 04/01/18 5 Days Ago Rx ~08/14/18 Famotidine [Pepcid] 20 mg PO BID #30 tablet 06/01/18 5 Days Ago Rx ~08/14/18 Lispro Insulin [HumaLOG] 10 unit SUB-Q AC 30 Days #1 vial 08/11/18 5 Days Ago Rx ~08/14/18 Aspirin 325 mg PO QDAY #30 tablet 08/19/18 Unknown Rx Divalproex ER [Depakote ER] 500 mg PO BID #60 tablet 08/19/18 Unknown Rx Insulin Detemir [Levemir VIAL] 30 unit SUB-Q BID #60 vial 08/19/18 Unknown Rx Lisinopril [Zestril TAB] 10 mg PO QDAY #30 tablet 08/19/18 Unknown Rx Allergies Allergy/AdvReac Type Severity Reaction Status Date / Time banana Allergy Severe Angioedema Verified 10/20/17 17:43 ED Review of Systems ROS: Stated complaint: ABDOMINAL PAIN, ELEVATED BLOOD SUGAR Other details as noted in HPI Comment: Unobtainable due to pts medical conditions (pt uncooperative) ED Past Medical Hx - Past Medical History Previous Medical History?: Yes Hx Hypertension: Yes Hx CVA: No Hx Heart Attack/AMI: No Hx Congestive Heart Failure: No Hx Diabetes: Yes Hx Deep Vein Thrombosis: No Hx Pulmonary Embolism: No Hx GERD: Yes Hx Liver Disease: No Hx Renal Disease: No Hx Sickle Cell Disease: No Hx Arthritis: No Hx Headaches / Migraines: No Hx Seizures: Yes Hx Kidney Stones: No Hx Psychiatric Treatment: Yes (bipolar ;schizophrenia) Hx Asthma: No Hx COPD: No Hx Tuberculosis: No Hx Dementia: No Hx HIV: No Additional medical history: gastroparesis - Surgical History Past Surgical History?: Yes Hx Coronary Stent: No Hx Open Heart Surgery: No Hx Pacemaker: No Hx Internal Defibrillator: No Hx Cholecystectomy: No Hx Appendectomy: No Hx Breast Surgery: No Additional Surgical History: r) wrist surgery - Social History Smoking Status: Current Every Day Smoker Substance Use Type: Cocaine - Medications Home Medications: Home Medications Medication Instructions Recorded Confirmed Last Taken Type Lispro Insulin [HumaLOG] 0 unit SUB-Q ACHS #1 vial 04/01/18 08/19/18 5 Days Ago Rx ~08/14/18 Famotidine [Pepcid] 20 mg PO BID #30 tablet 06/01/18 08/19/18 5 Days Ago Rx ~08/14/18 Lispro Insulin [HumaLOG] 10 unit SUB-Q AC 30 Days #1 vial 08/11/18 08/19/18 5 Days Ago Rx ~08/14/18 Aspirin 325 mg PO QDAY #30 tablet 08/19/18 Unknown Rx Divalproex ER [Depakote ER] 500 mg PO BID #60 tablet 08/19/18 Unknown Rx Insulin Detemir [Levemir VIAL] 30 unit SUB-Q BID #60 vial 08/19/18 Unknown Rx Lisinopril [Zestril TAB] 10 mg PO QDAY #30 tablet 08/19/18 Unknown Rx ED Physical Exam - General Limitations: No Limitations General appearance: alert, in no apparent distress, other (appears unkempt) - Head Head exam: Present: atraumatic, normocephalic - Eye Eye exam: Present: normal appearance - ENT ENT exam: Present: mucous membranes moist - Neck Neck exam: Present: normal inspection - Respiratory Respiratory exam: Present: normal lung sounds bilaterally. Absent: respiratory distress - Cardiovascular Cardiovascular Exam: Present: normal rhythm, tachycardia - GI/Abdominal GI/Abdominal exam: Present: soft. Absent: distended, tenderness - Extremities Exam Extremities exam: Present: normal inspection - Neurological Exam Neurological exam: Present: alert, oriented X3 - Psychiatric Psychiatric exam: Present: agitated, anxious, other (restless, somewhat uncooperative) - Skin Skin exam: Present: warm, dry, intact, normal color ED Course Vital Signs 03/01/19 00:19 Temperature 97.8 F Pulse Rate 115 H Respiratory 20 Rate Blood Pressure 152/101 O2 Sat by Pulse 95 Oximetry ED Medical Decision Making - Lab Data Result diagrams: 03/01/19 00:26 03/01/19 02:03 - Medical Decision Making 33 yo M, noncompliant w/ insulin, currently in DKA. Insulin drip initiated, IV fluid boluses given. History of bipolar and reports cocaine use earlier tonight. Pt has been agitated, anxious, jumpy, and uncooperative at times. Pt required sedation and was given ativan and geodon. Spoke w/ Dr Escobar, hospita list for admission. - Differential Diagnosis DKA, hyperglycemia, cocaine intoxication, psychosis Critical Care Time: Yes Critical care time in (mins) excluding proc time.: 35 Critical care attestation.: If time is entered above; I have spent that time in minutes in the direct care of this critically ill patient, excluding procedure time. Critical Care Time: 35 minutes ED Disposition Clinical Impression: DKA (diabetic ketoacidoses), Cocaine abuse Disposition: DC-[id number] OP ADMIT IP TO THIS HOSP Is pt being admited?: Yes Condition: Stable Instructions: Diabetic Ketoacidosis (ED) Time of Disposition: 01:57
[2019-03-01] MEDS: HumuLIN R 100 UNITS in NACL 0.9% 99 ML IV SCH (02:34)
[2019-03-01 02:39] LABS: BUN/Creatinine Ratio 15; Blood Urea Nitrogen 18 mg/dL (9-20); Calcium 8.8 mg/dL (8.4-10.2); Hemolysis Index 21
[2019-03-01] MEDS ORDERED: ATIVAN IV ONE (02:40)
[2019-03-01] MEDS ORDERED: ATIVAN ONE (02:42)
[2019-03-01] MEDS ORDERED: GEODON IM ONE ×2 (03:12→03:16)
[2019-03-01] MEDS ORDERED: WATER FOR INJ Sterile (PF) 10 ML ONE (03:13)
[2019-03-01] MEDS ORDERED: TYLENOL PO PRN (04:01)
[2019-03-01] MEDS ORDERED: ZOFRAN IV PRN (04:01)
[2019-03-01 04:40] LABS: Bilirubin,Urine NEG (Negative); Blood,Urine NEG (Negative); Color,Urine Colorless (Yellow); Mucus,Urine FEW /HPF; Protein,Urine <15 mg/dL mg/dL (Negative); Urobilinogen,Urine < 2.0 mg/dL (<2.0)
[2019-03-01 04:41] LABS: WBC,Urine < 1.0 /HPF (0.0-6.0)
--- NOTE | 2019-03-01 04:49 | History and Physical Report ---
CHIEF COMPLAINT: Abdominal discomfort. Other complaint is the patient coming in and saying that he thinks he is having DKA. HISTORY OF PRESENTING ILLNESS: The patient is a 33-year-old male with known history of diabetes mellitus with a history of DKA treatments in the past and also past history of bipolar disorder, presenting to the Emergency Room complaining of abdominal pain and a feeling that he usually presents with saying that he thinks he has DKA. There is no history of nausea or vomiting. No history of weakness. The patient also reports using cocaine earlier around [facility] and is known to be noncompliant with his insulin treatment. The patient is a poor historian and uncooperative with questioning. PAST MEDICAL HISTORY: Pertinent for hypertension, diabetes mellitus, gastroesophageal reflux disease, seizure disorder. Also, the patient has past psychiatric history of bipolar disorder, schizophrenia and past medical history of gastroparesis. PAST SURGICAL HISTORY: Pertinent for right wrist surgery. FAMILY HISTORY: Reviewed and noncontributory. SOCIAL HISTORY: The patient smokes cigarettes and uses illicit drugs, notably cocaine. MEDICATIONS: The patient is on lispro insulin using sliding scale. Also, the patient is on Pepcid 20 mg by mouth daily and on aspirin 325 mg by mouth daily. The patient is on Depakote 500 mg by mouth twice daily and Levemir insulin 30 units subcutaneously twice daily. The patient is also on lisinopril 10 mg by mouth daily. ALLERGIES: THE PATIENT IS ALLERGIC TO BANANA. REVIEW OF SYSTEMS: CONSTITUTIONAL: There is no fever, no chills, no diaphoresis. HEENT: There is no headache or sore throat. CARDIOVASCULAR SYSTEM: There is no chest pain or orthopnea. RESPIRATORY SYSTEM: There is no shortness of breath or cough. GASTROINTESTINAL SYSTEM: There is abdominal pain and no nausea, no vomiting, no diarrhea or constipation. NEUROLOGICAL SYSTEM: There is no numbness, no dizziness, no altered mental status. MUSCULOSKELETAL SYSTEM: There is no joint pain or swelling. DERMATOLOGIC SYSTEM: There is no skin rash or itching. GENITOURINARY SYSTEM: There is no dysuria, hematuria or flank pain. Rest of system review is normal. PHYSICAL EXAMINATION: GENERAL: At the time of exam, the patient was found to be alert, disoriented x 3, combative, and not in acute distress. VITAL SIGNS: At initial time of presentation showed temperature of 97.8 degrees Fahrenheit, pulse of 115, respirations 20, blood pressure 152/101, O2 sat of 92% on room air. HEENT: His eyes show pupils to be equal, round, reactive to light and accommodating. Oral mucosa looks moist. NECK: Supple with no JVD or carotid bruit. CARDIOVASCULAR SYSTEM: Showed normal first and second heart sounds with no gallops or murmurs. RESPIRATORY SYSTEM: Showed good air entry on both sides of the lungs, with no abnormal breath sounds. GASTROINTESTINAL SYSTEM: Show abdomen to be full, soft, nontender, with no organomegaly or rigidity. NEUROLOGIC: Shows no focal deficit. MUSCULOSKELETAL SYSTEM: Showed no joint swelling or tenderness. DERMATOLOGICAL SYSTEM: Showed no skin rash. GENITOURINARY SYSTEM: Showing no costovertebral angle tenderness. PERTINENT LABORATORY DATA AND IMAGING STUDIES: The patient did not have any imaging studies done at this time. The patient's lab results show CBC with elevated white count of 11,300, normal hemoglobin and normal hematocrit. The patient's blood gas is normal. The patient's chemistry shows low sodium level of 131, normal potassium level and low chloride level of 88.2, a low CO2 of 14 with high anion gap of about 29. The patient had initial critical blood glucose level of 696 and elevated magnesium level of 2.4 and elevated phosphorus level of 5.5. DIAGNOSIS: Diabetic ketoacidosis. PLAN OF CARE: 1. The patient will be admitted to Critical Care ICU. 2. The patient will continue DKA protocol which was started in the Emergency Room. 3. The patient will be continued on insulin drip as started in the Emergency Room and will have serial BMP done by DKA protocol. The patient will have a Critical Care consult with Dr. Michaud because of ICU admission due to insulin drip. 4. The patient will be on IV normal saline running at 200 mL an hour which will be changed to D5, 0.5 normal with potassium replacement when the patient's blood glucose is less than 250 mg/dL. 5. The patient will be on IV Zofran 4 mg every 8 hours as needed for nausea and vomiting. 6. The patient will be on Tylenol 650 mg by mouth every 4 hours as needed for fever and headache. 7. The patient will remain n.p.o. until the patient is off DKA. 8. The patient will be on subcutaneous Lovenox 40 mg daily for DVT prophylaxis. [facility]# [id number] OCN/NTS
[2019-03-01 04:54] LABS: Amphetamine Screen,Urine PRESUMPTIVE NEGATIVE; Benzodiazepines Screen,Urine PRESUMPTIVE NEGATIVE; Cannabinoid Screen,Urine PRESUMPTIVE NEGATIVE; Methadone Screen,Urine PRESUMPTIVE NEGATIVE; Opiate Screen,Urine PRESUMPTIVE NEGATIVE
[2019-03-01 05:06] LABS: Cocaine Screen,Urine PRESUMPTIVE POSITIVE
[2019-03-01] MEDS: D5W/0.45% NACL/KCL 20 MEQ 20 MEQ/1,000 ML BAG IV SCH ×2 (05:35→22:22)
[2019-03-01 06:21] LABS: BUN/Creatinine Ratio 13; Blood Urea Nitrogen 13 mg/dL (9-20); Calcium 8.9 mg/dL (8.4-10.2); Hemolysis Index 52
[2019-03-01] MEDS ORDERED: ATIVAN PO PRN (09:24)
[2019-03-01] MEDS ORDERED: ATIVAN IV PRN ×2 (09:25)
--- NOTE | 2019-03-01 09:27 | Progress Note ---
Assessment and Plan Assessment and plan: 33M who pw Acute toxic and metabolic encephalopathy should improve with treatment of underlying conditions - Etoh withdrawal ciwa protocol DKA Continue insulin drip, continue IV fluids Polysubstance abuse We'll chemical dependency counselor on cessation the patient is improved mentally Critical care time 35 minutes History Interval history: Patient remains agitated and combative, remains confused Review of systems Constitutional: No fevers, no malaise, no joint pains CVS: No chest pain, no orthopnea, no dyspnea on exertion, no pedal edema GI: No abdominal pain, no diarrhea, no vomiting, no constipation Respiratory: no wheezing, no coughing Hospitalist Physical - Physical exam Narrative exam: General.: Appears well, no distress, nontoxic HEENT: Moist mucous membranes, extraocular muscles intact, no lymphadenopathy Neck: supple Cardiac: S1-S2 heard Lungs: clear to auscultation bilaterally Abdomen: soft , nontender, nondistended, bowel sounds positive Extremities: no edema clubbing or cyanosis Skin: no rash or lesions Neurologic: no gross focal deficits, moves all extremities, confused and agitated Psych: calm, and cooperative - Constitutional Vitals: Temp Pulse Resp BP Pulse Ox 96.7 F L 107 H 16 139/91 99 03/01/19 06:24 03/01/19 06:24 03/01/19 06:24 03/01/19 06:24 03/01/19 06:24 Results - Labs CBC & Chem 7: 03/01/19 00:26 03/02/19 04:23 Labs: Laboratory Last Values WBC 11.3 K/mm3 (4.5-11.0) H 03/01/19 00:26 RBC 4.45 M/mm3 (3.65-5.03) 03/01/19 00:26 Hgb 12.9 gm/dl (11.8-15.2) 03/01/19 00:26 Hct 38.8 % (35.5-45.6) 03/01/19 00:26 MCV 87 fl (84-94) 03/01/19 00:26 MCH 29 pg (28-32) 03/01/19 00:26 MCHC 33 % (32-34) 03/01/19 00:26 RDW 16.1 % (13.2-15.2) H 03/01/19 00:26 Plt Count 371 K/mm3 (140-440) 03/01/19 00:26 Lymph % (Auto) 11.5 % (13.4-35.0) L 03/01/19 00:26 [place] % (Auto) 8.9 % (0.0-7.3) H 03/01/19 00:26 Eos % (Auto) 0.4 % (0.0-4.3) 03/01/19 00:26 Baso % (Auto) 0.2 % (0.0-1.8) 03/01/19 00:26 Lymph # 1.3 K/mm3 (1.2-5.4) 03/01/19 00:26 [place] # 1.0 K/mm3 (0.0-0.8) H 03/01/19 00:26 Eos # 0.0 K/mm3 (0.0-0.4) 03/01/19 00:26 Baso # 0.0 K/mm3 (0.0-0.1) 03/01/19 00:26 Seg Neutrophils % 79.0 % (40.0-70.0) H 03/01/19 00:26 Seg Neutrophils # 8.9 K/mm3 (1.8-7.7) H 03/01/19 00:26 VBG pH 7.338 (7.320-7.420) 03/01/19 00:26 Sodium 141 mmol/L (137-145) D 03/01/19 05:52 Potassium 4.2 mmol/L (3.6-5.0) 03/01/19 05:52 Chloride 102.2 mmol/L (98-107) 03/01/19 05:52 Carbon Dioxide 21 mmol/L (22-30) L D 03/01/19 05:52 22 mmol/L 03/01/19 05:52 BUN 13 mg/dL (9-20) 03/01/19 05:52 1.0 mg/dL (0.8-1.5) 03/01/19 05:52 Estimated GFR > 60 ml/min 03/01/19 05:52 13 % 03/01/19 05:52 Glucose 177 mg/dL (75-100) H 03/01/19 05:52 POC Glucose 129 (70-105) H 03/01/19 08:28 Calcium 8.9 mg/dL (8.4-10.2) 03/01/19 05:52 Phosphorus 5.50 mg/dL (2.5-4.5) H 03/01/19 02:03 Magnesium 2.40 mg/dL (1.7-2.3) H 03/01/19 02:03 0.80 mg/dL (0.1-1.2) 03/01/19 00:26 AST 21 units/L (5-40) 03/01/19 00:26 ALT 17 units/L (7-56) 03/01/19 00:26 84 units/L (35-129) 03/01/19 00:26 6.8 g/dL (6.3-8.2) 03/01/19 00:26 3.9 g/dL (3.9-5) 03/01/19 00:26 1.3 % 03/01/19 00:26 Colorless (Yellow) 03/01/19 04:10 Clear (Clear) 03/01/19 04:10 5.0 (5.0-7.0) 03/01/19 04:10 Ur Specific [place] 1.025 (1.003-1.030) 03/01/19 04:10 <15 mg/dl mg/dL (Negative) 03/01/19 04:10 >=500 mg/dL (Negative) 03/01/19 04:10 80 mg/dL (Negative) 03/01/19 04:10 Neg (Negative) 03/01/19 04:10 Neg (Negative) 03/01/19 04:10 Neg (Negative) 03/01/19 04:10 < 2.0 mg/dL (<2.0) 03/01/19 04:10 Ur Leukocyte Esterase Neg (Negative) 03/01/19 04:10 < 1.0 /HPF (0.0-6.0) 03/01/19 04:10 2.0 /HPF (0.0-6.0) 03/01/19 04:10 Few /HPF 03/01/19 04:10 Presumptive negative 03/01/19 04:10 Presumptive negative 03/01/19 04:10 Ur Barbiturates Screen Presumptive negative 03/01/19 04:10 Ur Phencyclidine Scrn Presumptive negative 03/01/19 04:10 Ur Amphetamines Screen Presumptive negative 03/01/19 04:10 U Benzodiazepines Scrn Presumptive negative 03/01/19 04:10 Presumptive positive 03/01/19 04:10 U Marijuana (THC) Screen Presumptive negative 03/01/19 04:10 Disclamer 03/01/19 04:10 Active Medications - Current Medications Current Medications: Generic Name Dose Route Start Last Admin Trade Name Freq PRN Reason Stop Dose Admin Acetaminophen 650 mg 03/01/19 04:01 Tylenol PO Q4H PRN Headache Dextrose 0 ml 03/01/19 01:51 D50w (25gm) Syringe IV PRN PRN Hypoglycemia Enoxaparin Sodium 40 mg 03/01/19 22:00 Lovenox SUB-Q QDAY@2200 ANTONIA Folic Acid 1 mg 03/01/19 10:00 Folvite PO QDAY ANTONIA Insulin Human Regular 100 100 mls @ 1 mls/hr 03/01/19 02:00 03/01/19 09:12 units/ Sodium Chloride IV 1 units/hr TITR ANTONIA 1 mls/hr Titration Protocol 1 UNITS/HR Potassium Chloride/Dextrose/Sod Cl 20 meq in 1,000 mls @ 125 mls/hr 03/01/19 02:00 03/01/19 05:35 D5w/0.45% Nacl/Kcl 20 Meq IV 125 mls/hr DIRECT ANTONIA Administration Sodium Chloride 1,000 mls @ 200 mls/hr 03/01/19 04:00 Nacl 0.9% 1000 Ml IV DIRECT ANTONIA Lorazepam 2 mg 03/01/19 09:24 Ativan PO Q1H PRN CIWA-Ar 8-15 Lorazepam 4 mg 03/01/19 09:25 Ativan IV Q1H PRN CIWA-Ar 16-25 Lorazepam 4 mg 03/01/19 09:25 Ativan IV Q15MIN PRN CIWA-Ar >25 Ondansetron HCl 4 mg 03/01/19 04:01 Zofran IV Q8H PRN Nausea And Vomiting Thiamine HCl 100 mg 03/01/19 10:00 Vitamin B-1 PO QDAY ANTONIA
[2019-03-01 10:03] LABS: BUN/Creatinine Ratio 13; Blood Urea Nitrogen 10 mg/dL (9-20); Calcium 8.6 mg/dL (8.4-10.2); Hemolysis Index 16
--- NOTE | 2019-03-01 11:25 | Consultation ---
History of Present Illness Consult date: 03/01/19 Requesting physician: SEAN LOMELI Reason for consult: other (dka) History of present illness: PULMONARY/CCM CONSULT NOTE (Full dictation # [id number]) Please see dictated notes for full details Medications and Allergies Allergies Allergy/AdvReac Type Severity Reaction Status Date / Time banana Allergy Severe Angioedema Verified 10/20/17 17:43 Home Medications Medication Instructions Recorded Confirmed Last Taken Type Lispro Insulin [HumaLOG] 0 unit SUB-Q ACHS #1 vial 04/01/18 08/19/18 5 Days Ago Rx ~08/14/18 Famotidine [Pepcid] 20 mg PO BID #30 tablet 06/01/18 08/19/18 5 Days Ago Rx ~08/14/18 Lispro Insulin [HumaLOG] 10 unit SUB-Q AC 30 Days #1 vial 08/11/18 08/19/18 5 Days Ago Rx ~08/14/18 Aspirin 325 mg PO QDAY #30 tablet 08/19/18 Unknown Rx Divalproex ER [Depakote ER] 500 mg PO BID #60 tablet 08/19/18 Unknown Rx Insulin Detemir [Levemir VIAL] 30 unit SUB-Q BID #60 vial 08/19/18 Unknown Rx Lisinopril [Zestril TAB] 10 mg PO QDAY #30 tablet 08/19/18 Unknown Rx Active Meds: Active Medications Acetaminophen (Tylenol) 650 mg PO Q4H PRN PRN Reason: Headache Dextrose (D50w (25gm) Syringe) 0 ml IV PRN PRN PRN Reason: Hypoglycemia Enoxaparin Sodium (Lovenox) 40 mg SUB-Q QDAY@2200 ANTONAI Folic Acid (Folvite) 1 mg PO QDAY ANTONIA Insulin Human Regular 100 (units/ Sodium Chloride) 100 mls @ 1 mls/hr IV TITR ANTONIA; Protocol Last Titration: 03/01/19 09:12 Dose: 1 units/hr, 1 mls/hr Documented by: Potassium Chloride/Dextrose/Sod Cl (D5w/0.45% Nacl/Kcl 20 Meq) 20 meq in 1,000 mls @ 125 mls/hr IV DIRECT ANTONIA Last Admin: 03/01/19 05:35 Dose: 125 mls/hr Documented by: Sodium Chloride (Nacl 0.9% 1000 Ml) 1,000 mls @ 200 mls/hr IV DIRECT ANTONIA Lorazepam (Ativan) 2 mg PO Q1H PRN PRN Reason: CIWA-Ar 8-15 Lorazepam (Ativan) 4 mg IV Q1H PRN PRN Reason: CIWA-Ar 16-25 Last Admin: 03/01/19 09:42 Dose: 4 mg Documented by: Lorazepam (Ativan) 4 mg IV Q15MIN PRN PRN Reason: CIWA-Ar >25 Ondansetron HCl (Zofran) 4 mg IV Q8H PRN PRN Reason: Nausea And Vomiting Thiamine HCl (Vitamin B-1) 100 mg PO QDAY ANTONIA Physical Examination Vital signs: Vital Signs Temp Pulse Resp BP Pulse Ox 97.8 F 115 H 20 152/101 95 03/01/19 00:19 03/01/19 00:19 03/01/19 00:19 03/01/19 00:19 03/01/19 00:19 Results - Laboratory Findings CBC and BMP: 03/01/19 00:26 03/01/19 08:45 Abnormal lab findings: Abnormal Labs 03/01/19 03/01/19 03/01/19 00:22 00:26 00:26 WBC 11.3 H RDW 16.1 H Lymph % (Auto) 11.5 L [place] % (Auto) 8.9 H [place] # 1.0 H Seg Neutrophils % 79.0 H Seg Neutrophils # 8.9 H Sodium 130 L Chloride 86.9 L Carbon Dioxide 16 L Glucose 768 H* POC Glucose > 500 H Phosphorus Magnesium 03/01/19 03/01/19 03/01/19 02:03 02:03 03:48 WBC RDW Lymph % (Auto) [place] % (Auto) [place] # Seg Neutrophils % Seg Neutrophils # Sodium 131 L Chloride 88.2 L Carbon Dioxide 14 L Glucose 696 H* POC Glucose 372 H Phosphorus 5.50 H Magnesium 2.40 H 03/01/19 03/01/19 03/01/19 04:41 05:52 05:52 WBC RDW Lymph % (Auto) [place] % (Auto) [place] # Seg Neutrophils % Seg Neutrophils # Sodium Chloride Carbon Dioxide 21 L D Glucose 177 H POC Glucose 284 H 206 H Phosphorus Magnesium 03/01/19 03/01/19 03/01/19 06:55 08:28 08:45 WBC RDW Lymph % (Auto) [place] % (Auto) [place] # Seg Neutrophils % Seg Neutrophils # Sodium Chloride Carbon Dioxide Glucose 115 H POC Glucose 165 H 129 H Phosphorus Magnesium 03/01/19 03/01/19 09:34 10:49 WBC RDW Lymph % (Auto) [place] % (Auto) [place] # Seg Neutrophils % Seg Neutrophils # Sodium Chloride Carbon Dioxide Glucose POC Glucose 136 H 108 H Phosphorus Magnesium
[2019-03-01] MEDS: FOLVITE PO SCH (12:21)
[2019-03-01] MEDS: VITAMIN B-1 PO SCH (12:21)
[2019-03-01 13:40] LABS: BUN/Creatinine Ratio 10; Blood Urea Nitrogen 9 mg/dL (9-20); Calcium 8.5 mg/dL (8.4-10.2); Hemolysis Index 61
[2019-03-01] MEDS: LOVENOX SUB-Q SCH (21:15)
[2019-03-01] MEDS ORDERED: NACL 0.9% 250ML 250 ML IV ONE (21:41)
[2019-03-01 23:36] LABS: BUN/Creatinine Ratio 10; Blood Urea Nitrogen 7 mg/dL (9-20); Hemolysis Index 2
[2019-03-02] MEDS ORDERED: NACL 0.9% 250ML 250 ML IV ONE (01:32)
[2019-03-02] MEDS ORDERED: NACL 0.9% 500 ML 500 ML IV ONE (04:42)
--- NOTE | 2019-03-02 05:02 | Consultation ---
PULMONARY CONSULTATION NOTE CONSULTING PHYSICIAN: Brando Escobar MD REASON FOR CONSULTATION: Critical care management, diabetic ketoacidosis. CHIEF COMPLAINT AND HISTORY OF PRESENT ILLNESS: As follows: The patient is now 33-year-old -Sy[place] male with past medical history significant amongst other things both for a diagnosis of diabetes, but also schizophrenia, came into the Emergency Room complaining of abdominal pain, stated that I think I am in diabetic ketoacidosis. He had denied nausea or vomiting. He also had taken some cocaine prior to coming into the hospital. According to the patient, he does have a history of medication noncompliance. He was evaluated in the Emergency Room, he was found to be in DKA, and he was brought into the Intensive Care Unit where I stopped by to see him. When I stopped by to see him, he was resting in bed, intermittently agitated, had received some Geodon earlier and some p.r.n. Ativan. I do not have any history of vomiting since he has been here. No seizures. No gross bleeding. No obvious wound or skin infection has been found. So this is much of the history of presentation as I have. Now with regards to his tobacco use/abuse history, that is unknown. PAST MEDICAL HISTORY: Significant for diabetes, for schizophrenia, for substance abuse. PAST SURGICAL HISTORY: Unknown. MEDICATIONS: He was on at the time I stopped by to see him were reviewed. Pertinent medications included the following: He was on Tylenol 650 mg p.o. q. 4 hours p.r.n. headache, Lovenox 40 mg subcutaneous daily, folic acid 1 mg p.o. daily, insulin drip was going at 4 units per hour. He was also on a CIWA protocol with Ativan. Zofran 4 mg IV q. 8 hours p.r.n. nausea and vomiting. D5 half NS with 20 of K was going at 125 mL per hour. Thiamine 100 mg p.o. daily. ALLERGIES: BANANAS, nature of this allergy is unknown. DIET: Thin gentleman, no significant weight loss or gain since I have last seen him. FAMILY AND SOCIAL HISTORY: He is described as living in a retirement I believe. He has a history of tobacco and illicit drug use, and there is also a reported history of alcohol use. FAMILY HISTORY: Otherwise unknown. REVIEW OF SYSTEMS: Unobtainable secondary to the patient's medical and mental condition. Since he has been here, though no gross hematochezia or melena, no gross hematuria, no hematemesis, no emesis, no hemoptysis, no witnessed seizures, no gross bleeding, no new rash on his body, no high grade fevers. REVIEW OF SYSTEMS: Otherwise unobtainable or as in the body of the history above. PHYSICAL EXAMINATION: VITAL SIGNS: At presentation, he was afebrile, temperature 97.8 degrees Fahrenheit with a pulse of 115, respiratory rate of 20, blood pressure 152/101, O2 sats were 95%, inspired oxygen concentration at that time was not recorded. When I stopped by to see him, O2 sats were 98% that was on room air. GENERAL: He is a well-built -Syrian male. Normocephalic, atraumatic, resting in bed with intermittent agitation. Without overt respiratory distress. HEAD, EYES, EARS, NOSE AND THROAT: He is anicteric. No conjunctival erythema. Oropharynx is dry. No jugular venous distention, no thyromegaly. Grossly, no palpable lymph nodes in the supraclavicular or submandibular lymph node chains. LUNGS: Auscultation of both lung matthew unremarkable. Lungs are clear bilaterally with good bilateral air movement. HEART: Heart sounds 1 and 2 were heard. They were regular in rate and rhythm at the time of my evaluation, without rubs or murmurs. ABDOMEN: Soft. It is flat. Bowel sounds are positive, mildly tender. No palpable hepatosplenomegaly. EXTREMITIES: Without overt digital clubbing or cyanosis, no pedal edema. Pedal pulses are strong bilaterally and palpable. NEUROLOGIC: He has spontaneous movements to all extremities. Pupils are equal, round, about 4 mm, they were reactive to light. Extraocular muscle movements could not be adequately assessed. SKIN: The skin was of poor turgor without overt cellulitis or rash. He was warm to touch. LABORATORY DATA: From my review were as follows: Admission white cell count 11,300, hemoglobin 12.9, hematocrit 38.8 and platelet count 371. No band forms. Venous blood gas showed a pH of 7.33. Serum sodium was 131, potassium 4.7, chloride 88, bicarbonate 14, BUN was 18, creatinine 1.2, glucose was 696 with anion gap of 34. Phosphorus 5.5, magnesium 2.4. Liver function tests otherwise within normal limits. Urinalysis was unremarkable. Urine drug screen was presumptive positive for cocaine. No microbiology studies. No radiographic studies. ASSESSMENT: 1. Acute diabetic ketoacidosis. 2. Acute encephalopathy, toxic metabolic. 3. Cocaine abuse with cocaine intoxication. 4. History of schizophrenia. 5. Tobacco use disorder. 6. Leukocytosis. 7. Mild hyponatremia. 8. Metabolic acidosis. 9. Medication noncompliance. PLAN: The plan will be to continue IV insulin and transition him to a long-acting insulin therapy, that is about to be done. He will also be placed on q. 6 hours sliding scale. A feeding tube will be placed and enteral nutrition will be begun. Aspiration precautions will be maintained. Oxygen as necessary to keep sats greater than 90% will be deployed. Electrolytes will continue to be followed and corrected as necessary. We will continue him on the CIWA protocol for now. We will also continue the folic acid and thiamine. He is on DVT prophylaxis. I will put him on GI prophylaxis. Flu and pneumonia vaccination will be addressed per protocol. Thank you very much for the consult. We will follow along and make further recommendations as picture progresses/becomes clearer. At this time, he is critically ill on life-sustaining interventions including the IV insulin therapy at high risk of deterioration including the risk of . I have spent about 30-35 minutes of critical care time without overlap and excluding any procedural time that may be necessary. JOB# [id number] JUNI/DOTTY RICHARDSON
[2019-03-02 05:56] LABS: BUN/Creatinine Ratio 9; Blood Urea Nitrogen 7 mg/dL (9-20); Calcium 7.9 mg/dL (8.4-10.2); Hemolysis Index 4
[2019-03-02] MEDS: D5W/0.45% NACL/KCL 20 MEQ 20 MEQ/1,000 ML BAG IV SCH (08:00)
[2019-03-02] MEDS: FOLVITE PO SCH (09:46)
[2019-03-02] MEDS: VITAMIN B-1 PO SCH (09:46)
[2019-03-02] MEDS: HumuLIN R 100 UNITS in NACL 0.9% 99 ML IV SCH (09:48)
[2019-03-02] MEDS ORDERED: PEPCID IV SCH (10:00)
--- NOTE | 2019-03-02 11:39 | Progress Note ---
Assessment and Plan Acute diabetic ketoacidosis. Acute encephalopathy, toxic metabolic. Cocaine abuse with cocaine intoxication. History of schizophrenia. Tobacco use disorder. Leukocytosis. Mild hyponatremia. Metabolic acidosis. Medication noncompliance - give long acting insulin - stop I.V. insulin - add SSI - dysphagia screen and begin consistent carbs diet - better medication compliance counseled - tobacco abstinence counseled - substance abuse counseling also done - potassium replaced (20 meq p.o.) - stop D51/2 NS drip - re-introduce pertinent home meds per attending - GI & VTE prophylaxis - transfer to medical floor post transitioning of IV insulin ... re-evaluate in am & prn Subjective Date of service: 03/02/19 Principal diagnosis: DKA; Ac. encephalopathy; Cocaine abuse; schizophrenia; Metabolic acidosis Interval history: Patient is seen today for: Diabetic ketoacidosis; Acute encephalopathy, toxic metabolic; Cocaine abuse with cocaine intoxication; History of schizophrenia; Tobacco use disorder; Leukocytosis; Mild hyponatremia; Metabolic acidosis; Medication noncompliance Seen and examined at bedside; 24hour events reviewed; nursing and respiratory care staff consulted; no adverse overnight events reported to me; resting peacefully in bed; remains on I.V. insulin drip as his sugars reportedly increase overnight; he feels and looks better; No N/V/F/C; denies chest pains or palpitations; his AG is closed however Objective Vital Signs - 12hr 03/01/19 03/01/19 03/02/19 23:41 23:51 00:00 Temperature Pulse Rate 108 H 105 H 103 H Respiratory 21 23 22 Rate Blood Pressure 77/46 77/46 81/45 O2 Sat by Pulse 94 93 Oximetry 03/02/19 03/02/19 03/02/19 00:11 00:21 00:31 Temperature Pulse Rate 106 H 101 H 100 H Respiratory 25 H 23 24 Rate Blood Pressure 82/38 86/44 86/44 O2 Sat by Pulse 95 91 96 Oximetry 03/02/19 03/02/19 03/02/19 00:40 00:51 01:00 Temperature Pulse Rate 95 H 96 H 103 H Respiratory 16 27 H 27 H Rate Blood Pressure 93/53 93/53 87/51 O2 Sat by Pulse 94 89 Oximetry 03/02/19 03/02/19 03/02/19 01:11 01:21 01:31 Temperature Pulse Rate 99 H 99 H 94 H Respiratory 20 23 17 Rate Blood Pressure 87/51 93/53 93/53 O2 Sat by Pulse 92 94 94 Oximetry 03/02/19 03/02/19 03/02/19 01:41 01:51 02:00 Temperature Pulse Rate 95 H 95 H 93 H Respiratory 21 22 16 Rate Blood Pressure 93/53 87/51 94/54 O2 Sat by Pulse 97 92 95 Oximetry 03/02/19 03/02/19 03/02/19 02:11 02:21 02:31 Temperature Pulse Rate 92 H 92 H 91 H Respiratory 14 16 17 Rate Blood Pressure 74/50 89/55 98/56 O2 Sat by Pulse 93 95 96 Oximetry 03/02/19 03/02/19 03/02/19 02:41 02:51 03:00 Temperature Pulse Rate 91 H 91 H 93 H Respiratory 16 27 H 22 Rate Blood Pressure 98/56 98/56 95/56 O2 Sat by Pulse 94 94 93 Oximetry 03/02/19 03/02/19 03/02/19 03:09 03:11 03:21 Temperature 98.8 F Pulse Rate 95 H 94 H Respiratory 24 22 Rate Blood Pressure 95/56 95/56 O2 Sat by Pulse 95 93 Oximetry 03/02/19 03/02/19 03/02/19 03:31 03:41 03:51 Temperature Pulse Rate 92 H 90 95 H Respiratory 23 18 20 Rate Blood Pressure 95/56 95/56 95/56 O2 Sat by Pulse 95 Oximetry 03/02/19 03/02/19 03/02/19 04:00 04:11 04:21 Temperature Pulse Rate 92 H 94 H 93 H Respiratory 23 20 20 Rate Blood Pressure 85/41 85/41 85/41 O2 Sat by Pulse 95 93 93 Oximetry 03/02/19 03/02/19 03/02/19 04:31 04:41 04:51 Temperature Pulse Rate 93 H 92 H 96 H Respiratory 25 H 21 26 H Rate Blood Pressure 85/41 85/41 85/41 O2 Sat by Pulse 94 96 92 Oximetry 03/02/19 03/02/19 03/02/19 05:00 05:11 05:21 Temperature Pulse Rate 96 H 90 92 H Respiratory 18 19 15 Rate Blood Pressure 83/55 83/55 83/55 O2 Sat by Pulse 94 96 95 Oximetry 03/02/19 03/02/19 03/02/19 05:31 05:41 05:51 Temperature Pulse Rate 91 H 88 90 Respiratory 20 22 23 Rate Blood Pressure 83/55 83/55 83/55 O2 Sat by Pulse 95 96 94 Oximetry 03/02/19 03/02/19 03/02/19 06:00 06:11 06:21 Temperature Pulse Rate 89 100 H 94 H Respiratory 22 17 22 Rate Blood Pressure 89/62 89/62 89/62 O2 Sat by Pulse 93 96 96 Oximetry Constitutional: no acute distress, other (young AAM, normocephalic and atraumatic) Eyes: non-icteric ENT: oropharynx moist, other (mallampati 2) Effort: normal Ascultation: Bilateral: clear Percussion: Bilateral: not dull Cardiovascular: regular rate and rhythm Gastrointestinal: normoactive bowel sounds, soft, non-tender, non-distended Integumentary: normal Extremities: no cyanosis, no edema, pulses normal, no ischemia or petechiae Neurologic: normal mental status, non-focal exam, pupils equal and round, CN II-XII normal, motor strength normal and Psychiatric: mood appropriate, affect normal CBC and BMP: 03/01/19 00:26 03/02/19 04:23 Abnormal lab findings: Abnormal Labs 03/01/19 03/01/19 03/01/19 00:22 00:26 00:26 WBC 11.3 H RDW 16.1 H Lymph % (Auto) 11.5 L [place] % (Auto) 8.9 H [place] # 1.0 H Seg Neutrophils % 79.0 H Seg Neutrophils # 8.9 H Sodium 130 L Potassium Chloride 86.9 L Carbon Dioxide 16 L BUN Creatinine Glucose 768 H* POC Glucose > 500 H Calcium Phosphorus Magnesium 03/01/19 03/01/19 03/01/19 02:03 02:03 03:48 WBC RDW Lymph % (Auto) [place] % (Auto) [place] # Seg Neutrophils % Seg Neutrophils # Sodium 131 L Potassium Chloride 88.2 L Carbon Dioxide 14 L BUN Creatinine Glucose 696 H* POC Glucose 372 H Calcium Phosphorus 5.50 H Magnesium 2.40 H 03/01/19 03/01/19 03/01/19 04:41 05:52 05:52 WBC RDW Lymph % (Auto) [place] % (Auto) [place] # Seg Neutrophils % Seg Neutrophils # Sodium Potassium Chloride Carbon Dioxide 21 L D BUN Creatinine Glucose 177 H POC Glucose 284 H 206 H Calcium Phosphorus Magnesium 03/01/19 03/01/19 03/01/19 06:55 08:28 08:45 WBC RDW Lymph % (Auto) [place] % (Auto) [place] # Seg Neutrophils % Seg Neutrophils # Sodium Potassium Chloride Carbon Dioxide BUN Creatinine Glucose 115 H POC Glucose 165 H 129 H Calcium Phosphorus Magnesium 03/01/19 03/01/19 03/01/19 09:34 10:49 11:55 WBC RDW Lymph % (Auto) [place] % (Auto) [place] # Seg Neutrophils % Seg Neutrophils # Sodium Potassium Chloride Carbon Dioxide BUN Creatinine Glucose POC Glucose 136 H 108 H 158 H Calcium Phosphorus Magnesium 03/01/19 03/01/19 03/01/19 12:41 13:00 14:17 WBC RDW Lymph % (Auto) [place] % (Auto) [place] # Seg Neutrophils % Seg Neutrophils # Sodium Potassium Chloride Carbon Dioxide BUN Creatinine Glucose 181 H POC Glucose 192 H 154 H Calcium Phosphorus Magnesium 03/01/19 03/01/19 03/01/19 15:12 16:44 17:38 WBC RDW Lymph % (Auto) [place] % (Auto) [place] # Seg Neutrophils % Seg Neutrophils # Sodium Potassium Chloride Carbon Dioxide BUN Creatinine Glucose POC Glucose 111 H 114 H 157 H Calcium Phosphorus Magnesium 03/01/19 03/01/19 03/02/19 18:43 23:00 00:00 WBC RDW Lymph % (Auto) [place] % (Auto) [place] # Seg Neutrophils % Seg Neutrophils # Sodium Potassium Chloride Carbon Dioxide BUN 7 L Creatinine 0.7 L Glucose 110 H POC Glucose 159 H 153 H Calcium 8.0 L Phosphorus Magnesium 03/02/19 03/02/19 03/02/19 01:14 02:07 03:02 WBC RDW Lymph % (Auto) [place] % (Auto) [place] # Seg Neutrophils % Seg Neutrophils # Sodium Potassium Chloride Carbon Dioxide BUN Creatinine Glucose POC Glucose 217 H 215 H 215 H Calcium Phosphorus Magnesium 03/02/19 03/02/19 03/02/19 03:57 04:23 05:04 WBC RDW Lymph % (Auto) [place] % (Auto) [place] # Seg Neutrophils % Seg Neutrophils # Sodium Potassium 3.5 L Chloride 109.4 H Carbon Dioxide BUN 7 L Creatinine Glucose 152 H POC Glucose 180 H 130 H Calcium 7.9 L Phosphorus Magnesium 03/02/19 03/02/1919 07:53 08:31 09:23 WBC RDW Lymph % (Auto) [place] % (Auto) [place] # Seg Neutrophils % Seg Neutrophils # Sodium Potassium Chloride Carbon Dioxide BUN Creatinine Glucose POC Glucose 159 H 159 H 146 H Calcium Phosphorus Magnesium 03/02/19 10:08 WBC RDW Lymph % (Auto) [place] % (Auto) [place] # Seg Neutrophils % Seg Neutrophils # Sodium Potassium Chloride Carbon Dioxide BUN Creatinine Glucose POC Glucose 144 H Calcium Phosphorus Magnesium Chest x-ray: other (none for my review) Allied health notes reviewed: nursing
[2019-03-02] MEDS ORDERED: K-DUR PO STA (13:23)
[2019-03-02] MEDS ORDERED: D50W (25GM) Syringe IV PRN (13:23)
[2019-03-02] MEDS ORDERED: LANTUS SUB-Q ONE (14:00)
[2019-03-02] MEDS: HumaLOG SUB-Q SCH (16:30)
[2019-03-02] MEDS: HumuLIN R SUB-Q SCH ×2 (16:30→21:29)
[2019-03-02] MEDS: NACL 0.9% 1000 ML 1,000 ML IV SCH (21:10)
[2019-03-02] MEDS: PEPCID PO SCH (21:28)
[2019-03-02] MEDS: LOVENOX SUB-Q SCH (21:29)
[2019-03-02] MEDS ORDERED: INSULIN DETEMIR 30 UNIT SUB-Q SCH (22:00)
[2019-03-02] MEDS: LANTUS SUB-Q SCH (22:05)
[2019-03-03] MEDS: NACL 0.9% 1000 ML 1,000 ML IV SCH ×2 (02:13→09:57)
[2019-03-03] MEDS: HumaLOG SUB-Q SCH ×3 (09:42→17:14)
[2019-03-03] MEDS: HumuLIN R SUB-Q SCH ×4 (09:43→22:22)
[2019-03-03] MEDS: FOLVITE PO SCH (09:59)
[2019-03-03] MEDS: PEPCID PO SCH ×2 (09:59→22:23)
[2019-03-03] MEDS: ASPIRIN PO SCH (09:59)
[2019-03-03] MEDS: ZESTRIL PO SCH (10:02)
[2019-03-03] MEDS: VITAMIN B-1 PO SCH (10:04)
[2019-03-03] MEDS: LANTUS SUB-Q SCH (10:55)
--- NOTE | 2019-03-03 15:45 | Progress Note ---
Assessment and Plan Assessment and plan: 33M who pw Acute toxic and metabolic encephalopathy Resolved - Etoh withdrawal ciwa protocol, improving DKA We'll transition to subcutaneous insulins, patient is much improved Polysubstance abuse Counseled on cessation the patient is improved mentally Critical care time 35 minutes History Interval history: Review of systems Constitutional: No fevers, no malaise, no joint pains CVS: No chest pain, no orthopnea, no dyspnea on exertion, no pedal edema GI: No abdominal pain, no diarrhea, no vomiting, no constipation Respiratory: no wheezing, no coughing Hospitalist Physical - Physical exam Narrative exam: General.: Appears well, no distress, nontoxic HEENT: Moist mucous membranes, extraocular muscles intact, no lymphadenopathy Neck: supple Cardiac: S1-S2 heard Lungs: clear to auscultation bilaterally Abdomen: soft , nontender, nondistended, bowel sounds positive Extremities: no edema clubbing or cyanosis Skin: no rash or lesions Neurologic: no gross focal deficits, moves all extremities Psych: calm, and cooperative - Constitutional Vitals: Temp Pulse Resp BP Pulse Ox 98.3 F 97 H 15 97/47 98 03/03/19 13:27 03/03/19 13:27 03/03/19 13:27 03/03/19 13:27 03/03/19 13:27 Results - Labs CBC & Chem 7: 03/01/19 00:26 03/02/19 04:23 Labs: Laboratory Last Values WBC 11.3 K/mm3 (4.5-11.0) H 03/01/19 00:26 RBC 4.45 M/mm3 (3.65-5.03) 03/01/19 00:26 Hgb 12.9 gm/dl (11.8-15.2) 03/01/19 00:26 Hct 38.8 % (35.5-45.6) 03/01/19 00:26 MCV 87 fl (84-94) 03/01/19 00:26 MCH 29 pg (28-32) 03/01/19 00:26 MCHC 33 % (32-34) 03/01/19 00:26 RDW 16.1 % (13.2-15.2) H 03/01/19 00:26 Plt Count 371 K/mm3 (140-440) 03/01/19 00:26 Lymph % (Auto) 11.5 % (13.4-35.0) L 03/01/19 00:26 [place] % (Auto) 8.9 % (0.0-7.3) H 03/01/19 00:26 Eos % (Auto) 0.4 % (0.0-4.3) 03/01/19 00:26 Baso % (Auto) 0.2 % (0.0-1.8) 03/01/19 00:26 Lymph # 1.3 K/mm3 (1.2-5.4) 03/01/19 00:26 [place] # 1.0 K/mm3 (0.0-0.8) H 03/01/19 00:26 Eos # 0.0 K/mm3 (0.0-0.4) 03/01/19 00:26 Baso # 0.0 K/mm3 (0.0-0.1) 03/01/19 00:26 Seg Neutrophils % 79.0 % (40.0-70.0) H 03/01/19 00:26 Seg Neutrophils # 8.9 K/mm3 (1.8-7.7) H 03/01/19 00:26 VBG pH 7.338 (7.320-7.420) 03/01/19 00:26 Sodium 141 mmol/L (137-145) 03/02/19 04:23 Potassium 3.5 mmol/L (3.6-5.0) L 03/02/19 04:23 Chloride 109.4 mmol/L (98-107) H 03/02/19 04:23 Carbon Dioxide 22 mmol/L (22-30) 03/02/19 04:23 13 mmol/L 03/02/19 04:23 BUN 7 mg/dL (9-20) L 03/02/19 04:23 0.8 mg/dL (0.8-1.5) 03/02/19 04:23 Estimated GFR > 60 ml/min 03/02/19 04:23 9 % 03/02/19 04:23 Glucose 152 mg/dL (75-100) H 03/02/19 04:23 POC Glucose 214 (70-105) H 03/03/19 08:40 Calcium 7.9 mg/dL (8.4-10.2) L 03/02/19 04:23 Phosphorus 5.50 mg/dL (2.5-4.5) H 03/01/19 02:03 Magnesium 2.40 mg/dL (1.7-2.3) H 03/01/19 02:03 0.80 mg/dL (0.1-1.2) 03/01/19 00:26 AST 21 units/L (5-40) 03/01/19 00:26 ALT 17 units/L (7-56) 03/01/19 00:26 84 units/L (35-129) 03/01/19 00:26 6.8 g/dL (6.3-8.2) 03/01/19 00:26 3.9 g/dL (3.9-5) 03/01/19 00:26 1.3 % 03/01/19 00:26 Colorless (Yellow) 03/01/19 04:10 Clear (Clear) 03/01/19 04:10 5.0 (5.0-7.0) 03/01/19 04:10 Ur Specific [place] 1.025 (1.003-1.030) 03/01/19 04:10 <15 mg/dl mg/dL (Negative) 03/01/19 04:10 >=500 mg/dL (Negative) 03/01/19 04:10 80 mg/dL (Negative) 03/01/19 04:10 Neg (Negative) 03/01/19 04:10 Neg (Negative) 03/01/19 04:10 Neg (Negative) 03/01/19 04:10 < 2.0 mg/dL (<2.0) 03/01/19 04:10 Ur Leukocyte Esterase Neg (Negative) 03/01/19 04:10 < 1.0 /HPF (0.0-6.0) 03/01/19 04:10 2.0 /HPF (0.0-6.0) 03/01/19 04:10 Few /HPF 03/01/19 04:10 Presumptive negative 03/01/19 04:10 Presumptive negative 03/01/19 04:10 Ur Barbiturates Screen Presumptive negative 03/01/19 04:10 Ur Phencyclidine Scrn Presumptive negative 03/01/19 04:10 Ur Amphetamines Screen Presumptive negative 03/01/19 04:10 U Benzodiazepines Scrn Presumptive negative 03/01/19 04:10 Presumptive positive 03/01/19 04:10 U Marijuana (THC) Screen Presumptive negative 03/01/19 04:10 Disclamer 03/01/19 04:10 Active Medications - Current Medications Current Medications: Generic Name Dose Route Start Last Admin Trade Name Freq PRN Reason Stop Dose Admin Acetaminophen 650 mg 03/01/19 04:01 Tylenol PO Q4H PRN Headache Aspirin 325 mg 03/03/19 10:00 03/03/19 09:59 Aspirin PO 325 mg QDAY ANTONIA Administration Dextrose 50 ml 03/02/19 13:23 D50w (25gm) Syringe IV PRN PRN Hypoglycemia Divalproex Sodium 500 mg 03/02/19 22:00 03/03/19 10:11 Depakote Er PO Not Given BID ANTONIA Enoxaparin Sodium 40 mg 03/01/19 22:00 03/02/19 21:29 Lovenox SUB-Q 40 mg QDAY@2200 ANTONIA Administration Famotidine 20 mg 03/02/19 22:00 03/03/19 09:59 Pepcid PO 20 mg BID ANTONIA Administration Folic Acid 1 mg 03/01/19 10:00 03/03/19 09:59 Folvite PO 1 mg QDAY ANTONIA Administration Sodium Chloride 1,000 mls @ 200 mls/hr 03/01/19 04:00 03/03/19 09:57 Nacl 0.9% 1000 Ml IV 200 mls/hr DIRECT ANTONIA Administration Insulin Glargine 30 units 03/03/19 22:00 Lantus SUB-Q QHS [facility] Insulin Human Lispro 10 unit 03/02/19 16:30 03/03/19 11:50 Humalog SUB-Q Not Given AC [facility] Insulin Human Regular 0 units 03/02/19 16:30 03/03/19 11:50 Humulin R SUB-Q Not Given ACHS [facility] Protocol Lisinopril 10 mg 03/03/19 10:00 03/03/19 10:02 Zestril PO Not Given QDAY ANTONIA Lorazepam 2 mg 03/01/19 09:24 Ativan PO Q1H PRN CIWA-Ar 8-15 Lorazepam 4 mg 03/01/19 09:25 03/01/19 09:42 Ativan IV 4 mg Q1H PRN Administration CIWA-Ar 16-25 Lorazepam 4 mg 03/01/19 09:25 Ativan IV Q15MIN PRN CIWA-Ar >25 Ondansetron HCl 4 mg 03/01/19 04:01 Zofran IV Q8H PRN Nausea And Vomiting Thiamine HCl 100 mg 03/01/19 10:00 03/03/19 10:04 Vitamin B-1 PO 100 mg QDAY ANTONIA Administration Nutrition/Malnutrition Assess - Dietary Evaluation Nutrition/Malnutrition Findings: Nutrition Notes Start: 03/01/19 15:21 Freq: Status: Active Protocol: Document 03/03/19 12:17 [facility] (Rec: 03/03/19 12:19 [facility] [id number]) Nutrition Notes Need for Assessment generated from: MD Order,Education Current Diet Consistent CHO Subjective/Other Information RD consulted for diet education. Pt received DM diet education on 08/11/18. Pt currently being followed by RD. Nutrition Intervention Follow-Up By: 03/05/19 Additional Comments F/U: MST screen and need for DM diet education/refresher
--- NOTE | 2019-03-03 15:46 | Progress Note ---
Assessment and Plan Assessment and plan: 33M who pw Acute toxic and metabolic encephalopathy Resolved - Etoh withdrawal ciwa protocol, improving DKA uncontrolled insulin-dependent diabetes Optimize insulins, the patient was hypoglycemic prior to lunch, with decrease Lantus dose Polysubstance abuse Counseled on cessation of substances, smoking cessation counseling performed for 10 minutes Nonadherence to medications and treatments Preventative health counseling was performed for 17 minutes History Interval history: Review of systems Constitutional: No fevers, no malaise, no joint pains CVS: No chest pain, no orthopnea, no dyspnea on exertion, no pedal edema GI: No abdominal pain, no diarrhea, no vomiting, no constipation Respiratory: no wheezing, no coughing Hospitalist Physical - Physical exam Narrative exam: General.: Appears well, no distress, nontoxic HEENT: Moist mucous membranes, extraocular muscles intact, no lymphadenopathy Neck: supple Cardiac: S1-S2 heard Lungs: clear to auscultation bilaterally Abdomen: soft , nontender, nondistended, bowel sounds positive Extremities: no edema clubbing or cyanosis Skin: no rash or lesions Neurologic: no gross focal deficits, moves all extremities Psych: calm, and cooperative - Constitutional Vitals: Temp Pulse Resp BP Pulse Ox 98.3 F 97 H 15 97/47 98 03/03/19 13:27 03/03/19 13:27 03/03/19 13:27 03/03/19 13:27 03/03/19 13:27 Results - Labs CBC & Chem 7: 03/01/19 00:26 03/02/19 04:23 Labs: Laboratory Last Values WBC 11.3 K/mm3 (4.5-11.0) H 03/01/19 00:26 RBC 4.45 M/mm3 (3.65-5.03) 03/01/19 00:26 Hgb 12.9 gm/dl (11.8-15.2) 03/01/19 00:26 Hct 38.8 % (35.5-45.6) 03/01/19 00:26 MCV 87 fl (84-94) 03/01/19 00:26 MCH 29 pg (28-32) 03/01/19 00:26 MCHC 33 % (32-34) 03/01/19 00:26 RDW 16.1 % (13.2-15.2) H 03/01/19 00:26 Plt Count 371 K/mm3 (140-440) 03/01/19 00:26 Lymph % (Auto) 11.5 % (13.4-35.0) L 03/01/19 00:26 Sargent % (Auto) 8.9 % (0.0-7.3) H 03/01/19 00:26 Eos % (Auto) 0.4 % (0.0-4.3) 03/01/19 00:26 Baso % (Auto) 0.2 % (0.0-1.8) 03/01/19 00:26 Lymph # 1.3 K/mm3 (1.2-5.4) 03/01/19 00:26 Sargent # 1.0 K/mm3 (0.0-0.8) H 03/01/19 00:26 Eos # 0.0 K/mm3 (0.0-0.4) 03/01/19 00:26 Baso # 0.0 K/mm3 (0.0-0.1) 03/01/19 00:26 Seg Neutrophils % 79.0 % (40.0-70.0) H 03/01/19 00:26 Seg Neutrophils # 8.9 K/mm3 (1.8-7.7) H 03/01/19 00:26 VBG pH 7.338 (7.320-7.420) 03/01/19 00:26 Sodium 141 mmol/L (137-145) 03/02/19 04:23 Potassium 3.5 mmol/L (3.6-5.0) L 03/02/19 04:23 Chloride 109.4 mmol/L (98-107) H 03/02/19 04:23 Carbon Dioxide 22 mmol/L (22-30) 03/02/19 04:23 13 mmol/L 03/02/19 04:23 BUN 7 mg/dL (9-20) L 03/02/19 04:23 0.8 mg/dL (0.8-1.5) 03/02/19 04:23 Estimated GFR > 60 ml/min 03/02/19 04:23 9 % 03/02/19 04:23 Glucose 152 mg/dL (75-100) H 03/02/19 04:23 POC Glucose 214 (70-105) H 03/03/19 08:40 Calcium 7.9 mg/dL (8.4-10.2) L 03/02/19 04:23 Phosphorus 5.50 mg/dL (2.5-4.5) H 03/01/19 02:03 Magnesium 2.40 mg/dL (1.7-2.3) H 03/01/19 02:03 0.80 mg/dL (0.1-1.2) 03/01/19 00:26 AST 21 units/L (5-40) 03/01/19 00:26 ALT 17 units/L (7-56) 03/01/19 00:26 84 units/L (35-129) 03/01/19 00:26 6.8 g/dL (6.3-8.2) 03/01/19 00:26 3.9 g/dL (3.9-5) 03/01/19 00:26 1.3 % 03/01/19 00:26 Colorless (Yellow) 03/01/19 04:10 Clear (Clear) 03/01/19 04:10 5.0 (5.0-7.0) 03/01/19 04:10 Ur Specific [place] 1.025 (1.003-1.030) 03/01/19 04:10 <15 mg/dl mg/dL (Negative) 03/01/19 04:10 >=500 mg/dL (Negative) 03/01/19 04:10 80 mg/dL (Negative) 03/01/19 04:10 Neg (Negative) 03/01/19 04:10 Neg (Negative) 03/01/19 04:10 Neg (Negative) 03/01/19 04:10 < 2.0 mg/dL (<2.0) 03/01/19 04:10 Ur Leukocyte Esterase Neg (Negative) 03/01/19 04:10 < 1.0 /HPF (0.0-6.0) 03/01/19 04:10 2.0 /HPF (0.0-6.0) 03/01/19 04:10 Few /HPF 03/01/19 04:10 Presumptive negative 03/01/19 04:10 Presumptive negative 03/01/19 04:10 Ur Barbiturates Screen Presumptive negative 03/01/19 04:10 Ur Phencyclidine Scrn Presumptive negative 03/01/19 04:10 Ur Amphetamines Screen Presumptive negative 03/01/19 04:10 U Benzodiazepines Scrn Presumptive negative 03/01/19 04:10 Presumptive positive 03/01/19 04:10 U Marijuana (THC) Screen Presumptive negative 03/01/19 04:10 Disclamer 03/01/19 04:10 Active Medications - Current Medications Current Medications: Generic Name Dose Route Start Last Admin Trade Name Freq PRN Reason Stop Dose Admin Acetaminophen 650 mg 03/01/19 04:01 Tylenol PO Q4H PRN Headache Aspirin 325 mg 03/03/19 10:00 03/03/19 09:59 Aspirin PO 325 mg QDAY ANTONIA Administration Dextrose 50 ml 03/02/19 13:23 D50w (25gm) Syringe IV PRN PRN Hypoglycemia Divalproex Sodium 500 mg 03/02/19 22:00 03/03/19 10:11 Depakote Er PO Not Given BID ANTONIA Enoxaparin Sodium 40 mg 03/01/19 22:00 03/02/19 21:29 Lovenox SUB-Q 40 mg QDAY@2200 ANTONIA Administration Famotidine 20 mg 03/02/19 22:00 03/03/19 09:59 Pepcid PO 20 mg BID ANTONIA Administration Folic Acid 1 mg 03/01/19 10:00 03/03/19 09:59 Folvite PO 1 mg QDAY ANTONIA Administration Sodium Chloride 1,000 mls @ 200 mls/hr 03/01/19 04:00 03/03/19 09:57 Nacl 0.9% 1000 Ml IV 200 mls/hr DIRECT ANTONIA Administration Insulin Glargine 30 units 03/03/19 22:00 Lantus SUB-Q QHS ANTONIA Insulin Human Lispro 10 unit 03/02/19 16:30 03/03/19 11:50 Humalog SUB-Q Not Given AC [facility] Insulin Human Regular 0 units 03/02/19 16:30 03/03/19 11:50 Humulin R SUB-Q Not Given ACHS [facility] Protocol Lisinopril 10 mg 03/03/19 10:00 03/03/19 10:02 Zestril PO Not Given QDAY ANTONIA Lorazepam 2 mg 03/01/19 09:24 Ativan PO Q1H PRN CIWA-Ar 8-15 Lorazepam 4 mg 03/01/19 09:25 07/11/19 09:42 Ativan IV 4 mg Q1H PRN Administration CIWA-Ar 16-25 Lorazepam 4 mg 03/01/19 09:25 Ativan IV Q15MIN PRN CIWA-Ar >25 Ondansetron HCl 4 mg 03/01/19 04:01 Zofran IV Q8H PRN Nausea And Vomiting Thiamine HCl 100 mg 03/01/19 10:00 03/03/19 10:04 Vitamin B-1 PO 100 mg QDAY ANTONIA Administration Nutrition/Malnutrition Assess - Dietary Evaluation Nutrition/Malnutrition Findings: Nutrition Notes Start: 03/01/19 15:21 Freq: Status: Active Protocol: Document 03/03/19 12:17 TERESA (Rec: 03/03/19 12:19 [facility] [id number]) Nutrition Notes Need for Assessment generated from: MD Order,Education Current Diet Consistent CHO Subjective/Other Information RD consulted for diet education. Pt received DM diet education on 08/11/18. Pt currently being followed by RD. Nutrition Intervention Follow-Up By: 03/05/19 Additional Comments F/U: MST screen and need for DM diet education/refresher
--- NOTE | 2019-03-03 17:42 | Progress Note ---
Assessment and Plan Patient alert, awake. Resting on room air. O2 saturation 96%.No complaint of chest pain, shortness of breath. Complaing some cough . Patient has heavy history of smoking 1 1/2 pack for 15 years. Counselled to stop smoking. - Patient Problems (1) DKA (diabetic ketoacidoses) Current Visit: Yes Status: Acute Qualifiers: Plan to address problem: Improving. Patient alert, awake. Recent blood sugur 142. (2) Cocaine abuse Current Visit: Yes Status: Acute Plan to address problem: Counselled to stop using Cocain. (3) Bipolar disorder Current Visit: No Status: Acute Plan to address problem: Management as per primary care. (4) Tobacco use disorder Current Visit: Yes Status: Acute Plan to address problem: Counselled to stop smoking. Chest xray PA and Lateral ABGs on room air. Subjective Date of service: 03/03/19 Principal diagnosis: DKA; Ac. encephalopathy; Cocaine abuse; schizophrenia; Metabolic acidosis Interval history: Patient alert, awake. Resting on room air. O2 saturation 96%.No complaint of chest pain, shortness of breath. Complaing some cough . Patient has heavy history of smoking 1 1/2 pack for 15 years. Counselled to stop smoking. Objective Vital Signs - 12hr 03/03/19 03/03/19 03/03/19 10:02 13:27 16:01 Temperature 98.3 F 98.2 F Pulse Rate 100 H 97 H 91 H Respiratory 15 16 Rate Blood Pressure 88/55 97/47 106/75 O2 Sat by Pulse 98 96 Oximetry Constitutional: no acute distress, alert Eyes: non-icteric ENT: oropharynx moist, other (mallampati 2) Effort: normal Ascultation: Bilateral: clear Percussion: Bilateral: not dull Cardiovascular: regular rate and rhythm Gastrointestinal: normoactive bowel sounds, soft, non-tender, non-distended Integumentary: normal Extremities: no cyanosis, no edema, pulses normal, no ischemia or petechiae Neurologic: normal mental status, non-focal exam, pupils equal and round, CN II- XII normal, motor strength normal and Psychiatric: mood appropriate, affect normal CBC and BMP: 03/01/19 00:26 03/02/19 04:23 Abnormal lab findings: Abnormal Labs 03/01/19 03/01/19 03/01/19 00:22 00:26 00:26 WBC 11.3 H RDW 16.1 H Lymph % (Auto) 11.5 L [place] % (Auto) 8.9 H [place] # 1.0 H Seg Neutrophils % 79.0 H Seg Neutrophils # 8.9 H Sodium 130 L Potassium Chloride 86.9 L Carbon Dioxide 16 L BUN Creatinine Glucose 768 H* POC Glucose > 500 H Calcium Phosphorus Magnesium 03/01/19 03/01/19 03/01/19 02:03 02:03 03:48 WBC RDW Lymph % (Auto) [place] % (Auto) [place] # Seg Neutrophils % Seg Neutrophils # Sodium 131 L Potassium Chloride 88.2 L Carbon Dioxide 14 L BUN Creatinine Glucose 696 H* POC Glucose 372 H Calcium Phosphorus 5.50 H Magnesium 2.40 H 03/01/19 03/01/19 03/01/19 04:41 05:52 05:52 WBC RDW Lymph % (Auto) [place] % (Auto) [place] # Seg Neutrophils % Seg Neutrophils # Sodium Potassium Chloride Carbon Dioxide 21 L D BUN Creatinine Glucose 177 H POC Glucose 284 H 206 H Calcium Phosphorus Magnesium 03/01/19 03/01/19 03/01/19 06:55 08:28 08:45 WBC RDW Lymph % (Auto) [place] % (Auto) [place] # Seg Neutrophils % Seg Neutrophils # Sodium Potassium Chloride Carbon Dioxide BUN Creatinine Glucose 115 H POC Glucose 165 H 129 H Calcium Phosphorus Magnesium 03/01/19 03/01/19 03/01/19 09:34 10:49 11:55 WBC RDW Lymph % (Auto) [place] % (Auto) [place] # Seg Neutrophils % Seg Neutrophils # Sodium Potassium Chloride Carbon Dioxide BUN Creatinine Glucose POC Glucose 136 H 108 H 158 H Calcium Phosphorus Magnesium 03/01/19 03/01/19 03/01/19 12:41 13:00 14:17 WBC RDW Lymph % (Auto) [place] % (Auto) [place] # Seg Neutrophils % Seg Neutrophils # Sodium Potassium Chloride Carbon Dioxide BUN Creatinine Glucose 181 H POC Glucose 192 H 154 H Calcium Phosphorus Magnesium 03/01/19 03/01/19 03/01/19 15:12 16:44 17:38 WBC RDW Lymph % (Auto) [place] % (Auto) [place] # Seg Neutrophils % Seg Neutrophils # Sodium Potassium Chloride Carbon Dioxide BUN Creatinine Glucose POC Glucose 111 H 114 H 157 H Calcium Phosphorus Magnesium 03/01/19 03/01/19 03/02/19 18:43 23:00 00:00 WBC RDW Lymph % (Auto) [place] % (Auto) [place] # Seg Neutrophils % Seg Neutrophils # Sodium Potassium Chloride Carbon Dioxide BUN 7 L Creatinine 0.7 L Glucose 110 H POC Glucose 159 H 153 H Calcium 8.0 L Phosphorus Magnesium 03/02/19 03/02/19 03/02/19 01:14 02:07 03:02 WBC RDW Lymph % (Auto) [place] % (Auto) [place] # Seg Neutrophils % Seg Neutrophils # Sodium Potassium Chloride Carbon Dioxide BUN Creatinine Glucose POC Glucose 217 H 215 H 215 H Calcium Phosphorus Magnesium 03/02/19 03/02/19 03/02/19 03:57 04:23 05:04 WBC RDW Lymph % (Auto) [place] % (Auto) [place] # Seg Neutrophils % Seg Neutrophils # Sodium Potassium 3.5 L Chloride 109.4 H Carbon Dioxide BUN 7 L Creatinine Glucose 152 H POC Glucose 180 H 130 H Calcium 7.9 L Phosphorus Magnesium 03/02/19 03/02/19 03/02/19 07:53 08:31 09:23 WBC RDW Lymph % (Auto) [place] % (Auto) [place] # Seg Neutrophils % Seg Neutrophils # Sodium Potassium Chloride Carbon Dioxide BUN Creatinine Glucose POC Glucose 159 H 159 H 146 H Calcium Phosphorus Magnesium 03/02/19 03/02/19 03/02/19 10:08 11:28 12:11 WBC RDW Lymph % (Auto) [place] % (Auto) [place] # Seg Neutrophils % Seg Neutrophils # Sodium Potassium Chloride Carbon Dioxide BUN Creatinine Glucose POC Glucose 144 H 150 H 163 H Calcium Phosphorus Magnesium 03/02/19 03/02/19 03/02/19 13:21 14:34 21:21 WBC RDW Lymph % (Auto) [place] % (Auto) [place] # Seg Neutrophils % Seg Neutrophils # Sodium Potassium Chloride Carbon Dioxide BUN Creatinine Glucose POC Glucose 228 H 137 H 239 H Calcium Phosphorus Magnesium 03/03/19 03/03/19 03/03/19 08:40 11:54 16:11 WBC RDW Lymph % (Auto) [place] % (Auto) [place] # Seg Neutrophils % Seg Neutrophils # Sodium Potassium Chloride Carbon Dioxide BUN Creatinine Glucose POC Glucose 214 H 56 L 142 H Calcium Phosphorus Magnesium Allied health notes reviewed: nursing
[2019-03-03] MEDS ORDERED: LANTUS SUB-Q SCH (22:00)
[2019-03-03] MEDS: LOVENOX SUB-Q SCH (22:24)
[2019-03-04 06:44] VITALS: BP 104/71
[2019-03-04] MEDS: HumaLOG SUB-Q SCH ×4 (08:36→17:07)
[2019-03-04] MEDS: HumuLIN R SUB-Q SCH ×3 (08:37→17:07)
--- NOTE | 2019-03-04 09:37 | XRay Report ---
CHEST 2 VIEWS 0914 INDICATION / CLINICAL INFORMATION: Tobaco use.. COMPARISON: 08/18/2018 FINDINGS: SUPPORT DEVICES: None. HEART / MEDIASTINUM: No significant abnormality. LUNGS / PLEURA: No areas of consolidation are seen. There may be minimal left pleural effusion. No pn eumothorax. ADDITIONAL FINDINGS: No significant additional findings. IMPRESSION: No significant acute abnormality Signer Name: Nathaniel Garcias MD Signed: 03/04/2019 9:33 AM Workstation Name: [email or web address]
[2019-03-04] MEDS: FOLVITE PO SCH (11:41)
[2019-03-04] MEDS: ASPIRIN PO SCH (11:41)
[2019-03-04] MEDS: VITAMIN B-1 PO SCH (11:41)
[2019-03-04] MEDS: PEPCID PO SCH (11:41)
[2019-03-04] MEDS: ZESTRIL PO SCH (11:42)
--- NOTE | 2019-03-04 12:43 | Discharge Summary ---
Providers - Providers Date of Admission: 03/01/19 03:15 Attending physician: AYDEE GUY MD 03/01/19 03:57 Consult to Physician [CONS] Routine Comment: Consulting Provider: BOLIVAR WAHL Physician Instructions: Reason For Exam: ICU ADMISSION BECAUSE OF INSULIN DRIP 03/01/19 13:21 Speech Therapy Evaluation and Treat [CONS] Routine Reason For Exam: swallow evaluation 03/02/19 13:23 Consult to Dietitian/Nutrition [CONS] Routine Physician Instructions: Reason For Exam: Reason for Consult: Diet education [facility] Hospital[facility] Condition: Stable Hospital course: 33M who pw high blood glucoses which began after patient's was taking cocaine and not taking his insulin. Acute toxic and metabolic encephalopathy Resolved - Etoh withdrawal/etoh dependence ciwa protocol, improved DKA uncontrolled insulin-dependent diabetes insulins optimized Polysubstance abuse Counseled on cessation of substances, smoking cessation counseling performed for 10 minutes Nonadherence to medications and treatments Preventative health counseling was performed for 17 minutes Disposition: DC-01 TO HOME OR SELFCARE Time spent for discharge: 33 mins Core Measure Documentation - Palliative Care Palliative Care/ Comfort Measures: Not Applicable - Core Measures Any of the following diagnoses?: none Exam - Constitutional Vitals: Temp Pulse Resp BP Pulse Ox 98.1 F 83 18 104/71 93 03/04/19 05:58 03/04/19 11:42 03/04/19 05:58 03/04/19 11:42 03/04/19 05:58 General appearance: Present: no acute distress, well-nourished - EENT Eyes: Present: PERRL ENT: hearing intact, clear oral mucosa - Neck Neck: Present: supple, normal ROM - Respiratory Respiratory effort: normal Respiratory: bilateral: CTA - Cardiovascular Heart Sounds: Present: S1 & S2. Absent: rub, click - Extremities Extremities: pulses symmetrical, No edema Peripheral Pulses: within normal limits - Abdominal General gastrointestinal: Present: soft, non-tender, non-distended, normal bowel sounds Male genitourinary: Present: normal - Integumentary Integumentary: Present: clear, warm, dry - Musculoskeletal Musculoskeletal: gait normal, strength equal bilaterally - Psychiatric Psychiatric: appropriate mood/affect, intact judgment & insight - Neurologic Neurologic: CNII-XII intact, moves all extremities Plan Follow up with: SEVEN DAVIS MD [Primary Care Provider] - 3-5 Days Prescriptions: Insulin Glargine [Lantus VIAL] 30 units SUB-Q QHS 30 Days units Folic Acid [Folvite] 1 mg PO QDAY #30 tablet Lispro Insulin [HumaLOG] 0 unit SUB-Q ACHS #1 vial Thiamine [Vitamin B-1] 100 mg PO QDAY #30 tablet
--- NOTE | 2019-03-04 14:53 | Progress Note ---
Assessment and Plan atient alert, awake. Resting on room air. O2 saturation 93%.No complaint of chest pain, shortness of breath. Complaing slight cough . Patient has heavy history of smoking 1 1/2 pack for 15 years. Counselled to stop smoking. Patients chest xray reported no acute abnormality. ABG on room air POC ABG pH 7.401 (7.35-7.45) 03/04/19 11:51 POC ABG pCO2 37.5 (35-45) 03/04/19 11:51 POC ABG pO2 99 (80-105) 03/04/19 11:51 POC ABG HCO3 23.3 (22-26 mml/L) 03/04/19 11:51 POC ABG Total CO2 24 (23-27mmol/L) 03/04/19 11:51 POC ABG O2 Sat 98 03/04/19 11:51 - Patient Problems (1) DKA (diabetic ketoacidoses) Current Visit: Yes Status: Acute Qualifiers: Plan to address problem: Improved Patient alert, awake. (2) Cocaine abuse Current Visit: Yes Status: Acute Plan to address problem: Counselled to stop using Cocain. (3) Bipolar disorder Current Visit: No Status: Acute Plan to address problem: Management as per primary care. (4) Tobacco use disorder Current Visit: Yes Status: Acute Plan to address problem: Counselled to stop smoking. PFTs as out patient. Subjective Date of service: 03/04/19 Principal diagnosis: DKA; Ac. encephalopathy; Cocaine abuse; schizophrenia; Metabolic acidosis Interval history: Patient alert, awake. Resting on room air. O2 saturation 93%.No complaint of chest pain, shortness of breath. Complaing slight cough . Patient has heavy history of smoking 1 1/2 pack for 15 years. Counselled to stop smoking. Patients chest xray reported no acute abnormality. ABG on room air POC ABG pH 7.401 (7.35-7.45) 03/04/19 11:51 POC ABG pCO2 37.5 (35-45) 03/04/19 11:51 POC ABG pO2 99 (80-105) 03/04/19 11:51 POC ABG HCO3 23.3 (22-26 mml/L) 03/04/19 11:51 POC ABG Total CO2 24 (23-27mmol/L) 03/04/19 11:51 POC ABG O2 Sat 98 03/04/19 11:51 Objective Vital Signs - 12hr 03/04/19 03/04/19 05:58 11:42 Temperature 98.1 F Pulse Rate 83 83 Respiratory 18 Rate Blood Pressure 104/71 104/71 O2 Sat by Pulse 93 Oximetry Constitutional: no acute distress, alert Eyes: non-icteric ENT: oropharynx moist, other (mallampati 2) Effort: normal Ascultation: Bilateral: clear Percussion: Bilateral: not dull Cardiovascular: regular rate and rhythm Gastrointestinal: normoactive bowel sounds, soft, non-tender, non-distended Integumentary: normal Extremities: no cyanosis, no edema, pulses normal, no ischemia or petechiae Neurologic: normal mental status, non-focal exam, pupils equal and round, CN II- XII normal, motor strength normal and Psychiatric: mood appropriate, affect normal CBC and BMP: 03/01/19 00:26 03/02/19 04:23 ABG, PT/INR, D-dimer: ABG POC ABG pH 7.401 (7.35-7.45) 03/04/19 11:51 POC ABG pCO2 37.5 (35-45) 03/04/19 11:51 POC ABG pO2 99 (80-105) 03/04/19 11:51 POC ABG HCO3 23.3 (22-26 mml/L) 03/04/19 11:51 POC ABG Total CO2 24 (23-27mmol/L) 03/04/19 11:51 POC ABG O2 Sat 98 03/04/19 11:51 Abnormal lab findings: Abnormal Labs 03/01/19 03/01/19 03/01/19 00:22 00:26 00:26 WBC 11.3 H RDW 16.1 H Lymph % (Auto) 11.5 L Archer % (Auto) 8.9 H Archer # 1.0 H Seg Neutrophils % 79.0 H Seg Neutrophils # 8.9 H Sodium 130 L Potassium Chloride 86.9 L Carbon Dioxide 16 L BUN Creatinine Glucose 768 H* POC Glucose > 500 H Calcium Phosphorus Magnesium 03/01/19 03/01/19 03/01/19 02:03 02:03 03:48 WBC RDW Lymph % (Auto) Archer % (Auto) Archer # Seg Neutrophils % Seg Neutrophils # Sodium 131 L Potassium Chloride 88.2 L Carbon Dioxide 14 L BUN Creatinine Glucose 696 H* POC Glucose 372 H Calcium Phosphorus 5.50 H Magnesium 2.40 H 03/01/19 03/01/19 03/01/19 04:41 05:52 05:52 WBC RDW Lymph % (Auto) Archer % (Auto) Archer # Seg Neutrophils % Seg Neutrophils # Sodium Potassium Chloride Carbon Dioxide 21 L D BUN Creatinine Glucose 177 H POC Glucose 284 H 206 H Calcium Phosphorus Magnesium 03/01/19 03/01/19 03/01/19 06:55 08:28 08:45 WBC RDW Lymph % (Auto) Archer % (Auto) Archer # Seg Neutrophils % Seg Neutrophils # Sodium Potassium Chloride Carbon Dioxide BUN Creatinine Glucose 115 H POC Glucose 165 H 129 H Calcium Phosphorus Magnesium 03/01/19 03/01/19 03/01/19 09:34 10:49 11:55 WBC RDW Lymph % (Auto) Archer % (Auto) Archer # Seg Neutrophils % Seg Neutrophils # Sodium Potassium Chloride Carbon Dioxide BUN Creatinine Glucose POC Glucose 136 H 108 H 158 H Calcium Phosphorus Magnesium 03/01/19 03/01/19 03/01/19 12:41 13:00 14:17 WBC RDW Lymph % (Auto) Archer % (Auto) Archer # Seg Neutrophils % Seg Neutrophils # Sodium Potassium Chloride Carbon Dioxide BUN Creatinine Glucose 181 H POC Glucose 192 H 154 H Calcium Phosphorus Magnesium 03/01/19 03/01/19 03/01/19 15:12 16:44 17:38 WBC RDW Lymph % (Auto) Archer % (Auto) Archer # Seg Neutrophils % Seg Neutrophils # Sodium Potassium Chloride Carbon Dioxide BUN Creatinine Glucose POC Glucose 111 H 114 H 157 H Calcium Phosphorus Magnesium 03/01/19 03/01/19 03/02/19 18:43 23:00 00:00 WBC RDW Lymph % (Auto) Archer % (Auto) Archer # Seg Neutrophils % Seg Neutrophils # Sodium Potassium Chloride Carbon Dioxide BUN 7 L Creatinine 0.7 L Glucose 110 H POC Glucose 159 H 153 H Calcium 8.0 L Phosphorus Magnesium 03/02/19 03/02/19 03/02/19 01:14 02:07 03:02 WBC RDW Lymph % (Auto) Archer % (Auto) Archer # Seg Neutrophils % Seg Neutrophils # Sodium Potassium Chloride Carbon Dioxide BUN Creatinine Glucose POC Glucose 217 H 215 H 215 H Calcium Phosphorus Magnesium 03/02/19 03/02/19 03/02/19 03:57 04:23 05:04 WBC RDW Lymph % (Auto) Archer % (Auto) Archer # Seg Neutrophils % Seg Neutrophils # Sodium Potassium 3.5 L Chloride 109.4 H Carbon Dioxide BUN 7 L Creatinine Glucose 152 H POC Glucose 180 H 130 H Calcium 7.9 L Phosphorus Magnesium 03/02/19 03/02/19 03/02/19 07:53 08:31 09:23 WBC RDW Lymph % (Auto) Archer % (Auto) Archer # Seg Neutrophils % Seg Neutrophils # Sodium Potassium Chloride Carbon Dioxide BUN Creatinine Glucose POC Glucose 159 H 159 H 146 H Calcium Phosphorus Magnesium 03/02/19 03/02/19 03/02/19 10:08 11:28 12:11 WBC RDW Lymph % (Auto) Archer % (Auto) Archer # Seg Neutrophils % Seg Neutrophils # Sodium Potassium Chloride Carbon Dioxide BUN Creatinine Glucose POC Glucose 144 H 150 H 163 H Calcium Phosphorus Magnesium 03/02/19 03/02/19 03/02/19 13:21 14:34 21:21 WBC RDW Lymph % (Auto) Archer % (Auto) Archer # Seg Neutrophils % Seg Neutrophils # Sodium Potassium Chloride Carbon Dioxide BUN Creatinine Glucose POC Glucose 228 H 137 H 239 H Calcium Phosphorus Magnesium 03/03/19 03/03/19 03/03/19 08:40 11:54 16:11 WBC RDW Lymph % (Auto) Archer % (Auto) Archer # Seg Neutrophils % Seg Neutrophils # Sodium Potassium Chloride Carbon Dioxide BUN Creatinine Glucose POC Glucose 214 H 56 L 142 H Calcium Phosphorus Magnesium 03/03/19 03/04/19 03/04/19 21:49 08:42 12:41 WBC RDW Lymph % (Auto) Archer % (Auto) Archer # Seg Neutrophils % Seg Neutrophils # Sodium Potassium Chloride Carbon Dioxide BUN Creatinine Glucose POC Glucose 160 H 114 H 241 H Calcium Phosphorus Magnesium Chest x-ray: report reviewed (Reported no acute abnormality. Minimal left pleural effusion.), image reviewed Allied health notes reviewed: nursing
== END 2019-03-04 09:05 | disposition home or self-care (01) | DRG 637 ==
LOC: ED 00:06 → CC1 03:15 → 3A 03-02 17:51
PROVIDERS: ADMIT Internal Medicine; ATTEND Internal Medicine
PROC: 4A033R1 Measurement of Arterial Saturation, Peripheral, Percutaneous Approach (ICD-10-PCS; principal; 2019-03-04)
DX: E11.10 Type 2 diabetes mellitus with ketoacidosis without coma (principal); G92 Toxic encephalopathy; F14.10 Cocaine abuse, uncomplicated; F31.9 Bipolar disorder, unspecified; F10.239 Alcohol dependence with withdrawal, unspecified; F19.10 Other psychoactive substance abuse, uncomplicated; E87.1 Hypo-osmolality and hyponatremia; F14.129 Cocaine abuse with intoxication, unspecified; F20.9 Schizophrenia, unspecified; I10 Essential (primary) hypertension; K21.9 Gastro-esophageal reflux disease without esophagitis; F17.210 Nicotine dependence, cigarettes, uncomplicated; D72.829 Elevated white blood cell count, unspecified; Z71.6 Tobacco abuse counseling; Z71.51 Drug abuse counseling and surveillance of drug abuser; Z91.14 Patient's other noncompliance with medication regimen; Z79.82 Long term (current) use of aspirin; Z79.899 Other long term (current) drug therapy; Z91.018 Allergy to other foods
CPT/HCPCS: 36415; 36600; 71046; 80048; 80053; 80307; 81001; 82803; 82805; 82962; 83735; 84100; 85025; 96372; 96374; 96375; 99291; 99406; G0378; J1650; J1815; J2060; J3486; J7030; J7040; J7050

== ENCOUNTER 2019-06-13 07:02 | Outpatient (CLI) | payer OTHER ==
--- NOTE | 2019-06-13 08:51 | Magnetic Resonance Report ---
MRI ABDOMEN WITH AND WITHOUT CONTRAST INDICATION / CLINICAL INFORMATION: WEIGHT LOSS AND CHRONIC ABDOMINAL PAIN/POSSIBLE ABDOMINAL MASS ON. TECHNIQUE: Multiplanar, multisequence series were obtained through the abdomen. 15 mL of MultiHance was administ ered for dynamic postcontrast imaging of the liver. COMPARISON: CT abdomen pelvis with contrast dated 11/24/2017. No abdominal mass was demonstrated on this exam. FINDINGS: LIVER: The liver is normal size, contour and signal. No parenchymal disease is appreciated. There is a 5 mm focus of enhancement in the left hepatic lobe most consistent with type I enhancement pattern of a cavernous hemangioma. No suspicious liver mass is identified. GALLBLADDER: No significant abnormality. BILE DUCTS: No significant abnormality. PANCREAS: No significant abnormality. SPLEEN: No significant abnormality. ADRENALS: No significant abnormality. RIGHT KIDNEY AND URETER: No significant abnormality. LEFT KIDNEY AND URETER: No significant abnormality. STOMACH AND VISUALIZED BOWEL: No significant abnormality. PERITONEUM: No free fluid. No free air. No fluid collection. LYMPH NODES: No significant adenopathy. AORTA and ARTERIES: No significant abnormality. IVC and VEINS: No significant abnormality. SKELETAL SYSTEM: No significant abnormality. IMPRESSION: Essentially normal MRI of the abdomen with and without contrast. No suspicious abdominal mass or sly opathy is identified. There is a tiny focus of enhancement in the left lobe of the liver which is mos t consistent with type I enhancement pattern of a small cavernous hemangioma. Signer Name: Anirudh Estrada Jr, MD Signed: 06/13/2019 8:47 AM Workstation Name: [id number]
== END 2019-06-13 07:03 | disposition home or self-care (01) ==
LOC: MRI 07:02
PROVIDERS: ATTEND Internal Medicine
DX: K76.89 Other specified diseases of liver (principal); E11.9 Type 2 diabetes mellitus without complications; I10 Essential (primary) hypertension; K21.9 Gastro-esophageal reflux disease without esophagitis; F17.200 Nicotine dependence, unspecified, uncomplicated; F14.10 Cocaine abuse, uncomplicated; Z72.89 Other problems related to lifestyle
CPT/HCPCS: 74183; A9577